=== PATIENT | male | born 1960 | race Caucasian/White ===

== ENCOUNTER 2017-07-30 13:53 | Emergency (ER) | payer OTHER ==
[~2017-07-30] VITALS: Ht 175.3 cm; Wt 74.8 kg
[~2017-07-30 13:53] MED LIST: IBUPROFEN400 MG PO; ZOFRAN ODT4 MG SL
== END 2017-07-30 14:10 | disposition home or self-care (01) ==
LOC: ED 13:53
DX: R23.4 Changes in skin texture (principal); R21 Rash and other nonspecific skin eruption

== ENCOUNTER 2017-10-15 00:19 | Emergency (ER) | payer OTHER ==
[~2017-10-15] VITALS: Ht 175.3 cm; Wt 74.8 kg
[2017-10-15] MEDS ORDERED: BACTRIM DS TAB1 EACH PO (00:49)
== END 2017-10-15 00:56 | disposition home or self-care (01) ==
LOC: ED 00:19
DX: L30.3 Infective dermatitis (principal); Z88.0 Allergy status to penicillin
CPT/HCPCS: 99283

== ENCOUNTER 2018-08-07 12:09 | Observation (INO) | payer OTHER ==
[~2018-08-07] VITALS: Ht 177.8 cm; Wt 76.2 kg
--- OUTSIDE RECORDS SUMMARY | ~2018-08-07 | XMS | Encounter Summary ---
Demographics + + + | Address | [address] | | | [place] [address] | + + + | Home Phone | | + + + | Preferred Language | Unknown | + + + | Marital Status | | + + + | Scientology Affiliation | 1013 | + + + | Race | Unknown | + + + | Ethnic Group | Unknown | + + + Author + + + | Author | [facility] | | | and [place] | + + + | Organization | [facility] | | | and [place] | + + + | Address | Unknown | + + + | Phone | Unavailable | + + + Support + + +---------+ + | Name | Relationship | Address | Phone | + + +---------+ + | Lauren Chappell | ECON | Unknown | | + + +---------+ + Care Team Providers + +------+ + | Care Qualitative Executive Researcher Name | Role | Phone | + +------+ + | Cassandra Salamanca MD | PCP | | + +------+ + Reason for Visit Auth/Cert +--------+--------+ + + + + | Status | Reason | Specialty | Diagnoses / | Referred By | Referred To | | | | | Procedures | Contact | Contact | +--------+--------+ + + + + | | | | Diagnoses | | | | | | | | | | | | | | Decompensate | | | | | | | d HCV | | | | | | | cirrhosis | | | | | | | (HCC) | | | | | | | (B19.20, | | | | | | | K74.69), | | | | | | | Methamphetam | | | | | | | ine abuse, | | | | | | | episodic | | | | | | | (HCC) | | | | | | | (F15.10), | | | | | | | Secondary | | | | | | | esophageal | | | | | | | varices with | | | | | | | bleeding | | | | | | | (HCC) | | | | | | | (I85.11), | | | | | | | Hepatic | | | | | | | cirrhosis, | | | | | | | unspecified | | | | | | | hepatic | | | | | | | cirrhosis | | | | | | | type, | | | | | | | unspecified | | | | | | | whether | | | | | | | ascites | | | | | | | present | | | | | | | (HCC) | | | | | | | (K74.60) | | | | | | | Cannabis | | | | | | | dependant | | | | | | | (F12.20) | | | | | | | Procedures | | | | | | | [place] | | | | | | | COLONOSCOPY | | | | | | | FLX DX | | | | | | | W/COLLJ SPEC | | | | | | | WHEN PFRMD | | | | | | | [place] | | | | | | | COLONOSCOPY | | | | | | | W/BIOPSY | | | | | | | SINGLE/MULTI | | | | | | | PLE AK | | | | | | | COLSC FLX | | | | | | | W/RMVL OF | | | | | | | TUMOR POLYP | | | | | | | LESION SNARE | | | | | | | TQ AK | | | | | | | ESOPHAGOGAST | | | | | | | RODUODENOSCO | | | | | | | PY TRANSORAL | | | | | | | DIAGNOSTIC | | | | | | | AK EGD | | | | | | | TRANSORAL | | | | | | | BIOPSY | | | | | | | SINGLE/MULTI | | | | | | | PLE AK | | | | | | | ANESTHESIA | | | | | | | COMBINED | | | | | | | UPPER&LOWER | | | | | | | GI | | | | | | | ENDOSCOPIC | | | | | | | PX AK EGD | | | | | | | BAND | | | | | | | LIGATION | | | | | | | ESOPHGEAL/GA | | | | | | | STRIC | | | | | | | VARICES EGD | | | | | | | | | | | | | | COLONOSCOPY | | | +--------+--------+ + + + + Encounter Details +--------+ + + + + | Date | Type | Department | Care Team | Description | +--------+ + + + + | 06/13/ | Hospital | [facility] | Иван [place] | Special screening | | 2019 | Encounter | [facility] | MD Agustin [address] | for malignant | | | | [address] | [address] [place] | neoplasms, colon; | | | | [place], [place] | [place] [address] | Secondary esophageal | | | | [address] | [phone] | varices with | | | | [phone] | | bleeding (HCC); | | | | | | Hematemesis without | | | | | | nausea | +--------+ + + + + Social History + +-------+ +--------+ + | Tobacco Use | Types | Packs/Day | Years | Date | | | | | Used | | + +-------+ +--------+ + | Former Smoker | | 1 | | Started: 04/06/2018 | + +-------+ +--------+ + + +---+---+---+ | Smokeless Tobacco: | | | | | Never Used | | | | + +---+---+---+ + + +---------+ + | Alcohol Use | Drinks/We | oz/Week | Comments | | | ek | | | + + +---------+ + | No | | | | + + +---------+ + + + + | Sex Assigned at | Date Recorded | | | | + + + | Not on file | | + + + as of this encounter Last Filed Vital Signs + + + + | Vital Sign | Reading | Time Taken | + + + + | Blood Pressure | 138/90 | 06/13/2018943 PST | + + + + | Pulse | 74 | 06/13/2018943 PST | + + + + | Temperature | 36.2 C (97.2 F) | 06/13/2018922 PST | + + + + | Respiratory Rate | 16 | 06/13/2018922 PST | + + + + | Oxygen Saturation | 100% | 06/13/2018943 PST | + + + + | Inhaled Oxygen | - | - | | Concentration | | | + + + + | Weight | 63.6 kg (140 lb 3.4 | 06/13/2018751 PST | | | oz) | | + + + + | Height | 177.8 cm (5' 10") | 06/13/2018 0752 PST | + + + + | Body Mass Index | 20.12 | 06/13/2018 0752 PST | + + + + in this encounter Discharge Instructions Corina Gibson RN - 06/13/2018 Soft Diet Your healthcare provider has prescribed a soft diet (also called gastrointestinal soft diet ). This means eating foods that are soft, low in fiber, and easy to digest. This diet is for people with digestive problems. A soft diet provides foods that are easy to chew and swallo w. Foods should be bite-size and very soft or moist. Follow your healthcare provider s [facility] instructions about what foods and drinks you may have. The general guidelines below ca n help you get started on this diet. Beverages OK: Milk, tea, coffee, fruit juices, carbonated beverages, nutrition shakes, and drinks (No te: Thin liquids may be hard to swallow. They may need to be thickened.) Avoid: None, unless they need to be thickened Breads and crackers OK: Refined white, wheat, or seedless rye bread; genia or soda crackers that have been shelby stened; plain rolls or bagels; very soft tortillas Avoid: Whole-grain breads, rolls, or bagels with nuts, raisins, or seeds; crackers, crouton s, taco shells Cereals and grains OK: Cooked cereals, plain dry cereals that have been moistened, plain macaroni, spaghetti, noodles, rice Avoid: Whole-grain cereals and granola, or cereals containing bran, raisins, seeds or nuts; coconut; brown or wild rice Desserts and sweets OK: Moist cake; soft fruit pie with bottom crust only; soft cookies moistened in milk or ot her liquid; gelatin, custard, pudding, plain ice cream, plain sherbet, sugar, honey, clear j toney Avoid: Pastries, desserts, andice cream that have nuts, coconut, seeds, or dried fruit; p opcorn; chips of any kind including potato chips and tortilla chips; jam, marmalade Eggs and cheese OK: Poached, soft boiled, or scrambled eggs; cottage cheese, ricotta cheese, cream cheese, cheese sauces, or cheese melted in other dishes Avoid: O'Brien fried eggs, cheese slices and cubes Fruits OK: Avocado, banana, baked peeled apple, applesauce, peeled ripe peaches or pears, canned f ruit (apricots, cherries, peaches, pears), melons Avoid: Raw apple, dried fruits, coconut, pineapple, grapes, fruit kassidy, fruit snacks Meat and fish OK: All fresh meat, poultry, or fish that is cookeduntil tender Avoid: Meat, fish, or poultry that is fried; tough or stringy meat including sanders, sausage , bratwurst, jerky, corned beef Other protein foods OK: Tofu, baked beans, smooth peanut butter or other nut or seed butters Avoid: Deep-fried tofu; crunchy peanut or other nut or seed butters; nuts or seeds that are whole or chopped Soups OK: All soups, but they may need to be thickened. Thin liquid may be too hard to swallow. Avoid: Soups made with stringy meat pieces or chunky vegetables Vegetables OK: Peeled and well-cooked potatoes or sweet potatoes; fresh, cooked, canned, or frozen veg etables without seeds, skin, or coarse fiber Avoid: Raw vegetables, deep-fried vegetables (such as tempura), and corn Date Last Reviewed: 12/21/201519997399-[address] [employer] [place] [address]. All righ ts reserved. This information is not intended as a substitute for professional medical care. Always follow your healthcare professional's instructions. in this encounter Medications at Time of Discharge + + +-------+---------+--------+ + | Medication | Sig. | Disp. | Refills | Start | End Date | | | | | | Date | | + + +-------+---------+--------+ + | furosemide (LASIX) | Take 40 mg by mouth | | | | | | 40 mg tablet | 2 times daily. | | | | | + + +-------+---------+--------+ + | lactulose | Take 20 g by mouth 3 | | | | | | (CONSTULOSE) 10 g/15 | times daily. | | | | | | mL solution | | | | | | + + +-------+---------+--------+ + | potassium chloride | Take 20 mEq by mouth | | | | | | (KLOR-CON M20) 20 | Daily. | | | | | | mEq ER tablet | | | | | | + + +-------+---------+--------+ + | propranolol | propranolol 10 mg | | | | | | (INDERAL) 10 mg | tablet | | | | | | tablet | | | | | | + + +-------+---------+--------+ + | spironolactone | Take 100 mg by mouth | | | | | | (ALDACTONE) 100 MG | 2 times daily. | | | | | | tablet | | | | | | + + +-------+---------+--------+ + as of this encounter Plan of Treatment Not on fileas of this encounter Procedures + +--------+ + + + | Procedure Name | Priori | Date/Time | Associated Diagnosis | Comments | | | ty | | | | + +--------+ + + + | COLONOSCOPY | | 06/13/2018 | Decompensated HCV | | | | | 0910 PST | cirrhosis (HCC) | | | | | | (B19.20, K74.69), | | | | | | 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, episodic | | | | | | (HCC) (F15.10), | | | | | | Secondary esophageal | | | | | | varices with | | | | | | bleeding (HCC) | | | | | | (I85.11), Hepatic | | | | | | cirrhosis, | | | | | | unspecified hepatic | | | | | | cirrhosis type, | | | | | | unspecified whether | | | | | | ascites present | | | | | | (HCC) | | + +--------+ + + + | EGD | | 06/13/2018 | Decompensated HCV | | | | | 0910 PST | cirrhosis (HCC) | | | | | | (B19.20, K74.69), | | | | | | 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, episodic | | | | | | (HCC) (F15.10), | | | | | | Secondary esophageal | | | | | | varices with | | | | | | bleeding (HCC) | | | | | | (I85.11), Hepatic | | | | | | cirrhosis, | | | | | | unspecified hepatic | | | | | | cirrhosis type, | | | | | | unspecified whether | | | | | | ascites present | | | | | | (HCC) | | + +--------+ + + + | EGD | Routin | 06/13/2018 | | Results for this | | | e | 0809 PST | | procedure are in the | | | | | | results section. | + +--------+ + + + | COLONOSCOPY | Routin | 06/13/2018 | | Results for this | | | e | 0806 PST | | procedure are in the | | | | | | results section. | + +--------+ + + + in this encounter Results EGD (06/13/2018 0809) + + ---+ | Narrative | Performed At | + + ---+ | | [facility] | | GastroenterologyPatient Name: Delroy ChappellProshani Date: | [facility] | | 06/13/2018 8:09 AMMRN: [id number] #: [id number] of : | | | 1960Admit Type: AmbulatoryAge: 57Room: [facility] 02Gender: MaleNote | | | Status: FinalizedAttending MD: ИВАН WALLS , | | | MDProcedure: Upper GI | | | endoscopyIndications: Recent gastrointestinal bleeding, | | | Esophageal varices, Follow-up of | | | esophageal varices, Reflux esophagitis, | | | Follow-up of reflux | | | esophagitisProviders: ИВАН [place]ALLS MD, Ange | | | Juhi Salas RN, Kaila | | | Hernan, Hr Specialist, Carmine Rodriguez MD | | | (Anesthesia Staff)Referring | | | MD: Cassandra Salamanca (Referring MD), Bailee Fernandes, | | | SHANNAN (Referring | | | MD)Medicines: Monitored Anesthesia | | | CareComplications: No immediate | | | complications.Procedure: Pre-Anesthesia Assessment: - | | | Prior to the procedure, a History and Physical was performed, and | | | patient medications and allergies were reviewed. The patient | | | is competent. The risks and benefits of the procedure and the | | | sedation options and risks were discussed with the patient. | | | All questions were answered and informed consent was | | | obtained. Patient identification and proposed procedure were | | | verified by the physician, the nurse and the anesthesiologist | | | in the pre-procedure area in the procedure room. Mental | | | Status Examination: alert and oriented. Airway Examination: Mallampati | | | Class II (the uvula but not tonsillar pillars visualized). | | | Respiratory Examination: clear to auscultation. CV | | | Examination: normal. Prophylactic Antibiotics: The patient | | | does not require prophylactic antibiotics. Prior | | | Anticoagulants: The patient has taken no previous anticoagulant or | | | antiplatelet agents. ASA Grade Assessment: III - A patient | | | with severe systemic disease. After reviewing the risks and | | | benefits, the patient was deemed in satisfactory condition to | | | undergo the procedure. The anesthesia plan was to use | | | monitored anesthesia care (MAC). Immediately prior to | | | administration of medications, the patient was re-assessed for | | | adequacy to receive sedatives. The heart rate, respiratory | | | rate, oxygen saturations, blood pressure, adequacy of | | | pulmonary ventilation, and response to care were monitored | | | throughout the procedure. The physical status of the patient | | | was re-assessed after the procedure. After obtaining informed | | | consent, the endoscope was passed under direct vision. | | | Throughout the procedure, the patient's blood pressure, pulse, | | | and oxygen saturations were monitored continuously. The | | | Endoscope was introduced through the mouth, and advanced to | | | the second part of duodenum. The upper GI endoscopy was | | | accomplished without difficulty. The patient tolerated the | | | procedure well.Findings: The upper third of the esophagus and | | | middle third of the esophagus were normal. Grade II, | | | large (> 5 mm) varices were found in the lower third of the | | | esophagus. They were large in size. Four bands were successfully | | | placed with complete eradication, resulting in deflation of | | | varices. There was no bleeding at the end of the | | | maneuver. The Z-line was irregular and was found 38 cm from | | | the incisors. The previously seen esophagitis has resolved. I | | | suspected that there is Davis's esophagus, 2 tongues | | | measuring 1cm in length, but biopsies are contraindicated. | | | The area of davis's was included in the bands. Mild portal | | | hypertensive gastropathy was found in the entire examined | | | stomach. The cardia and gastric fundus were normal on | | | retroflexion. There is no endoscopic evidence of varices in | | | the entire examined stomach. The duodenal bulb and | | | second portion of the duodenum were normal.Impression: - | | | Normal upper third of esophagus and middle third of esophagus. | | | - Grade II and large (> 5 mm) esophageal varices. Completely | | | eradicated. Banded x4. Banded was indicated due to large | | | variceal size and history of an upper GI bleed. - | | | Z-line irregular, 38 cm from the incisors. Suspect short segment | | | Davis's esophagus, biopsies contraindicated. - | | | Portal hypertensive gastropathy. - Normal duodenal bulb and | | | second portion of the duodenum. - No specimens | | | collected.Recommendation: - The patient will be observed | | | post-procedure, until all discharge criteria are met. | | | - Full liquid diet today, then advance as tolerated to mechanical | | | soft diet for 3 days. - Use Prilosec (omeprazole) 20 | | | mg PO BID for 4 weeks. - Use Viscous Lidocaine (GI cocktail) | | | at 2% 10 mL PO q 6 hrs PRN for post banding pain. - | | | Repeat upper endoscopy in 3 weeks to evaluate the response to | | | therapy. - The findings and recommendations were discussed | | | with the patient. - See the other procedure note for | | | documentation of additional recommendations.ИВАН TOSCANO | | | MD TITI06/13/2018 9:21:35 AMThis report has been signed | | | electronically.Number of Addenda: 0Note Initiated On: 06/13/2018 8:09 | | | AMTotal Procedure Duration: 0 hours 19 minutes 40 seconds Scope In: | | | 8:31:40 AMScope Out: 8:51:20 AM [facility] | | | [place], [address] [place] [id number] | | | - See the other procedure note for documentation of additional | | | recommendations. | | |ИВАН WALLS MD | | |06/13/2018 9:21:35 AM | | |This report has been signed electronically. | | |Number of Addenda: 0 | | |Note Initiated On: 06/13/2018 8:09 AM | | |Total Procedure Duration: 0 hours 19 minutes 40 seconds | | |Scope In: 8:31:40 AM | | |Scope Out: 8:51:20 AM | | | [facility], [address] [place] [address] | | | [address] | | + + ---+ + +---------+ + + | Performing | Address | City/State/Zipcode | Phone Number | | Organization | | | | + +---------+ + + | [facility] | | | | + +---------+ + + COLONOSCOPY (06/13/2018805) + + ---+ | Narrative | Performed At | + + ---+ | | [facility] | | GastroenterologyPatient Name: Delroy ChappellProshani Date: | [facility] | | 06/13/2018 8:06 AMMRN: [id number] #: [id number] of : | | | 1960Admit Type: AmbulatoryAge: 57Room: [facility] 02Gender: MaleNote | | | Status: FinalizedAttending MD: ИВАН WALLS , | | | MDProcedure: ColonoscopyIndications: | | | Screening for colorectal malignant neoplasmProviders: | | | ИВАН WALLS MD, Ange Salas RN, | | | Kaila Becerra, Hr Specialist, | | | Carmine Rodriguez MD | | | (Anesthesia Staff)Referring MD: Cassandra Salamanca | | | (Referring MD), SHANNAN Daly | | | (Referring | | | MD)Medicines: Monitored Anesthesia | | | CareComplications: No immediate | | | complications.Procedure: Pre-Anesthesia Assessment: - | | | Prior to the procedure, a History and Physical was performed, and | | | patient medications and allergies were reviewed. The patient | | | is competent. The risks and benefits of the procedure and the | | | sedation options and risks were discussed with the patient. | | | All questions were answered and informed consent was | | | obtained. Patient identification and proposed procedure were | | | verified by the physician, the nurse and the anesthesiologist | | | in the pre-procedure area in the procedure room. Mental | | | Status Examination: alert and oriented. Airway Examination: Mallampati | | | Class II (the uvula but not tonsillar pillars visualized). | | | Respiratory Examination: clear to auscultation. CV | | | Examination: normal. Prophylactic Antibiotics: The patient | | | does not require prophylactic antibiotics. Prior | | | Anticoagulants: The patient has taken no previous anticoagulant or | | | antiplatelet agents. ASA Grade Assessment: III - A patient | | | with severe systemic disease. After reviewing the risks and | | | benefits, the patient was deemed in satisfactory condition to | | | undergo the procedure. The anesthesia plan was to use | | | monitored anesthesia care (MAC). Immediately prior to | | | administration of medications, the patient was re-assessed for | | | adequacy to receive sedatives. The heart rate, respiratory | | | rate, oxygen saturations, blood pressure, adequacy of | | | pulmonary ventilation, and response to care were monitored | | | throughout the procedure. The physical status of the patient | | | was re-assessed after the procedure. After I obtained informed | | | consent, the scope was passed under direct vision. | | | Throughout the procedure, the patient's blood pressure, pulse, | | | and oxygen saturations were monitored continuously. The | | | Colonoscope was introduced through the anus and advanced to | | | the cecum, identified by appendiceal orifice and ileocecal | | | valve. The colonoscopy was performed without difficulty. The | | | patient tolerated the procedure well. The quality of the | | | bowel preparation was evaluated using the BBPS ([place] Bowel | | | Preparation Scale) with scores of: Right Colon = 2 (minor amount | | | of residual staining, small fragments of stool and/or opaque | | | liquid, but mucosa seen well), Transverse Colon = 2 (minor | | | amount of residual staining, small fragments of stool and/or | | | opaque liquid, but mucosa seen well) and Left Colon = 2 | | | (minor amount of residual staining, small fragments of stool | | | and/or opaque liquid, but mucosa seen well). The total BBPS | | | score equals 6. The quality of the bowel preparation was | | | good.Findings: The perianal and digital rectal examinations | | | were normal. Moderately congested mucosa was found in the | | | entire colon. Likely due to portal hypertension. The | | | exam was otherwise without abnormality. The retroflexed view | | | of the distal rectum and anal verge was normal and showed no | | | anal or rectal abnormalities.Impression: - Congested mucosa in | | | the entire examined colon, likely secondary to portal | | | hypertension. - The examination was otherwise normal. | | | - The distal rectum and anal verge are normal on retroflexion | | | view. - No specimens collected.Recommendation: - The | | | patient will be observed post-procedure, until all discharge | | | criteria are met. - See the other procedure note for | | | documentation of additional recommendations. - Repeat | | | colonoscopy in 10 years for screening purposes.ИВАН WALLS | | | 06/13/2018 9:25:11 AMThis report has been signed | | | electronically.Number of Addenda: 0Note Initiated On: 06/13/2018 8:06 | | | AMScope Withdrawal Time: 0 hours 12 minutes 23 seconds Total Procedure | | | Duration: 0 hours 19 minutes 27 seconds Scope In: 8:53:24 AMScope | | | Out: 9:12:[address] [facility], [address] | | [place] [address] | | |ИВАН WALLS MD | | |06/13/2018 9:25:11 AM | | |This report has been signed electronically. | | |Number of Addenda: 0 | | |Note Initiated On: 06/13/2018 8:06 AM | | |Scope Withdrawal Time: 0 hours 12 minutes 23 seconds | | |Total Procedure Duration: 0 hours 19 minutes 27 seconds | | |Scope In: 8:53:24 AM | | |Scope Out: 9:12:51 AM | | | 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, 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), Methamphetamine abuse, episodic | | (HCC) (F15.10), Secondary esophageal varices with bleeding (HCC) (I85.11), Hepatic | | cirrhosis, unspecified hepatic cirrhosis type, unspecified whether ascites present (HCC) | + + | (K74.60) Cannabis dependant (F12.20) | + + Administered Medications + +--------+---------+------+------+------+ | Medication Order | MAR | Action | Dose | Rate | Site | | | Action | Date | | | | + +--------+---------+------+------+------+ + +---+ | albuterol 2.5 mg/3 mL nebulizer | | | solution 2.5 mg 2.5 mg, | | | Nebulization, ONCE PRN, Wheezing, | | | Starting Mon06/13/18 at 0936, | | | For 1 dose, Notify anesthesia if | | | patient is wheezing and does not | | | have a history of asthma or COPD | | | or current smoking. | | + +---+ | | | + +---+ | aluminum & magnesium | | | hydroxide-simethicone (MAALOX | | | PLUS REGULAR STRENGTH) 200-200-20 | | | mg/5 mL suspension 30 mL 30 mL, | | | Oral, ONCE PRN, Indigestion, | | | Pain, Starting Mon06/13/18 at | | | 0936, For 1 dose, Mix lidocaine | | | and Maalox. Shake well. | | + +---+ | | | + +---+ + +---------+ +---+-------+---+ | lactated ringers (LR) infusion | New Bag | | | 100 | | | at 100 mL/hr, Intravenous, | | 9 8:23 | | mL/hr | | | CONTINUOUS, Starting 06/13/18 | | PST | | | | | at 0845, Pre-op | | | | | | + +---------+ +---+-------+---+ + +---+ | | | + +---+ | lidocaine (XYLOCAINE) 2% | | | viscous solution 10 mL 10 mL, | | | Oral, ONCE PRN, Pain, Starting | | | 06/13/18 at 0936, For 1 dose, | | | Mix lidocaine and MAALOX. Shake | | | well. | | + +---+ | | | + +---+ + +-------+ +------+---+---+ | ondansetron (ZOFRAN) injection | Given | | 4 mg | | | | 4 mg 4 mg, Intravenous, ONCE | | 9 9:39 | | | | | PRN, Nausea, Starting 06/13/18 | | PST | | | | | at 0936, For 1 dose, | | | | | | | Recovery/Phase I | | | | | | + +-------+ +------+---+---+ +---+---+ | | | +---+---+ in this encounter
--- OUTSIDE RECORDS SUMMARY | ~2018-08-07 | XMS | Encounter Summary ---
Demographics + + + | Address | [address] | | | [place] [address] | + + + | Home Phone | | + + + | Preferred Language | Unknown | + + + | Marital Status | | + + + | Baptism Affiliation | 1013 | + + + | Race | Unknown | + + + | Ethnic Group | Unknown | + + + Author + + + | Author | [facility] | | | and [place] | + + + | Organization | [facility] | | | and [place] | [...] Team Providers + +------+ + | Care Java Websphere Developer Name | Role | Phone | + +------+ + | Cassandra Salamanca MD | PCP | | + +------+ + Encounter Details +--------+ + + + + | Date | Type | Department | Care Team | Description | +--------+ + + + + | 06/05/ | Episode | [facility] | Leticia Ngo | | | 2019 | Changes | GASTROENTEROLOGY | Lisset RN | | | | | [address] [place] | | | | | | [address] [place] | | | | | | [address] | | | | | | [phone] | | | +--------+ + + + [...] + + + as of this encounter Plan of Treatment Not on fileas of this encounter Visit Diagnoses Not on filein this encounter"
--- OUTSIDE RECORDS SUMMARY | ~2018-08-07 | XMS | Encounter Summary ---
Demographics + + + | Address | [address] | | | [place] [address] | + + + | Home Phone | | + + + | Preferred Language | Unknown | + + + | Marital Status | | + + + | Hindu Affiliation | 1013 | + + + | Race | Unknown | + + + | Ethnic Group | Unknown | + + + Author + + + | Author | [facility] | | | and [place] | + + + | Organization | [facility] | | | and [place] | [...] Team Providers + +------+ + | Care Artists' Model Name | Role | Phone | + +------+ + | Ricardo Zhou DO | PCP | | + +------+ + Encounter Details +--------+ + + + + | Date | Type | Department | Care Team | Description | +--------+ + + + + | 05/24/ | Abstract | [facility] | [place], | | | 2018 | | GASTROENTEROLOGY | MD Chrissy [address] | | | | | [address] [facility] | Carmen Garcia | | | | | [address] [place] [place] | [place] [address] | | | | | [address] | | | | | | [phone] | | | +--------+ + + + + Social History + +-------+ +--------+ + | Tobacco Use | Types | Packs/Day | Years | Date | | | | | Used | | + +-------+ +--------+ + | Current Every Day | | 1 | | Started: 05/22/1975 | | Smoker | | | | | + +-------+ +--------+ + + +---+---+---+ [...] | + +--------+ + + + | HIV 1 AND HIV 2 AG | Routin | 04/30/2018 | | Results for this | | AND AB CONFIRMATION, | e | 0000 PST | | procedure are in the | | SERUM | | | | results section. | + +--------+ + + + | EXTERNAL LAB: BUN | Routin | 04/30/2018 | | Results for this | | | e | 0000 PST | | procedure are in the | | | | | | results section. | + +--------+ + + + | EXTERNAL LAB: | Routin | 04/30/2018 | | Results for this | | GLUCOSE | e | 0000 PST | | procedure are in the | | | | | | results section. | + +--------+ + + + | EXTERNAL LAB: PSA | Routin | 04/30/2018 | | Results for this | | | e | 0000 PST | | procedure are in the | | | | | | results section. | + +--------+ + + + | EXTERNAL LAB: ALT | Routin | 04/30/2018 | | Results for this | | | e | 0000 PST | | procedure are in the | | | | | | results section. | + +--------+ + + + | EXTERNAL LAB: AST | Routin | 04/30/2018 | | Results for this | | | e | 0000 PST | | procedure are in the | | | | | | results section. | + +--------+ + + + | EXTERNAL LAB: | Routin | 04/30/2018 | | Results for this | | ALKALINE PHOSPHATASE | e | 0000 PST | | procedure are in the | | | | | | results section. | + +--------+ + + + | EXTERNAL LAB: | Routin | 04/30/2018 | | Results for this | | BILIRUBIN, TOTAL | e | 0000 PST | | procedure are in the | | | | | | results section. | + +--------+ + + + | EXTERNAL LAB: | Routin | 04/30/2018 | | Results for this | | ALBUMIN | e | 0000 PST | | procedure are in the | | | | | | results section. | + +--------+ + + + | EXTERNAL LAB: | Routin | 04/30/2018 | | Results for this | | PROTEIN, TOTAL | e | 0000 PST | | procedure are in the | | | | | | results section. | + +--------+ + + + | EXTERNAL LAB: | Routin | 04/30/2018 | | Results for this | | CALCIUM | e | 0000 PST | | procedure are in the | | | | | | results section. | + +--------+ + + + | EXTERNAL LAB: CARBON | Routin | 04/30/2018 | | Results for this | | DIOXIDE | e | 0000 PST | | procedure are in the | | | | | | results section. | + +--------+ + + + | EXTERNAL LAB: | Routin | 04/30/2018 | | Results for this | | CHLORIDE | e | 0000 PST | | procedure are in the | | | | | | results section. | + +--------+ + + + | EXTERNAL LAB: | Routin | 04/30/2018 | | Results for this | | POTASSIUM | e | 0000 PST | | procedure are in the | | | | | | results section. | + +--------+ + + + | EXTERNAL LAB: SODIUM | Routin | 04/30/2018 | | Results for this | | | e | 0000 PST | | procedure are in the | | | | | | results section. | + +--------+ + + + | EXTERNAL LAB: | Routin | 04/30/2018 | | Results for this | | VITAMIN D, | e | 0000 PST | | procedure are in the | | 25-HYDROXY | | | | results section. | + +--------+ + + + | EXTERNAL LAB: | Routin | 04/30/2018 | | Results for this | | HEPATITIS C AB | e | 0000 PST | | procedure are in the | | | | | | results section. | + +--------+ + + + | EXTERNAL LAB: CBC | Routin | 04/30/2018 | | Results for this | | | e | 0000 PST | | procedure are in the | | | | | | results section. | + +--------+ + + + | EXTERNAL LAB: TSH | Routin | 04/30/2018 | | Results for this | | | e | 0000 PST | | procedure are in the | | | | | | results section. | + +--------+ + + + | EXTERNAL LAB: | Routin | 04/30/2018 | | Results for this | | TRIGLYCERIDES | e | 0000 PST | | procedure are in the | | | | | | results section. | + +--------+ + + + | EXTERNAL LAB: | Routin | 04/30/2018 | | Results for this | | CHOLESTEROL, HDL | e | 0000 PST | | procedure are in the | | | | | | results section. | + +--------+ + + + | EXTERNAL LAB: | Routin | 04/30/2018 | | Results for this | | CHOLESTEROL, TOTAL | e | 0000 PST | | procedure are in the | | | | | | results section. | + +--------+ + + + | EXTERNAL LAB: | Routin | 04/30/2018 | | Results for this | | CHOLESTEROL, LDL | e | 0000 PST | | procedure are in the | | | | | | results section. | + +--------+ + + + | EXTERNAL LAB: EGFR | Routin | 04/30/2018 | | Results for this | | | e | 0000 PST | | procedure are in the | | | | | | results section. | + +--------+ + + + | EXTERNAL LAB: | Routin | 04/30/2018 | | Results for this | | CREATININE | e | 0000 PST | | procedure are in the | | | | | | results section. | + +--------+ + + + | VITAMIN B12+FOLATE | Routin | 04/30/2018 | | Results for this | | | e | 0000 PST | | procedure are in the | | | | | | results section. | + +--------+ + + + | LIPID PANEL | Routin | 04/30/2018 | | Results for this | | | e | 0000 PST | | procedure are in the | | | | | | results section. | + +--------+ + + + | INSULIN, FASTING | Routin | 04/30/2018 | | Results for this | | | e | 0000 PST | | procedure are in the | | | | | | results section. | + +--------+ + + + | HEPATITIS C | Routin | 04/30/2018 | | Results for this | | GENOTYPING | e | 0000 PST | | procedure are in the | | | | | | results section. | + +--------+ + + + | HEPATITIS C | Routin | 04/30/2018 | | Results for this | | RNA,QUANTITATIVE,PCR | e | 0000 PST | | procedure are in the | | | | | | results section. | + +--------+ + + + | HEPATITIS B SURFACE | Routin | 04/30/2018 | | Results for this | | AB | e | 0000 PST | | procedure are in the | | | | | | results section. | + +--------+ + + + | HEPATITIS B SURFACE | Routin | 04/30/2018 | | Results for this | | AG | e | 0000 PST | | procedure are in the | | | | | | results section. | + +--------+ + + + | CBC WITH | Routin | 04/30/2018 | | Results for this | | DIFFERENTIAL | e | 0000 PST | | procedure are in the | | | | | | results section. | + +--------+ + + + | C-REACTIVE PROTEIN | Routin | 04/30/2018 | | Results for this | | | e | 0000 PST | | procedure are in the | | | | | | results section. | + +--------+ + + + | T4, FREE | Routin | 04/30/2018 | | Results for this | | | e | 0000 PST | | procedure are in the | | | | | | results section. | + +--------+ + + + | HEMOGLOBIN A1C | Routin | 04/30/2018 | | Results for this | | | e | 0000 PST | | procedure are in the | | | | | | results section. | + +--------+ + + + | COMPREHENSIVE | Routin | 04/30/2018 | | Results for this | | METABOLIC PANEL | e | 0000 PST | | procedure are in the | | | | | | results section. | + +--------+ + + + in this encounter Results CBC with Differential (04/30/2018) + +-------+ + + | Component | Value | Ref Range | Performed At | + +-------+ + + | MCH | 33.0 | 26.0 - 33.0 pg | | + +-------+ + + | MCHC | 34.0 | 31.0 - 37.0 % | | + +-------+ + + | Basophils % | 0.7 | 0 - 2 | | + +-------+ + + + + | Specimen | + + | Blood | + + HIV 1 and HIV 2 AG and AB Confirmation (04/30/2018) + + + + + | Component | Value | Ref Range | Performed At | + + + + + | HIV 1/2 Ag/Ab | Non-Reactive | | | + + + + + + + | Specimen | + + | Blood | + + Hepatitis C Genotyping (04/30/2018) + +-------+ + + | Component | Value | Ref Range | Performed At | + +-------+ + + | HCV Genotype | 2b | | | + +-------+ + + + + | Specimen | + + | Blood | + + Hepatitis C RNA, quantitative, PCR (04/30/2018) + +---------+ + + | Component | Value | Ref Range | Performed At | + +---------+ + + | HCV Quantitative | 783,869 | | | + +---------+ + + | HCV Quantitative Log | 5.89 | | | + +---------+ + + + + | Specimen | + + | Blood | + + External Lab: Hepatitis C Ab (04/30/2018) + + + + + | Component | Value | Ref Range | Performed At | + + + + + | HCV, External | Positive (A) | Non-Reactive | | + + + + + | Signal/Cutoff | 36.86 | | | + + + + + C-Reactive Protein (04/30/2018) + + + + + | Component | Value | Ref Range | Performed At | + + + + + | CRP | 15.90 (A) | 0 - 3 mg/L | | + + + + + + + | Specimen | + + | Blood | + + Insulin, Fasting (04/30/2018) + +-------+ + + | Component | Value | Ref Range | Performed At | + +-------+ + + | Insulin, Fasting | 10.2 | 2.6 - 24.9 uIU/mL | | + +-------+ + + + + | Specimen | + + | Blood | + + Vitamin B-12 and Folate (04/30/2018) + + + + + | Component | Value | Ref Range | Performed At | + + + + + | Vitamin B12 Bind | 1,327 (A) | 232 - 1,245 | | | Capacity | | | | + + + + + | Folate | 9.14 | 4.5 - 99,999 | | + + + + + + + | Specimen | + + | Blood | + + Hemoglobin A1C (04/30/2018) + +-------+ + + | Component | Value | Ref Range | Performed At | + +-------+ + + | Hgb A1 | <4.6 | | | + +-------+ + + + + | Specimen | + + | Blood | + + Comprehensive Metabolic Panel (04/30/2018) + +---------+ + + | Component | Value | Ref Range | Performed At | + +---------+ + + | Anion Gap | 14 | 7 - 21 mmol/L | | + +---------+ + + | BUN/Creatinine Ratio | 13.3 | 6 - 28.6 | | + +---------+ + + | Globulin | 4.4 (A) | 1.8 - 3.5 | | + +---------+ + + | Albumin/Globulin | 0.5 (A) | 1.1 - 2.4 | | | Ratio | | | | + +---------+ + + + + | Specimen | + + | Blood | + + T4, Free (04/30/2018) + +-------+ + + | Component | Value | Ref Range | Performed At | + +-------+ + + | FREE T4 (REF) | 1.29 | 0.71 - 1.7 | | + +-------+ + + + + | Specimen | + + | Blood | + + Lipid Panel (04/30/2018) + +-------+ + + | Component | Value | Ref Range | Performed At | + +-------+ + + | VLDL Cholesterol Kirk | 11 | 4 - 40 | | + +-------+ + + | Chol/HDL Ratio | 3.1 | 0.0 - 5.0 | | + +-------+ + + | Non HDL Chol. | 81 | 0 - 130 | | | (LDL+VLDL) | | | | + +-------+ + + + + | Specimen | + + | Blood | + + External Lab: STEVEN (04/30/2018) + +-------+ + + | Component | Value | Ref Range | Performed At | + +-------+ + + | BUN, External | 10 | 6 - 23 | EXTERNAL LAB | + +-------+ + + + +---------+ + + | Performing | Address | City/State/Zipcode | Phone Number | | Organization | | | | + +---------+ + + | EXTERNAL LAB | | | | + +---------+ + + External Lab: Glucose (04/30/2018) + +-------+ + + | Component | Value | Ref Range | Performed At | + +-------+ + + | Glucose, External | 87 | 70 - 100 | EXTERNAL LAB | + +-------+ + + + +---------+ + + | Performing | Address | City/State/Zipcode | Phone Number | | Organization | | | | + +---------+ + + | EXTERNAL LAB | | | | + +---------+ + + External Lab: PSA (04/30/2018) + +-------+ + + | Component | Value | Ref Range | Performed At | + +-------+ + + | PSA, External | 0.100 | 0 - 4 | EXTERNAL LAB | + +-------+ + + + +---------+ + + | Performing | Address | City/State/Zipcode | Phone Number | | Organization | | | | + +---------+ + + | EXTERNAL LAB | | | | + +---------+ + + External Lab: ALT (04/30/2018) + +--------+ + + | Component | Value | Ref Range | Performed At | + +--------+ + + | ALT, External | 94 (A) | 7 - 52 | EXTERNAL LAB | + +--------+ + + + +---------+ + + | Performing | Address | City/State/Zipcode | Phone Number | | Organization | | | | + +---------+ + + | EXTERNAL LAB | | | | + +---------+ + + External Lab: AST (04/30/2018) + +---------+ + + | Component | Value | Ref Range | Performed At | + +---------+ + + | AST, External | 128 (A) | 13 - 39 | EXTERNAL LAB | + +---------+ + + + +---------+ + + | Performing | Address | City/State/Zipcode | Phone Number | | Organization | | | | + +---------+ + + | EXTERNAL LAB | | | | + +---------+ + + External Lab: Alkaline Phosphatase (04/30/2018) + +---------+ + + | Component | Value | Ref Range | Performed At | + +---------+ + + | ALP, External | 231 (A) | 31 - 120 | EXTERNAL LAB | + +---------+ + + + +---------+ + + | Performing | Address | City/State/Zipcode | Phone Number | | Organization | | | | + +---------+ + + | EXTERNAL LAB | | | | + +---------+ + + External Lab: Bilirubin, Total (04/30/2018) + +---------+ + + | Component | Value | Ref Range | Performed At | + +---------+ + + | Bilirubin, Total, | 1.5 (A) | 0 - 1.2 | EXTERNAL LAB | | External | | | | + +---------+ + + + +---------+ + + | Performing | Address | City/State/Zipcode | Phone Number | | Organization | | | | + +---------+ + + | EXTERNAL LAB | | | | + +---------+ + + External Lab: Albumin (04/30/2018) + +---------+ + + | Component | Value | Ref Range | Performed At | + +---------+ + + | Albumin, External | 2.4 (A) | 3.5 - 5 | EXTERNAL LAB | + +---------+ + + + +---------+ + + | Performing | Address | City/State/Zipcode | Phone Number | | Organization | | | | + +---------+ + + | EXTERNAL LAB | | | | + +---------+ + + External Lab: Protein, Total (04/30/2018) + +-------+ + + | Component | Value | Ref Range | Performed At | + +-------+ + + | Protein, Total, | 6.8 | 6 - 8.3 | EXTERNAL LAB | | External | | | | + +-------+ + + + +---------+ + + | Performing | Address | City/State/Zipcode | Phone Number | | Organization | | | | + +---------+ + + | EXTERNAL LAB | | | | + +---------+ + + External Lab: Calcium (04/30/2018) + +---------+ + + | Component | Value | Ref Range | Performed At | + +---------+ + + | Calcium, External | 8.2 (A) | 8.5 - 10.3 | EXTERNAL LAB | + +---------+ + + + +---------+ + + | Performing | Address | City/State/Zipcode | Phone Number | | Organization | | | | + +---------+ + + | EXTERNAL LAB | | | | + +---------+ + + External Lab: Carbon Dioxide (04/30/2018) + +-------+ + + | Component | Value | Ref Range | Performed At | + +-------+ + + | Carbon Dioxide, | 25 | 19 - 31 | EXTERNAL LAB | | External | | | | + +-------+ + + + +---------+ + + | Performing | Address | City/State/Zipcode | Phone Number | | Organization | | | | + +---------+ + + | EXTERNAL LAB | | | | + +---------+ + + External Lab: Chloride (04/30/2018) + +-------+ + + | Component | Value | Ref Range | Performed At | + +-------+ + + | Chloride, External | 100 | 95 - 112 | EXTERNAL LAB | + +-------+ + + + +---------+ + + | Performing | Address | City/State/Zipcode | Phone Number | | Organization | | | | + +---------+ + + | EXTERNAL LAB | | | | + +---------+ + + External Lab: Potassium (04/30/2018) + +-------+ + + | Component | Value | Ref Range | Performed At | + +-------+ + + | Potassium, External | 4.3 | 3.6 - 5.1 | EXTERNAL LAB | + +-------+ + + + +---------+ + + | Performing | Address | City/State/Zipcode | Phone Number | | Organization | | | | + +---------+ + + | EXTERNAL LAB | | | | + +---------+ + + External Lab: Sodium (04/30/2018) + +-------+ + + | Component | Value | Ref Range | Performed At | + +-------+ + + | Sodium, External | 135 | 132 - 143 | EXTERNAL LAB | + +-------+ + + + +---------+ + + | Performing | Address | City/State/Zipcode | Phone Number | | Organization | | | | + +---------+ + + | EXTERNAL LAB | | | | + +---------+ + + External Lab: Vitamin D, 25-Hydroxy (04/30/2018) + +--------+ + + | Component | Value | Ref Range | Performed At | + +--------+ + + | Vitamin D, | 12 (A) | 30 - 100 | EXTERNAL LAB | | 25-Hydroxy, External | | | | + +--------+ + + + + | Specimen | + + | Blood | + + + +---------+ + + | Performing | Address | City/State/Zipcode | Phone Number | | Organization | | | | + +---------+ + + | EXTERNAL LAB | | | | + +---------+ + + External Lab: CBC (04/30/2018) + + + + + | Component | Value | Ref Range | Performed At | + + + + + | WBC, External | 4.3 (A) | 4.5 - 11 | EXTERNAL LAB | + + + + + | HGB, External | 12.8 (A) | 13.5 - 18 | EXTERNAL LAB | + + + + + | HCT, External | 38 (A) | 41 - 50 | EXTERNAL LAB | + + + + + | PLT, External | 146 | 140 - 440 | EXTERNAL LAB | + + + + + | Neutrophils %, | 56.1 | 39 - 80 | EXTERNAL LAB | | External | | | | + + + + + | Lymphocytes %, | 21.8 (A) | 24 - 44 | EXTERNAL LAB | | External | | | | + + + + + | Monocytes %, | 13.4 (A) | 0 - 12 | EXTERNAL LAB | | External | | | | + + + + + | Eosinophils %, | 8 (A) | 0 - 6 | EXTERNAL LAB | | External | | | | + + + + + | RBC, External | 3.86 (A) | 4.3 - 5.7 | EXTERNAL LAB | + + + + + | MCV, External | 98 | 81 - 99 | EXTERNAL LAB | + + + + + | RDW, External | 14.9 | 10.5 - 15 | EXTERNAL LAB | + + + + + + +---------+ + + | Performing | Address | City/State/Zipcode | Phone Number | | Organization | | | | + +---------+ + + | EXTERNAL LAB | | | | + +---------+ + + External Lab: TSH (04/30/2018) + + + + + | Component | Value | Ref Range | Performed At | + + + + + | TSH, External | 5.37 (A)Comment: 3rd | 0.27 - 4.2 | EXTERNAL LAB | | | generation | | | + + + + + + + | Specimen | + + | Blood | + + + +---------+ + + | Performing | Address | City/State/Zipcode | Phone Number | | Organization | | | | + +---------+ + + | EXTERNAL LAB | | | | + +---------+ + + External Lab: Triglycerides (04/30/2018) + +-------+ + + | Component | Value | Ref Range | Performed At | + +-------+ + + | Triglycerides, | 53 | 30 - 150 | EXTERNAL LAB | | External | | | | + +-------+ + + + + | Specimen | + + | Blood | + + + +---------+ + + | Performing | Address | City/State/Zipcode | Phone Number | | Organization | | | | + +---------+ + + | EXTERNAL LAB | | | | + +---------+ + + External Lab: Cholesterol, HDL (04/30/2018) + + + + + | Component | Value | Ref Range | Performed At | + + + + + | HDL Cholesterol, | 38.6 (A) | 40 - 99,999 mg/dl | EXTERNAL LAB | | External | | | | + + + + + + + | Specimen | + + | Blood | + + + +---------+ + + | Performing | Address | City/State/Zipcode | Phone Number | | Organization | | | | + +---------+ + + | EXTERNAL LAB | | | | + +---------+ + + External Lab: Cholesterol, Total (04/30/2018) + +-------+ + + | Component | Value | Ref Range | Performed At | + +-------+ + + | Cholesterol, Total, | 120 | 0 - 200 mg/dl | EXTERNAL LAB | | External | | | | + +-------+ + + + + | Specimen | + + | Blood | + + + +---------+ + + | Performing | Address | City/State/Zipcode | Phone Number | | Organization | | | | + +---------+ + + | EXTERNAL LAB | | | | + +---------+ + + External Lab: Cholesterol, LDL (04/30/2018) + +-------+ + + | Component | Value | Ref Range | Performed At | + +-------+ + + | LDL Cholesterol, | 71 | 0 - 100 | EXTERNAL LAB | | External | | | | + +-------+ + + + + | Specimen | + + | Blood | + + + +---------+ + + | Performing | Address | City/State/Zipcode | Phone Number | | Organization | | | | + +---------+ + + | EXTERNAL LAB | | | | + +---------+ + + External Lab: eGFR (04/30/2018) + +-------+ + + | Component | Value | Ref Range | Performed At | + +-------+ + + | eGFR, External | >60 | 60 - 99,999 | EXTERNAL LAB | + +-------+ + + + + | Specimen | + + | Blood | + + + +---------+ + + | Performing | Address | City/State/Zipcode | Phone Number | | Organization | | | | + +---------+ + + | EXTERNAL LAB | | | | + +---------+ + + External Lab: Creatinine (04/30/2018) + +-------+ + + | Component | Value | Ref Range | Performed At | + +-------+ + + | Creatinine, External | 0.75 | 0.7 - 1.33 | EXTERNAL LAB | + +-------+ + + + + | Specimen | + + | Blood | + + + +---------+ + + | Performing | Address | City/State/Zipcode | Phone Number | | Organization | | | | + +---------+ + + | EXTERNAL LAB | | | | + +---------+ + + Hepatitis B Surface Ab (04/30/2018) + + + + + | Component | Value | Ref Range | Performed At | + + + + + | HEP B SURFACE | Negative | | | | ANTIBODY | | | | + + + + + + + | Specimen | + + | Blood | + + Hepatitis B Surface Ag (04/30/2018) + + + + + | Component | Value | Ref Range | Performed At | + + + + + | Hepatitis B Surface | Negative | | | | Ag, External | | | | + + + + + + + | Specimen | + + | Blood | + + in this encounter Visit Diagnoses Not on filein this encounter"
--- OUTSIDE RECORDS SUMMARY | ~2018-08-07 | XMS | Encounter Summary ---
Demographics + + + | Address | [address] | | | [place] [address] | + + + | Home Phone | | + + + | Preferred Language | Unknown | + + + | Marital Status | | + + + | Pentecostal Affiliation | 1013 | + + + | Race | Unknown | + + + | Ethnic Group | Unknown | + + + Author + + + | Author | [facility] | | | and [place] | + + + | Organization | [facility] | | | and [place] [...] Team Providers + +------+ + | Care Breaking Machine Operator Name | Role | Phone | + [...] [place] | | | | | | [address] | | | | | | [phone] | | | +--------+ + + + [...]
--- OUTSIDE RECORDS SUMMARY | ~2018-08-07 | XMS | Clinical Summary ---
Demographics + + + | Address | [address] | | | [place] [address] | + + + | Home Phone | | + + + | Preferred Language | Unknown | + + + | Marital Status | | + + + | Advent Affiliation | 1013 | + + + | Race | Unknown | + + + | Ethnic Group | Unknown | + + + Author + + + | Author | [facility] [employer] | + + + | Organization | [facility] [employer] [facility] | + + + | Address | Unknown | + + + | Phone | Unavailable | + + + Support + + + + + | Name | Relationship | Address | Phone | + + + + + | Lauren Addison | ECON | [address] | | | | [place] | | | | | [address] | | + + + + + Care Team Providers + +------+ + | Care Toll Line Inspector Name | Role | Phone | + [...] + | COMMERCIAL OTHER | COMMER | [id number] | | | | | | CIAL | | | | | | | GENERI | | | | | | | C PLAN | | | | | + +--------+ +------+-------+ + | MEDICAID | [facility] | [id number] | | | [address] | | | [place] | | | | [place] | | | [place] | | | | [address] | | | [place] | | | | | + +--------+ [...] | [place] | | | [phone] | [address] | + +--------+ +--------+ + +
--- OUTSIDE RECORDS SUMMARY | ~2018-08-07 | XMS | Encounter Summary ---
Demographics + + + | Address | [address] | | | [place] [address] | + + + | Home Phone | | + + + | Preferred Language | Unknown | + + + | Marital Status | | + + + | Episcopalian Affiliation | 1013 | + + + | Race | Unknown | + + + | Ethnic Group | Unknown | + + + Author + + + | Author | [facility] | | | and [place] | + + + | Organization | [facility] | | [...] Team Providers + +------+ + | Care Dentures Lab Technician Name | Role | Phone | + +------+ + | Cassandra Salamanca MD | PCP | | + +------+ + Encounter Details +--------+ + + + + | Date | Type | Department | Care Team | Description | +--------+ + + + + | 06/12/ | Episode | [facility] [place] | Leticia Ngo | | | 2019 | Changes | GASTROENTEROLOGY | Lisset RN | | | | | [address] [place] | | | | | | [address] [place] | | | | | | [address] | | | | | | [phone] | | | +--------+ + + + [...]
--- OUTSIDE RECORDS SUMMARY | ~2018-08-07 | XMS | Encounter Summary ---
Demographics + + + | Address | [address] | | | [place] [address] | + + + | Home Phone | | + + + | Preferred Language | Unknown | + + + | Marital Status | | + + + | Voodoo Affiliation | 1013 | + + + | Race | Unknown | + + + | Ethnic Group | Unknown | + + + Author + + + | Author | [facility] | | | and [place] | + + + | Organization | [facility] | | | and [place] | [...] Team Providers + +------+ + | Care Straightener And Aligner Name | Role | Phone | + +------+ + | Cassandra Salamanca MD | PCP | | + +------+ + Reason for Visit +--------+ + | Reason | Comments | +--------+ + | Other | cirrhosis | +--------+ + Evaluate & Treat (Routine) +--------+--------+ + + + + | Status | Reason | Specialty | Diagnoses / | Referred By | Referred To | | | | | Procedures | Contact | Contact | +--------+--------+ + + + + | Closed | | Gastroenterol | Diagnoses | Walker, | Vin[place], | | | | ogy | Unspecified | Ricardo Cruz DO | Harley Mariee MD | | | | | cirrhosis | [address], | | | | | of liver | Barry Cora | [address] | | | | | (HCC) | [place], | [place], | | | | | Procedures | [place] [address] | [place] [address] | | | | | OFFICE VISIT | Phone: | Phone: | | | | | | [phone] | [phone] | | | | | | Fax: | Fax: | | | | | | [phone] | [phone] | +--------+--------+ + + + + Encounter Details +--------+---------+ + + + | Date | Type | Department | Care Team | Description | +--------+---------+ + + + | 05/29/ | Office | [facility] [place] | [facility], | Decompensated HCV | | 2019 | Visit | GASTROENTEROLOGY | SHANNAN Morocho [address] | cirrhosis (HCC) | | | | [address] [place] | [place], [address] | (Primary Dx); | | | | [address] [place], [place] | [place], [place] | Methamphetamine | | | | [address] | [address] | abuse, episodic | | | | [phone] | | (HCC); Secondary | | | | | | esophageal varices | | | | | | with bleeding (HCC); | | | | | | Hepatic cirrhosis, | | | | | | unspecified hepatic | | | | | | cirrhosis type, | | | | | | unspecified whether | | | | | | ascites present | | | | | | (HCC) | +--------+---------+ + + + Social History [...] + + + | Blood Pressure | 110/66 | 05/29/2018857 PST | + + + + | Pulse | 63 | 05/29/2018857 PST | + + + + | Temperature | 36.8 C (98.2 F) | 05/29/2018857 PST | + + + + | Respiratory Rate | - | - | + + + + | Oxygen Saturation | 98% | 05/29/2018857 PST | + + + + | Inhaled Oxygen | - | - | | Concentration | | | + + + + | Weight | 65.1 kg (143 lb 8.3 | 05/29/2018857 PST | | | oz) | | + + + + | Height | 179.1 cm (5' 10.5") | 05/29/2018 0858 PST | + + + + | Body Mass Index | 20.3 | 05/29/201858 PST | + + + + in this encounter Progress Notes Promise FernandesianSHANNAN kendrick - 05/29/2018 0900 PSTFormatting of this note may be different fro m the original. PATIENT NAME: Delroy Chappell : 1960: AGE: 57 y.o. REFERRED BY: Ricardo Zhou PRIMARY CARE: Cassandra Salamanca MD CHIEF COMPLAINT: Delroy Chappell is a 57 y.o. male referred by Ricardo Zhou for evaluation and treat ment of HCV. HISTORY OF PRESENT ILLNESS: He was initially diagnosed with HCV about 16 years ago. He states he had labs that showed e xposure to HCV. He reports that he did not follow up due to lack of symptoms. Likely cause o f infection of HCV is home tattoos or IV or intranasal drug use. Has never been treated for HCV in the past. Last drank alcohol: 2013 Last smoked marijuana: daily. Last used illegal drugs: about 3 months ago, prior to that it had been 6 months. He had bee n using methamphetamine. No known risk factors for NAFLD. There is family history of autoimmune diseases. Sister has been diagnosed with multiple scl erosis. Patient notes that about 2 months ago, he reports that he was disoriented and nauseated. He states that when he woke up that morning. He and had episode of hematemesis. He was seen at [facility] initially. He was then transferred to [facility]. Records indicate that he had diagnostic and therapeutic paracentesis and EGD completed at [facility]. Denies ascites, jaundice, hematemesis, peripheral edema, sleep changes, or confusion. He has completed substance abuse treatment about 4 times over the past 30 years. No Known Allergies Past Medical History: Diagnosis Date Abdominal pain Abnormal EKG Alcoholism (HCC) Ascites Chemical dependency (HCC) Chest pain Chronic hepatitis C (HCC) Cirrhosis of liver (HCC) Drug dependence, in remission (HCC) Dyspepsia Fatigue GERD (gastroesophageal reflux disease) Hearing loss of left ear Heart attack (HCC) Hepatic encephalopathy (HCC) Numbness of right hand Pruritus of skin Sleep disturbances Tobacco dependence syndrome Ulnar neuropathy right Visual disturbance Past Surgical History: Procedure Laterality Date no known surgeries UPPER GASTROINTESTINAL ENDOSCOPY 04/07/2018 Dr Jama in [facility] Family History Problem Relation Age of Onset Other (see comment) Mother Congenital deformity Emphysema Mother Alcohol abuse Father Diabetes Sister Diabetes Brother Social History Social History Marital status: Spouse name: N/A Number of children: N/A Years of education: N/A Occupational History Not on file. Social History Main Topics Smoking status: Former Smoker Packs/day: 1.00 Start date: 04/06/2018 Smokeless tobacco: Never Used Alcohol use No Drug use: No Comment: previous meth user 1 year, previous Marijuana user clean about 7 months Sexual activity: Not on file Other Topics Concern Not on file Social History Narrative No narrative on file Review of Systems Constitutional: Negative for diaphoresis, fatigue, fever and unexpected weight change. HENT: Negative for congestion, hearing loss, mouth sores, rhinorrhea and trouble swallowing . Eyes: Negative for redness and visual disturbance. Respiratory: Negative for cough, choking, chest tightness, shortness of breath and wheezing . Cardiovascular: Negative for chest pain, palpitations and leg swelling. Gastrointestinal: Negative for abdominal distention, abdominal pain, anal bleeding, blood i n stool, constipation, diarrhea, nausea, rectal pain and vomiting. Complains of hematemesis. Endocrine: Denies enlarged thyroid Genitourinary: Negative for dysuria, flank pain and frequency. Musculoskeletal: Negative for arthralgias, back pain and joint swelling. Skin: Negative for color change and rash. Neurological: Negative for seizures, syncope, weakness, numbness and headaches. Hematological: Does not bruise/bleed easily. Denies anemia or enlarged lymph glands. Psychiatric/Behavioral: Negative for dysphoric mood. The patient is not nervous/anxious. OBJECTIVE: PHYSICAL EXAM General: well developed, well nourished, in no acute distress, temporal wasting noted, Head: normocephalic and atraumatic Eyes: Sclera clear Mouth: MMM Lungs: Clear to auscultate bilaterally and throughout Heart: regular rate and rhythm Abdomen: Soft, non tender, distended, bowel tones positive times 4 quadrants, negative Ludwig's sign, negative rebound tenderness, no guarding, no hepatosplenomegaly palpated. Rectal: Will be done prior to procedure Msk: symmetrical with no deformity, with normal posture and gait, normal strength. Extremities: no clubbing, cyanosis, edema, or deformity noted Neurologic: no focal deficits, cranial nerves II-XII grossly intact mild asterixis Skin: intact without lesions or rashes.negative for spider angioma Psych: alert and cooperative; normal mood and affect; normal attention span and concentration, Abstract on 05/24/2018 Component Date Value Ref Range Status Hepatitis B Surface Ag, External 04/30/2018 Negative Final HEP B SURFACE ANTIBODY 04/30/2018 Negative Final Creatinine, External 04/30/2018 0.75 0.7 - 1.33 Final eGFR, External 04/30/2018 >60 60 - 99,999 Final LDL Cholesterol, External 04/30/2018 71 0 - 100 Final Cholesterol, Total, External 04/30/2018 120 0 - 200 mg/dl Final HDL Cholesterol, External 04/30/2018 38.6* 40 - 99,999 mg/dl Final Triglycerides, External 04/30/2018 53 30 - 150 Final TSH, External 04/30/2018 5.37* 0.27 - 4.2 Final 3rd generation WBC, External 04/30/2018 4.3* 4.5 - 11 Final HGB, External 04/30/2018 12.8* 13.5 - 18 Final HCT, External 04/30/2018 38* 41 - 50 Final PLT, External 04/30/2018 146 140 - 440 Final Neutrophils %, External 04/30/2018 56.1 39 - 80 Final Lymphocytes %, External 04/30/2018 21.8* 24 - 44 Final Monocytes %, External 04/30/2018 13.4* 0 - 12 Final Eosinophils %, External 04/30/2018 8* 0 - 6 Final RBC, External 04/30/2018 3.86* 4.3 - 5.7 Final MCV, External 04/30/2018 98 81 - 99 Final RDW, External 04/30/2018 14.9 10.5 - 15 Final Vitamin D, 25-Hydroxy, External 04/30/2018 12* 30 - 100 Final Sodium, External 04/30/2018 135 132 - 143 Final Potassium, External 04/30/2018 4.3 3.6 - 5.1 Final Chloride, External 04/30/2018 100 95 - 112 Final Carbon Dioxide, External 04/30/2018 25 19 - 31 Final Calcium, External 04/30/2018 8.2* 8.5 - 10.3 Final Protein, Total, External 04/30/2018 6.8 6 - 8.3 Final Albumin, External 04/30/2018 2.4* 3.5 - 5 Final Bilirubin, Total, External 04/30/2018 1.5* 0 - 1.2 Final ALP, External 04/30/2018 231* 31 - 120 Final AST, External 04/30/2018 128* 13 - 39 Final ALT, External 04/30/2018 94* 7 - 52 Final PSA, External 04/30/2018 0.100 0 - 4 Final Glucose, External 04/30/2018 87 70 - 100 Final BUN, External 04/30/2018 10 6 - 23 Final VLDL Cholesterol Kirk 04/30/2018 11 4 - 40 Final Chol/HDL Ratio 04/30/2018 3.1 0.0 - 5.0 Final Non HDL Chol. (LDL+VLDL) 04/30/2018 81 0 - 130 Final FREE T4 (REF) 04/30/2018 1.29 0.71 - 1.7 Final Anion Gap 04/30/2018 14 7 - 21 mmol/L Final BUN/Creatinine Ratio 04/30/2018 13.3 6 - 28.6 Final Globulin 04/30/2018 4.4* 1.8 - 3.5 Final Albumin/Globulin Ratio 04/30/2018 0.5* 1.1 - 2.4 Final Hgb A1 04/30/2018 <4.6 Final Vitamin B12 Bind Capacity 04/30/2018 1327* 232 - 1,245 Final Folate 04/30/2018 9.14 4.5 - 99,999 Final Insulin, Fasting 04/30/2018 10.2 2.6 - 24.9 uIU/mL Final CRP 04/30/2018 15.90* 0 - 3 mg/L Final HCV, External 04/30/2018 Positive* Non-Reactive Final Signal/Cutoff 04/30/2018 36.86 Final HCV Quantitative 04/30/2018 [id number] Final HCV Quantitative Log 04/30/2018 5.89 Final HCV Genotype 04/30/2018 2b Final HIV 1/2 Ag/Ab 04/30/2018 Non-Reactive Final MCH 04/30/2018 33.0 26.0 - 33.0 pg Final MCHC 04/30/2018 34.0 31.0 - 37.0 % Final Basophils % 04/30/2018 0.7 0 - 2 Final Abstract on 05/08/2018 Component Date Value Ref Range Status Creatinine, External 04/21/2018 0.78 0.7 - 1.33 Final eGFR, External 04/21/2018 >60 60 - 99,999 Final Sodium, External 04/21/2018 135 132 - 143 Final Potassium, External 04/21/2018 3.6 3.6 - 5.1 Final Chloride, External 04/21/2018 103 95 - 112 Final Carbon Dioxide, External 04/21/2018 26 19 - 31 Final Calcium, External 04/21/2018 8.2* 8.5 - 10.3 Final Protein, Total, External 04/21/2018 6.2 6 - 8.3 Final Albumin, External 04/21/2018 2.2* 3.5 - 5 Final Bilirubin, Total, External 04/21/2018 2* 0 - 1.2 Final ALP, External 04/21/2018 208* 31 - 120 Final AST, External 04/21/2018 109* 13 - 39 Final ALT, External 04/21/2018 86* 7 - 52 Final Glucose, External 04/21/2018 131* 70 - 100 Final BUN, External 04/21/2018 14 6 - 23 Final Anion Gap 04/21/2018 9 7 - 21 mmol/L Final BUN/Creatinine Ratio 04/21/2018 17.9 6 - 28.6 Final Globulin 04/21/2018 4* 1.8 - 3.5 Final Albumin/Globulin Ratio 04/21/2018 0.6* 1.1 - 2.4 Final Ammonia 04/20/2018 106* 11 - 35 Final Creatinine, External 04/19/2018 0.66* 0.7 - 1.33 Final eGFR, External 04/19/2018 >60 60 - 99,999 Final INR, External 04/19/2018 1.1 Final PT, External 04/19/2018 15.1 12.8 - 15.5 Final WBC, External 04/19/2018 5.6 4.5 - 11 Final HGB, External 04/19/2018 12.6* 13.5 - 18 Final HCT, External 04/19/2018 37* 41 - 50 Final PLT, External 04/19/2018 180 140 - 440 Final Neutrophils %, External 04/19/2018 73.3 39 - 80 Final Lymphocytes %, External 04/19/2018 14.4* 24 - 44 Final Monocytes %, External 04/19/2018 10.8 0 - 12 Final Eosinophils %, External 04/19/2018 1.2 0 - 6 Final RBC, External 04/19/2018 3.74* 4.3 - 5.7 Final MCV, External 04/19/2018 99 81 - 99 Final RDW, External 04/19/2018 15.3* 10.5 - 15 Final UA Blood, External 04/19/2018 Negative Final UA Glucose, External 04/19/2018 Normal Final UA Ketones, External 04/19/2018 Negative Final UA Ph, External 04/19/2018 8 5 - 9 Final UA Proteins, External 04/19/2018 Negative Final UA RBC, External 04/19/2018 0 0 - 4 Final UA Specific Logan, External 04/19/2018 1.024 1.005 - 1.03 Final UA Leukocyte Esterase, External 04/19/2018 Negative Final Sodium, External 04/19/2018 132 132 - 143 Final Potassium, External 04/19/2018 4.4 3.6 - 5.1 Final Chloride, External 04/19/2018 101 95 - 112 Final Carbon Dioxide, External 04/19/2018 24 19 - 31 Final Calcium, External 04/19/2018 8.6 8.5 - 10.3 Final Protein, Total, External 04/19/2018 7 6 - 8.3 Final Albumin, External 04/19/2018 2.5* 3.5 - 5 Final Bilirubin, Total, External 04/19/2018 2.2* 0 - 1.2 Final ALP, External 04/19/2018 255* 31 - 120 Final AST, External 04/19/2018 125* 13 - 39 Final ALT, External 04/19/2018 106* 7 - 52 Final Glucose, External 04/19/2018 107* 70 - 100 Final BUN, External 04/19/2018 15 6 - 23 Final Anion Gap 04/19/2018 11 7 - 21 mmol/L Final BUN/Creatinine Ratio 04/19/2018 22.7 6 - 28.6 Final Globulin 04/19/2018 4.5* 1.8 - 3.5 Final Albumin/Globulin Ratio 04/19/2018 0.6* 1.1 - 2.4 Final MCH 04/19/2018 34.0* 26.0 - 33.0 pg Final MCHC 04/19/2018 34.0 31.0 - 37.0 % Final Basophils % 04/19/2018 0.3 0 - 2 Final COLLECTION METHOD 1 04/19/2018 Clean Catch Final Color 04/19/2018 Yellow Final Clarity 04/19/2018 Clear Final Bilirubin, Urine 04/19/2018 Negative Negative Final Nitrite, Urine 04/19/2018 Negative Negative Final Urobilinogen, Ur 04/19/2018 >4 Final CASTS 04/19/2018 Negative Final WBC, UA 04/19/2018 0 0 - 4 Final Squamous epithelial, UA, POC 04/19/2018 1+ Final CRYSTAL UA 04/19/2018 Negative Final Bacteria, UA 04/19/2018 1+ Final Ammonia 04/19/2018 109* 11 - 35 Final UA Blood, External 04/05/2018 Negative Final UA Glucose, External 04/05/2018 Normal Final UA Ketones, External 04/05/2018 Trace Final UA Ph, External 04/05/2018 6 5 - 9 Final UA Proteins, External 04/05/2018 Negative Final UA RBC, External 04/05/2018 0 0 - 4 Final UA Specific Logan, External 04/05/2018 1.029 1.005 - 1.03 Final UA Leukocyte Esterase, External 04/05/2018 Negative Final COLLECTION METHOD 1 04/05/2018 Clean Catch Final Color 04/05/2018 Neelima Final Clarity 04/05/2018 Clear Final Bilirubin, Urine 04/05/2018 Positive* Negative Final Nitrite, Urine 04/05/2018 Negative Negative Final Urobilinogen, Ur 04/05/2018 >4 Final CASTS 04/05/2018 Negative Final WBC, UA 04/05/2018 2 0 - 4 Final Squamous epithelial, UA, POC 04/05/2018 1+ Final CRYSTAL UA 04/05/2018 Negative Final Bacteria, UA 04/05/2018 1+ Final EGD 04/07/2018: - LA Grade D esophagitis. - Grade II esophageal varices. - Medium-sized hiatal hernia. - Erythematous mucosa in the antrum. Biopsied. - Normal examined duodenum. Abdominal ultrasound 04/08/2018: 1.No clear evidence of acute cholecystitis. 2.The common bile duct is slightly dilated in appearance, slightly increased from prior study. 3.There is a large volume of ascites. ASSESSMENT: 1. Decompensated HCV cirrhosis (HCC) Alpha Fetoprotein, Tumor Marker CBC with Differential Comprehensive Metabolic Panel Protime INR Case request: Upper Endoscopy and Colonscopy; N/A 2. Methamphetamine abuse, episodic (HCC) Alpha Fetoprotein, Tumor Marker CBC with Differential Comprehensive Metabolic Panel Protime INR Case request: Upper Endoscopy and Colonscopy; N/A 3. Secondary esophageal varices with bleeding (HCC) Alpha Fetoprotein, Tumor Marker CBC with Differential Comprehensive Metabolic Panel Protime INR Case request: Upper Endoscopy and Colonscopy; N/A 4. Hepatic cirrhosis, unspecified hepatic cirrhosis type, unspecified whether ascites prese nt (HCC) Case request: Upper Endoscopy and Colonscopy; N/A PLAN: Hepatitis C Infection: Patient is genotype 2b. The patient most likely acquired the HCV in fection decades ago and has now progressed to cirrhosis. Will determine Child Urias score. AASLD recommendations indicate that patient's with a Child Urias score of B or C should be evaluated at transplant center to determine if HCV should be treated before or after liver transplant. Cirrhosis: Ordering labs to determine current MELD and Child-Urias score. APRI No results found for: AST, ALT, PLT, ALBUMIN MELD Lab Results Component Value Date INR 1.1 04/19/2018 Liver Transplantation: Patient is interested in being referred for evaluation of liver avila splantation. Advised patient to look into substance abuse treatment programs. He will also need to have regular toxicology Varices: Patient has had EGD to screen for esophageal varices. There is history or variceal bleed. Patient to have EGD and colonoscopy for further evaluation. The procedural techniques, risk s, indications, and alternatives were discussed. Among the risks, are perforation, bleeding , infection, allergic/adverse reactions to medications, and cardiovascular complications. E ach of these could result in hospitalization, additional procedures (including surgery), or other life threatening complications. Patient verbalized understanding. Risk factors to col o-rectal cancer discussed with patient including smoking, obesity, excessive red meat ingest ion, advancing age and first degree family relative with history of colo-rectal cancer discu ssed with patient. Patient to call with any questions or concerns prior to procedure. Recommend procedure with anesthesia. Ascites/Anasarca: Patient does have a history of ascites. Patient is on diuretics. This is improving fluid overload. Discussed no salt diet (<2 grams per day). Encouraged small frequent meals with protein. Patient notes that his abdominal distension continues to improve. Will not increase diureti cs at this time. Hepatic Encephalopathy: Patient does have evidence of encephalopathy. Current treatment inc ludes lactulose. There seems to be evidence of covert encephalopathy. There is evidence that patients with minimal encephalopathy have higher rates of car accidents. Because there is no accurate method of measuring HE. Patient is advised not to drive. Continues with lactulose to cause 2-3 loose BM per day. Hepatocellular Carcinoma Screening: Patient is at increased risk of developing HCC. Patien t will need liver ultrasound, CBC, CMP, INR, and AFP every 6 months. 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 Oral bisphosphonates have been shown to increase the risk of variceal ble eding in patients with known varices. IV bisphosphonates are recommended. Recommend DEXA sca ns and treatment if needed by PCP. Insulin Resistance/Diabetes: Approximately 30% of cirrhotic patients will develop insulin r esistance or diabetes. Recommend routine screening and treatment by PCP. Vaccinations: Patient should remain up to date with immunizations. All patients with chroni c liver disease should have Hepatitis A and Hepatitis B vaccinations complete if not already immune. To be done with PCP. Pain Management: Patients with cirrhosis should NOT use NSAIDS. These are associated with h igher rate of renal insufficiency and GI bleeding. We prefer these patient to use acetaminop hen for pain control with a maximum dose of 2 grams per day. The use of narcotics should als o be kept to a minimum, as this can cause or exacerbate hepatic encephalopathy. Ultram or no n-narcotic regimens, such as TCAs or neurontin are preferred if acetaminophen is inadequate. With decompensation of liver disease Ultram needs to be dose reduced. Smoking Cessation: This patient is currently not smoking. Discussed cessation. When patient is ready to stop smoking buproprion or nicotine patches are safe. Discuss further with PCP. Will follow up with results. Patient is to call with any question or concerns. Any fevers, chills, chest pain, SOB or other serious symptoms patient is to call the office or go to ER . Cc: Cassandra Salamanca MD This note was dictated using voice recognition software. Please contact me if there are an y questions regarding its content. in this encounter Plan of Treatment + +--------+ + + | Name | Priori | Associated Diagnoses | Order Schedule | | | ty | | | + +--------+ + + | Alpha Fetoprotein, Tumor Marker | Routin | Decompensated HCV | Expected: | | | e | cirrhosis (HCC) | 05/29/2018, Expires: | | | | Methamphetamine | 09/26/2018 | | | | abuse, episodic | | | | | (HCC) Secondary | | | | | esophageal varices | | | | | with bleeding (HCC) | | + +--------+ + + | CBC with Differential | Routin | Decompensated HCV | 1 Occurrences | | | e | cirrhosis (HCC) | starting 05/29/2018 | | | | Methamphetamine | until 09/26/2018 | | | | abuse, episodic | | | | | (HCC) Secondary | | | | | esophageal varices | | | | | with bleeding (HCC) | | + +--------+ + + | Comprehensive Metabolic Panel | Routin | Decompensated HCV | Expected: | | | e | cirrhosis (HCC) | 05/29/2018, Expires: | | | | Methamphetamine | 09/26/2018 | | | | abuse, episodic | | | | | (HCC) Secondary | | | | | esophageal varices | | | | | with bleeding (HCC) | | + +--------+ + + | Protime INR | Routin | Decompensated HCV | Expected: | | | e | cirrhosis (HCC) | 05/29/2018, Expires: | | | | Methamphetamine | 09/26/2018 | | | | abuse, episodic | | | | | (HCC) Secondary | | | | | esophageal varices | | | | | with bleeding (HCC) | | + +--------+ + + as of this encounter Visit Diagnoses + + | Diagnosis | + + | Decompensated HCV cirrhosis (HCC) - Primary | + + | Chronic hepatitis C without mention of hepatic coma | + + | Methamphetamine abuse, episodic (HCC) | + + | Secondary esophageal varices with bleeding (HCC) | + + | Esophageal varices with bleeding in diseases classified elsewhere | + + | Hepatic cirrhosis, unspecified hepatic cirrhosis type, unspecified whether ascites | | present (HCC) | + +
--- OUTSIDE RECORDS SUMMARY | ~2018-08-07 | XMS | Encounter Summary ---
Demographics + + + | Address | [address] | | | [place] [address] | + + + | Home Phone | | + + + | Preferred Language | Unknown | + + + | Marital Status | | + + + | Gnosticism Affiliation | 1013 | + + + | Race | Unknown | + + + | Ethnic Group | Unknown | + + + Author + + + | Author | [facility] | | | and [place] | + + + | Organization | [facility] | | | and [...] Team Providers + +------+ + | Care Drywall Carrier Name | Role | Phone | + [...] [place] | | | | | | [address] | | | | | | [phone] | | | +--------+ + + + [...]
--- OUTSIDE RECORDS SUMMARY | ~2018-08-07 | XMS | Encounter Summary ---
Demographics + + + | Address | [address] | | | [place] [address] | + + + | Home Phone | | + + + | Preferred Language | Unknown | + + + | Marital Status | | + + + | Hoahaoism Affiliation | 1013 | + + + | Race | Unknown | + + + | Ethnic Group | Unknown | + + + Author + + + | Author | [facility] | | | and [place] | + + + | Organization | [facility] | | | and [...] Team Providers + +------+ + | Care Golf Superintendent Name | Role | Phone | + [...] | | | | [address] [facility] | Carmen Garcia | | | | | [address] | [place] [address] | | | | | [address] | | | | | | [phone] | | | +--------+ + + + [...]
--- OUTSIDE RECORDS SUMMARY | ~2018-08-07 | XMS | Encounter Summary ---
Demographics + + + | Address | [address] | | | [place] [address] | + + + | Home Phone | | + + + | Preferred Language | Unknown | + + + | Marital Status | | + + + | Anabaptism Affiliation | 1013 | + + + | Race | Unknown | + + + | Ethnic Group | Unknown | + + + Author + + + | Author | [facility] | | | and [place] | + + + | Organization | [facility] | | | and [place] [...] Team Providers + +------+ + | Care Scouts Name | Role | Phone | + +------+ + | Cassandra Salamanca MD | PCP | | + +------+ + Encounter Details +--------+ + + + + | Date | Type | Department | Care Team | Description | +--------+ + + + + | 07/18/ | Procedure | [facility] | | | | 2019 | Pass | [facility] | | | | | | [address] | | | | | | [place] | | | | | | [address] | | | | | | [phone] | | | +--------+ + + + [...]
--- OUTSIDE RECORDS SUMMARY | ~2018-08-07 | XMS | Encounter Summary ---
Demographics + + + | Address | [address] | | | [place] [address] | + + + | Home Phone | | + + + | Preferred Language | Unknown | + + + | Marital Status | | + + + | Worship Affiliation | 1013 | + + + | Race | Unknown | + + + | Ethnic Group | Unknown | + + + Author + + + | Author | [facility] | | | and [place] | + + + | Organization | [facility] | | | and [...] Team Providers + +------+ + | Care Patent Paralegal Name | Role | Phone | + +------+ + | Cassandra Salamanca MD | PCP | | + +------+ + Reason for Visit + + + | Reason | Comments | + + + | Medication Orders | | + + + Encounter Details +--------+ + + + + | Date | Type | Department | Care Team | Description | +--------+ + + + + | 06/13/ | Telephone | [facility] | Иван Tellez | Medication Orders | | 2019 | | GASTROENTEROLOGY | MD Agustin [address] | | | | | [address] [place] | [address] [place] | | | | | [address], [place] | [place] [address] | | | | | [address] | [phone] | | | | | [phone] | | | +--------+ + + + [...] on fileas of this encounter Visit Diagnoses + + | Diagnosis | + + | H/O esophageal varices - Primary | + + | Personal history of other diseases of digestive system | + + | Esophageal varices without bleeding, unspecified esophageal varices type (HCC) | + +"
--- OUTSIDE RECORDS SUMMARY | ~2018-08-07 | XMS | Encounter Summary ---
Demographics + + + | Address | [address] | | | [place] [address] | + + + | Home Phone | | + + + | Preferred Language | Unknown | + + + | Marital Status | | + + + | Jain Affiliation | 1013 | + + + | Race | Unknown | + + + | Ethnic Group | Unknown | + + + Author + + + | Author | [facility] | | | and [place] | + + + | Organization | [facility] | | | and [place] [...] Team Providers + +------+ + | Care Construction Project Coordinator Name | Role | Phone | + [...] | | | | | | | [place] | | | | | | | ESOPHAGOGAST | | | | | | | RODUODENOSCO | | | | | | | PY TRANSORAL | | | | | | | DIAGNOSTIC | | | | | | | [place] EGD | | | | | | | TRANSORAL | | | | | | | BIOPSY | | | | | | | SINGLE/MULTI | | | | | | | PLE [place] EGD | | | | | | | BAND | | | | | | | LIGATION | | | | | | | ESOPHGEAL/GA | | | | | | | STRIC | | | | | | | VARICES [place] | | | | | | | EGD BAND | | | | | | | LIGATION | | | | | | | ESOPHGEAL/GA | | | | | | | STRIC | | | | | | | VARICES [place] | | | | | | | [...] + + | 07/18/ | Surgery | [facility] | Ney Walls | EGD | | 2019 | | MED CTR [facility] OP | MD Agustin [address] | | | | | [address] | [address] [facility] | | | | | [place] | [place] [address] | | | | | [address] | [phone] | | | | | [phone] | | | +--------+---------+ + + + [...] 1024 PST | + + + + in this encounter Medications at Time of Discharge + + + +---------+ + + | Medication | Sig. | Disp. | Refills | Start | End Date | | | | | | Date | | + + + +---------+ + + | | Take 5 mLs by mouth | 120 mL | 3 | 06/13/19 | | | diphenhydrAMINE-visc | every 6 hours as | | | 19 | | | | needed for Other | | | | | | vvhhlgtwn-htegaywk-k | (swish and swallow). | | | [...] Take 4 mg by mouth | | | | | | (ZOFRAN ODT) 4 [...] | + + + +---------+ + + as of this encounter Plan of Treatment Not on fileas of this encounter Procedures + +--------+ + + + | Procedure Name | Priori | Date/Time | Associated Diagnosis | Comments | | | ty | | | | + +--------+ + + + | EGD | | 07/18/2018 | Decompensated HCV | | | | | 1055 PST | cirrhosis (HCC) | | | [...] for this | | | e | 1050 PST | | procedure are in the | | | | | | results section. | + +--------+ + + + in this encounter Results EGD (07/18/2018 1050) + +-------- ------+ | Narrative | Perform ed At | + +-------- ------+ | | [facility] | | GastroenterologyPatient Name: Delroy ChappellProcedure Date: | PROVATI ON | | 07/18/2018 10:50 AMN: [id number] #: [id number] of : | | | 1960Admit Type: AmbulatoryAge: 58Room: [facility] 02Gender: MaleNote | | | Status: FinalizedAttending MD: NEY WALLS , | | | MDProcedure: Upper GI | | | endoscopyIndications: Esophageal varices, Follow-up of | | | esophageal varicesProviders: NEY WALLS MD, | | | Lauren Lewis RN, [facility] | | | Hernan, Aging Department Supervisor, Jacob Cordova MD (Anesthesia | | | Staff)Referring | | | MD: Cassandra Slaamanca (Referring | | | MD)Medicines: Monitored Anesthesia [...] Completely eradicated. | | | Banded. - [place]-colored mucosa suspicious for short-segment | | | [...] Scope In: 10:59:59 AMScope Out: 11:07:10 AM Protection | | | [facility], [address] [place] [address] | | | [address] | | | - Repeat upper endoscopy [...] Out: 11:07:10 AM | | | [facility], [address] [place] [address] | | | [address] | | + +-------- ------+ + +---------+ + + | Performing | Address | City/State/Zipcode | Phone Number | | Organization | | | | + +---------+ + + | [facility] | | | | + +---------+ + + in this encounter Visit Diagnoses Not on filein this encounter Admitting Diagnoses + + | Diagnosis | [...] once | | | blood glucose > 70. | | + +---+ | | | [...] | | | once blood glucose > 70. | | + +---+ | | | + +---+ | ePHEDrine 50 mg/mL injection 5 | | | mg 5 mg, Intravenous, EVERY 5 | | | MIN PRN, if SBP <90., Starting | | | 07/18/18 at 1115, Hold if HR > | | | 100. Maximum total dose 20mg. | | + +---+ | | | [...] Use labetalol first | | | if available. | | + +---+ | | | + +---+ | labetalol (TRANDATE) 5 mg/mL | | | injection 5 mg 5 mg, | | | Intravenous, EVERY 5 MIN PRN, For | | | SBP > 180, DBP > 100, Starting | | | Mon07/18/18 at 1115, Hold if HR < | | | 60. Notify anesthesia if patient | | | requires more than 50mg. | | + +---+ | | | + +---+ + +---------+ +---+-------+---+ | lactated ringers (LR) infusion | New Bag | | | 100 | | | at 100 mL/hr, Intravenous, | | 9 10:49 | | mL/hr | | | CONTINUOUS, Starting Mon07/18/18 | | PST | | | | | at 1045, Pre-op | | | | | | + +---------+ +---+-------+---+ + +---+ | | | + +---+ | lactated ringers (LR) infusion | | | at 10-100 mL/hr, Intravenous, | | | CONTINUOUS, Starting Mon07/18/18 | | | at 1045, TKO. | | + +---+ | | | + +---+ | ondansetron (ZOFRAN) injection | | | 4 mg 4 mg, Intravenous, ONCE | | | PRN, Nausea, Starting Mon07/18/18 | | | at 1115, For 1 dose, | | | Recovery/Phase I | | + +---+ | | | + +---+ in this encounter
--- OUTSIDE RECORDS SUMMARY | ~2018-08-07 | XMS | Encounter Summary ---
Demographics + + + | Address | [address] | | | [place] [address] | + + + | Home Phone | | + + + | Preferred Language | Unknown | + + + | Marital Status | | + + + | Religion Affiliation | 1013 | + + + | Race | Unknown | + + + | Ethnic Group | Unknown | + + + Author + + + | Author | [facility] | | | and [place] | + + + | Organization | [facility] | | | and [...] Team Providers + +------+ + | Care Supply Teacher Name | Role | Phone | + +------+ + | Cassandra Salamanca MD | PCP | | + +------+ + Reason for Visit + + + | Reason | Comments | + + + | Procedure | repeat EGD | + + + Encounter Details +--------+ + + + + | Date | Type | Department | Care Team | Description | +--------+ + + + + | 06/25/ | Telephone | [facility] | Иван Tellez | Procedure (repeat | | 2019 | | GASTROENTEROLOGY | MD Agustin [address] | EGD) | | | | [address] [place] | [address] [place] | | | | | [address], [place] | [place] [address] | | | | | [address] | [phone] | | | | | [phone] | | | +--------+ + + + [...] | + + | Secondary esophageal varices without bleeding (HCC) - Primary | + + | Esophageal varices without mention of bleeding in diseases classified elsewhere | + + | Hepatic cirrhosis, unspecified hepatic cirrhosis type, unspecified whether ascites | | present (HCC) | + +"
--- OUTSIDE RECORDS SUMMARY | ~2018-08-07 | XMS | Encounter Summary ---
Demographics + + + | Address | [address] | | | [place] [address] | + + + | Home Phone | | + + + | Preferred Language | Unknown | + + + | Marital Status | | + + + | Scientology Affiliation | 1013 | + + + | Race | Unknown | + + + | Ethnic Group | Unknown | + + + Author + + + | Author | [facility] | | | and [place] | + + + | Organization | [facility] | | | and [...] Team Providers + +------+ + | Care Machine Tool Builder Name | Role | Phone | + [...] [place] | | | | | [address], [place] | [place] [address] | | | | | [address] | [phone] | | | | | [phone] | | | +--------+ + + + [...]
--- OUTSIDE RECORDS SUMMARY | ~2018-08-07 | XMS | Clinical Summary ---
Demographics + + + | Address | [address] | | | [place] [address] | + + + | Home Phone | | + + + | Preferred Language | Unknown | + + + | Marital Status | | + + + | Evangelical Affiliation | 1013 | + + + | Race | Unknown | + + + | Ethnic Group | Unknown | + + + Author + + + | Author | [facility] | | | and [place] | + + + | Organization | [facility] | | | and [place] | + + + | Address | Unknown | + + + | Phone | Unavailable | + + + Support + + +---------+ + | Name | Relationship | Address | Phone | + + +---------+ + | Lauren Addison | ECON | Unknown | | + + +---------+ + Care Team Providers + +------+ + | Care Syrup Filterer Name | Role | Phone | + +------+ + | Cassandra Salamanca MD | PP | | + +------+ + Allergies No Known Allergies Current Medications + + + +---------+------+------+-------+ | Prescription | Sig. | Disp. | Refills | Star | End | Statu | | | | | | t | Date | s | | | | | | Date | | | + + + +---------+------+------+-------+ | lactulose | Take 20 g by mouth 3 | | | | | Activ | | (CONSTULOSE) 10 g/15 | times daily. | | | | | e | | mL solution | | | | | | | + + + +---------+------+------+-------+ | furosemide (LASIX) | Take 40 mg by mouth | | | | | Activ | | 40 mg tablet | 2 times daily. | | | | | e | + + + +---------+------+------+-------+ | potassium chloride | Take 20 mEq by mouth | | | | | Activ | | (KLOR-CON M20) 20 | Daily. | | | | | e | | mEq ER tablet | | | | | | | + + + +---------+------+------+-------+ | spironolactone | Take 100 mg by mouth | | | | | Activ | | (ALDACTONE) 100 MG | 2 times daily. | | | | | e | | tablet | | | | | | | + + + +---------+------+------+-------+ | propranolol | propranolol 10 mg | | | | | Activ | | (INDERAL) 10 mg | tablet | | | | | e | | tablet | | | | | | | + + + +---------+------+------+-------+ | | Take 5 mLs by mouth | 120 mL | 3 | 01/2 | | Activ | | diphenhydrAMINE-visc | every 6 hours as | | | 08/08 | | e | | | needed for Other | | | 19 | | | | sozkgybvf-cyfwdcsy-g | (swish and swallow). | | | | | | | agnesium-simethicone | (RECIPE = 1:1:1 | | | | | | | (MIRACLE MOUTHWASH) | mixture of Maalox, | | | | | | | | diphenhydrAMINE, | | | | | | | suspensionIndication | viscous lidocaine) | | | | | | | s: [...] by mouth | | | | | Activ | | (ZOFRAN ODT) 4 mg | every 8 hours as | | | | | e | | disintegrating | needed for Nausea. | | | | | | | tablet | | | | | | | + + + +---------+------+------+-------+ | pantoprazole | Take 40 mg by mouth | | | | | Activ | | (PROTONIX) 40 mg | every morning | | | | | e | | tablet | (before breakfast). | | | | | | + + + +---------+------+------+-------+ | omeprazole | Take 1 capsule by | 60 | 0 | 01/2 | 06/23 | Expir | | (PRILOSEC) 20 mg | mouth 2 times daily | capsule | | 08/08 | 07/11 | ed | | capsuleIndications: | (before meals) for | | | 19 | 19 | | | H/O esophageal | 30 days. | | | | | | | varices, Esophageal | | | | | | | | varices without | | | | | | | | bleeding, | | | | | | | | unspecified | | | | | | | | esophageal varices | | | | | | | | type ([facility]) | | | | | | | + + + +---------+------+------+-------+ Active Problems + + + | Problem | Noted Date | + + + | H/O Heart attack | 06/13/2018 | + + + + + | Overview: 2008 - Age 47, "I had a heart attack... They sent | | me to [facility] They kept me overnight and | | monitored me... I can't remember if they did any tests... But | | they told me I had a heart attack and released me the next day | | (with no further instructions)" | + + + + + | Portal hypertension (HCC) | 06/13/2018 | + + + | Portal hypertensive gastropathy (HCC) | 06/13/2018 | + + + | GERD (gastroesophageal reflux disease) | 06/12/2018 | + + + + + | Overview: [place] Grade D esophagitis | + + + + + | Chronic hepatitis C (HCC) | 06/12/2018 | + + + + + | Overview: 04/30/2018 - Viral Load [id number] | + + + + + | Beta Blockers - Daily Use | 06/12/2018 | + + + | Hyperammonemia (HCC) | 06/12/2018 | + + + + + | Overview: 109 - 04/19/2018 | + + + + + | Alcoholism (HCC) | 06/12/2018 | + + + | Hematemesis | 06/12/2018 | + + + | Bleeding esophageal varices (HCC) | 06/12/2018 | + + + + + | Overview: Grade II esophageal varices | | 06/13/2017 - banded 4 varices | + + + + + | Smoker - Daily | 06/12/2018 | + + + | Chronic hepatitis (HCC) | 04/06/2018 | + + + | Hepatic cirrhosis (HCC) | 04/06/2018 | + + + Encounters +--------+ + + + + | Date | Type | Specialty | Care Team | Description | +--------+ + + + + | 08/03/ | Telephone | | Иван Walls | Procedure (EGD/Prop) | | 2018 | | | MD Agustin | | +--------+ + + + + | 07/18/ | Hospital | | Иван aWlls | Secondary esophageal | 2018 | Encounter | | MD Agustin | [...] + + | 07/18/ | Procedure | | | | | 2019 | Pass | | | | +--------+ + + + + | 07/18/ | Surgery | | Иван Walls | EGD | | 2019 | | | MD Agustin | | +--------+ + + + + | 07/17/ | Anesthesia | | Art, | | | 2019 | Event | | Jacob Darling MD | | +--------+ + + + + | 06/27/ | Episode | | Lauryn Kurtz, | | | 2019 | Changes | | Blue Print Control Clerk | | +--------+ + + + + | 06/25/ | Telephone | | Иван Walls | Procedure (repeat | | 2018 | | | MD Agustin | EGD) | +--------+ + + + + | 06/13/ | Hospital | | Иван Walls | Special screening | | 2018 | Encounter | | MD Agustin | for malignant | | | | | | neoplasms, colon; | | | | | | Secondary esophageal | | | | | | varices with | | | | | | bleeding (HCC); | | | | | | Hematemesis without | | | | | | nausea | +--------+ + + + + | 06/13/ | Telephone | | Иван Walls | Medication Orders | | 2018 | | | MD Agustin | | +--------+ + + + + | 06/13/ | Procedure | | | | | 2018 | Pass | | | | +--------+ + + + + | 06/13/ | Surgery | | Иван Walls | FATEMEHD | | 2018 | | | MD Agustin | | +--------+ + + + + | 06/12/ | Anesthesia | | Carmine Rodriguez | | | 2018 | Event | | MD Kandy | | +--------+ + + + + | 06/12/ | Episode | | Leticia Ngo | | | 2018 | Changes | | Lisset, RN | | +--------+ + + + + | 06/05/ | Episode | | Leticia Ngo | | | 2018 | Changes | | L, RN | | +--------+ + + + + | 06/05/ | Episode | | Leticia Ngo | | | 2018 | Changes | | HIRA Darling | | +--------+ + + + + | 05/29/ | Office | | [facility], | Decompensated HCV | | 2018 | Visit | | SHANNAN Morocho | cirrhosis (HCC) | | | | | | (Primary Dx); | | | | | | 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, episodic | | | | | | (HCC); Secondary | | | [...] + + | 05/24/ | Abstract | | Delroy, | | | 2018 | | | MD Chrissy | | +--------+ + + + + from [...] + + | Pulse | 78 | 07/18/20186 PST | + + + [...] 07/18/20181023 PST | + + + + Plan [...] Vaccine: Influenza | | | | | (#1) | 8 | | | + + + + [...] | Hepatitis C | Completed | 08/03/2018, 06/12/2018, | | | Screening | | 05/29/2018, Additional history | | | | | [...] + from Last 3 Months Results EGD (07/18/2018 1050) + +-------- ------+ | Narrative | Perform ed At | + +-------- ------+ | | [facility] | | GastroenterologyPatient Name: Lance AddisonProcedure Date: | PROVATI ON | | 07/18/2018 10:50 AMMRN: [id number] #: [id number] of : | | | 1960Admit Type: AmbulatoryAge: 58Room: [facility] 02Gender: MaleNote | | | Status: FinalizedAttending MD: ИВАН WALLS , | | | MDProcedure: Upper GI | | | endoscopyIndications: Esophageal varices, Follow-up of | | | esophageal varicesProviders: ИВАН WALLS MD, | | | Lauren Lewis RN, Kaila | | | Hernan, Automation Tester, Jacob Cordova MD (Anesthesia | | | [...] Completely eradicated. | | | Banded. - [place]-colored mucosa suspicious for short-segment | | | Davis's esophagus. Biopsy is contraindicated. - | | [...] Scope In: 10:59:59 AMScope Out: 11:07:10 AM Advance | | | [facility], [address] [place] [address] | | | [address] | | | - Repeat upper endoscopy [...] |Scope Out: 11:07:10 AM | | | [facility], [address] [place] [address] | | | [address] | | + +-------- ------+ + +---------+ + + | Performing | Address | City/State/Zipcode | Phone Number | | Organization | | | | + +---------+ + + | [facility] | | | | + +---------+ + + EGD (06/13/2018 0809) + + ---+ | Narrative | Performed At | + + ---+ | | [facility] | | GastroenterologyPatient Name: Lance Elroy Date: | [facility] | | 06/13/2018 8:09 AMMRN: [id number] #: [id number] of : | | | 1960Admit Type: AmbulatoryAge: 57Room: [facility] 02Gender: MaleNote | | | Status: [...] Salas RN, Kaila | | | Hernan, Automation Tester, Carmine Rodriguez MD | | | (Anesthesia [...] | | 8:31:40 AMScope Out: 8:51:20 AM [facility] | | | [place], [address] [place] [address] | | | - See the other [...] |Scope Out: 8:51:20 AM | | | [facility], [address] [place] [address] | | | [address] | | + + ---+ + +---------+ + + | Performing | Address | City/State/Zipcode | Phone Number | | Organization | | | | + +---------+ + + | [facility] | | | | + +---------+ + + COLONOSCOPY (06/13/2018 0806) + + ---+ | Narrative | Performed At | + + ---+ | | [facility] | | GastroenterologyPatient Name: Lance Abbasi Date: | [facility] | | 06/13/2018 8:06 AMMRN: [id number] #: [id number] of : | | | 1960Admit Type: AmbulatoryAge: 57Room: [facility] 02Gender: MaleNote | | | Status: FinalizedAttending MD: ИВАН WALLS , | | | MDProcedure: ColonoscopyIndications: | | | Screening for colorectal malignant neoplasmProviders: | | | ИВАН WALLS MD, Ange Salas RN, | | | Kaila Becerra, Automation Tester, | | | Carmine Rodriguez MD | [...] bowel preparation was evaluated using the BBPS ([place] Bowel | | | Preparation Scale) with [...] AMScope | | | Out: 9:12:51 AM [facility], [address] | | | [place] [address] | | |ИВАН WALLS MD | | [...] |Scope Out: 9:12:51 AM | | | [facility], [address] [place], [place] | | | [address] | | + + ---+ + +---------+ + + | Performing | Address | City/State/Zipcode | Phone Number | | Organization | | | | + +---------+ + + | [facility] | | | | + +---------+ + + from Last 3 Months Insurance + +--------+ +--------+ +---------+ | Payer | Benefi | Subscriber | Type | Phone | Address | | | t Plan | ID | | | | | | / | | | | | | | Group | | | | | + +--------+ +--------+ +---------+ | [employer] | [employer] | [id number] | Medica | [phone]- | | | MEDICAID HMO | HEALTH | | id | 9821 | | | | MDCD | | | | | | | [place]MO [place] | | | | | + +--------+ +--------+ +---------+ + +--------+ +--------+ + + | Guarantor Name | Accoun | Relation to | Date | Phone | Billing Address | | | t Type | Patient | of | | | | | | | | | | + +--------+ +--------+ + + | LANCE ADDISON | Person | Self [birth year] | Home: | [address] | [address] | [place] | | 1961 | [phone] | [place] [address] | | | dipak | | | [phone] | | + +--------+ +--------+ + +
--- OUTSIDE RECORDS SUMMARY | ~2018-08-07 | XMS | Encounter Summary ---
Demographics + + + | Address | [address] | | | [place] [address] | + + + | Home Phone | | + + + | Preferred Language | Unknown | + + + | Marital Status | | + + + | Yarsanism Affiliation | 1013 | + + + | Race | Unknown | + + + | Ethnic Group | Unknown | + + + Author + + + | Author | [facility] | | | and [place] | + + + | Organization | [facility] | | | and [...] Team Providers + +------+ + | Care Manager Product Marketing Name | Role | Phone | + [...] | | | | | | | [place] | | | | | | | ESOPHAGOGAST | | | | | | | RODUODENOSCO | | | | | | | PY TRANSORAL | | | | | | | DIAGNOSTIC | | | | | | | [place] EGD | | | | | | | TRANSORAL | | | | | | | BIOPSY | | | | | | | SINGLE/MULTI | | | | | | | PLE [place] EGD | | | | | | | BAND | | | | | | | LIGATION | | | | | | | ESOPHGEAL/GA | | | | | | | STRIC | | | | | | | VARICES [place] | | | | | | | EGD BAND | | | | | | | LIGATION | | | | | | | ESOPHGEAL/GA | | | | | | | STRIC | | | | | | | VARICES [place] | | | | | | | [...] + + | 07/18/ | Surgery | [facility] | Ney Walls | EGD | | 2019 | | [facility] INTRA OP | MD Agustin [address] | | | | | [address] | [address] [facility] | | | | | [place] | [place] [address] | | | | | [address] | [phone] | | | | | [phone] | | | +--------+---------+ + + + [...] Other | | | | | | vtfycivay-hwjbnaai-d | (swish and swallow). | | | [...] PROVATI ON | | 07/18/2018 10:50 AMN: [id number] #: [id number] of : | | | 1960Admit Type: AmbulatoryAge: 58Room: [facility] 02Gender: MaleNote | | | Status: FinalizedAttending MD: NEY WALLS , | | | MDProcedure: Upper GI | | | endoscopyIndications: Esophageal varices, Follow-up of | | | esophageal varicesProviders: NEY WALLS MD, | | | Lauren Lewis RN, [facility] | | | Hernan, Commercial Real Estate Sales Manager, Jacob Cordova MD (Anesthesia | | [...] Completely eradicated. | | | Banded. - [place]-colored mucosa suspicious for short-segment | | | [...] Scope In: 10:59:59 AMScope Out: 11:07:10 AM [place] | | | [facility], [address] [place] [address] | | | [address] | | | - Repeat upper endoscopy [...] | | | [facility], [address] [place] [address] | | | [address] | | + +-------- ------+ + +---------+ [...]
--- OUTSIDE RECORDS SUMMARY | ~2018-08-07 | XMS | Clinical Summary ---
Demographics + + + | Address | [address] | | | [place] [address] | + + + | Home Phone | | + + + | Preferred Language | Unknown | + + + | Marital Status | | + + + | Confucianism Affiliation | 1013 | + + + | Race | Unknown | + + + | Ethnic Group | Unknown | + + + Author + + + | Author | [facility] | | | and [place] | + + + | Organization | [facility] | | | and [place] | [...] Team Providers + +------+ + | Care Lab Head Name | Role | Phone | + [...] | | 19 | | | | [id number]-biachcvr-h | (swish and swallow). | | | [...] | | | | | | type ([facility]) | | | | | | | + + + +---------+------+------+-------+ Active Problems + + + | Problem | Noted Date | + + + | H/O Heart attack | 06/13/2018 | + + + + + | Overview: 2008 - Age 47, "I had a heart attack... [facility] 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 | | | Banded. - [place]-colored mucosa suspicious for short-segment | | | [...] Scope In: 10:59:59 AMScope Out: 11:07:10 AM [place] | | | [facility], [address] [place] [address] | | | [address] | | | - Repeat upper endoscopy [...] |Scope Out: 11:07:10 AM | | | [facility], [address] [place] [address] | | | [address] | | + +-------- ------+ + +---------+ [...] | PROVATION | | 06/13/2018 8:09 AMMRN: [id number] #: [id number] of : | | | 1960Admit Type: AmbulatoryAge: 57Room: [facility] 02Gender: MaleNote | | | Status: FinalizedAttending MD: ИВАН WALLS , | | | MDProcedure: Upper GI | | | endoscopyIndications: Recent gastrointestinal bleeding, | | | Esophageal varices, Follow-up of | | | esophageal varices, Reflux esophagitis, | | | Follow-up of reflux | | | esophagitisProviders: ИВАН WALLS MD, Ange | | | Juhi Salas RN, Kaila | | | Hernan, River Guide, Carmine Rodriguez MD | | | (Anesthesia [...] | | 8:31:40 AMScope Out: 8:51:[address] [facility] | | | [place], [address] [place] [address] | | | - See the other [...] |Scope Out: 8:51:20 AM | | | [facility], [address] [place] [address] | | | [address] | | + + ---+ + +---------+ [...] | PROVATION | | 06/13/2018 8:06 AMMRN: [id number] #: [id number] of : | | | 1960Admit Type: AmbulatoryAge: 57Room: [facility] 02Gender: MaleNote | | | Status: FinalizedAttending MD: ИВАН WALLS , | | | MDProcedure: ColonoscopyIndications: | | | Screening for colorectal malignant neoplasmProviders: | | | ИВАН WALLS MD, Ange Salas RN, | | | Kaila Becerra, River Guide, | | | Carmine Rodriguez MD | [...] bowel preparation was evaluated using the BBPS ([place] Bowel | | | Preparation Scale) with [...] AMScope | | | Out: 9:12:51 AM [facility], [address] | | | [place] [address] | | |ИВАН WALLS MD | | [...] |Scope Out: 9:12:51 AM | | | [facility], [address] [place], [place] | | | [address] | | + + ---+ + +---------+ [...] | [employer] | [facility] | [id number] | Medica | [phone] | | | [...] | 1961 | [phone] | [place] [address] | | | dipak | | | [phone] | | + +--------+ +--------+ + +
--- OUTSIDE RECORDS SUMMARY | ~2018-08-07 | XMS | Encounter Summary ---
Demographics + + + | Address | [address] | | | [place] [address] | + + + | Home Phone | | + + + | Preferred Language | Unknown | + + + | Marital Status | | + + + | Druze Affiliation | 1013 | + + + | Race | Unknown | + + + | Ethnic Group | Unknown | + + + Author + + + | Author | [facility] | | | and [place] | + + + | Organization | [facility] | | | and [place] [...] Team Providers + +------+ + | Care Cat Sitter Name | Role | Phone | + [...] | | | | | | | MO | | | | | | | COLONOSCOPY | | | | | | | FLX DX | | | | | | | W/COLLJ SPEC | | | | | | | WHEN PFRMD | | | | | | | MO | | | | | | | COLONOSCOPY | | | | | | | W/BIOPSY | | | | | | | SINGLE/MULTI | | | | | | | PLE MO | | | | | | | COLSC FLX | | | | | | | W/RMVL OF | | | | | | | TUMOR POLYP | | | | | | | LESION SNARE | | | | | | | TQ MO | | | | | | | ESOPHAGOGAST | | | | | | | RODUODENOSCO | | | | | | | PY TRANSORAL | | | | | | | DIAGNOSTIC | | | | | | | MO EGD | | | | | | | TRANSORAL | | | | | | | BIOPSY | | | | | | | SINGLE/MULTI | | | | | | | PLE MO | | | | | | | ANESTHESIA | | | | | | | COMBINED | | | | | | | UPPER&LOWER | | | | | | | GI | | | | | | | ENDOSCOPIC | | | | | | | PX MO EGD | | | | | | [...] + + + + | 06/13/ | Anesthesia | [facility] | Carmine Rodriguez | | | 2019 | Event | [facility] | MD Kandy [address] | | | | | [address] | [address] [place] | | | | | [place] | [address] | | | | | [address] | [phone] | | | | | [phone] | | | +--------+ + + + + Anesthesia Record + + + + + | Procedure Name | Responsible | Anesthesia Start | Anesthesia Stop Time | | | Anesthesiologist | Time | | + + + + + | EGD (N/A Mouth) | Carmine Rodriguez, | 06/13/18821 | 06/13/18923 | | | MD | | | + + + + + +----+---+ + + | Da | T | Event | Comment | | te | i | | | | | m | | | | | e | | | +----+---+ + + | 01 | 0 | An Checkout | Pre-use anesthesia machine/equipment checkout. | | /2 | 7 | | | | 3/ | 1 | | | | 20 | 5 | | | | 19 | | | | +----+---+ + + | | 0 | An Start | Room ready, anesthesia equipment checked, essential drugs & | | | 8 | | equipment available. Patient Identity checked, anesthesia plan | | | 2 | | explained and consent obtained. Patient transported to [facility], | | | 2 | | Monitors applied. Reassessment prior to anesthesia | | | | | induction/procedure. | +----+---+ + + | | 0 | An Start | | | | 8 | Data | | | | 2 | | | | | 3 | | | +----+---+ + + | | 0 | an sanju now | | | | 8 | | | | | 2 | | | | | 5 | | | +----+---+ + + | | 0 | AN | Per surgeon request | | | 8 | Antibiotic | | | | 2 | declined | | | | 6 | | | +----+---+ + + | | 0 | First | | | | 8 | Inc/Proc St | | | | 3 | | | | | 0 | | | +----+---+ + + | | 0 | an sanju now | EGD | | | 8 | | | | | 3 | | | | | 1 | | | +----+---+ + + | | 0 | an sanju now | Colonoscopy | | | 8 | | | | | 5 | | | | | 3 | | | +----+---+ + + | | 0 | an sanju now | SDSU | | | 9 | | | | | 2 | | | | | 1 | | | +----+---+ + + | | 0 | an stop | | | | 9 | data | | | | 2 | | | | | 1 | | | +----+---+ + + | | 0 | An Stop | Patient handed off to recovery nurseDre | | | 2 | | | | | 4 | | | +----+---+ + + +------+ | Meds | +------+ + + + | Name | Total | + + + | propofol | 160 mg | + + + | propofol (DIPRIVAN) injection | 376.83 mg | | (bolus) (20 mL) | | + + + | lactated ringers (LR) infusion | 800 mL | + + + + + | Name | + + | O2 Flow Rate (L/Min) | + + + + | No blood administrations on file. | + + +--------+ + + + | Type | Details | Placement | Removal | +--------+ + + + | Periph | 06/13/18; 821; Right; | 06/13/18821 by | 06/13/18948 by | | eral | Antecubital; [id number] | Charlotte Brar RN | Corina Gibson RN | | IV | catheter system; 20 gauge, 1 1/2 | | | | | in length; 1; right forearm ; | | | | | distraction, intradermal | | | | | injection, tolerated well; no | | | | | longer indicated; performed by | | | | | Corina INIGUEZ; 06/13/18; 948 | | | +--------+ + + + in this encounter Social History + +-------+ [...] Visit Diagnoses Not on filein this encounter Administered Medications + +--------+ +-------+------+------+ | Medication Order | MAR | Action | Dose | Rate | Site | | | Action | Date | | | | + +--------+ +-------+------+------+ | propofol (DIPRIVAN) injection | Given | | 40 mg | | | | Intravenous, PRN, Starting Wed | | 9 8:29 | | | | | 06/13/18 at 0828, Anesthesia | | PST | | | | | Intra-op | | | | | | + +--------+ +-------+------+------+ +-------+ +-------+---+---+ | Given | | 40 mg | | | | | 9 8:30 | | | | | | PST | | | | +-------+ +-------+---+---+ | Given | | 40 mg | | | | | 9 8:31 | | | | | | PST | | | | +-------+ +-------+---+---+ +---+---+ | | | +---+---+ + +---------+ + +-------+---+ | propofol (DIPRIVAN) injection | New Bag | | 150 | 57.2 | | | Intravenous, CONTINUOUS PRN, | | 9 8:31 | mcg/kg/m | mL/hr | | | Starting 06/13/18 at 0831, | | PST | in | | | | Anesthesia Intra-op | | | | | | + +---------+ + +-------+---+ + + + +-------+---+ | Rate/Dose Change | | 175 | 66.8 | | | | 9 8:41 | mcg/kg/m | mL/hr | | | | PST | in | | | + + + +-------+---+ | Rate/Dose Change | | 100 | 38.2 | | | | 9 9:00 | mcg/kg/m | mL/hr | | | | PST | in | | | + + + +-------+---+ +---+---+ | | | +---+---+ in this encounter"
--- OUTSIDE RECORDS SUMMARY | ~2018-08-07 | XMS | Encounter Summary ---
Demographics + + + | Address | [address] | | | [place] [address] | + + + | Home Phone | | + + + | Preferred Language | Unknown | + + + | Marital Status | | + + + | Christianity Affiliation | 1013 | + + + | Race | Unknown | + + + | Ethnic Group | Unknown | + + + Author + + + | Author | and [facility] | | | and [place] | + + + | Organization | and [facility] | | | and [place] [...] Team Providers + +------+ + | Care Solutions Operator Name | Role | Phone | [...] [place] | | | | | [address], [place] | [place] [address] | | | | | [address] | [phone] | | | | | [phone] | | | +--------+ + + + [...]
--- OUTSIDE RECORDS SUMMARY | ~2018-08-07 | XMS | Encounter Summary ---
Demographics + + + | Address | [address] | | | [place] [address] | + + + | Home Phone | | + + + | Preferred Language | Unknown | + + + | Marital Status | | + + + | Adventist Affiliation | 1013 | + + + | Race | Unknown | + + + | Ethnic Group | Unknown | + + + Author + + + | Author | [facility] | | | and [place] | + + + | Organization | [facility] | | | and [place] [...] Providers + +------+ + | Care Precision Structural Metal Fitter Name | Role | Phone | + [...] [place] | | | | | | [address] | | | | | | [phone] | | | +--------+ + + + [...]
--- OUTSIDE RECORDS SUMMARY | ~2018-08-07 | XMS | Encounter Summary ---
Demographics + + + | Address | [address] | | | [place] [address] | + + + | Home Phone | | + + + | Preferred Language | Unknown | + + + | Marital Status | | + + + | Bahai Affiliation | 1013 | + + + | Race | Unknown | + + + | Ethnic Group | Unknown | + + + Author + + + | Author | [facility] | | | and [place] | + + + | Organization | [facility] | | | and [place] [...] Team Providers + +------+ + | Care Lead Section Supervisor Name | Role | Phone | + +------+ + | Csasandra Salamanca MD | PCP | | + [...] | | | | | | | [place] | | | | | | | ESOPHAGOGAST | | | | | | | RODUODENOSCO | | | | | | | PY TRANSORAL | | | | | | | DIAGNOSTIC | | | | | | | [place] EGD | | | | | | | TRANSORAL | | | | | | | BIOPSY | | | | | | | SINGLE/MULTI | | | | | | | PLE [place] EGD | | | | | | | BAND | | | | | | | LIGATION | | | | | | | ESOPHGEAL/GA | | | | | | | STRIC | | | | | | | VARICES [place] | | | | | | | EGD BAND | | | | | | | LIGATION | | | | | | | ESOPHGEAL/GA | | | | | | | STRIC | | | | | | | VARICES [place] | | | | | | | [...] + + | 07/18/ | Hospital | [facility] | Ney Walls | 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 Agustin [address] | varices with | | | | [address] | [address] [facility] | bleeding (HCC); | | | | [place] | [place] [address] | Hepatic cirrhosis, | | | | [address] | [phone] | unspecified hepatic | | | | [phone] | | cirrhosis type, | | | [...] 07/18/20181023 PST | + + + + in [...] Other | | | | | | krdmqqpka-jerctydp-p | (swish and swallow). | | | [...] | [facility] | | GastroenterologyPatient Name: Delroy Kayedulcejanis Date: | PROVATI ON | | 07/18/2018 10:50 AMMRN: [id number] #: [id number] of : | | | 1960Admit Type: AmbulatoryAge: 58Room: [facility] 02Gender: MaleNote | | | Status: FinalizedAttending MD: NEY WALLS , | | | MDProcedure: Upper GI | | | endoscopyIndications: Esophageal varices, Follow-up of | | | esophageal varicesProviders: NEY WALLS MD, | | | Lauren Lewis RN, [facility] | | | Hernan, Gold Tooler, Jacob Cordova MD (Anesthesia | | | [...] Completely eradicated. | | | Banded. - [place]-colored mucosa suspicious for short-segment | | | [...] Scope In: 10:59:59 AMScope Out: 11:07:10 AM [place] | | | [facility], [address] [place] [address] | | | [address] | | | - Repeat upper endoscopy [...] |Scope Out: 11:07:10 AM | | | [facility], [address] [place] [address] | | | [address] | | + +-------- ------+ + +---------+ [...] | | present (HCC) | + + Admitting Diagnoses + + [...] Starting 07/18/18 | | | at 1045, TKO. | [...]
--- OUTSIDE RECORDS SUMMARY | ~2018-08-07 | XMS | Encounter Summary ---
Demographics + + + | Address | [address] | | | [place] [address] | + + + | Home Phone | | + + + | Preferred Language | Unknown | + + + | Marital Status | | + + + | Latter Day Affiliation | 1013 | + + + | Race | Unknown | + + + | Ethnic Group | Unknown | + + + Author + + + | Author | [facility] | | | and [place] | + + + | Organization | [facility] [...] Team Providers + +------+ + | Care Automotive Product Engineer Name | Role | Phone | [...] + + | 06/13/ | Telephone | [facility] | Иван Tellez | Medication Orders | | 2019 | | GASTROENTEROLOGY | MD Agustin [address] | | | | | [address] [place] | [address] [place] | | | | | [address], [place] | [place] [address] | | | | | [address] | [phone] | | | | | [phone] | | | +--------+ + + + [...]
--- OUTSIDE RECORDS SUMMARY | ~2018-08-07 | XMS | Encounter Summary ---
Demographics + + + | Address | [address] | | | [place] [address] | + + + | Home Phone | | + + + | Preferred Language | Unknown | + + + | Marital Status | | + + + | Spiritism Affiliation | 1013 | + + + | Race | Unknown | + + + | Ethnic Group | Unknown | + + + Author + + + | Author | [facility] | | | and [place] | + + + | Organization | [facility] | | | and [place] [...] Team Providers + +------+ + | Care Burling And Joining Supervisor Name | Role | Phone | [...] | | | | | | | [place] | | | | | | | ESOPHAGOGAST | | | | | | | RODUODENOSCO | | | | | | | PY TRANSORAL | | | | | | | DIAGNOSTIC | | | | | | | [place] EGD | | | | | | | TRANSORAL | | | | | | | BIOPSY | | | | | | | SINGLE/MULTI | | | | | | | PLE [place] EGD | | | | | | | BAND | | | | | | | LIGATION | | | | | | | ESOPHGEAL/GA | | | | | | | STRIC | | | | | | | VARICES [place] | | | | | | | EGD BAND | | | | | | | LIGATION | | | | | | | ESOPHGEAL/GA | | | | | | | STRIC | | | | | | | VARICES [place] | | | | | | | [...] + + | 07/18/ | Anesthesia | [facility] | Art, | | | 2019 | Event | [facility] OP | Jacob Darling MD | | | | | [address] | [address] | | | | | [place] | [place] | | | | | [address] | [phone] | | | | | [phone] | | | +--------+ + + + + Anesthesia Record + + + + + | Procedure Name | Responsible | Anesthesia Start | Anesthesia Stop Time | | | Anesthesiologist | Time | | + + + + + | EGD (N/A Mouth) | Jacob Darling | 07/18/18 1054 | 07/18/18 1112 | | | MD Art | | | + + + + + +----+---+ + + | Da | T | Event | Comment | | te | i | | | | | m | | | | | e | | | +----+---+ + + | 02 | 1 | An Checkout | Pre-use anesthesia machine/equipment checkout. | | /2 | 0 | | | | 7/ | 5 | | | | 20 | 4 | | | | 19 | | [...] mg | + + + | glycopyrrolate (ROBALVAROUL) | 0.1 mg | | injection (5 [...] by | | eral | (dorsal); Hand; [id number] | Helena Gonzalez RN | Bonnie Mariee [...] filein this encounter Administered Medications + +--------+ +--------+------+------+ | Medication Order | MAR | Action | Dose | Rate | Site | | | Action | Date | | | | + +--------+ +--------+------+------+ | glycopyrrolate (BRADUL) | Given | | 0.1 mg | | | | injection Intravenous, PRN, | | 9 10:56 | | | | | Secretions, Starting 07/18/18 | | PST | | | | | at 1056, Anesthesia Intra-op | | | | | | + +--------+ +--------+------+------+ +---+---+ | | | +---+---+ + +-------+ +-------+---+---+ | lidocaine (PF) 2% injection | Given | | 40 mg | | | | Intravenous, PRN, Starting Wed | | 9 10:56 | | | | | 07/18/18 at 1056, Anesthesia | | PST | | | | | Intra-op | | | | | | + +-------+ +-------+---+---+ +---+---+ | | | +---+---+ + +-------+ +-------+---+---+ | propofol (DIPRIVAN) injection | Given | | 50 mg | | | | Intravenous, PRN, Starting Wed | | 9 10:57 | | | | | 07/18/18 at 1057, Anesthesia | | PST | | | | | Intra-op | | | | | | + +-------+ +-------+---+---+ +-------+ +-------+---+---+ | Given | | 20 mg | | | | | 9 10:59 | | | | | | PST | | | | +-------+ +-------+---+---+ +---+---+ | | | +---+---+ + +---------+ + +-------+---+ | propofol (DIPRIVAN) injection | New Bag | | 200 | 78.1 | | | Intravenous, CONTINUOUS PRN, | | 9 10:59 | mcg/kg/m | mL/hr | | | Starting 07/18/18 at 1059, | | PST | in | | | | Anesthesia Intra-op | | | | | | + +---------+ + +-------+---+ +---+---+ | | | +---+---+ in this encounter"
--- OUTSIDE RECORDS SUMMARY | ~2018-08-07 | XMS | Encounter Summary ---
Demographics + + + | Address | [address] | | | [place] [address] | + + + | Home Phone | | + + + | Preferred Language | Unknown | + + + | Marital Status | | + + + | Anabaptist Affiliation | 1013 | + + + | Race | Unknown | + + + | Ethnic Group | Unknown | + + + Author + + + | Author | [facility] | | | and [place] | + + + | Organization | [facility] | | [...] Team Providers + +------+ + | Care Electric Motor Repairing Supervisor Name | Role | Phone | [...] [place] | | | | | | [address] | | | | | | [phone] | | | +--------+ + + + [...]
--- OUTSIDE RECORDS SUMMARY | ~2018-08-07 | XMS | Encounter Summary ---
Demographics + + + | Address | [address] | | | [place] [address] | + + + | Home Phone | | + + + | Preferred Language | Unknown | + + + | Marital Status | | + + + | Catholic Affiliation | 1013 | + + + | Race | Unknown | + + + | Ethnic Group | Unknown | + + + Author + + + | Author | [facility] | | | and [place] | + + + | Organization | [facility] [...] Team Providers + +------+ + | Care Railroad Commissioner Name | Role | Phone | + +------+ + | Cassandra Salamanca MD | PCP | | + +------+ + Encounter Details +--------+ + + + + | Date | Type | Department | Care Team | Description | +--------+ + + + + | 06/13/ | Procedure | [facility] | | | | 2019 | Pass | [facility] | | | | | | [address] | | | | | | [place] | | | | | | [address] | | | | | | [phone] | | | +--------+ + + + [...]
--- OUTSIDE RECORDS SUMMARY | ~2018-08-07 | XMS | Encounter Summary ---
Demographics + + + | Address | [address] | | | [place] [address] | + + + | Home Phone | | + + + | Preferred Language | Unknown | + + + | Marital Status | | + + + | Catholic Affiliation | 1013 | + + + | Race | Unknown | + + + | Ethnic Group | Unknown | + + + Author + + + | Author | [facility] | | | and [place] | + + + | Organization | [facility] | | | and [...] Team Providers + +------+ + | Care Stratigraphy Teacher Name | Role | Phone | [...] [place] | | | | | | [address] | | | | | | [phone] | | | +--------+ + + + [...]
--- OUTSIDE RECORDS SUMMARY | ~2018-08-07 | XMS | Encounter Summary ---
Demographics + + + | Address | [address] | | | [place] [address] | + + + | Home Phone | | + + + | Preferred Language | Unknown | + + + | Marital Status | | + + + | Presybeterian Affiliation | 1013 | + + + | Race | Unknown | + + + | Ethnic Group | Unknown | + + + Author + + + | Author | [facility] | | | and [place] | + + + | Organization | [facility] | | | and [...] Team Providers + +------+ + | Care Swimming Pool Cleaner Name | Role | Phone | [...] [place] | | | | | | [address] | | | | | | [phone] | | | +--------+ + + + [...]
--- OUTSIDE RECORDS SUMMARY | ~2018-08-07 | XMS | Encounter Summary ---
Demographics + + + | Address | [address] | | | [place] [address] | + + + | Home Phone | | + + + | Preferred Language | Unknown | + + + | Marital Status | | + + + | Religion Affiliation | 1013 | + + + | Race | Unknown | + + + | Ethnic Group | Unknown | + + + Author + + + | Author | [facility] | | | and [place] | + + + | Organization | [facility] | | | [...] Team Providers + +------+ + | Care Education Administrative Assistant Name | Role | Phone | [...] | | | | | | | PA | | | | | | | COLONOSCOPY | | | | | | | FLX DX | | | | | | | W/COLLJ SPEC | | | | | | | WHEN PFRMD | | | | | | | PA | | | | | | | COLONOSCOPY | | | | | | | W/BIOPSY | | | | | | | SINGLE/MULTI | | | | | | | PLE PA | | | | | | | COLSC FLX | | | | | | | W/RMVL OF | | | | | | | TUMOR POLYP | | | | | | | LESION SNARE | | | | | | | TQ PA | | | | | | | ESOPHAGOGAST | | | | | | | RODUODENOSCO | | | | | | | PY TRANSORAL | | | | | | | DIAGNOSTIC | | | | | | | PA EGD | | | | | | | TRANSORAL | | | | | | | BIOPSY | | | | | | | SINGLE/MULTI | | | | | | | PLE PA | | | | | | | ANESTHESIA | | | | | | | COMBINED | | | | | | | UPPER&LOWER | | | | | | | GI | | | | | | | ENDOSCOPIC | | | | | | | PX PA EGD | | | | | | [...] Description | +--------+---------+ + + + | 06/13/ | Surgery | [facility] | Иван Walls | EGD | | 2019 | | [facility] | MD Agustin [address] | | | | | [address] | [address] [place] | | | | | [place] | [place] [address] | | | | | [address] | [phone] | | | | | [phone] | | | +--------+---------+ + + + [...] Height | 177.8 cm (5' 10") | 06/13/2018751 PST | + + + + | [...] moist. Follow your healthcare provider s spe [facility] instructions about what foods and drinks you [...] or cheese melted in other dishes Avoid: Fisher fried eggs, cheese slices and cubes Fruits [...] as tempura), and corn Date Last Reviewed: 12/21/201519992124-9555 [employer]. [address] [place] [address]. All righ ts reserved. This information is [...] Delroy Abbasi Date: | PROVATION | | 06/13/2018 8:09 AMMRN: [id number] #: [id number] of : | | | 1960Admit Type: AmbulatoryAge: 57Room: WSP 02Gender: MaleNote | | | Status: FinalizedAttending MD: ИВАН WALLS , | | | MDProcedure: Upper GI | | | endoscopyIndications: Recent gastrointestinal bleeding, | | | Esophageal varices, Follow-up of | | | esophageal varices, Reflux esophagitis, | | | Follow-up of reflux | | | esophagitisProviders: ИВАН WALLS MD, Ange | | | Juhi Salas RN, Kaila | | | Hernan, Extension Course Counselor, Carmine Rodriguez MD | | | (Anesthesia [...] | | 8:31:40 AMScope Out: 8:51:20 AM [facility] | | | [place], [address] [place] [address] | | | - See the other [...] |Scope Out: 8:51:20 AM | | | [facility], [address] [place] [address] | | | [address] | | + + ---+ + +---------+ [...] Delroy Abbasi Date: | PROVATION | | 06/13/2018 8:06 AMMRN: [id number] #: [id number] of : | | | 1960Admit Type: AmbulatoryAge: 57Room: [facility] 02Gender: MaleNote | | | Status: FinalizedAttending MD: ИВАН WALLS , | | | MDProcedure: ColonoscopyIndications: | | | Screening for colorectal malignant neoplasmProviders: | | | ИВАН WALLS MD, Ange Salas RN, | | | Kaila Becerra, Extension Course Counselor, | | | Carmine Rodriguez MD | [...] bowel preparation was evaluated using the BBPS ([place] Bowel | | | Preparation Scale) with [...] colonoscopy in 10 years for screening purposes.ИВАН WALLS, | | | 06/13/2018 9:25:11 AMThis report has been signed | | | electronically.Number of Addenda: 0Note Initiated On: 06/13/2018 8:06 | | | AMScope Withdrawal Time: 0 hours 12 minutes 23 seconds Total Procedure | | | Duration: 0 hours 19 minutes 27 seconds Scope In: 8:53:24 AMScope | | | Out: 9:12:51 AM [facility], [address] | | | [place] [address] | | |ИВАН WALLS MD | | [...] |Scope Out: 9:12:51 AM | | | [facility], [address] [place], [place] | | | [address] | | + + ---+ + +---------+ [...]
--- OUTSIDE RECORDS SUMMARY | ~2018-08-07 | XMS | Encounter Summary ---
Demographics + + + | Address | [address] | | | [place] [address] | + + + | Home Phone | | + + + | Preferred Language | Unknown | + + + | Marital Status | | + + + | Buddhist Affiliation | 1013 | + + + | Race | Unknown | + + + | Ethnic Group | Unknown | + + + Author + + + | Author | [facility] | | | and [place] | + + + | Organization | [facility] | | | and [place] | [...] Team Providers + +------+ + | Care Program Project Analyst Name | Role | Phone | + [...] | | | | [address] [facility] | Carmen Garcia | | | | | [address] [place] | [place] [address] | | | | | [address] | | | | | | [phone] | | | +--------+ + + + [...]
--- OUTSIDE RECORDS SUMMARY | ~2018-08-07 | XMS | Encounter Summary ---
Demographics + + + | Address | [address] | | | [place] [address] | + + + | Home Phone [...] | [facility] | | | and [place] | + + + | Organization | [facility] | | | and [...] Team Providers + +------+ + | Care Billboard Erector Helper Name | Role | Phone | [...] + | 08/03/ | Telephone | [facility] | Иван Tellez | Procedure (EGD/Prop) | | 2019 | | GASTROENTEROLOGY | MD Agustin [address] | | | | | [address] [place] | [address] [place] | | | | | [address] [place], [place] | [place] [address] | | | | | [address] | [phone] | | | | | [phone] | | | +--------+ + + + [...] | + + | Methamphetamine abuse (HCC) | + + | Nondependent amphetamine or related acting sympathomimetic abuse, unspecified | + + | Secondary esophageal varices with bleeding (HCC) | + + | Esophageal varices with bleeding in diseases classified elsewhere | + + | Hepatic cirrhosis, unspecified hepatic cirrhosis type, unspecified whether ascites | | present (HCC) | + + | Cannabis dependence (HCC) | + + | Cannabis dependence, unspecified | + +"
--- OUTSIDE RECORDS SUMMARY | ~2018-08-07 | XMS | Encounter Summary ---
Demographics + + + | Address | [address] | | | [place] [address] | + + + | Home Phone | | + + + | Preferred Language | Unknown | + + + | Marital Status | | + + + | Restoration Affiliation | 1013 | + + + | Race | Unknown | + + + | Ethnic Group | Unknown | + + + Author + + + | Author | [facility] | | | and [place] | + + + | Organization | [facility] | | | and [...] Team Providers + +------+ + | Care Billing Services Manager Name | Role | Phone | [...] | | | | | PLE DE | | | | | | | COLSC FLX | | | | | | | W/RMVL OF | | | | | | | TUMOR POLYP | | | | | | | LESION SNARE | | | | | | | TQ DE | | | | | | [...] | | | | | PLE DE | | | | | | | ANESTHESIA | | | | | | | COMBINED | | | | | | | UPPER&LOWER | | | | | | | GI | | | | | | | ENDOSCOPIC | | | | | | | PX DE EGD | | | | | [...] | | | | | [address] | [address] [place] | | | | | [place] | [place] [address] | | | | | [address] | [phone] | | | | | [phone] | | | +--------+---------+ + + + [...] moist. Follow your healthcare provider s spe [facility] instructions about what foods and drinks you [...] or cheese melted in other dishes Avoid: [place]estone fried eggs, cheese slices and cubes Fruits [...] as tempura), and corn Date Last Reviewed: 12/21/201519996027-2857 [employer]. [address] [place] [address]. All righ ts reserved. This information is [...] | PROVATION | | 06/13/2018 8:09 AMMRN: [id number] #: [id number] of : | | | 1960Admit Type: [...] Salas RN, Kaila | | | Hernan, Last Cleaner, Carmine Rodriguez MD | | | (Anesthesia [...] | | 8:31:40 AMScope Out: 8:51:20 AM [facility] | | | [place], [address] [place] [address] | | | - See the other [...] |Scope Out: 8:51:20 AM | | | [facility], [address] [place] [address] | | | [address] | | + + ---+ + +---------+ + + | Performing | Address | City/State/Zipcode | Phone Number | | Organization | | | | + +---------+ + + | [facility] [place] | | | | + +---------+ + + COLONOSCOPY (06/13/2018 0806) + + ---+ | Narrative | Performed At | + + ---+ | | [facility] | | GastroenterologyPatient Name: Delroy Abbsai Date: | PROVATION | | 06/13/2018 8:06 AMMRN: [id number] #: [id number] of : | | | 1960Admit Type: AmbulatoryAge: 57Room: [facility] 02Gender: MaleNote | | | Status: FinalizedAttending MD: ИВАН WALLS , | | | MDProcedure: ColonoscopyIndications: | | | Screening for colorectal malignant neoplasmProviders: | | | ИВАН WALLS MD, Ange Salas RN, | | | Kaila Becerra, Last Cleaner, | | | Carmine Rodriguez MD | [...] bowel preparation was evaluated using the BBPS ([place] Bowel | | | Preparation Scale) with [...] AMScope | | | Out: 9:12:51 AM [facility], [address] | | | [place] [address] | | |ИВАН WALLS MD | | [...] |Scope Out: 9:12:51 AM | | | [facility], [address] [place], [place] | | | [address] | | + + ---+ + +---------+ [...]
--- OUTSIDE RECORDS SUMMARY | ~2018-08-07 | XMS | Encounter Summary ---
Demographics + + + | Address | [address] | | | [place] [address] | + + + | Home Phone [...] Author | [facility] | | | and [place] | + + + | Organization | [facility] | | | and [...] Team Providers + +------+ + | Care Back Line Cook Name | Role | Phone | + [...] [place] | | | | | | [address] | | | | | | [phone] | | | +--------+ + + + [...]
--- OUTSIDE RECORDS SUMMARY | ~2018-08-07 | XMS | Encounter Summary ---
Demographics + + + | Address | [address] | | | [place] [address] | + + + | Home Phone | | + + + | Preferred Language | Unknown | + + + | Marital Status | | + + + | Evangelical Affiliation | 1013 | + + + | Race | Unknown | + + + | Ethnic Group | Unknown | + + + Author + + + | Author | [facility] | | | and [place] | + + + | Organization | [facility] [...] Team Providers + +------+ + | Care Veneer Grader Name | Role | Phone | + [...] cirrhosis | [address] [place], | | | | | of liver | Barry Cora | [address] | | | | | (HCC) | [place], | [place], | | | | | Procedures | [place] [address] | [place] [address] | | | | | OFFICE VISIT | Phone: | Phone: | | | | | | [phone] | [phone] | | | | | | Fax: | Fax: | | | | | | [phone] | [phone] | +--------+--------+ + + + + Encounter Details +--------+---------+ + + + | Date | Type | Department | Care Team | Description | +--------+---------+ + + + | 05/29/ | Office | [facility] [place] | [facility], | Decompensated HCV | | 2019 | Visit | GASTROENTEROLOGY | SHANNAN Mroocho [address] | cirrhosis (HCC) | | | | [address] [place] | [place], [address] | (Primary Dx); | | | | [address] [place], [place] | [place], [place] | Methamphetamine | | | | [address] | [address] | abuse, episodic | | | | [phone] | | (HCC); Secondary | | | [...] Center initially. He was then transferred to [facility]. Records indicate that he had diagnostic and therapeutic paracentesis and EGD completed at [facility]. 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
--- OUTSIDE RECORDS SUMMARY | ~2018-08-07 | XMS | Encounter Summary ---
Demographics + + + | Address | [address] | | | [place] [address] | + + + | Home Phone | | + + + | Preferred Language | Unknown | + + + | Marital Status | | + + + | Jain Affiliation | 1013 | + + + | Race | Unknown | + + + | Ethnic Group | Unknown | + + + Author + + + | Author | [facility] | | | and [place] | + + + | Organization | [facility] | | [...] Providers + +------+ + | Care Community Engagement Representative Name | Role | Phone | [...] | | | | | | | IA | | | | | | | ESOPHAGOGAST | | | | | | | RODUODENOSCO | | | | | | | PY TRANSORAL | | | | | | | DIAGNOSTIC | | | | | | | IA EGD | | | | | | | TRANSORAL | | | | | | | BIOPSY | | | | | | | SINGLE/MULTI | | | | | | | PLE IA EGD | | | | | | | BAND | | | | | | | LIGATION | | | | | | | ESOPHGEAL/GA | | | | | | | STRIC | | | | | | | VARICES IA | | | | | | | EGD BAND | | | | | | | LIGATION | | | | | | | ESOPHGEAL/GA | | | | | | | STRIC | | | | | | | VARICES IA | | | | | | | [...] + + | 07/18/ | Surgery | [facility] | Ney Walls | EGD | | 2019 | | MED CTR MP INTRA OP | MD Agustin [address] | | | | | [address] | [address] [facility] | | | | | [place] | [place] [address] | | | | | [address] | [phone] | | | | | [phone] | | | +--------+---------+ + + + [...] Other | | | | | | [id number]-[id number] | (swish and swallow). | | | [...] PROVATI ON | | 07/18/2018 10:50 AMN: [id number] #: [id number] of : | | | 1960Admit Type: AmbulatoryAge: 58Room: [facility] 02Gender: MaleNote | | | Status: FinalizedAttending MD: NEY WALLS , | | | MDProcedure: Upper GI | | | endoscopyIndications: Esophageal varices, Follow-up of | | | esophageal varicesProviders: NEY WALLS MD, | | | Lauren Lewis RN, [facility] | | | Hernan, Director Digital Strategy, Jacob Cordova MD (Anesthesia | | | [...] Completely eradicated. | | | Banded. - [place]-colored mucosa suspicious for short-segment | | | [...] Scope In: 10:59:59 AMScope Out: 11:07:10 AM [place] | | | [facility], [address] [place] [address] | | | [address] | | | - Repeat upper endoscopy [...] |Scope Out: 11:07:10 AM | | | [facility], [address] [place] [address] | | | [address] | | + +-------- ------+ + +---------+ [...]
--- OUTSIDE RECORDS SUMMARY | ~2018-08-07 | XMS | Clinical Summary ---
Demographics + + + | Address | [address] | | | [place] [address] | + + + | Home Phone | | + + + | Preferred Language | Unknown | + + + | Marital Status | | + + + | Faith Affiliation | 1013 | + + + | Race | Unknown | + + + | Ethnic Group | Unknown | + + + Author + + + | Author | [facility] | + + + | Organization | [facility] | + + + | Address | Unknown | + + + | Phone | Unavailable | + + + Support + + + + + | Name | Relationship | Address | Phone | + + + + + | Lauren Addison | ECON | [address] | | | | | [place] | | | | | [address] | | + + + + + Care Team Providers + +------+ + | Care Beauty Artist Name | Role | Phone | + [...] + | COMMERCIAL OTHER | COMMER | [id number] | | | | | | CIAL | | | | | | | GENERI | | | | | | | C PLAN | | | | | + +--------+ +------+-------+ + | MEDICAID | [facility] | [id number] | | | [address] | | | [place] | | | | [place] | | | [place] | | | | [address] | | | VARNISHER | | | | | + +--------+ [...] | dipak | | | [phone] | [address] | + +--------+ +--------+ + +
--- OUTSIDE RECORDS SUMMARY | ~2018-08-07 | XMS | Encounter Summary ---
Demographics + + + | Address | [address] | | | [place] [address] | + + + | Home Phone [...] Author | [facility] | | | and [place] | + + + | Organization | [facility] | | | and [place] [...] Team Providers + +------+ + | Care Environmental Journalist Name | Role | Phone | + [...] + + | 07/18/ | Anesthesia | [facility] | Art, | | | 2019 | Event | MED CTR MP INTRA OP | Jacob Darling MD | | | | | [address] | [address] | | | | | [place] | [place] | | | | | [address] | [phone] | | | | | [phone] | | | +--------+ + + + [...] by | | eral | (dorsal); Hand; [id number] | Helena Gonzalez RN | Bonnie Mariee [...]
--- OUTSIDE RECORDS SUMMARY | ~2018-08-07 | XMS | Encounter Summary ---
Demographics + + + | Address | [address] | | | [place] [address] | + + + | Home Phone [...] + | Author | [facility] | | | and [place] | + + + | Organization | [facility] | | [...] Providers + +------+ + | Care Manager Data Warehousing Name | Role | Phone | + [...] [place] | | | | | [address] [place], [place] | [place] [address] | | | | | [address] | [phone] | | | | | [phone] | | | +--------+ + + + [...]
--- OUTSIDE RECORDS SUMMARY | ~2018-08-07 | XMS | Encounter Summary ---
Demographics + + + | Address | [address] | | | [place] [address] | + + + | Home Phone | | + + + | Preferred Language | Unknown | + + + | Marital Status | | + + + | Christianity Affiliation | 1013 | + + + | Race | Unknown | + + + | Ethnic Group | Unknown | + + + Author + + + | Author | [facility] | | | and [place] | + + + | Organization | [facility] | | | and [...] Team Providers + +------+ + | Care Commissioning Specialist Name | Role | Phone | [...] [place] | | | | | | [address] | | | | | | [phone] | | | +--------+ + + + [...]
--- OUTSIDE RECORDS SUMMARY | ~2018-08-07 | XMS | Encounter Summary ---
Demographics + + + | Address | [address] | | | [place] [address] | + + + | Home Phone [...] Author | [facility] | | | and [place] | + + + | Organization | [facility] | | | [...] Providers + +------+ + | Care Community Outreach Director Name | Role | Phone | [...] | | | | | | | LA | | | | | | | COLONOSCOPY | | | | | | | FLX DX | | | | | | | W/COLLJ SPEC | | | | | | | WHEN PFRMD | | | | | | | LA | | | | | | | COLONOSCOPY | | | | | | | W/BIOPSY | | | | | | | SINGLE/MULTI | | | | | | | PLE LA | | | | | | | COLSC FLX | | | | | | | W/RMVL OF | | | | | | | TUMOR POLYP | | | | | | | LESION SNARE | | | | | | | TQ LA | | | | | | | ESOPHAGOGAST | | | | | | | RODUODENOSCO | | | | | | | PY TRANSORAL | | | | | | | DIAGNOSTIC | | | | | | | LA EGD | | | | | | | TRANSORAL | | | | | | | BIOPSY | | | | | | | SINGLE/MULTI | | | | | | | PLE LA | | | | | | | ANESTHESIA | | | | | | | COMBINED | | | | | | | UPPER&LOWER | | | | | | | GI | | | | | | | ENDOSCOPIC | | | | | | | PX LA EGD | | | | | | [...] + + | 06/13/ | Hospital | [facility] | Иван Walls | Special screening | | 2019 | Encounter | MED CTR MP INTRA OP | MD Agustin [address] | for malignant | | | | [address] | [address] [place] | neoplasms, colon; | | | | [place], [place] | [place] [address] | Secondary esophageal | | | | [address] | [phone] | varices with | | | | [phone] | | bleeding (HCC); | | | [...] + in this encounter Discharge Instructions Corina Gbison RN - 06/13/2018 Soft Diet Your healthcare [...] moist. Follow your healthcare provider s spe [facility] instructions about what foods and drinks [...] or cheese melted in other dishes Avoid: [place] fried eggs, cheese slices and cubes Fruits [...] as tempura), and corn Date Last Reviewed: 12/21/201519991732-9[address] [employer]. [address] [place] [address]. All righ ts reserved. This information is [...] | PROVATION | | 06/13/2018 8:09 AMMRN: [id number] #: [id number] of : | | | 1960Admit Type: AmbulatoryAge: 57Room: [facility] 02Gender: MaleNote | [...] Salas RN, Kaila | | | Hernan, Belt Changer, Carmine Rodriguez MD | | | (Anesthesia [...] | | 8:31:40 AMScope Out: 8:51:20 AM [facility] | | | [place], [address] [place] [address] | | | - See the other [...] |Scope Out: 8:51:20 AM | | | [facility], [address] [place] [address] | | | [address] | | + + ---+ + +---------+ [...] | PROVATION | | 06/13/2018 8:06 AMMRN: [id number] #: [id number] of : | | | 1960Admit Type: AmbulatoryAge: 57Room: [facility] 02Gender: MaleNote | | | Status: FinalizedAttending MD: ИВАН WALLS , | | | MDProcedure: ColonoscopyIndications: | | | Screening for colorectal malignant neoplasmProviders: | | | ИВАН WALLS MD, Ange Salas RN, | | | Kaila Becerra, Belt Changer, | | | Carmine Rodriguez MD | [...] bowel preparation was evaluated using the BBPS ([place] Bowel | | | Preparation Scale) with [...] AMScope | | | Out: 9:12:51 AM [facility], [address] | | | [place] [address] | | |ИВАН WALLS MD | | [...] |Scope Out: 9:12:51 AM | | | [facility], [address] [place], [place] | | | [address] | | + + ---+ + +---------+ [...]
--- OUTSIDE RECORDS SUMMARY | ~2018-08-07 | XMS | Encounter Summary ---
Demographics + + + | Address | [address] | | | [place] [address] | + + + | Home Phone [...] + | Author | [facility] | | | and [place] | + + + | Organization | [facility] [...] Team Providers + +------+ + | Care Heavy Cleaner Name | Role | Phone | [...] + + | 06/13/ | Telephone | [facility] | Иван Tellez | Medication Orders | | 2019 | | GASTROENTEROLOGY | MD Agustin [address] | | | | | [address] [place] | [address] [place] | | | | | [address] [place], [place] | [place] [address] | | | | | [address] | [phone] | | | | | [phone] | | | +--------+ + + + [...]
--- OUTSIDE RECORDS SUMMARY | ~2018-08-07 | XMS | Encounter Summary ---
Demographics + + + | Address | [address] | | | [place] [address] | + + + | Home Phone | | + + + | Preferred Language | Unknown | + + + | Marital Status | | + + + | Restorationism Affiliation | 1013 | + + + | Race | Unknown | + + + | Ethnic Group | Unknown | + + + Author + + + | Author | [facility] | | | and [place] | + + + | Organization | [facility] | | [...] Team Providers + +------+ + | Care Fruit Packer Name | Role | Phone | + +------+ + | Cassandra Salamacna MD | PCP | | + +------+ [...] | | | | | | | ND | | | | | | | ESOPHAGOGAST | | | | | | | RODUODENOSCO | | | | | | | PY TRANSORAL | | | | | | | DIAGNOSTIC | | | | | | | ND EGD | | | | | | | TRANSORAL | | | | | | | BIOPSY | | | | | | | SINGLE/MULTI | | | | | | | PLE ND EGD | | | | | | | BAND | | | | | | | LIGATION | | | | | | | ESOPHGEAL/GA | | | | | | | STRIC | | | | | | | VARICES ND | | | | | | | EGD BAND | | | | | | | LIGATION | | | | | | | ESOPHGEAL/GA | | | | | | | STRIC | | | | | | | VARICES [place] | | | | | | | [...] + + | 07/18/ | Anesthesia | [facility] | Art, | | | 2019 | Event | MED CTR MP INTRA OP | Jacob Darling MD | | | | | [address] | [address] | | | | | [place] | [place] | | | | | [address] | [id number] | | | | | [phone] | | | +--------+ + + + [...] by | | eral | (dorsal); Hand; [id number] | Helena Gonzalez RN | Bonnie Mariee [...]
--- OUTSIDE RECORDS SUMMARY | ~2018-08-07 | XMS | Clinical Summary ---
Demographics + + + | Address | [address] | | | [place] [address] | + + + | Home Phone [...] | Author | [facility] | | | and [place] | + + + | Organization | [facility] | | | and [...] Team Providers + +------+ + | Care Blind Eyeletter Name | Role | Phone | + [...] | | 19 | | | | trgyvcgmp-rndoipfp-s | (swish and swallow). | | | [...] | | | | | | type ([facility]) | | | | | | | + + + +---------+------+------+-------+ Active Problems + + + | Problem | Noted Date | + + + | H/O Heart attack | 06/13/2018 | + + + + + | Overview: 2008 - Age 47, "I had a heart attack... They sent | | me to [place] They kept me overnight and | | [...] | 2019 | Event | | Jacob Draling MD | | +--------+ + + + + | 06/27/ | Episode | | Lauryn Kurtz, | | | 2019 | Changes | | Medical Sales Associate | | +--------+ + + + + [...] + | 05/29/ | Office | | [facility], | Decompensated HCV | | 2018 [...] PROVATI ON | | 07/18/2018 10:50 AMMRN: [id number] #: [id number] of : | | | 1960Admit Type: AmbulatoryAge: 58Room: [facility] 02Gender: MaleNote | | | Status: FinalizedAttending MD: ИВАН WALLS , | | | MDProcedure: Upper GI | | | endoscopyIndications: Esophageal varices, Follow-up of | | | esophageal varicesProviders: ИВАН WALLS MD, | | | Lauren Lewis RN, Kaila | | | Hernan, Commercial Helicopter Pilot, Jacob Cordova MD (Anesthesia | | | [...] Completely eradicated. | | | Banded. - [place]-colored mucosa suspicious for short-segment | | | [...] Scope In: 10:59:59 AMScope Out: 11:07:10 AM [place] | | | [facility], [address] [place] [address] | | | [address] | | | - Repeat upper endoscopy in 4 weeks to evaluate the response to therapy. | | | - The findings and recommendations were discussed with the patient. | | |ИАВН WALLS MD | | |07/18/2018 11:11:33 AM | | |This report has been signed electronically. | | |Number of Addenda: 0 | | |Note Initiated On: 07/18/2018 10:50 AM | | |Total Procedure Duration: 0 hours 7 minutes 11 seconds | | |Scope In: 10:59:59 AM | | |Scope Out: 11:07:10 AM | | | [facility], [address] [place] [address] | | | [address] | | + +-------- ------+ + +---------+ [...] | PROVATION | | 06/13/2018 8:09 AMMRN: [id number] #: [id number] of : | | | 1960Admit Type: AmbulatoryAge: 57Room: [facility] 02Gender: MaleNote | | | Status: [...] Salas RN, Kaila | | | Hernan, Commercial Helicopter Pilot, Carmine Rodriguez MD | | | (Anesthesia [...] | | 8:31:40 AMScope Out: 8:51:20 AM [facility] | | | [place], [address] [place] [address] | | | - See the other [...] |Scope Out: 8:51:20 AM | | | [facility], [address] [place] [address] | | | [address] | | + + ---+ + +---------+ [...] | PROVATION | | 06/13/2018 8:06 AMMRN: [id number] #: [id number] of : | | | 1960Admit Type: AmbulatoryAge: 57Room: [facility] 02Gender: MaleNote | | | Status: FinalizedAttending MD: ИВАН WALLS , | | | MDProcedure: ColonoscopyIndications: | | | Screening for colorectal malignant neoplasmProviders: | | | ИВАН WALLS MD, Ange Salas RN, | | | Kaila Becerra, Commercial Helicopter Pilot, | | | Carmine Rodriguez MD | [...] bowel preparation was evaluated using the BBPS ([place] Bowel | | | Preparation Scale) with [...] AMScope | | | Out: 9:12:51 AM [facility], [address] | | | [place] [address] | | |ИВАН WALLS MD | | [...] |Scope Out: 9:12:51 AM | | | [facility], [address] [place], [place] | | | [address] | | + + ---+ + +---------+ [...] | [employer] | [employer] | [id number] | Medica | [phone] | | | [...] 07/14/ | Home: | [address] | | [place] | georgiana/Jann | | 1961 | [phone] | [place] [address] | | | dipak | | | [phone] | | + +--------+ +--------+ + +
--- OUTSIDE RECORDS SUMMARY | ~2018-08-07 | XMS | Encounter Summary ---
Demographics + + + | Address | [address] | | | [place] [address] | + + + | Home Phone | | + + + | Preferred Language | Unknown | + + + | Marital Status | | + + + | Adventism Affiliation | 1013 | + + + | Race | Unknown | + + + | Ethnic Group | Unknown | + + + Author + + + | Author | [facility] | | | and [place] | + + + | Organization | [facility] | | | [...] Providers + +------+ + | Care Precision Instrument And Tool Maker Name | Role | Phone | + +------+ + | Cassandra Salamanca MD | PCP | | + +------+ + Encounter Details +--------+ + + + + | Date | Type | Department | Care Team | Description | +--------+ + + + + | 06/27/ | Episode | [facility] [place] | Lauryn Kurtz, | | | 2019 | Changes | GASTROENTEROLOGY | Condominium Property Manager | | | | | [address] [facility] | | | | | | [address] | | | | | | [address] | | | | | | [phone] | | | +--------+ + + + [...]
--- OUTSIDE RECORDS SUMMARY | ~2018-08-07 | XMS | Encounter Summary ---
Demographics + + + | Address | [address] | | | [place] [address] | + + + | Home Phone | | + + + | Preferred Language | Unknown | + + + | Marital Status | | + + + | Moravian Affiliation | 1013 | + + + | Race | Unknown | + + + | Ethnic Group | Unknown | + + + Author + + + | Author | [facility] | | | and [place] | + + + | Organization | [facility] | [...] Team Providers + +------+ + | Care Trim Technician Name | Role | Phone | [...] | | | | | | | IN | | | | | | | COLONOSCOPY | | | | | | | FLX DX | | | | | | | W/COLLJ SPEC | | | | | | | WHEN PFRMD | | | | | | | IN | | | | | | | COLONOSCOPY | | | | | | | W/BIOPSY | | | | | | | SINGLE/MULTI | | | | | | | PLE IN | | | | | | | COLSC FLX | | | | | | | W/RMVL OF | | | | | | | TUMOR POLYP | | | | | | | LESION SNARE | | | | | | | TQ IN | | | | | | | ESOPHAGOGAST | | | | | | | RODUODENOSCO | | | | | | | PY TRANSORAL | | | | | | | DIAGNOSTIC | | | | | | | IN EGD | | | | | | | TRANSORAL | | | | | | | BIOPSY | | | | | | | SINGLE/MULTI | | | | | | | PLE IN | | | | | | | ANESTHESIA | | | | | | | COMBINED | | | | | | | UPPER&LOWER | | | | | | | GI | | | | | | | ENDOSCOPIC | | | | | | | PX IN EGD | | | | | | [...] + | 06/13/ | Anesthesia | [facility] | Carmine Rodriguez | | | 2019 | Event | MED CTR MP INTRA OP | MD Kandy [address] | | | | | [address] | [address] [place] [address] | | | | | [place] | [address] | | | | | [address] | [phone] | | | | | [phone] | | | +--------+ + + + [...] explained and consent obtained. Patient transported to [facility], | | | 2 | | Monitors [...] 06/13/18948 by | | eral | Antecubital; [id number] | Charlotte Brar RN | Corina Gibson [...]
--- OUTSIDE RECORDS SUMMARY | ~2018-08-07 | XMS | Encounter Summary ---
Demographics + + + | Address | [address] | | | [place] [address] | + + + | Home Phone | | + + + | Preferred Language | Unknown | + + + | Marital Status | | + + + | Episcopalian Affiliation | 1013 | + + + | Race | Unknown | + + + | Ethnic Group | Unknown | + + + Author + + + | Author | [facility] | | | and [place] | + + + | Organization | [facility] | | | and [...] Team Providers + +------+ + | Care Morgue Technician Name | Role | Phone | [...] | | | | | PLE [place] | | | | | | | COLSC FLX | | | | | | | W/RMVL OF | | | | | | | TUMOR POLYP | | | | | | | LESION SNARE | | | | | | | TQ [place] | | | | | | [...] | | | | | PLE [place] | | | | | | | ANESTHESIA | | | | | | | COMBINED | | | | | | | UPPER&LOWER | | | | | | | GI | | | | | | | ENDOSCOPIC | | | | | | | PX [place] EGD | | | | | [...] | | | | | [address] | [address] | | | | | [place] | [place] [address] | | | | | [address] | [phone] | | | | | [phone] | | | +--------+---------+ + + + [...] or cheese melted in other dishes Avoid: Auglaize fried eggs, cheese slices and cubes Fruits [...] as tempura), and corn Date Last Reviewed: 12/21/201519992470-[address] [employer] [place] [address]. All righ ts reserved. This information is [...] | PROVATION | | 06/13/2018 8:09 AMMRN: [id number] #: [id number] of : | | | 1960Admit Type: [...] Salas RN, Kaila | | | Hernan, Dental Office Receptionist, Carmine Rodriguez MD | | | (Anesthesia [...] | | 8:31:40 AMScope Out: 8:51:20 AM [facility] | | | [place], [address] [place] [address] | | | - See the other [...] |Scope Out: 8:51:20 AM | | | [facility], [address] [place] [address] | | | [address] | | + + ---+ + +---------+ [...] | PROVATION | | 06/13/2018 8:06 AMMRN: [id number] #: [id number] of : | | | 1960Admit Type: AmbulatoryAge: 57Room: [facility] 02Gender: MaleNote | | | Status: FinalizedAttending MD: ИВАН WALLS , | | | MDProcedure: ColonoscopyIndications: | | | Screening for colorectal malignant neoplasmProviders: | | | ИВАН WALLS MD, Ange Salas RN, | | | Kaila Becerra, Dental Office Receptionist, | | | Carmine Rodriguez MD | [...] bowel preparation was evaluated using the BBPS ([place] Bowel | | | Preparation Scale) with [...] AMScope | | | Out: 9:12:51 AM [facility], [address] | | | [place] [address] | | |ИВАН WALLS MD | | [...] |Scope Out: 9:12:51 AM | | | [facility], [address] [place], [place] | | | [address] | | + + ---+ + +---------+ [...]
--- OUTSIDE RECORDS SUMMARY | ~2018-08-07 | XMS | Encounter Summary ---
Demographics + + + | Address | [address] | | | [place] [address] | + + + | Home Phone [...] | Author | [facility] | | | and [place] | + + + | Organization | [facility] | [...] Team Providers + +------+ + | Care Criminal Justice Lawyer Name | Role | Phone | + [...] | | | | | | | CA | | | | | | | ESOPHAGOGAST | | | | | | | RODUODENOSCO | | | | | | | PY TRANSORAL | | | | | | | DIAGNOSTIC | | | | | | | CA EGD | | | | | | | TRANSORAL | | | | | | | BIOPSY | | | | | | | SINGLE/MULTI | | | | | | | PLE CA EGD | | | | | | | BAND | | | | | | | LIGATION | | | | | | | ESOPHGEAL/GA | | | | | | | STRIC | | | | | | | VARICES CA | | | | | | | EGD BAND | | | | | | | LIGATION | | | | | | | ESOPHGEAL/GA | | | | | | | STRIC | | | | | | | VARICES CA | | | | | | | [...] + + | 07/18/ | Hospital | [facility] | Ney Walls | 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 | | | [...] PROVATI ON | | 07/18/2018 10:50 AMMRN: [id number] #: [id number] of : | | | 1960Admit Type: AmbulatoryAge: 58Room: [facility] 02Gender: MaleNote | | | Status: FinalizedAttending MD: NEY WALLS , | | | MDProcedure: Upper GI | | | endoscopyIndications: Esophageal varices, Follow-up of | | | esophageal varicesProviders: NEY WALLS MD, | | | Lauren Lewis RN, [facility] | | | Hernan, Textile Slitting Machine Operator, Jacob Cordova MD (Anesthesia | | | [...] Completely eradicated. | | | Banded. - [place]-colored mucosa suspicious for short-segment | | | [...] Scope In: 10:59:59 AMScope Out: 11:07:10 AM [place] | | | [facility], [address] [place] [address] | | | [address] | | | - Repeat upper endoscopy [...] |Scope Out: 11:07:10 AM | | | [facility], [address] [place] [address] | | | [address] | | + +-------- ------+ + +---------+ [...]
--- OUTSIDE RECORDS SUMMARY | ~2018-08-07 | XMS | Clinical Summary ---
Demographics + + + | Address | [address] | | | [place] [address] | + + + | Home Phone | | + + + | Preferred Language | Unknown | + + + | Marital Status | | + + + | Muslim Affiliation | 1013 | + + + | Race | Unknown | + + + | Ethnic Group | Unknown | + + + Author + + + | Author | [facility] | + + + | Organization | [facility] [employer] [facility] | + + + | Address | Unknown | + + + | Phone | Unavailable | + + + Support + + + + + | Name | Relationship | Address | Phone | + + + + + | Lauren Addison | ECON | [address] | | | | | [place] | | | | | [address] | | + + + + + Care Team Providers + +------+ + | Care Audio Video Tech Name | Role | Phone | [...] + | COMMERCIAL OTHER | COMMER | [id number] | | | | | | CIAL | | | | | | | GENERI | | | | | | | C PLAN | | | | | + +--------+ +------+-------+ + | MEDICAID | [facility] | [id number] | | | [address] | | | [address] | | | | [place] | | | [place] | | | | [address] | | | MANAGER SOLAR | | | | | + +--------+ [...] | [place] | | | [address] | [address] | + +--------+ +--------+ + +
--- OUTSIDE RECORDS SUMMARY | ~2018-08-07 | XMS | Encounter Summary ---
Demographics + + + | Address | [address] | | | [place] [address] | + + + | Home Phone [...] + | Author | [facility] | | | and [place] | + + + | Organization | [facility] | | | and [place] [...] Team Providers + +------+ + | Care Benefits Analyst Name | Role | Phone | [...] [place] | | | | | | [address] | | | | | | [phone] | | | +--------+ + + + [...]
--- OUTSIDE RECORDS SUMMARY | ~2018-08-07 | XMS | Encounter Summary ---
Demographics + + + | Address | [address] | | | [place] [address] | + + + | Home Phone | | + + + | Preferred Language | Unknown | + + + | Marital Status | | + + + | Holiness Affiliation | 1013 | + + + | Race | Unknown | + + + | Ethnic Group | Unknown | + + + Author + + + | Author | [facility] | | | and [place] | + + + | Organization | [facility] [...] [place] | | | | | | [address] | | | | | | [phone] | | | +--------+ + + + [...]
--- OUTSIDE RECORDS SUMMARY | ~2018-08-07 | XMS | Encounter Summary ---
Demographics + + + | Address | [address] | | | [place] [address] | + + + | Home Phone [...] [facility] | | | and [place] | + + + | Organization | [facility] | [...] Team Providers + +------+ + | Care Insole Rounder Name | Role | Phone | + [...] cirrhosis | [address] [place], | | | | | of liver | Barry Cora | [address] | | | | | (HCC) | [place], | [place], | | | | | Procedures | [place] [address] | [place] [address] | | | | | OFFICE VISIT | Phone: | Phone: | | | | | | [phone] | [phone] | | | | | | Fax: | Fax: | | | | | | [phone] | [phone] | +--------+--------+ + + + + Encounter Details +--------+---------+ + + + | Date | Type | Department | Care Team | Description | +--------+---------+ + + + | 05/29/ | Office | [facility] [place] | [facility], | 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 He was seen at [facility] initially. He was then transferred to [facility]. Records indicate that he had diagnostic and therapeutic paracentesis and EGD completed at [facility]. 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
--- OUTSIDE RECORDS SUMMARY | ~2018-08-07 | XMS | Encounter Summary ---
Demographics + + + | Address | [address] | | | [place] [address] | + + + | Home Phone | | + + + | Preferred Language | Unknown | + + + | Marital Status | | + + + | Sikh Affiliation | 1013 | + + + | Race | Unknown | + + + | Ethnic Group | Unknown | + + + Author + + + | Author | [facility] | | | and [place] | + + + | Organization | [facility] | | | and [...] Team Providers + +------+ + | Care Road Consultant Name | Role | Phone | [...] [place] | | | | | [address] [place], [place] | [place] [address] | | | | | [address] | [phone] | | | | | [phone] | | | +--------+ + + + [...]
--- OUTSIDE RECORDS SUMMARY | ~2018-08-07 | XMS | Encounter Summary ---
Demographics + + + | Address | [address] | | | [place] [address] | + + + | Home Phone | | + + + | Preferred Language | Unknown | + + + | Marital Status | | + + + | Amish Affiliation | 1013 | + + + | Race | Unknown | + + + | Ethnic Group | Unknown | + + + Author + + + | Author | [facility] | | | and [place] | + + + | Organization | 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 | | | [...] PROVATI ON | | 07/18/2018 10:50 AMMRN: [id number] #: [id number] of : | | | 1960Admit Type: AmbulatoryAge: 58Room: [facility] 02Gender: MaleNote | | | Status: FinalizedAttending MD: NEY WALLS , | | | MDProcedure: Upper GI | | | endoscopyIndications: Esophageal varices, Follow-up of | | | esophageal varicesProviders: NEY WALLS MD, | | | Lauren Lewis RN, [facility] | | | Hernan, Unarmed Security Officer, Jacob Cordova MD (Anesthesia | | | [...] Completely eradicated. | | | Banded. - [place]-colored mucosa suspicious for short-segment | | | [...] Scope In: 10:59:59 AMScope Out: 11:07:10 AM [place] | | | [facility], [address] [place] [address] | | | [address] | | | - Repeat upper endoscopy [...] |Scope Out: 11:07:10 AM | | | [facility], [address] [place] [address] | | | [address] | | + +-------- ------+ + +---------+ [...]
--- OUTSIDE RECORDS SUMMARY | ~2018-08-07 | XMS | Encounter Summary ---
Demographics + + + | Address | [address] | | | [place] [address] | + + + | Home Phone [...] Author | [facility] | | | and [place] | + + + | Organization | [facility] | | | and [...] Team Providers + +------+ + | Care Montessori Toddler Teacher Name | Role | Phone | [...] | | | | | | | [place] | | | | | | | COLONOSCOPY | | | | | | | FLX DX | | | | | | | W/COLLJ SPEC | | | | | | | WHEN PFRMD | | | | | | | [place] | | | | | | | COLONOSCOPY | | | | | | | W/BIOPSY | | | | | | | SINGLE/MULTI | | | | | | | PLE [place] | | | | | | | COLSC FLX | | | | | | | W/RMVL OF | | | | | | | TUMOR POLYP | | | | | | | LESION SNARE | | | | | | | TQ [place] | | | | | | | ESOPHAGOGAST | | | | | | | RODUODENOSCO | | | | | | | PY TRANSORAL | | | | | | | DIAGNOSTIC | | | | | | | [place] EGD | | | | | | | TRANSORAL | | | | | | | BIOPSY | | | | | | | SINGLE/MULTI | | | | | | | PLE [place] | | | | | | | ANESTHESIA | | | | | | | COMBINED | | | | | | | UPPER&LOWER | | | | | | | GI | | | | | | | ENDOSCOPIC | | | | | | | PX [place] EGD | | | | | | [...] + | 06/13/ | Anesthesia | [facility] | Carmine Rodriguez | | | 2019 | Event | MED CTR MP INTRA OP | MD Kandy [address] | | | | | [address] | [address] [place] | | | | | [place] | [address] | | | | | [address] | [phone] | | | | | [phone] | | | +--------+ + + + [...] Patient transported to [facility], | | | 2 | | Monitors [...] 06/13/18948 by | | eral | Antecubital; [id number] | Charlotte Brar RN | Corina Gibson [...]
--- OUTSIDE RECORDS SUMMARY | ~2018-08-07 | XMS | Encounter Summary ---
Demographics + + + | Address | [address] | | | [place] [address] | + + + | Home Phone [...] Author | [facility] | | | and [place] | + + + | Organization | [facility] [...] Team Providers + +------+ + | Care Automatic Lathe Setter Name | Role | Phone | [...] [place] | | | | | | [address] | | | | | | [phone] | | | +--------+ + + + [...]
--- OUTSIDE RECORDS SUMMARY | ~2018-08-07 | XMS | Encounter Summary ---
Demographics + + + | Address | [address] | | | [place] [address] | + + + | Home Phone [...] | [facility] | | | and [place] | + + + | Organization | [facility] | | | and [...] Team Providers + +------+ + | Care Juice Scaleman Name | Role | Phone | + [...] | 2019 | Changes | GASTROENTEROLOGY | Banana Loader | | | | | [address] [facility] | | | | | | [address] [place] | | | | | | [address] | | | | | | [phone] | | | +--------+ + + + [...]
--- OUTSIDE RECORDS SUMMARY | ~2018-08-07 | XMS | Encounter Summary ---
Demographics + + + | Address | [address] | | | [place] [address] | + + + | Home Phone [...] | [facility] | | | and [place] | + + + | Organization | [facility] | | | and [...] Team Providers + +------+ + | Care Magnetic Prospecting Supervisor Name | Role | Phone | [...] | | | | | | | NE | | | | | | | COLONOSCOPY | | | | | | | FLX DX | | | | | | | W/COLLJ SPEC | | | | | | | WHEN PFRMD | | | | | | | NE | | | | | | | COLONOSCOPY | | | | | | | W/BIOPSY | | | | | | | SINGLE/MULTI | | | | | | | PLE NE | | | | | | | COLSC FLX | | | | | | | W/RMVL OF | | | | | | | TUMOR POLYP | | | | | | | LESION SNARE | | | | | | | TQ NE | | | | | | | ESOPHAGOGAST | | | | | | | RODUODENOSCO | | | | | | | PY TRANSORAL | | | | | | | DIAGNOSTIC | | | | | | | NE EGD | | | | | | | TRANSORAL | | | | | | | BIOPSY | | | | | | | SINGLE/MULTI | | | | | | | PLE NE | | | | | | | ANESTHESIA | | | | | | | COMBINED | | | | | | | UPPER&LOWER | | | | | | | GI | | | | | | | ENDOSCOPIC | | | | | | | PX NE EGD | | | | | | [...] + + | 06/13/ | Hospital | [facility] | [place] | Special screening | | 2019 | Encounter | MED CTR [facility] INTRA OP | MD Agustin [address] | for malignant | | | | [address] | [address] [place] | neoplasms, colon; | | | | [place], [place] | [place] [address] | Secondary esophageal | | | | [phone] | [phone] | varices with | | | | [phone] | | bleeding (HCC); | | | [...] moist. Follow your healthcare provider s spe [facility] instructions about what foods and drinks you [...] or cheese melted in other dishes Avoid: [place] fried eggs, cheese slices and cubes Fruits [...] as tempura), and corn Date Last Reviewed: 12/21/201519992721-[address] [employer] [place] [id number]. All righ ts reserved. This information is [...] | PROVATION | | 06/13/2018 8:09 AMMRN: [id number] #: [id number] of : | | | 1960Admit Type: AmbulatoryAge: 57Room: [facility] 02Gender: MaleNote | | | Status: [...] Salas RN, Kaila | | | Hernan, Nurse Anesthesia Program Director, Carmine Rodriguez MD | | | (Anesthesia [...] | | 8:31:40 AMScope Out: 8:51:20 AM [facility] | | | Early, [address] [place] [address] | | | - See the other [...] |Scope Out: 8:51:20 AM | | | [facility], [address] [place] [address] | | | [address] | | + + ---+ + +---------+ [...] | PROVATION | | 06/13/2018 8:06 AMMRN: [id number] #: [id number] of : | | | 1960Admit Type: AmbulatoryAge: 57Room: [facility] 02Gender: MaleNote | | | Status: FinalizedAttending MD: ИВАН [place] , | | | MDProcedure: ColonoscopyIndications: | | | Screening for colorectal malignant neoplasmProviders: | | | ИВАН [place] MD, Ange Salas RN, | | | Kaila Becerra, Nurse Anesthesia Program Director, | | | Carmine Rodriguez MD | [...] bowel preparation was evaluated using the BBPS (Gold Bar Bowel | | | Preparation Scale) with [...] AMScope | | | Out: 9:12:51 AM [facility], [address] | | | [place] [address] | | |ИВАН [place] MD | | [...] |Scope Out: 9:12:51 AM | | | [facility], [address] [place], [place] | | | [address] | | + + ---+ + +---------+ [...]
--- OUTSIDE RECORDS SUMMARY | ~2018-08-07 | XMS | Encounter Summary ---
Demographics + + + | Address | [address] | | | [place] [address] | + + + | Home Phone | | + + + | Preferred Language | Unknown | + + + | Marital Status | | + + + | Yarsani Affiliation | [id number] | + + + | Race | Unknown | + + + | Ethnic Group | Unknown | + + + Author + + + | Author | [facility] | | | and [place] | + + + | Organization | [facility] | | | and [place] [...] Team Providers + +------+ + | Care Electro Mechanic Name | Role | Phone | + [...] | 2019 | Changes | GASTROENTEROLOGY | Retail Representative | | | | | [address] [facility] | | | | | | [address] [place] | | | | | | [address] | | | | | | [phone] | | | +--------+ + + + [...]
[~2018-08-07 12:09] MED LIST changes: +ALDACTONE100 MG PO; +BACTRIM DS TAB1 EACH PO; +K-TAB ER20 MEQ PO; +LACTULOSE20 GM/30 M PO; +LASIX40 MG PO; +XIFAXAN550 MG PO; +ZOFRAN ODT4 MG; +ZOFRAN4 MG PO
--- OUTSIDE RECORDS SUMMARY | 2018-08-07 12:12 | XMS ---
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 Care History Medical/Surgical 04/05/2018 [facility] - PATIENT RECEIVED LIGHT DUTY -WORK NOTE FROM MILENA VALDEZ AT [facility] IN CLINIC ON 04/04/18. - PATIENT HAS A FOLLOW UP WITH DR BHATTI ON 04/17/2018. Mark VISIT COUNT (12 MO.) 8 [facility] TOTAL 8 NOTE: Visits indicate total known visits. 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 - Nicotine dependence, unspecified, uncomplicated - Unspecified abdominal pain 04/04/2018 15:18 [facility] TYPE: Emergency COMPLAINT: - POSS HERNIA DIAGNOSES: - Encounter for other general examination 03/31/2018 18:03 [facility] TYPE: Emergency COMPLAINT: - ABD PAIN DIAGNOSES: - Nicotine dependence, unspecified, uncomplicated - Ventral hernia without obstruction or gangrene - Other long-term (current) drug therapy 03/16/2018 11:09 [facility] TYPE: Emergency COMPLAINT: - BILAT LWR EXTREMITY SWELLING DIAGNOSES: - Nicotine dependence, unspecified, uncomplicated - Localized edema - Abnormal results of liver function studies 10/15/2017 00:19 [facility] [place] TYPE: Emergency COMPLAINT: - POSS STAPH INFECTION DIAGNOSES: - Rash and other nonspecific skin eruption - Infective dermatitis - Allergy status to penicillin INPATIENT VISIT TRACKING (12 MO.) 04/19/2018 07:41 [facility] TYPE: Medical Surgical COMPLAINT: - HEPATIC ENCEPHALOPATHY DIAGNOSES: - Diaphragmatic hernia without obstruction or gangrene - Chronic obstructive pulmonary disease, unspecified - Other stimulant abuse, in remission - Disorientation, unspecified - Other ascites - Hepatic failure, unspecified without coma - Unspecified cirrhosis of liver - Gastritis, unspecified, without bleeding - Personal history of nicotine dependence - Unspecified viral hepatitis C without hepatic coma - Other long-term (current) drug therapy - Secondary esophageal varices without bleeding 04/06/2018 13:13 [facility] [place] TYPE: General Medicine DIAGNOSES: - Ascities [email or web address]
--- NOTE | 2018-08-07 15:23 | NUR ---
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 PT ABLE TO SCOOT TO BED. IN SIGNIFICANT PAIN. 10\10. AND MOTHER IN ROOM. AB INFUSING. UNABLE TO ASSESS ABD. IT IS TOO PAINFUL TO TOUCH.
--- NOTE | 2018-08-07 15:39 | NUR ---
ADMINISTERED .6 DILAUIDID FOR SEVERE PAIN.
--- NOTE | 2018-08-07 16:46 | NUR ---
IN PT ROOM AT THIS TIME TALKING WITH PT AND FAMILY IN REGARDS TO SURGERY. PT REPORTS PAIN 10/, 1MG I.V. DILAUDID ADMINISTERED AT THIS TIME.
--- NOTE | 2018-08-07 16:58 | NUR ---
INDY WITH R.T. NOTIFIED OF EKG ORDER
--- NOTE | 2018-08-07 17:36 | NUR ---
PT RESTING IN BED AT THIS TIME, RELAXED ERIKAE MOANING, FAMILY IN ROOM FEELS PT IS COMFORTABLE AT THIS TIME
--- NOTE | 2018-08-07 17:53 | NUR ---
PT OFF THE UNIT TO SURGERY AT THIS TIME. PT DROWSY ALERT TO GENTLE SHOULDER RUB.
--- NOTE | 2018-08-07 19:33 | NUR ---
08/07/181932 Michaela Hansen 190 PT ARRIVED TO PACU WITH LIQUID STOOL NOTED IN BED. VSS. RESP EVEN AND UNLABORED, WITH ORAL AIRWAY IN PLACE ON 6L VIA MASK. BEDDING CHARGED WITH THREE OR RNS AT BEDSIDE AND LIQUID STOOL CONTINUES TO POOL IN BED. ATTENDS PLACED ON PT. 1914 ORAL AIRWAY REMAINS IN PLACE. PT WAKES TO PAINFUL STIMULI. WARM BLACKETS PUT ON PT. 1929 PT CONTINUES TO ASLEEP WITH ORAL AIRWAY IN PLACE. PT ABLE TO OPEN HIS EYES SLIGHTLY TO PAINFUL STIMULI.
--- NOTE | 2018-08-07 20:30 | NUR ---
PT ARRIVED TO ROOM 129 FROM PACU AT 195, PT IS DROWSY BUT WAKES EASILY WHEN SPOKEN TO AND IS ORIENTED X4. MOVED TO BED VIA DRAW SHEET. PT DENIES PAIN AND NAUSEA. N.G. WAS REMOVED IN O.R. PER DR. MATA. DRESSING TO LOWER ABDOMINAL SURGICAL SITE IS C/D/I. ABDOMEN APPEARS ONLY MILDLY DISTENDED AND A BASEBALL SIZED HERNIA IS PRESENT ABOVE THE SURGICAL SITE. BOWEL TONES ARE HYPOACTIVE. PT INCONTINENT OF STOOL THAT APPEARS GREEN AND IS MUCUS-LIKE IN CONSISTENCY. ISABELA-CARE PROVIDED AND NEW ATTENDS IN PLACE. SCD'S ON. IV SITES PATENT, DRESSINGS INTACT, IVF INFUSING WNL. HR TACHY IN 130'S, OTHERWISE VITAL SIGNS STABLE. CALL LIGHT WITHIN REACH.
--- NOTE | 2018-08-07 20:45 | NUR ---
CALLED AND SPOKE TO DR. MCKEON REGARDING THE ORDER OF LASIX TO SEE ABOUT POSSIBLY PLACING A SCHUMACHER CATHETER. HE ADVISED ME TO CONSULT DR. MATA, SINCE HE BELIEVES THAT PT NEEDS FLUIDS REPLACED AND TO CLARIFY LASIX ORDER. CALLED AND SPOKE TO DR. MATA WHO STATES TO HOLD LASIX DOSE TONIGHT (AND THEREFORE NO SCHUMACHER NEEDED.) HE ALSO WAS MADE AWARE OF THE 1L BOLUS THAT IS ORDERED AND STATES HE'D LIKE IT GIVEN OVER 4 HOURS. ORDER ALSO RECEIVED FOR ONE TIME DOSE OF 25G IV ALBUMIN.
--- NOTE | 2018-08-07 23:06 | NUR ---
ATTENDS DRY AT THIS TIME, PT DENIES NEED TO VOID AT THIS TIME. PT DENIES PAIN AND APPEARS TO BE COMFORTABLE. IVF INFUSING WNL, SITES INTACT. CALL LIGHT REMAINS WITHIN REACH, WILL CONTINUE TO MONITOR.
--- NOTE | 2018-08-08 00:28 | NUR ---
ASSESSMENT COMPLETED. PT CONTINUES TO DENY PAIN AND NAUSEA. HE IS SLIGHTLY LESS DROWSY AND REMAINS ORIENTED X4. BOWEL TONES SLIGHTLY MORE ACTIVE IN RUQ. DRESSING TO SURGICAL SITE REMAINS C/D/I, MILD DISTENTION REMAINS THE SAME. IVF INFUSING WNL, SITES INTACT. SCD'S REMAIN IN PLACE. ICE CHIPS PROVIDED PER REQUEST. NO OTHER CHANGES FROM PREVIOUS ASSESSMENT. CALL LIGHT WITHIN REACH.
--- NOTE | 2018-08-08 02:13 | NUR ---
IN TO START ANTIBIOTIC INFUSIONS, PT CONTINUES TO REST COMFORTABLY. HR: 87, RR: 12, SPO2: 97% ON RA. NO APPARENT DISTRESS. WILL ALLOW FOR REST AND CONTINUE TO MONITOR.
--- NOTE | 2018-08-08 04:51 | NUR ---
PT UP TO SIDE OF BED WITH SBA TO USE URINAL, VOIDED 350ML OF CONCENTRATED URINE. ASSESSMENT COMPLETED. PT IS NO LONGER DROWSY, FULLY ALERT/ORIENTED. WITH MOVEMENT, PT RATES ABDOMINAL PAIN IS 2/10 AND TOLERABLE. DENIES NAUSEA, BOWEL TONES ACTIVE, MILD DISTENTION UNCHANGED. DRESSING TO ABDOMINAL SURGICAL SITE C/D/I, FRESH ICE PACK PROVIDED. PT HAD NOT HAD ANY OF THE ICE CHIPS PROVIDED EARLIER, FRESH ICE CHIPS PROVIDED. SCD'S REMAIN IN PLACE. IV INFUSING WNL. PT DENIES FURTHER REQUESTS AT THIS TIME, CALL LIGHT WITHIN REACH.
--- NOTE | 2018-08-08 06:43 | NUR ---
PT CONTINUES TO REST COMFORTABLY, HR: 76, SPO2: 96% ON RA, RR:13. WILL ALLOW FOR REST AND CONTINUE TO MONITOR.
--- NOTE | 2018-08-08 07:28 | CONS ---
[facility] [address] [place], [place] [address] Signed DATE OF CONSULTATION: 08/07/2018 CHIEF COMPLAINT: Abdominal protrusion and pain. HISTORY OF PRESENT ILLNESS: Lance is a 58-year-old gentleman with cirrhosis of liver related to his hepatitis C virus and previous methamphetamine abuse. He had 1-day history now of nausea, vomiting, and diarrhea. He has had pain and swelling at the umbilicus. Generally, that is reducible, but not currently. He came to the emergency room for evaluation. It was not reducible after some Fentanyl. He has a white count borderline at 11.1. Urine specific gravity up a little bit at 1.055, total bilirubin 3.2, AST 64, ALT 66, alk phosphatase 180, and albumin 3.2. INR 1.1. He therefore had a CT scan of the abdomen and pelvis and it does show his nodular small liver with an enlarged spleen and extensive varices within the abdomen including the paraumbilical vein. He has a moderate amount of ascites. He clearly has a loop of small bowel incarcerated in the umbilicus. This is causing his bowel obstruction. He also has an epigastric hernia that is broader, but is reducible. I have been called by the ER physician with respect to the above. Unfortunately, I was not aware of all the details of the CT scan. I was aware that his INR was normal and his platelet count was normal. He has been admitted, given IV fluids, pain control, and started on cefepime and Flagyl. I have been asked to see his general surgeon on-call. PAST MEDICAL HISTORY: Hepatitis C virus, cirrhosis of the liver, upper GI bleed, gastroesophageal varices, and ascites. PAST SURGICAL HISTORY: Tonsillectomy, upper teeth have been removed. He had upper endoscopy with esophageal banding in June 2018. He has undergone paracentesis once. SOCIAL HISTORY: He quit smoking. He does not drink. He has been off meth. He is to his , Ashley at [phone]. Dr. Bonifacio Lawton is his primary care provider, they prefer the [facility]. His utility service worker, Dr. Bernardino Tellez and he is a full code according to his . FAMILY HISTORY: Not reviewed. REVIEW OF SYSTEMS: Not able to review as he was quite sedated from Dilaudid. Electronically Signed By: SG MATA MD 08/08/18 0728 PATIENT NAME: LANCE ADDISON CONSULTATION DATE OF : 64 REPORT #: [id number] PHYSICIAN: SG MATA MD PCP: GEORGE BHATTI DO REPORT IS CONFIDENTIAL AND NOT TO BE RELEASED WITHOUT AUTHORIZATION [facility] [address] [place], [place] [address] Signed ALLERGIES: None. MEDICATIONS: Lasix, potassium, rifaximin, lactulose, Zofran, Protonix, and spironolactone. PHYSICAL EXAMINATION: VITAL SIGNS: Blood pressure 135/53, heart rate 92, his respiratory rate 20, temperature 97.7, and he is 99% on room air. He is 5 feet 10 inches, 76 kg exam. GENERAL: Lance is a 58-year-old gentleman who is quite cachectic with the classic body habitus of liver failure patients. He has little mass on his arms and legs with a moderately protuberant abdomen. LUNGS: Generally clear to auscultation bilaterally. HEART: Regular rate and rhythm. ABDOMEN: Shows emrm-lm-[id number] distention, but interestingly no fluid wave. He does have a reduced gastric hernia, but he has an incarcerated tender umbilical hernia. Overlying skin does not appear infected. LABORATORY DATA: His white blood cell count 11.1, neutrophils 80, and hemoglobin 13. BUN 16, creatinine 0.9. Urine specific gravity 1.055, total bilirubin 3.2, AST 64, ALT 66, alkaline phosphatase 180, albumin is 3.2. INR is 1.1. RADIOGRAPHIC STUDIES: The CT scan of abdomen and pelvis is reviewed per myself along with the report. He certainly has a very small nodular liver. His spleen is enlarged at 14.5 cm. He probably has a hiatal hernia. He has extensive varices within the abdomen. This includes the paraumbilical vein. His umbilical hernia shows loop of small bowel that is incarcerated. This represents a small bowel obstruction. He has moderate ascites. It looks like he has a fracture of the seventh and eighth ribs. ASSESSMENT AND PLAN: Lance is a 58-year-old gentleman who presents with significant liver failure and incarcerated umbilical hernia representing a small bowel obstruction. He represents significant surgical risks including bleeding and . I did review this in detail with his as Lance is quite stable with Dilaudid. She explained to me that he remains a full code. I explained to his that we could certainly take him to the operating room and placed him under pharmacologic paralysis and see if we could just simply reduce the small bowel. Of course, we would not have a chance to see it, but we could watch him over several days. If he does fine, we proceed from there. If it worsen, we would have to consider having him undergo a laparotomy at a much larger institution for evaluation of the small bowel and closure of the umbilical hernia. I reviewed all this in great detail with his . She has expressed understanding, would like me to talk to my local anesthesia provider. We will get back to her afterwards. Electronically Signed By: SG MATA MD 08/08/18 0728 PATIENT NAME: LANCE ADDISON CONSULTATION DATE OF : 64 REPORT #: [id number] PHYSICIAN: SG MATA MD PCP: GEORGE BHATTI DO REPORT IS CONFIDENTIAL AND NOT TO BE RELEASED WITHOUT AUTHORIZATION [facility] [address] [place], [place] [address] Signed Sg Mata MD ALB/MODL /[id number] cc: MD Bonifacio Diaz MD Dr. Peter Laing Copies: SG MATA MD, LOHITH VEERAPPA MD ~ Electronically Signed By: SG MATA MD 08/08/18 0728 PATIENT NAME: LANCE ADDISON CONSULTATION DATE OF : 64 REPORT #: [id number] PHYSICIAN: SG MATA MD PCP: GEORGE BHATTI DO REPORT IS CONFIDENTIAL AND NOT TO BE RELEASED WITHOUT AUTHORIZATION
--- NOTE | 2018-08-08 07:28 | OR ---
[facility] [address] [place], [place] [address] Signed DATE OF OPERATION: SURGEON: Sg Mata MD DATE OF PROCEDURE: 08/07/2018 PREOPERATIVE DIAGNOSIS: Incarcerated umbilical hernia with small bowel obstruction. POSTOPERATIVE DIAGNOSIS: Incarcerated umbilical hernia with small bowel obstruction. PROCEDURES PERFORMED: 1. Primary umbilical herniorrhaphy without mesh. 2. Evacuation of 1300 mL thin, clear, straw-colored ascitic fluid. ESTIMATED BLOOD LOSS: None. INDICATIONS: Lance is a 58-year-old gentleman, who had used methamphetamines in the past and contracted hepatitis C virus. It has been untreated. Recently, his primary care provider had left our area, so he established with a new primary care provider. He also spent some time in our hospital with an upper GI bleed and was sent over to [facility]. He had undergone upper endoscopy at that time without bleeding, but no banding. 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 He is known to have a reducible epigastric and umbilical hernia. Unfortunately, yesterday, he developed nausea, vomiting, and he could not reduce the umbilical hernia. It was quite swollen and painful. He finally came to emergency room for evaluation. He was given some fentanyl and the ER doctor could not reduce the hernia. He did not appear to be toxic, but he certainly was moderately distended. He ended up with a CT scan of the abdomen and pelvis and of course he has moderate ascites with his small nodular liver, splenomegaly and significant extensive varices throughout the abdomen including the umbilical vein. He did have a loop of small bowel in that umbilical hernia causing his bowel obstruction. Consequently, I was asked to admit him as a general surgeon on-call. I met with Lance and his and his family friend and I explained to them the seriousness of his situation. We did call [facility]. However, they have no beds for the next two or three days. I then contacted [facility] and both their liver surgeons happened to be at the [place] and not available. Consequently, I explained to Lance and his Electronically Signed By: SG MATA MD 08/08/18 0728 PATIENT NAME: LANCE ADDISON OPERATIVE REPORT DATE OF : 64 REPORT #: [id number] PHYSICIAN: SG MATA MD PCP: GEORGE BHATTI DO REPORT IS CONFIDENTIAL AND NOT TO BE RELEASED WITHOUT AUTHORIZATION [facility] [address] [place], [place] [address] Signed that this really is an emergent situation and we needed to take him to the operating room to reduce the hernia and evaluate the small bowel as best as possible and we will have to decide whether or not to close his umbilical hernia primarily. We felt that tonight it would be best to use absorbable suture rather than Prolene suture given the high risk of infection. I explained to Lance and his , he is extremely high risk including, but not limited to bleeding, infection, scarring, change in contour of the skin, damage to bowel, intraabdominal infection, recurrent umbilical hernia, recurrent ascites, leak through the wound and other unforeseen comorbidities including . His had asked that he remain a full code. Unfortunately, Lance had received some Dilaudid at that point and was not quite as coherent. PROCEDURE NOTE: Lance was taken in the operating room and placed in the supine position under general endotracheal tube anesthesia. He was on preoperative antibiotics to include cefepime and Flagyl. We did not give him heparin. SCDs were utilized. A Rosado catheter was not placed. He was then prepped and draped in the usual sterile fashion. With pharmacologic paralysis, I was able to manually reduce the incarcerated small bowel. We then made a standard infraumbilical transverse incision and carried that down around the umbilicus bluntly and with the cautery. We evacuated 1300 mL of thin straw-colored clear serous fluid. We evaluated the bowel the best we could through his 12 mm fascial defect. All the bowel was pink. We saw no necrotic bowel. After this, we closed the fascial defect transversely with interrupted fcyxot-[id number]-modkc #1 PDS sutures. Local anesthetic was injected in the abdominal wall in the subcutaneous tissues. We then brought the umbilical skin down the midline fascia with an interrupted 2-0 PDS suture. The dermis was reapproximated with interrupted 3-0 Monocryl sutures. The skin edges were reapproximated with a running 6-0 fast absorbing plain gut suture. Dry gauze and tape were then applied. Lance was awakened from his anesthesia, extubated in the OR, and taken to recovery room in stable condition. Sg Mata MD ALB/MODL /[id number] cc: Dr. Bernardino Tellez Electronically Signed By: SG MATA MD 08/08/18 0728 PATIENT NAME: LANCE ADDISON OPERATIVE REPORT DATE OF : 64 REPORT #: [id number] PHYSICIAN: SG MATA MD PCP: GEORGE BHATTI DO REPORT IS CONFIDENTIAL AND NOT TO BE RELEASED WITHOUT AUTHORIZATION [address] [place], [place] [address] Signed Sg Mata MD Patient's Chart Sanam Lawton MD Copies: SG MATA MD,SANAM MARTINEZ MD ~ Electronically Signed By: SG MATA MD 08/08/18 0728 PATIENT NAME: LANCE ADDISON OPERATIVE REPORT DATE OF : 64 REPORT #: [id number] PHYSICIAN: SG MATA MD PCP: GEORGE BHATTI DO REPORT IS CONFIDENTIAL AND NOT TO BE RELEASED WITHOUT AUTHORIZATION
--- NOTE | 2018-08-08 07:30 | NUR ---
PT ASLEEP RESTING ON HIS SIDE IN BED AT THIS TIME. HE APPEARS COMFORTABLE WITH NO SIGNS OF DISCOMFORT OR PAIN. CALL LIGHT WITHIN REACH. FALL PRECAUTIONS IN PLACE. WILL RETURN SOON AND CONTINUE TO MONITOR.
--- NOTE | 2018-08-08 08:25 | NUR ---
PT ASSISTED (STAND BY ONLY PT IS STRONG AND STEADY INDEPENDENTLY ON HIS FEET) TO BEDSIDE COMMODE PER HIS REQUEST FOR A BM. MEDIUM LOOSE/LIQUID BM WELL URINE MIXED IN. PT BACK IN BED - ISABELA CARE COMPLETED WELL NEW GOWN, UNDERPANTS AND SOCKS. PT A/O X4 WITH NO C/O PAIN, N/V OR SOB/BREATHING ISSUES. ROOM AIR. CLEAR LUNG SOUNDS THROUGHOUT ALL LOBES. MILD DISTENTION IN ABDOMEN- HERNIA NOTED ON UPPER ABDOMEN- TYLER SURGICAL HERNIA REPAIR SINCE DRSG IS IN PLACE- C/D/I. ACTIVE BOWEL SOUNDS THROUGHOUT. SR ON CONTINUOUS TELE. ICE CHIPS AT THE BEDSIDE. ICE PACK ON INCISION. SCD IN PLACE AND ON. EDUCATION COMPLETED WITH PT. REFUSES COMPLETE BED BATH AT THIS TIME. HE DENIES ANY NEEDS TO BE MET. CALL LIGHT WITHIN REACH. FALL PRECAUTIONS IN PLACE. WILL CONTINUE TO MONITOR.
--- NOTE | 2018-08-08 09:28 | NUR ---
PT SITTING UP IN BED TALKING ON HIS CELL PHONE. PT DENIED ANY NEEDS TO BE MET I POPPED IN TO CHECK ON HIM. CALL LIGHT WITHIN REACH. WILL CONTINUE TO MONITOR.
--- NOTE | 2018-08-08 10:21 | NUR ---
PT SITTING UP IN BED RESTING WITH 2 VISITORS AT THE BEDSIDE. PT REMAINS PLEASANT AND CALM. FRESH ICE CHIPS PROVIDED TO PT. DENIES ANY NEEDS. SCD REMAIN IN PLACE. CALL LIGHT WITHIN REACH. WILL CONTINUE TO MONITOR.
--- NOTE | 2018-08-08 10:40 | NUR ---
DR. MCKEON AT BEDSIDE
--- NOTE | 2018-08-08 11:02 | NUR ---
PT RESTING IN BED WATCHING TV WITH VISITOR AT THE BEDSIDE. PT IS PLEASANT, CALM AND COOPERATIVE WITH NO QUESTIONS OR CONCERNS. EDUCATION GIVEN ON MAG REPLACEMENT VIA PIV. CALL LIGHT WITHIN REACH. WILL CONTINUE TO MONITOR.
--- NOTE | 2018-08-08 12:15 | NUR ---
ASSESSMENT COMPLETED AGAIN AT THIS TIME. NO CHANGES TO PT ASSESSMENT- HE CONTINUES TO DENY PAIN, N/V AND SOB. SINCE HIS LASIX, HE HAS WALKED TO THE BATHROOM AND URINATED HOWEVER HE MISSED MEASURING HAT. BOWEL SOUNDS REMAIN ACTIVE AND HIS LOWER ABD DRSG REMAINS C/D/I. HE REMAINS VERY PLEASANT, CALM AND COOPERATIVE. HIS BROTHER IS VISITING WITH HIM AT THE BEDSIDE. VS AND OVERALL CONDITION STABLE. HE DENIES ANY NEEDS AT THIS TIME BUT STATES HIS READINESS TO ADVANCE DIET- EDUCATION GIVEN AND HE IS AWARE/UNDERSTANDS THE NEED FOR DR. MATA TO MAKE THIS CALL. CALL LIGHT WITHIN REACH. SCD IN PLACE AND ON. WILL CONTINUE TO MONITOR.
--- NOTE | 2018-08-08 12:27 | EKG ---
[facility] [address] [facility] [place] [address] Signed Sinus tachycardia Voltage criteria for left ventricular hypertrophy Cannot rule out Septal infarct , age undetermined Abnormal ECG When compared with ECG of 16-MAR-2018 11:52, Vent. rate has increased BY 36 BPM Minimal criteria for Septal infarct are now present Nonspecific T wave abnormality now evident in Inferior leads Confirmed by MIGUEL MCKEON DO ([id number]) on 08/08/2018 12:26:57 PM Electronically Signed By: MIGUEL MCKEON DO 08/08/18 1227 PATIENT NAME: LANCE ADDISON Electrocardiogram DATE OF : 64 PHYSICIAN: MIGUEL MCKEON DO REPORT #: [id number] REPORT IS CONFIDENTIAL AND NOT TO BE RELEASED WITHOUT AUTHORIZATION
--- NOTE | 2018-08-08 13:01 | NUR ---
PT IS RESTING IN BED WATCHING TV WITHOUT ANY REQUESTS. HE STATES HE'S COMFORTABLE WITH NO PAIN, AND ONLY FEELS "SOME PAIN" WHEN HE'S OUT OF BED USING RESTROOM. DENIES ANY NEEDS. CALL LIGHT WITHIN REACH. WILL CONTINUE TO MONITOR.
--- NOTE | 2018-08-08 14:48 | NUR ---
DR. MATA HAS JUST LEFT THE BEDSIDE TO ASSESS/UPDATE PT. PLAN IS TO ADVANCE TO FULL LIQUID DIET, SALINE LOCK IV AND TO TRANSFER TO M/S UNIT. PT AWARE OF THE UPDATED PLAN OF CARE. I HAVE TURNED OFF PT'S CONTINUOUS FLUIDS- CEFEPIME CONTINUES TO RUN INTO HIS RIGHT PIV. DR. MATA HAS REMOVED THE SURGICAL DRSG ON HIS LOWER ABD INCISION- INCISION IS CLEAN, DRY AND APPROXIMATED WITH SUTURES IN PLACE. PT DENIES ANY FUTHER NEEDS AT THIS TIME. CALL LIGHT WITHIN REACH. WILL CONTINUE TO MONITOR.
[2018-08-08] MEDS ORDERED: LASIX40 MG PO (15:02)
[2018-08-08] MEDS ORDERED: LACTULOSE20 GM/30 M PO (15:03)
[2018-08-08] MEDS ORDERED: ZOFRAN4 MG PO (15:05)
[2018-08-08] MEDS ORDERED: OMEPRAZOLE40 MG PO (15:07)
--- NOTE | 2018-08-08 15:27 | NUR ---
PT RESTING IN BED, SIPPING HIS 7-UP WITH ICE. HE DENIES ANY PAIN; KARLI HERNANDEZ HELPED A BIT AGO WITH HIS BREAKTHROUGH PAIN. AWAITING SOME NEW MED ORDERS TO BE VERIFIED AND THEN I WILL GIVE HIM THEM. CALL LIGHT WITHIN REACH. WILL CONTINUE TO MONITOR.
[2018-08-08] MEDS ORDERED: PROTONIX40 MG PO (15:30)
--- NOTE | 2018-08-08 15:35 | NUR ---
MED REC COMPLETE
--- NOTE | 2018-08-08 16:05 | NUR ---
ASSESSMENT COMPLETED AT THIS TIME. NO CHANGES EXCEPT PT'S LOWER ABDOMINAL INCISION IS OPEN TO AIR- CLEAN AND DRY. PT TOLERATING HIS LIQUID DIET WELL. HE DENIES ANY PAIN, N/V OR SOB. HE'S AWARE OF HIS UPDATED PLAN OF CARE FOR TRANSFER TO M/S UNIT WHEN ROOM IS AVAILABLE. CONTINUES TO DEEP BREATHE AND URINATE WITHOUT PROBLEMS. DISTENTION OF ABD REMAINS MILD BUT SOFT AND NONTENDER. HE DENIES ANY NEEDS AT THIS TIME. CALL LIGHT WITHIN REACH. WILL CONTINUE TO MONITOR.
--- NOTE | 2018-08-08 17:10 | NUR ---
REPORT GIVEN TO RECEIVING HIRA FINCH. PT TRANSFERED IN BED WITH ALL BELONGINGS AND CEFEPIME STILL RUNNING INTO RIGHT PIV AT 1710 INTO ROOM 123 ON M/S UNIT. PT SENT WITH ALL MEDS FROM PHARMACY IN PT'S OWN MED BIN. PT'S VS AND CONDITION STABLE FOR TRANSFER. TRANSFER COMPLETE.
--- NOTE | 2018-08-08 17:15 | NUR ---
PT RECEIVED FROM CCU. IV CEFEPIME INFUSING. FULL LIQUID TRAY AT BEDSIDE. VSS. PT ON ROOM AIR. INCISION TO ABD, SUTURES IN PLACE, WITHOUT DRAIANGE, OPEN TO AIR. PT DENIES NEEDS AT THIS TIME.
--- NOTE | 2018-08-08 19:30 | NUR ---
GETTING REPORT FROM DAY SHIFT RN. PATIENT IN BED WATCHING TV. HAVING 6/10 ABD PAIN, BUT NO READY FOR PAIN MEDS AT THIS TIME. CALL LIGHT IN REACH AND PATIENT WILL CALL WHEN HE WANTS MEDICATION.
--- NOTE | 2018-08-08 20:28 | NUR ---
PATIENT HAVING 7/10 ABD PAIN AND GIVEN 0.4MG DILAUDID AND GAVE HIS PM MEDS. PAIN ALREADY DONE TO A 5/10. WILL CHECK BACK IN A BIT.
--- NOTE | 2018-08-08 22:30 | NUR ---
PATIENT RESTING QUIETLY, EYES CLOSED, RESPIRATIONS EVEN AND REGULAR AT 16. NO SIGNS OF DISTRESS. CALL LIGHT IN REACH.
--- NOTE | 2018-08-09 00:30 | NUR ---
PATIENT ON HIS LEFT SIDE, EYES CLOSED, RESPIRATIONS 16 AND EVEN AND REGULAR. CALL LIGHT IN REACH AND PATIENT IS IN NO DISTRESS.
--- NOTE | 2018-08-09 01:51 | NUR ---
PATIENT WOKE UP HAVING 7/10 ABD PAIN AND 1MG IV DILAUDID WAS GIVEN SLOW IV PUSH.
--- NOTE | 2018-08-09 03:07 | NUR ---
PATIENT IS SUPINE, EYES ARE CLOSED, PATIENT IS LIGHTLY SNORING AND RESPIRATIONS ARE 16 A MINUTE.
--- NOTE | 2018-08-09 05:10 | NUR ---
PATIENT AWAKE AND READING AT THIS TIME. HE IS HAVING NO PAIN AND HE HAS BEEN UP WALKING TO THE BATHROOM WITHOUT ANY DIFFICULTY. SURGICAL SITE LOOKS GREAT AND PATIENT IS LOOKING FORWARD TO GOING HOME TODAY.
--- NOTE | 2018-08-09 07:15 | NUR ---
PT RESTING SUPINE IN BED, EYES CLOSED AND RESPIRATIONS EVEN AND UNALBORED. CALL LIGHT AND H20 IN REACH. BEDSIDE REPORT RECEIVED FROM HIRA CASTRO.
--- NOTE | 2018-08-09 09:20 | NUR ---
Pt resting supine in bed, watching tv. Pt denies pain or nausea and appears to be in no distress. Assessment completed and call light/h2o in reach.
--- NOTE | 2018-08-09 09:40 | NUR ---
PT EXPECTS TO BE DISCHARGED TODAY AND TO RETURN TO HIS HOME, STATES HE HAS GOOD SUPPORT AT HOME.
--- NOTE | 2018-08-09 10:30 | NUR ---
TOOK PATIENT'S TEMP. WHILE DOING VITALS IT WAS 99.4 THAN HE WORKED WITH HIS IS MACHINE THAN WAITED FOR 5 MIN. THAN I RETOOK HIS TEMP. AND IT WAS 98.6 NURSE WAS NOTIFIED.
--- NOTE | 2018-08-09 10:50 | NUR ---
PT ASSISTED UP FROM CHAIR TO BED WITH ONLY SBA AND TOLERATED WELL. PT DENIES FURTHER NEEDS. PERSONAL ITEMS AND H2O/CALL LIGHT IN REACH AND FAMILY AT BEDSIDE VISITING WITH PATIENT.
--- NOTE | 2018-08-09 12:04 | NUR ---
PT LAYING IN BED, HAD JUST FINISHED READING HIS BIBLE. HE STATED HE FELT HE WAS IMPROVED. VISIT INTERRUPTED BY STAFF IN TO CARE FOR PT. EXTENDED A BLESSING, WILL FOLLOW NEEDED
[2018-08-09] MEDS ORDERED: DILAUDID4 MG PO (12:46)
--- NOTE | 2018-08-10 07:00 | DS ---
[facility] [address] [place], [place] [address] Signed ADMISSION DATE: 08/07/2018 DISCHARGE DATE: 08/09/2018 FINAL DIAGNOSIS: Incarcerated umbilical hernia with small bowel obstruction. PROCEDURES PERFORMED: 1. Primary umbilical herniorrhaphy with absorbable suture. 2. CT scan of abdomen and pelvis. HISTORY OF PRESENT ILLNESS: Lance is a 58-year-old gentleman, who had contracted hepatitis C years ago with his methamphetamine abuse. Unfortunately, it has been untreated. He has developed cirrhosis of the liver with medically controlled moderate ascites of his abdomen. 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 He is waiting to head down to [facility] for evaluation for possible liver transplant. He actually came in our hospital a few months ago for a GI bleed and had been sent over to [facility] at that time. He returns on this occasion with a history of umbilical protrusion with nausea and vomiting. He said normally he can reduce the hernia. He also has an epigastric hernia which is much broader and he can reduce that as well. In emergency room, the umbilical hernia could not be reduced. His white count was borderline 11.1. CT scan was performed and he had a loop of small bowel in the umbilical hernia. I was therefore asked to admit him as a general surgeon on-call. He was admitted, started on cefepime and Flagyl. I took him to the operating room that same day and we reduced his small intestine at the time of his pharmacologic paralysis. Consequently, we did not directly visualize that small bowel. During the surgery, we did look inside the abdomen. We could not find any piece of small bowel that was necrotic or otherwise concerning. I did call one of the liver surgeons in [place], who advised in this situation to use absorbable suture to close the umbilical fascial defect. The risk of infection of course is high. I explained all this to Lnace in detail. He is well aware that he has a very high chance of having a recurrent hernia. Under ideal conditions, it can be repaired later at that time with permanent suture. Lance had done very well both intraop and postop. He is now tolerating diet. He has had multiple bowel movements, lots of flatus. His abdominal exam is completely benign. He has a little abdominal distention, but it is soft and the incision is healing nicely without any local signs or symptoms of infection. His white count has also come down as well. At this point, we are going to be discharging him to home. DISCHARGE PLANS AND MEDICATIONS: Lance will be discharged home with Dilaudid 4 mg tablets 1 to 2 tablets p.o. q.4 to 6 Electronically Signed By: SG MATA MD 08/10/18 0700 PATIENT NAME: LANCE ADDISON DISCHARGE SUMMARY DATE OF : 64 REPORT #: [id number] PHYSICIAN: SG MATA MD PCP: GEORGE BHATTI DO REPORT IS CONFIDENTIAL AND NOT TO BE RELEASED WITHOUT AUTHORIZATION [address] [address] Signed hours p.r.n. pain. We can dispense 20 tablets with no refills. He is well aware that he is to avoid Tylenol because of his liver failure. We have resumed all his chronic medications in the hospital. He can continue these at home. He will follow his usual diet and he can shower and bathe as usual. He can perform his activities of daily living including walking up and down stairs, showering, and bathing as usual. He will leave incision open to air. He is not to drive while on narcotics. I will have him back in my office in about 7 to 10 days for followup. He will see his primary care provider in about 2 to 4 weeks. He has expressed understanding and agrees with above plan. Sg Mata MD ALB/MODL /[id number] cc: MD Bernardino Diaz MD Lohith Veerappa Reddy, MD Copies: SG MATA MD, LOHITH VEERAPPA MD ~ Electronically Signed By: SG MATA MD 08/10/18 0700 PATIENT NAME: LANCE ADDISON DISCHARGE SUMMARY DATE OF : 64 REPORT #: [id number] PHYSICIAN: SG MATA MD PCP: GEORGE BHATTI DO REPORT IS CONFIDENTIAL AND NOT TO BE RELEASED WITHOUT AUTHORIZATION
== END 2018-08-09 15:00 | disposition home or self-care (01) ==
LOC: ED 12:09 → MS 12:10 → CCU 20:00 → MS 08-08 17:10
PROVIDERS: ADMIT Colon & Rectal Surgery
PROC: 0WQF0ZZ Repair Abdominal Wall, Open Approach (ICD-10-PCS; principal; 2018-08-07 17:32)
DX: K42.0 Umbilical hernia with obstruction, without gangrene (principal); E83.42 Hypomagnesemia; K74.60 Unspecified cirrhosis of liver; E83.39 Other disorders of phosphorus metabolism; B19.20 Unspecified viral hepatitis C without hepatic coma; J44.9 Chronic obstructive pulmonary disease, unspecified; K44.9 Diaphragmatic hernia without obstruction or gangrene; F15.11 Other stimulant abuse, in remission; R64 Cachexia; K72.90 Hepatic failure, unspecified without coma; R18.8 Other ascites; Z79.2 Long term (current) use of antibiotics; Z87.891 Personal history of nicotine dependence; Z79.899 Other long term (current) drug therapy; Z68.24 Body mass index [BMI] 24.0-24.9, adult
CPT/HCPCS: 00750; 36415; 74177; 80053; 81001; 82140; 83690; 83735; 84100; 85025; 85610; 85730; 86850; 86900; 86901; 86920; 93005; 93010; 96361; 96365; 96366; 96367; 96368; 96375; 96376; 99285-25; C9113; G0378; J0330; J0692; J1100; J1170; J1940; J2310; J2405; J2550; J2704; J3010; J3475; J7040; J7060; J7120; P9047; Q9967

== ENCOUNTER 2018-09-30 19:15 | Emergency (ER) | payer OTHER ==
[~2018-09-30] VITALS: Ht 177.8 cm; Wt 66.7 kg
--- OUTSIDE RECORDS SUMMARY | ~2018-09-30 | XMS | Clinical Summary ---
Demographics + + + | Address | [address] | | | [place] [address] | + + + | Home Phone | | + + + | Preferred Language | Unknown | + + + | Marital Status | | + + + | Christianity Affiliation | 1013 | + + + | Race | Unknown | + + + | Ethnic Group | Unknown | + + + Author + + + | Author | [facility] | + + + | Organization | [facility] [employer] | + + + | Address | Unknown | + + + | Phone | Unavailable | + + + Support + + + + + | Name | Relationship | Address | Phone | + + + + + | Lauren Addison | ECON | [address] | | | | [place] | | | | | [address] | | + + + + + Care Team Providers + +------+ + | Care Community Organizer Name | Role | Phone | + [...] + | COMMERCIAL OTHER | COMMER | [id number] | | | | | | CIAL | | | | | | | GENERI | | | | | | | C PLAN | | | | | + +--------+ +------+-------+ + | MEDICAID | [facility] | [id number] | | | [address] | | | N | | | | [place] | | | [place] | | | | [address] | | | VP PATIENT | | | | | + +--------+ [...] | [place]ak | | | [phone] | [phone] | + +--------+ +--------+ + +
--- OUTSIDE RECORDS SUMMARY | ~2018-09-30 | XMS | Encounter Summary ---
Demographics + + + | Address | [address] | | | [place] [address] | + + + | Home Phone | | + + + | Preferred Language | Unknown | + + + | Marital Status | | + + + | Pentecostalism Affiliation | 1013 | + + + | Race | Unknown | + + + | Ethnic Group | Unknown | + + + Author + + + | Author | [facility] | | | and [place] | + + + | Organization | [facility] | | | and [place] | + + + | Address | Unknown | + + + | Phone | Unavailable | + + + Support + + +---------+ + | Name | Relationship | Address | Phone | + + +---------+ + | Lauren Chappell | ECON | Unknown | | + + +---------+ + | MistiLauren | ECON | Unknown | | + + +---------+ + Care Team Providers + +------+ + | Care Recreation Center Director Name | Role | Phone | + [...] | | | | | | | [place] | | | | | | | ESOPHAGOGAST | | | | | | | RODUODENOSCO | | | | | | | PY TRANSORAL | | | | | | | DIAGNOSTIC | | | | | | | [place] EGD | | | | | | | TRANSORAL | | | | | | | BIOPSY | | | | | | | SINGLE/MULTI | | | | | | | PLE [place] EGD | | | | | | | BAND | | | | | | | LIGATION | | | | | | | ESOPHGEAL/GA | | | | | | | STRIC | | | | | | | VARICES [place] | | | | | | | EGD BAND | | | | | | | LIGATION | | | | | | | ESOPHGEAL/GA | | | | | | | STRIC | | | | | | | VARICES [place] | | | | | | | ANESTHESIA | | | | | | | UPPER GI | | | | | | | ENDOSCOPIC | | | | | | | PX NOS EGD | | | +--------+--------+ + + + + Encounter Details +--------+---------+ + + + | Date | Type | Department | Care Team | Description | +--------+---------+ + + + | 07/18/ | Surgery | [facility] | | EGD | | 2019 | | [facility] | | | | | | [address] | | | | | | [place] | | | | | | [phone] | | | | | | [phone] | | | +--------+---------+ + + + Social History + +-------+ [...] + + + | Blood Pressure | 126/76 | 07/18/20181215 PST | + + + + | Pulse | 78 | 07/18/20181215 PST | + + + + | Temperature | 36.9 C (98.4 F) | 07/18/2018 1111 PST | + + + + | Respiratory Rate | 14 | 07/18/20181215 PST | + + + + | Oxygen Saturation | 100% | 07/18/20181215 PST | + + + + | Inhaled Oxygen | - | - | | Concentration | | | + + + + | Weight | 65.1 kg (143 lb 8.3 | 07/18/2018 1024 PST | | | oz) | | + + + + | Height | 177.8 cm (5' 10") | 07/18/2018 1024 PST | + + + + | Body Mass Index | 20.59 | 07/18/2018 1024 PST | + + + + documented in this encounter Medications at Time of Discharge + + + +---------+ + + | Medication | Sig | Dispensed | Refills | Start | End Date | | | | | | Date | | + + + +---------+ + + | furosemide (LASIX) | Take 40 mg by mouth | | 0 | | | | 40 mg tablet | 2 times daily. | | | | | + + + +---------+ + + | lactulose | Take 20 g by mouth 3 | | 0 | | | | (CONSTULOSE) 10 g/15 | times daily. | | | | | | mL solution | | | | | | + + + +---------+ + + | ondansetron | Take 4 mg by mouth | | 0 | | | | (ZOFRAN ODT) 4 mg | every 8 hours as | | | | | | disintegrating | needed for Nausea. | | | | | | tablet | | | | | | + + + +---------+ + + | potassium chloride | Take 20 mEq by mouth | | 0 | | | | (KLOR-CON M20) 20 | Daily. | | | | | | mEq ER tablet | | | | | | + + + +---------+ + + | spironolactone | Take 100 mg by mouth | | 0 | | | | (ALDACTONE) 100 MG | 2 times daily. | | | | | | tablet | | | | | | + + + +---------+ + + | | Take 5 mLs by mouth | 120 mL | 3 | 06/13/19 | | | diphenhydrAMINE-visc | every 6 hours as | | | 19 | 9 | | | needed for Other | | | | | | qwbpvnube-uyuknuyx-q | (swish and swallow). | | | | | | agnesium-simethicone | (RECIPE = 1:1:1 | | | | | | (MIRACLE MOUTHWASH) | mixture of Maalox, | | | | | | | diphenhydrAMINE, | | | | | | suspensionIndication | viscous lidocaine) | | | | | | s: H/O esophageal | | | | | | | varices, Esophageal | | | | | | | varices without | | | | | | | bleeding, | | | | | | | unspecified | | | | | | | esophageal varices | | | | | | | type (HCC) | | | | | | + + + +---------+ + + | propranolol | propranolol 10 mg | | 0 | | | | (INDERAL) 10 mg | tablet | | | | 9 | | tablet | | | | | | + + + +---------+ + + documented as of this encounter Plan of Treatment Not on filedocumented as of this encounter Procedures + +--------+ + + + | Procedure Name | Priori | Date/Time | Associated Diagnosis | Comments | | | ty | | | | + +--------+ + + + | EGD | | 07/18/2018 | Decompensated HCV | | | | | 10:55 PST | cirrhosis (HCC) | | | [...] | | | | | | (HCC) (K74.60) | | | | | | Cannabis dependant | | | | | | (F12.20) | | + +--------+ + + + | EGD | Routin | 07/18/2018 | | Results for this | | | e | 10:50 PST | | procedure are in the | | | | | | results section. | + +--------+ + + + documented in this encounter Results EGD (07/18/2018 10:50 PST) + + | Specimen | + + | | + + + +-------- ------+ | Narrative | Perform ed At | + +-------- ------+ | | [facility] | | GastroenterologyPatient Name: Delroy ChappellProcedjanis Date: | PROVATI ON | | 07/18/2018 10:50 AMN: [id number] #: [id number] of : | | | 1960Admit Type: AmbulatoryAge: 58Room: [facility]Gender: MaleNote | | | Status: FinalizedAttending MD: NEY WALLS , | | | MDProcedure: Upper GI | | | endoscopyIndications: Esophageal varices, Follow-up of | | | esophageal varicesProviders: NEY WALLS MD, | | | Lauren Lewis RN, Kaila | | | Hernan, Clinical Massage Therapist, Jacob Cordova MD (Anesthesia | | | Staff)Referring | | | MD: Cassandra Salamanca (Referring | | | MD)Medicines: Monitored Anesthesia [...] tolerated the | | | procedure well.Findings: Grade II, large (> 5 mm) varices were | | | found in the lower third of the esophagus. They were large | | | in size. Two bands were successfully placed with complete | | | eradication, resulting in deflation of varices. There was no | | | bleeding during, and at the end, of the procedure. The exam of | | | the esophagus was otherwise normal. Two tongues of | | | salmon-colored mucosa were present at 37 cm. No other visible | | | abnormalities were present. The maximum longitudinal extent of | | | these esophageal mucosal changes was 1 cm in length. Biopsy | | | is contraindicated because there are underlying | | | varices. Mild portal hypertensive gastropathy was found in the | | | cardia, in the gastric fundus and in the gastric | | | body. The exam of the stomach was otherwise normal. A | | | 3 cm hiatal hernia was present. The duodenal bulb and second | | | portion of the duodenum were normal.Impression: - Grade II and | | | large (> 5 mm) esophageal varices. Completely eradicated. | | | Banded. - Waverly-colored mucosa suspicious for short-segment | | | Childs's esophagus. Biopsy is contraindicated. - | | | Portal hypertensive gastropathy. - 3 cm hiatal hernia. | | | - Normal duodenal bulb and second portion of the duodenum. - | | | No specimens collected.Recommendation: - The patient will be | | | observed post-procedure, until all discharge criteria are | | | met. - Mechanical soft diet for 3 days, then advance as | | | tolerated to resume previous diet. - Repeat upper | | | endoscopy in 4 weeks to evaluate the response to therapy. - | | | The findings and recommendations were discussed with the | | | patient.NEY WALLS MD07/18/2018 11:11:33 AMThis report has | | | been signed electronically.Number of Addenda: 0Note Initiated On: | | | 07/18/2018 10:50 AMTotal Procedure Duration: 0 hours 7 minutes 11 | | | seconds Scope In: 10:59:59 AMScope Out: 11:07:10 AM [place] | | | [facility], [address] [place] [address] | | | [id number] | | | - Repeat upper endoscopy in 4 weeks to evaluate the response to therapy. | | | - The findings and recommendations were discussed with the patient. | | |NEY WALLS MD | | |07/18/2018 11:11:33 AM | | |This report has been signed electronically. | | |Number of Addenda: 0 | | |Note Initiated On: 07/18/2018 10:50 AM | | |Total Procedure Duration: 0 hours 7 minutes 11 seconds | | |Scope In: 10:59:59 AM | | |Scope Out: 11:07:10 AM | | | [facility], [address] [place] [address] | | | [phone] | | + +-------- ------+ + +---------+ + + | Performing | Address | City/State/Zipcode | Phone Number | | Organization | | | | + +---------+ + + | [facility] | | | | + +---------+ + + documented in this encounter Visit Diagnoses Not on filedocumented in this encounter Administered Medications + +--------+---------+------+------+------+ | Medication Order | MAR | Action | Dose | Rate | Site | | | Action | Date | | | | + +--------+---------+------+------+------+ + +---+ | albuterol 2.5 mg/3 mL nebulizer | | | solution 2.5 mg 2.5 mg, | | | Nebulization, ONCE PRN, Wheezing, | | | Starting 07/18/18 at 1115, | | | For 1 dose, Notify anesthesia if | | | patient is wheezing and does not | | | have a history of asthma or COPD | | | or current smoking., | | | Recovery/Phase I | | + +---+ | | | + +---+ | albuterol-ipratropium 2.5-0.5 | | | mg/3 mL nebulizer solution 3 mL | | | 3 mL, Nebulization, ONCE PRN, | | | Wheezing, Starting Mon07/18/18 at | | | 1023, For 1 dose, Pre-op | | + +---+ | | | + +---+ | dextrose 50% injection 12.5-25 | | | g 12.5-25 g, Intravenous, EVERY | | | 15 MIN PRN, Low Blood Sugar, Give | | | 12.5g (25 mL) IV if blood | | | glucose 50-69 mg/dL. Give 25g | | | (50 mL) IV if blood glucose < 50, | | | Starting Mon07/18/18 at 1023, | | | Repeat in 15 min if blood glucose | | | remains < 70 mg/dL. Repeat | | | blood glucose in 30 min once | | | blood glucose > 70., Pre-op | | + +---+ | | | + +---+ | dextrose 50% injection 12.5-25 | | | g 12.5-25 g, Intravenous, EVERY | | | 15 MIN PRN, Low Blood Sugar, For | | | hypoglycemia. Give 12.5g (25ml) | | | IV if blood glucose 50-69 | | | mg/dL. Give 25g (50ml) IV if | | | blood glucose < 50, Starting Wed | | | 07/18/18 at 1115, Give over 2 min. | | | Repeat in 15 min if blood | | | glucose remains < 70 mg/dL. | | | Repeat blood glucose in 30 min | | | once blood glucose > 70., | | | Recovery/Phase I | | + +---+ | | | + +---+ | ePHEDrine 50 mg/mL injection 5 | | | mg 5 mg, Intravenous, EVERY 5 | | | MIN PRN, if SBP <90., Starting | | | 07/18/18 at 1115, Hold if HR > | | | 100. Maximum total dose 20mg., | | | Recovery/Phase I | | + +---+ | | | + +---+ | hydrALAZINE (APRESOLINE) | | | injection 5 mg 5 mg, | | | Intravenous, EVERY 20 MINUTES | | | PRN, For SBP > 180, DBP > 100, | | | Starting 07/18/18 at 1115, | | | Hold if HR > 100. Maximum total | | | dose 40 mg. Use labetalol first | | | if available., Recovery/Phase I | | + +---+ | | | + +---+ | labetalol (TRANDATE) 5 mg/mL | | | injection 5 mg 5 mg, | | | Intravenous, EVERY 5 MIN PRN, For | | | SBP > 180, DBP > 100, Starting | | | 07/18/18 at 1115, Hold if HR < | | | 60. Notify anesthesia if patient | | | requires more than 50mg., | | | Recovery/Phase I | | + +---+ | | | + +---+ + +---------+ +---+-------+---+ | lactated ringers (LR) infusion | New Bag | 07/18/19 | | 100 | | | at 100 mL/hr, Intravenous, | | 19 10:49 | | mL/hr | | | CONTINUOUS, Starting 07/18/18 | | PST | | | | | at 1045, Pre-op | | | | | | + +---------+ +---+-------+---+ + +---+ | | | + +---+ | lactated ringers (LR) infusion | | | at 10-100 mL/hr, Intravenous, | | | CONTINUOUS, Starting 07/18/18 | | | at 1045, TKO., Pre-op | | + +---+ | | | + +---+ | ondansetron (ZOFRAN) injection | | | 4 mg 4 mg, Intravenous, ONCE | | | PRN, Nausea, Starting 07/18/18 | | | at 1115, For 1 dose, | | | Recovery/Phase I | | + +---+ | | | + +---+ documented in this encounter
--- OUTSIDE RECORDS SUMMARY | ~2018-09-30 | XMS | Encounter Summary ---
Demographics + + + | Address | [address] | | | [place] [address] | + + + | Home Phone | | + + + | Preferred Language | Unknown | + + + | Marital Status | | + + + | Christian Affiliation | 1013 | + + + | Race | Unknown | + + + | Ethnic Group | Unknown | + + + Author + + + | Author | [facility] | | | and [place] | + + + | Organization | [facility] | | | and [...] Team Providers + +------+ + | Care Dealer Relationship Manager Name | Role | Phone | [...] | | | | | | | [place] | | | | | | | ESOPHAGOGAST | | | | | | | RODUODENOSCO | | | | | | | PY TRANSORAL | | | | | | | DIAGNOSTIC | | | | | | | [place] EGD | | | | | | | TRANSORAL | | | | | | | BIOPSY | | | | | | | SINGLE/MULTI | | | | | | | PLE [place] EGD | | | | | | | BAND | | | | | | | LIGATION | | | | | | | ESOPHGEAL/GA | | | | | | | STRIC | | | | | | | VARICES [place] | | | | | | | EGD BAND | | | | | | | LIGATION | | | | | | | ESOPHGEAL/GA | | | | | | | STRIC | | | | | | | VARICES [place] | | | | | | | [...] + + | 07/18/ | Hospital | [facility] | Ney Walls | 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 Agustin [address] | varices with | | | | [address] | [address] [facility] | bleeding (HCC); | | | | [place] | [place] [address] | Hepatic cirrhosis, | | | | [address] | [phone] | unspecified hepatic | | | | [phone] | | cirrhosis type, | | | [...] Other | | | | | | gyzeychpd-khgucevq-c | (swish and swallow). | | | [...] PROVATI ON | | 07/18/2018 10:50 AMMRN: [id number] #: [id number] of : | | | 1960Admit Type: AmbulatoryAge: 58Room: [facility] 02Gender: MaleNote | | | Status: FinalizedAttending MD: NEY WALLS , | | | MDProcedure: Upper GI | | | endoscopyIndications: Esophageal varices, Follow-up of | | | esophageal varicesProviders: NEY WALLS MD, | | | Lauren Lewis RN, [facility] | | | Hernan, Literature Professor, Jacob Cordova MD (Anesthesia | | | [...] Completely eradicated. | | | Banded. - [place]-colored mucosa suspicious for short-segment | | | [...] Scope In: 10:59:59 AMScope Out: 11:07:10 AM [place] | | | [facility], [address] [place] [address] | | | [address] | | | - Repeat upper endoscopy [...] |Scope Out: 11:07:10 AM | | | [facility], [address], [place], [place] | | | [address] | | + +-------- ------+ + +---------+ [...]
--- OUTSIDE RECORDS SUMMARY | ~2018-09-30 | XMS | Clinical Summary ---
Demographics + + + | Address | [address] | | | [place] [address] | + + + | Home Phone | | + + + | Preferred Language | Unknown | + + + | Marital Status | | + + + | Sabianist Affiliation | 1013 | + + + | Race | Unknown | + + + | Ethnic Group | Unknown | + + + Author + + + | Author | [facility] | | | and [place] | + + + | Organization | [facility] | | | and [place] [...] Team Providers + +------+ + | Care Tomb Maker Helper Name | Role | Phone | + +------+ + | Bonifacio Lawton MD | PP | | + +------+ + Allergies No Known Allergies Medications + + + +---------+------+------+-------+ | Medication | Sig | Dispensed | Refills | Star | End | Statu | | | | | | t | Date | s | | | | | | Date | | | + + + +---------+------+------+-------+ | lactulose | Take 20 g by mouth 3 | | 0 | | | Activ | | (CONSTULOSE) 10 g/15 | times daily. | | | | | e | | mL solution | | | | | | | + + + +---------+------+------+-------+ | furosemide (LASIX) | Take 40 mg by mouth | | 0 | | | Activ | | 40 mg tablet | 2 times daily. | | | | | e | + + + +---------+------+------+-------+ | potassium chloride | Take 20 mEq by mouth | | 0 | | | Activ | | (KLOR-CON M20) 20 | Daily. | | | | | e | | mEq ER tablet | | | | | | | + + + +---------+------+------+-------+ | spironolactone | Take 100 mg by mouth | | 0 | | | Activ | | (ALDACTONE) 100 MG | 2 times daily. | | | | | e | | tablet | | | | | | | + + + +---------+------+------+-------+ | ondansetron | Take 4 mg by mouth | | 0 | | | Activ | | (ZOFRAN ODT) 4 mg | every 8 hours as | | | | | e | | disintegrating | needed for Nausea. | | | | | | | tablet | | | | | | | + + + +---------+------+------+-------+ | pantoprazole | Take 40 mg by mouth | | 0 | | | Activ | | (PROTONIX) 40 mg | every morning | | | | | e | | tablet | (before breakfast). | | | | | | + + + +---------+------+------+-------+ Active Problems + + + | Problem | Noted Date | + + + | H/O Heart attack | 06/13/2018 | + + + + + | Overview: 2009 - Age 47, "I had a heart attack... They sent | | me to [facility] They kept me overnight and | | monitored me... I can't remember if they did any tests... But | | they told me I had a heart attack and released me the next day | | (with no further instructions)" | + + + + + | Portal hypertension | 06/13/2018 | + + + | Portal hypertensive gastropathy | 06/13/2018 | + + + | GERD (gastroesophageal reflux disease) | 06/12/2018 | + + + + + | Overview: ALEKSANDR Grade D esophagitis | + + + + + | Chronic hepatitis C | 06/12/2018 | + + + + + | Overview: 04/30/2018 - Viral Load [id number] | + + + + + | Beta Blockers - Daily Use | 06/12/2018 | + + + | Hyperammonemia | 06/12/2018 | + + + + + | Overview: 109 - 04/19/2018 | + + + + + | Alcoholism | 06/12/2018 | + + + | Hematemesis | 06/12/2018 | + + + | Bleeding esophageal varices | 06/12/2018 | + + + + + | Overview: Grade II esophageal varices | | 06/13/2017 - banded 4 varices | + + + + + | Smoker - Daily | 06/12/2018 | + + + | Chronic hepatitis | 04/06/2018 | + + + | Hepatic cirrhosis | 04/06/2018 | + + + Encounters +--------+ + + + + | Date | Type | Specialty | Care Team | Description | +--------+ + + + + | 09/20/ | Telephone | | Иван Walls | Other | | 2018 | | | MD Agustin | | +--------+ + + + + | 08/28/ | Anesthesia | | Camacho Dupree MD | | | 2018 | Event | | | | +--------+ + + + + | 08/28/ | Surgery | | | EGD | | 2018 | | | | | +--------+ + + + + | 08/28/ | Hospital | | Иван Walls | 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 | | MD Agustin | varices with | | | | | | bleeding (HCC); | | | | | | Portal hypertension | | | | | | (HCC) | +--------+ + + + + | 08/15/ | Episode | | Leticia Ngo | | | 2018 | Changes | | HIRA Darling | | +--------+ + + + + | 08/03/ | Telephone | | Иван Walls | Procedure (EGD/Prop) | | 2019 | | | MD Agustin | | +--------+ + + + + | 07/18/ | Surgery | | | EGD | | 2019 | | | | | +--------+ + + + + | 07/18/ | Anesthesia | | Art | | | 2019 | Event | | Jacob Darling MD | | +--------+ + + + + | 07/18/ | Hospital | | Иван Walls | 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 | | MD Agustin | varices with | | | | | | bleeding (HCC); | | | | | | Hepatic cirrhosis, | | | | | | unspecified hepatic | | | | | | cirrhosis type, | | | | | | unspecified whether | | | | | | ascites present | | | | | | (HCC) | +--------+ + + + + from Last 3 Months Immunizations + + + + | Name | Dates Previously Given | Next Due | + + + + | TDAP, (ADOL/ADULT) | 04/05/2014 | | + + + + Family History + + +------+ + | Medical History | Relation | Name | Comments | + + +------+ + | Diabetes | Brother | | | + + +------+ + | Alcohol abuse | Father | | | + + +------+ + | Emphysema | Mother | | | + + +------+ + | Other (see comment) | Mother | | Congenital deformity | + + +------+ + | Diabetes | Sister | | | + + +------+ + + +------+ + + | Relation | Name | Status | Comments | + +------+ + + | Brother | | | | + +------+ + + | Father | | | unknown what from | | | | (Age | | | | | 56) | | + +------+ + + | Mother | | | COPD | + +------+ + + | Sister | | | | + +------+ + + Social History + +-------+ +--------+ [...] recent travel history available. | + + Last Filed Vital Signs + + + + | Vital Sign | Reading | Time Taken | + + + + | Blood Pressure | 113/78 | 08/28/2018 1645 PDT | + + [...] 08/28/20181331 PDT | + + + + Plan of Treatment + + + + + | Health Maintenance | Due Date | Last Done | Comments | + + + + + | Vaccine: | | | | | Pneumococcal 19-64 | 2 | | | | (PPSV23 only) Medium | | | | | Risk (1 of 1 - | | | | | PPSV23) | | | | + + + + + | Vaccine: Zoster (1 | | | | | of 2) | 3 | | | + + + + + | Vaccine: Influenza | | | | | (Season Ended) | 9 | | | + + + + + | Vaccine: | | 04/05/2014 | | | Dtap/Tdap/Td (2 - | 4 | | | | Td) | | | | + + + + + | Colorectal Cancer | | 06/13/2018, 06/13/2018 | | | Screening | 9 | | | | (Colonoscopy) | | | | + + + + + | Hepatitis C | Completed | 08/03/2018, 07/18/2018, | | | Screening | | 07/17/2018, Additional history | | | | | exists | | + + + + + Procedures + +--------+ + + + | [...] section. | + +--------+ + + + from Last 3 Months Results EGD (08/28/2018 16:18 PDT) + + | Specimen | + + | | + + + + ---+ | Narrative | Performed At | + + ---+ | | [facility] | | GastroenterologyPatient Name: Delroy LomaxrcProcedjanis Date: | [place] | | 08/28/2018 4:18 PMMRN: [id number] #: [id number] of : | | | 1960Admit Type: AmbulatoryAge: 58Room: [facility] 02Gender: MaleNote | | | Status: FinalizedAttending MD: ИВАН WALLS , | | | MDProcedure: Upper GI | | | endoscopyIndications: Esophageal varices, Follow-up of | | | esophageal varicesProviders: ИВАН WALLS MD, | | | Maria Elena Hernandez RN, Marcy Gottlieb, | | | Kiln Loader, Vince Morrisno MD (Anesthesia Staff)Referring | | | MD: [...] | | varices. Banding not needed. - [place]-colored mucosa | | | suspicious for short-segment [...] [place] [facility], [address] [facility] | | | [place] [address] | | | - Resume regular diet. [...] |Scope Out: 4:32:28 PM | | | [facility], [address] [facility], [place], [place] | | | [address] | | + + ---+ + +---------+ + + | Performing | Address | City/State/Zipcode | Phone Number | | Organization | | | | + +---------+ + + | [facility] [place] | | | | + +---------+ + + EGD (07/18/2018 10:50 PST) + + | Specimen | + + | | + + + +-------- ------+ | Narrative | Perform ed At | + +-------- ------+ | | [facility] | | GastroenterologyPatient Name: Delroy ChappellProdulcejanis Date: | PROVATI ON | | 07/18/2018 10:50 AMMRN: [id number] #: [id number] of : | | | 1960Admit Type: AmbulatoryAge: 58Room: [facility] 02Gender: MaleNote | | | Status: FinalizedAttending MD: ИВАН WALLS , | | | MDProcedure: Upper GI | | | endoscopyIndications: Esophageal varices, Follow-up of | | | esophageal varicesProviders: ИВАН WALLS MD, | | | Lauren Lewis RN, Kaila | | | Hernan, Kiln Loader, Jacob Cordova MD (Anesthesia | | | Staff)Referring | | | MD: Cassandra Nel Jadyn (Referring | | | MD)Medicines: Monitored Anesthesia [...] Completely eradicated. | | | Banded. - [place]-colored mucosa suspicious for short-segment | | | [...] were discussed with the | | | patient.ИВАН WALLS MD07/18/2018 11:11:33 AMThis report has | | | been signed electronically.Number of Addenda: 0Note Initiated On: | | | 07/18/2018 10:50 AMTotal Procedure Duration: 0 hours 7 minutes 11 | | | seconds Scope In: 10:59:59 AMScope Out: 11:07:10 AM [place] | | | [facility], [facility] [address] [place], [place] | | | [address] | | | - Repeat upper endoscopy in 4 weeks to evaluate the response to therapy. | | | - The findings and recommendations were discussed with the patient. | | |ИВАН WALLS MD | | |07/18/2018 11:11:33 AM | | |This report has been signed electronically. | | |Number of Addenda: 0 | | |Note Initiated On: 07/18/2018 10:50 AM | | |Total Procedure Duration: 0 hours 7 minutes 11 seconds | | |Scope In: 10:59:59 AM | | |Scope Out: 11:07:10 AM | | | [facility], [address] [facility], [place] | | | [address] | | + +-------- ------+ + +---------+ + + | Performing | Address | City/State/Zipcode | Phone Number | | Organization | | | | + +---------+ + + | [facility] | | | | + +---------+ + + from Last 3 Months Insurance + +--------+ +--------+ +---------+--------+ | Payer | Benefi | Subscriber | Effect | Phone | Address | Type | | | t Plan | ID | michelle | | | | | | / | | Dates | | | | | | Group | | | | | | + +--------+ +--------+ +---------+--------+ | [employer] | [employer] | [id number] | 05/01/ | [phone] | | Medica | | MEDICAID HMO | HEALTH | | 2018-P | 1 | | id | | | MDCD | | resent | | | | | | HMO [place] | | | | | | + +--------+ +--------+ +---------+--------+ + +--------+ +--------+ + + | Guarantor Name | Accoun | Relation to | Date | Phone | Billing Address | | | t Type | Patient | of | | | | | | | | | | + +--------+ +--------+ + + | Delroy Chappell | Person | Self | [birth year] | [address] | | [place] | al/Jann | | 1961 | [phone] | [place] [address] | | | [place] | | | 9 (Home) | | + +--------+ +--------+ + + Advance Directives Patient has advance care planning documents on file. For more information, please contact:[facility] [address]
--- OUTSIDE RECORDS SUMMARY | ~2018-09-30 | XMS | Clinical Summary ---
Demographics + + + | Address | [address] | | | [place] [address] | + + + | Home Phone | | + + + | Preferred Language | Unknown | + + + | Marital Status | | + + + | Uatsdin Affiliation | 1013 | + + + | Race | Unknown | + + + | Ethnic Group | Unknown | + + + Author + + + | Author | [facility] | | | and [place] | + + + | Organization | [facility] | | | and [place] | + + + | Address | Unknown | + + + | Phone | Unavailable | + + + Support + + +---------+ + | Name | Relationship | Address | Phone | + + +---------+ + | Lauren Chappell | ECON | Unknown | | + + +---------+ + | aLuren Chappell | ECON | Unknown | | + + +---------+ + Care Team Providers + +------+ + | Care Ground Nuclear Weapons Assembly Officer Name | Role | Phone | + [...] attack... [facility] sent | | [facility] [place] [facility] [place] They kept me overnight and | | [...] | [facility] | | 08/28/2018 4:18 PMMRN: [id number] #: [id number] of : | | | 1960Admit Type: AmbulatoryAge: 58Room: [facility] 02Gender: MaleNote | | | Status: FinalizedAttending MD: ИВАН WALLS , | | | MDProcedure: Upper GI | | | endoscopyIndications: Esophageal varices, Follow-up of | | | esophageal varicesProviders: ИВАН WALLS MD, | | | Maria Elena Hernandez RN, Marcy Gottlieb, | | | Metal Alloy Scientist, Vince Morrison MD (Anesthesia Staff)Referring | | [...] | | varices. Banding not needed. - [place]-colored mucosa | | | suspicious for short-segment [...] PMScope Out: 4:32:28 | | | PM [facility], [address] [facility] | | | [place] [address] | | | - Resume regular diet. [...] |Scope Out: 4:32:28 PM | | | [facility], [address] [facility], [place], [place] | | | [address] | | + + ---+ + +---------+ [...] PROVATI ON | | 07/18/2018 10:50 AMMRN: [id number] #: [id number] of : | | | 1960Admit Type: AmbulatoryAge: 58Room: [facility] 02Gender: MaleNote | | | Status: FinalizedAttending MD: ИВАН WALLS , | | | MDProcedure: Upper GI | | | endoscopyIndications: Esophageal varices, Follow-up of | | | esophageal varicesProviders: ИВАН WALLS MD, | | | Lauren Lewis RN, Kaila | | | Hernan, Metal Alloy Scientist, Jacob Cordova MD (Anesthesia | | | [...] Completely eradicated. | | | Banded. - [place]-colored mucosa suspicious for short-segment | | | [...] Scope In: 10:59:59 AMScope Out: 11:07:10 AM [place] | | | [facility], [facility] [address] [place], [place] | | | [address] | | | - Repeat upper endoscopy [...] |Scope Out: 11:07:10 AM | | | [facility], [address] [facility], [place] | | | [address] | | + +-------- ------+ + +---------+ [...] | [employer] | MODA | [id number] | 05/01/ | [phone] | | Medica | | MEDICAID HMO [...] | 1961 | [phone] | [place] [address] | | | [place] | | | 9 (Home) | | + +--------+ +--------+ + + Advance Directives Patient has advance care planning documents on file. For more information, please contact:[facility] [place] [address]
--- OUTSIDE RECORDS SUMMARY | ~2018-09-30 | XMS | Encounter Summary ---
Demographics + + + | Address | [address] | | | [place] [address] | + + + | Home Phone | | + + + | Preferred Language | Unknown | + + + | Marital Status | | + + + | Latter-Day Affiliation | 1013 | + + + | Race | Unknown | + + + | Ethnic Group | Unknown | + + + Author + + + | Author | [facility] | | | and [place] | + + + | Organization | [facility] | | | and [place] [...] Team Providers + +------+ + | Care Supervisor Metal Cans Name | Role | Phone | + [...] | | | | | PLE [place] EGD | | | | | | | BAND | | | | | | | LIGATION | | | | | | | ESOPHGEAL/GA | | | | | | | STRIC | | | | | | | VARICES [place] | | | | | | | EGD BAND | | | | | | | LIGATION | | | | | | | ESOPHGEAL/GA | | | | | | | STRIC | | | | | | | VARICES [place] | | | | | | [...] + + | 07/18/ | Anesthesia | [facility] | Art, | | | 2019 | Event | MED CTR MP INTRA OP | Jacob Darling MD | | | | | [address] | [address] | | | | | [place] | [place] | | | | | [address] | [address] | | | | | [phone] | | | +--------+ + + + [...] by | | eral | (dorsal); Hand; [id number] | Helena Gonzalez RN | Bonnie Mariee [...]
--- OUTSIDE RECORDS SUMMARY | ~2018-09-30 | XMS | Encounter Summary ---
Demographics + + + | Address | [address] | | | [place] [address] | + + + | Home Phone | | + + + | Preferred Language | Unknown | + + + | Marital Status | | + + + | Hinduism Affiliation | 1013 | + + + | Race | Unknown | + + + | Ethnic Group | Unknown | + + + Author + + + | Author | [facility] | | | and [place] | + + + | Organization | [facility] | | | and [...] Team Providers + +------+ + | Care Speech Language Therapist Name | Role | Phone | + [...] + + | 09/20/ | Telephone | [facility] [place] | Иван Tellez | Other | | 2019 | | GASTROENTEROLOGY | MD Agustin [address] | | | | | [address] [place] | [address] [place] | | | | | [address] [place], [place] | [place] [address] | | | | | [address] | [phone] | | | | | [phone] | | | +--------+ + + + [...]
--- OUTSIDE RECORDS SUMMARY | ~2018-09-30 | XMS | Encounter Summary ---
Demographics + + + | Address | [address] | | | [place] [address] | + + + | Home Phone | | + + + | Preferred Language | Unknown | + + + | Marital Status | | + + + | Cheondoism Affiliation | 1013 | + + + | Race | Unknown | + + + | Ethnic Group | Unknown | + + + Author + + + | Author | [facility] | | | and [place] | + + + | Organization | [facility] | | | and [place] [...] Team Providers + +------+ + | Care Fire Control Officer Name | Role | Phone | [...] | | | (HCC) | | [place] [address] | | | | | (B19.20, | | Phone: | | | | | [phone]), | | [phone] | | | | | 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 | | [phone] | | | | | (HCC) | [...] | | | | | | | [place] | | | | | | | ESOPHAGOGAST | | | | | | | RODUODENOSCO | | | | | | | PY TRANSORAL | | | | | | | DIAGNOSTIC | | | | | | | [place] EGD | | | | | | | TRANSORAL | | | | | | | BIOPSY | | | | | | | SINGLE/MULTI | | | | | | | PLE [place] EGD | | | | | | | BAND | | | | | | | LIGATION | | | | | | | ESOPHGEAL/GA | | | | | | | STRIC | | | | | | | VARICES [place] | | | | | | | [...] [place] | | | | | | [address] | | | | | | [phone] | | | +--------+---------+ + + + [...] | [facility] | | 08/28/2018 4:18 PMMRN: [id number] #: [id number] of : | | | 1960Admit Type: AmbulatoryAge: 58Room: [facility] 02Gender: MaleNote | | | Status: FinalizedAttending MD: ИВАН WALLS , | | | MDProcedure: Upper GI | | | endoscopyIndications: Esophageal varices, Follow-up of | | | esophageal varicesProviders: ИВАН WALLS MD, | | | Maria Elena Hernandez RN, Marcy Gottlieb, | | | Horticultural Services Supervisor, Vince Morrison MD (Anesthesia Staff)Referring | | [...] | | varices. Banding not needed. - [place]-colored mucosa | | | suspicious for short-segment [...] Out: 4:32:28 | | | PM [facility], [address] [facility] | | | [place] [address] | | | - Resume regular diet. [...] |Scope Out: 4:32:28 PM | | | [facility], [address] [facility] [place], [place] | | | [address] | | + + ---+ + +---------+ [...]
--- OUTSIDE RECORDS SUMMARY | ~2018-09-30 | XMS | Encounter Summary ---
Demographics + + + | Address | [address] | | | [place] [address] | + + + | Home Phone | | + + + | Preferred Language | Unknown | + + + | Marital Status | | + + + | Judaism Affiliation | 1013 | + + + | Race | Unknown | + + + | Ethnic Group | Unknown | + + + Author + + + | Author | [facility] | | | and [place] | + + + | Organization | [facility] | | | and [place] | + + + | Address | Unknown | + + + | Phone | Unavailable | + + + Support + + +---------+ + | Name | Relationship | Address | Phone | + + +---------+ + | Lauren Chappell | ECON | Unknown | | + + +---------+ + | BoydLauren | ECON | Unknown | | + + +---------+ + Care Team Providers + +------+ + | Care Scan Coordinator Name | Role | Phone | [...] | | | | [address] [facility] | | | | | | [address] [place] | | | | | | [address] | | | | | | [phone] | | | +--------+ + + + [...]
--- OUTSIDE RECORDS SUMMARY | ~2018-09-30 | XMS | Clinical Summary ---
Demographics + + + | Address | [address] | | | [place] [address] | + + + | Home Phone | | + + + | Preferred Language | Unknown | + + + | Marital Status | | + + + | Moravian Affiliation | 1013 | + + + | Race | Unknown | + + + | Ethnic Group | Unknown | + + + Author + + + | Author | [facility] [employer] | + + + | Organization | [facility] [employer] [facility] | + + + | Address | Unknown | + + + | Phone | Unavailable | + + + Support + + + + + | Name | Relationship | Address | Phone | + + + + + | Lauren Addison | ECON | [address] | | | | | [place] | | | | | [address] | | + + + + + Care Team Providers + +------+ + | Care Manager Java Name | Role | Phone | + [...] + | COMMERCIAL OTHER | COMMER | [id number] | | | | | | CIAL | | | | | | | GENERI | | | | | | | C PLAN | | | | | + +--------+ +------+-------+ + | MEDICAID | [facility] | [id number] | | | [address] | | | [address] | | | | [place] | | | [place] | | | | [address] | | | [employer] | | | | | + +--------+ [...] | [place] | | | [phone] | [phone] | + +--------+ +--------+ + +
--- OUTSIDE RECORDS SUMMARY | ~2018-09-30 | XMS | Encounter Summary ---
Demographics + + + | Address | [address] | | | [place] [address] | + + + | Home Phone [...] | [facility] | | | and [place] | + + + | Organization | [facility] | | | and [...] Team Providers + +------+ + | Care Printed Circuit Board Reworker Name | Role | Phone | + [...] + + | 08/03/ | Telephone | [facility] | Иван Tellez | Procedure (EGD/Prop) | | 2019 | | GASTROENTEROLOGY | MD Agustin [address] | | | | | [address] [place] | [address] [facility] | | | | | [address] | [place] [address] | | | | | [address] | [phone] | | | | | [phone] | | | +--------+ + + + [...]
--- OUTSIDE RECORDS SUMMARY | ~2018-09-30 | XMS | Encounter Summary ---
Demographics + + + | Address | [address] | | | [place] [address] | + + + | Home Phone | | + + + | Preferred Language | Unknown | + + + | Marital Status | | + + + | Rastafari Affiliation | 1013 | + + + | Race | Unknown | + + + | Ethnic Group | Unknown | + + + Author + + + | Author | [facility] | | | and [place] | + + + | Organization | [facility] | | | and [place] [...] Team Providers + +------+ + | Care Business Education Teacher Name | Role | Phone | [...] | | | (HCC) | | [place] [address] | | | | | (B19.20, | | Phone: | | | | | K74.69), | | [phone] | | | | | 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 | | [phone] | | | | | (HCC) | [...] | | | | | | | [place] | | | | | | | ESOPHAGOGAST | | | | | | | RODUODENOSCO | | | | | | | PY TRANSORAL | | | | | | | DIAGNOSTIC | | | | | | | [place] EGD | | | | | | | TRANSORAL | | | | | | | BIOPSY | | | | | | | SINGLE/MULTI | | | | | | | PLE [place] EGD | | | | | | | BAND | | | | | | | LIGATION | | | | | | | ESOPHGEAL/GA | | | | | | | STRIC | | | | | | | VARICES [place] | | | | | | | [...] Omid | | | | | | [place] | | | | | | [address] | | | | | | [phone] | | | +--------+---------+ + + + [...] | PROVATION | | 08/28/2018 4:18 PMMRN: [id number] #: [id number] of : | | | 1960Admit Type: AmbulatoryAge: 58Room: [facility] 02Gender: MaleNote | | | Status: FinalizedAttending MD: ИВАН WALLS , | | | MDProcedure: Upper GI | | | endoscopyIndications: Esophageal varices, Follow-up of | | | esophageal varicesProviders: ИВАН WALLS MD, | | | Maria Elena Hernandez RN, Marcy Gottlieb, | | | Towboat Pilot, Vince Morrison MD (Anesthesia Staff)Referring | | [...] | | varices. Banding not needed. - Sparkman-colored mucosa | | | suspicious for short-segment [...] PMScope Out: 4:32:28 | | | PM [facility], [address] | | | [place] [address] | | | - Resume regular diet. [...] |Scope Out: 4:32:28 PM | | | [facility], [address] [facility] [place], [place] | | | [address] | | + + ---+ + +---------+ [...]
--- OUTSIDE RECORDS SUMMARY | ~2018-09-30 | XMS | Encounter Summary ---
Demographics + + + | Address | [address] | | | [place] [address] | + + + | Home Phone [...] Author | [facility] | | | and [place] | + + + | Organization | [facility] | | | and [...] Team Providers + +------+ + | Care Boat Washer Name | Role | Phone | + [...] | 07/18/ | Hospital | [facility] | Ney Walls | 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 Agustin [address] | varices with | | | | [address] | [address] [facility] | bleeding (HCC); | | | | [place] | [place] [address] | Hepatic cirrhosis, | | | | [address] | [phone] | unspecified hepatic | | | | [phone] | | cirrhosis type, | | | [...] Other | | | | | | [id number]-[id number] | (swish and swallow). | | | [...] PROVATI ON | | 07/18/2018 10:50 AMMRN: [id number] #: [id number] of : | | | 1960Admit Type: AmbulatoryAge: 58Room: [facility] 02Gender: MaleNote | | | Status: FinalizedAttending MD: NEY WALLS , | | | MDProcedure: Upper GI | | | endoscopyIndications: Esophageal varices, Follow-up of | | | esophageal varicesProviders: NEY WALLS MD, | | | Lauren Lewis RN, [facility] | | | Hernan, Nonprofit Fundraiser, Jacob Cordova MD (Anesthesia | | | [...] Completely eradicated. | | | Banded. - Keota-colored mucosa suspicious for short-segment | | | [...] Scope In: 10:59:59 AMScope Out: 11:07:10 AM [place] | | | [facility], [address] [place] [address] | | | [address] | | | - Repeat upper endoscopy [...] |Scope Out: 11:07:10 AM | | | [facility], [address], [place], [place] | | | [address] | | + +-------- ------+ + +---------+ [...]
--- OUTSIDE RECORDS SUMMARY | ~2018-09-30 | XMS | Encounter Summary ---
Demographics + + + | Address | [address] | | | [place] [address] | + + + | Home Phone | | + + + | Preferred Language | Unknown | + + + | Marital Status | | + + + | Gnosticist Affiliation | 1013 | + + + | Race | Unknown | + + + | Ethnic Group | Unknown | + + + Author + + + | Author | [facility] | | | and [place] | + + + | Organization | [facility] | | | and [place] | + + + | Address | Unknown | + + + | Phone | Unavailable | + + + Support + + +---------+ + | Name | Relationship | Address | Phone | + + +---------+ + | Lauren Chappell | ECON | Unknown | | + + +---------+ + | Corvall[place]Lauren | ECON | Unknown | | + + +---------+ + Care Team Providers + +------+ + | Care Machine Operator Assistant Name | Role | Phone | [...] | | | | [address] [facility] | | | | | | [address] | | | | | | [address] | | | | | | [phone] | | | +--------+ + + + [...]
--- OUTSIDE RECORDS SUMMARY | ~2018-09-30 | XMS | Encounter Summary ---
Demographics + + + | Address | [address] | | | [place] [address] | + + + | Home Phone | | + + + | Preferred Language | Unknown | + + + | Marital Status | | + + + | Mandaeism Affiliation | 1013 | + + + | Race | Unknown | + + + | Ethnic Group | Unknown | + + + Author + + + | Author | [facility] | | | and [place] | + + + | Organization | [facility] | | | and [place] | [...] Team Providers + +------+ + | Care Clinical Trials Data Coordinator Name | Role | Phone | [...] + + | 07/18/ | Anesthesia | [facility] | Art, | | | 2019 | Event | MED CTR MP INTRA OP | Jacob Darling MD | | | | | [address] | [address] | | | | | [place] | [place] | | | | | [address] | [address] | | | | | [phone] | | | +--------+ + + + [...] by | | eral | (dorsal); Hand; [id number] | Helena Gonzalez RN | Bonnie Mariee [...]
--- OUTSIDE RECORDS SUMMARY | ~2018-09-30 | XMS | Encounter Summary ---
Demographics + + + | Address | [address] | | | [place] [address] | + + + | Home Phone | | + + + | Preferred Language | Unknown | + + + | Marital Status | | + + + | Jew Affiliation | 1013 | + + + | Race | Unknown | + + + | Ethnic Group | Unknown | + + + Author + + + | Author | [facility] | | | and [place] | + + + | Organization | [facility] | | | and [...] Team Providers + +------+ + | Care Secretary Of State Name | Role | Phone | + [...] | | | | | | | [place] | | | | | | | ESOPHAGOGAST | | | | | | | RODUODENOSCO | | | | | | | PY TRANSORAL | | | | | | | DIAGNOSTIC | | | | | | | [place] EGD | | | | | | | TRANSORAL | | | | | | | BIOPSY | | | | | | | SINGLE/MULTI | | | | | | | PLE [place] EGD | | | | | | | BAND | | | | | | | LIGATION | | | | | | | ESOPHGEAL/GA | | | | | | | STRIC | | | | | | | VARICES [place] | | | | | | | EGD BAND | | | | | | | LIGATION | | | | | | | ESOPHGEAL/GA | | | | | | | STRIC | | | | | | | VARICES [place] | | | | | | | [...] [place] | | | | | | [address] | | | | | | [phone] | | | +--------+---------+ + + + [...] Other | | | | | | [id number]-[id number] | (swish and swallow). | | | [...] PROVATI ON | | 07/18/2018 10:50 AMN: [id number] #: [id number] of : | | | 1960Admit Type: AmbulatoryAge: 58Room: [facility] 02Gender: MaleNote | | | Status: FinalizedAttending MD: NEY WALLS , | | | MDProcedure: Upper GI | | | endoscopyIndications: Esophageal varices, Follow-up of | | | esophageal varicesProviders: NEY WALLS MD, | | | Lauren Lewis RN, Kaila | | | Hernan, Customer Service Assistant, Jacob Cordova MD (Anesthesia | | | [...] Completely eradicated. | | | Banded. - [place]ath[place]-colored mucosa suspicious for short-segment | | | [...] Scope In: 10:59:59 AMScope Out: 11:07:10 AM [place] | | | [facility], [address] [place] [address] | | | [address] | | | - Repeat upper endoscopy [...] |Scope Out: 11:07:10 AM | | | [facility], [address] [place] [address] | | | [address] | | + +-------- ------+ + +---------+ [...]
--- OUTSIDE RECORDS SUMMARY | ~2018-09-30 | XMS | Encounter Summary ---
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
--- OUTSIDE RECORDS SUMMARY | ~2018-09-30 | XMS | Encounter Summary ---
Demographics + + + | Address | [address] | | | [place] [address] | + + + | Home Phone [...] | Author | [facility] | | | and [place] | + + + | Organization | 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 | | [phone] | | | | | (HCC) | [...] | | | | | | | [place] | | | | | | | ESOPHAGOGAST | | | | | | | RODUODENOSCO | | | | | | | PY TRANSORAL | | | | | | | DIAGNOSTIC | | | | | | | [place] EGD | | | | | | | TRANSORAL | | | | | | | BIOPSY | | | | | | | SINGLE/MULTI | | | | | | | PLE [place] EGD | | | | | | | BAND | | | | | | | LIGATION | | | | | | | ESOPHGEAL/GA | | | | | | | STRIC | | | | | | | VARICES [place] | | | | | | | [...] + + | 08/28/ | Anesthesia | [facility] | Camacho Dupree MD | | | 2019 | Event | MED CTR MP INTRA OP | [address] | | | | | [address] | [place] | | | | | [place] | [address] | | | | | [address] | | | | | | [phone] | | | +--------+ + + + [...] 1654 by | | eral | Forearm; nllx-zby-iqmqdg catheter | Corina Gibson RN | Corina [...]
--- OUTSIDE RECORDS SUMMARY | ~2018-09-30 | XMS | Encounter Summary ---
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 | | [phone] | | | | | (HCC) | [...] + + | 08/28/ | Hospital | [facility] | Ney Walls | 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 Agustin [address] | varices with | | | | [address] | [address] [place] | bleeding (HCC); | | | | [place] | [place] [address] | Portal hypertension | | | | [address] | [phone] | (HCC) | | | | [phone] | | | +--------+ + + + [...] | PROVATION | | 08/28/2018 4:18 PMMRN: [id number] #: [id number] of : | | | 1960Admit Type: AmbulatoryAge: 58Room: [facility] 02Gender: MaleNote | | | Status: FinalizedAttending MD: NEY WALLS , | | | MDProcedure: Upper GI | | | endoscopyIndications: Esophageal varices, Follow-up of | | | esophageal varicesProviders: NEY WALLS MD, | | | Maria Elena Hernandez RN, Marcy Gottlieb, | | | Mathematical Physicist, Vince Morrison MD (Anesthesia Staff)Referring | | [...] | | varices. Banding not needed. - [place]gnar-colored mucosa | | | suspicious for short-segment [...] [facility], [address] [facility] | | | [place] [address] | | | - Resume regular diet. [...] |Scope Out: 4:32:28 PM | | | [facility], [address] [facility], [place], [place] | | | [address] | | + + ---+ + +---------+ [...]
--- OUTSIDE RECORDS SUMMARY | ~2018-09-30 | XMS | Encounter Summary ---
Demographics + + + | Address | [address] | | | [place] [address] | + + + | Home Phone | | + + + | Preferred Language | Unknown | + + + | Marital Status | | + + + | Temple Affiliation | 1013 | + + + | Race | Unknown | + + + | Ethnic Group | Unknown | + + + Author + + + | Author | [facility] | | | and [place] | + + + | Organization | 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 | | [phone] | | | | | (HCC) | [...] | | | | | | | [place] | | | | | | | ESOPHAGOGAST | | | | | | | RODUODENOSCO | | | | | | | PY TRANSORAL | | | | | | | DIAGNOSTIC | | | | | | | [place] EGD | | | | | | | TRANSORAL | | | | | | | BIOPSY | | | | | | | SINGLE/MULTI | | | | | | | PLE [place] EGD | | | | | | | BAND | | | | | | | LIGATION | | | | | | | ESOPHGEAL/GA | | | | | | | STRIC | | | | | | | VARICES [place] | | | | | | | [...] + + | 08/28/ | Hospital | [facility] | Ney Walls | 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 Agustin [address] | varices with | | | | [address] | [address] [place] | bleeding (HCC); | | | | [place] | [place] [address] | Portal hypertension | | | | [address] | [phone] | (HCC) | | | | [phone] | | | +--------+ + + + [...] | PROVATION | | 08/28/2018 4:18 PMMRN: [id number] #: [id number] of : | | | 1960Admit Type: AmbulatoryAge: 58Room: [facility] 02Gender: MaleNote | | | Status: FinalizedAttending MD: NEY WALLS , | | | MDProcedure: Upper GI | | | endoscopyIndications: Esophageal varices, Follow-up of | | | esophageal varicesProviders: NEY WALLS MD, | | | Maria Elena Hernandez RN, Marcy Gottlieb, | | | Circus Hand, Vince Morrison MD (Anesthesia Staff)Referring | | [...] | | varices. Banding not needed. - [place]-colored mucosa | | | suspicious for short-segment [...] PMScope Out: 4:32:28 | | | PM [facility], [address] [facility] | | | [place] [address] | | | - Resume regular diet. [...] |Scope Out: 4:32:28 PM | | | [facility], [address] [facility], [place], [place] | | | [address] | | + + ---+ + +---------+ [...]
--- OUTSIDE RECORDS SUMMARY | ~2018-09-30 | XMS | Encounter Summary ---
Demographics + + + | Address | [address] | | | [place] [address] | + + + | Home Phone | | + + + | Preferred Language | Unknown | + + + | Marital Status | | + + + | Zoroastrian Affiliation | 1013 | + + + | Race | Unknown | + + + | Ethnic Group | Unknown | + + + Author + + + | Author | [facility] | | | and [place] | + + + | Organization | [facility] | | | and [place] [...] Team Providers + +------+ + | Care Herb Grower Name | Role | Phone | + [...] + + | 09/20/ | Telephone | [facility] | Иван Tellez | Other | | 2019 | | GASTROENTEROLOGY | MD Agustin [address] | | | | | [address] [place] | [address] [place] | | | | | [address] [place], [place] | [place] [address] | | | | | [address] | [phone] | | | | | [phone] | | | +--------+ + + + [...]
--- OUTSIDE RECORDS SUMMARY | ~2018-09-30 | XMS | Encounter Summary ---
Demographics + + + | Address | [address] | | | [place] [address] | + + + | Home Phone [...] Author | [facility] | | | and [place] | + + + | Organization | [facility] | | | and [...] Team Providers + +------+ + | Care Sugar Reprocess Operator Head Name | Role | Phone | [...] + + | 08/03/ | Telephone | [facility] | Иван Tellez | Procedure (EGD/Prop) | | 2019 | | GASTROENTEROLOGY | MD Agustin [address] | | | | | [address] [place] | [address] [facility] | | | | | [address] | [place] [address] | | | | | [address] | [phone] | | | | | [phone] | | | +--------+ + + + [...]
[~2018-09-30 19:15] MED LIST changes: +DILAUDID4 MG PO; +OMEPRAZOLE40 MG PO; +PROTONIX40 MG PO
--- OUTSIDE RECORDS SUMMARY | 2018-09-30 19:18 | XMS ---
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 Care History Medical/Surgical 08/08/2018 [facility] - Patient is currently established with [facility]. If patient is seen in the ED during business hours. Please contact CHWs at [facility]. Care Recommendation: This patient has had 5 or more Emergency Department visits in the last 12 months.\T\nbsp; Patient requires education on the scope and purpose of the ED as an acute care provider not a Primary Care Provider and should not be utilized for chronic conditions.\T\nbsp; These are guidelines and the provider should exercise clinical judgment when providing care. 04/05/2018 [facility] - PATIENT RECEIVED LIGHT DUTY -WORK NOTE FROM MILENA VALDEZ AT [facility] ON 04/04/18. - PATIENT HAS A FOLLOW UP WITH DR BHATTI ON 04/17/2018. Mark VISIT COUNT (12 MO.) 9 [facility] TOTAL 9 NOTE: Visits indicate total known visits. ED/UCC VISIT TRACKING (12 MO.) 09/30/2018 19:16 [facility] [place] TYPE: Emergency COMPLAINT: - SOB, CHEST FEELS HEAVY 08/07/2018 12:09 [facility] [place] TYPE: Emergency COMPLAINT: - ABD PAIN 04/19/2018 07:40 [facility] [place] TYPE: Emergency COMPLAINT: - POSS STROKE 04/06/2018 06:25 [facility] [place] TYPE: Emergency COMPLAINT: - VOMITING BLOOD DIAGNOSES: - Gastrointestinal hemorrhage, unspecified - Nicotine dependence, unspecified, uncomplicated - Hematemesis - Other usp (current) drug therapy - Unspecified cirrhosis of liver 04/05/2018 17:30 [facility] [place] TYPE: Emergency COMPLAINT: - ABDOMINAL PAIN DIAGNOSES: - Constipation, unspecified - 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 - Nicotine dependence, unspecified, uncomplicated - Unspecified abdominal pain 04/04/2018 15:18 [facility] [place] TYPE: Emergency COMPLAINT: - POSS HERNIA DIAGNOSES: - Encounter for other general examination 03/31/2018 18:03 [facility] [place] TYPE: Emergency COMPLAINT: - ABD PAIN DIAGNOSES: - Nicotine dependence, unspecified, uncomplicated - Ventral hernia without obstruction or gangrene - Other usp (current) drug therapy 03/16/2018 11:09 [facility] [...] to penicillin INPATIENT VISIT TRACKING (12 MO.) 08/07/2018 12:10 [facility] [place] TYPE: Observation COMPLAINT: - INCARCERATED UMBILICAL HERNIA DIAGNOSES: - Diaphragmatic hernia without obstruction or gangrene - Other disorders of phosphorus metabolism - Chronic obstructive pulmonary disease, unspecified - Hypomagnesemia - Cachexia - Unspecified cirrhosis of liver - Other usp (current) drug therapy - Personal history of nicotine dependence - Hepatic failure, unspecified without coma - Other stimulant abuse, in remission - Umbilical hernia with obstruction, without gangrene - MCC (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 antibiotics - Unspecified viral hepatitis C without hepatic coma - Body mass index (BMI) 24.0-24.9, adult - Nausea with vomiting, unspecified - Unspecified abdominal pain - Other ascites 04/19/2018 07:41 [facility] [place] TYPE: Observation COMPLAINT: - HEPATIC ENCEPHALOPATHY DIAGNOSES: - Diaphragmatic hernia without obstruction or gangrene - Chronic obstructive pulmonary disease, unspecified - Other stimulant abuse, in remission - Disorientation, unspecified - Other ascites - Hepatic failure, unspecified without coma - Unspecified cirrhosis of liver - Gastritis, unspecified, without bleeding - Personal history of nicotine dependence - Unspecified viral hepatitis C without hepatic coma - 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
--- NOTE | 2018-09-30 21:37 | EKG ---
[facility] [address] [facility] [place] [address] Signed Normal sinus rhythm Prolonged QT Abnormal ECG When compared with ECG of 07-AUG-2018 16:58, Questionable change in QRS axis Confirmed by VIVIAN OSEGUERA MD ([id number]) on 09/30/2018 9:37:33 PM Electronically Signed By: VIVIAN OSEGUERA MD 09/30/18 2137 PATIENT NAME: LANCE ADDISON EVANGELINA Electrocardiogram DATE OF : 64 PHYSICIAN: VIVIAN OSEGUERA MD REPORT #: [id number] REPORT IS CONFIDENTIAL AND NOT TO BE RELEASED WITHOUT AUTHORIZATION
== END 2018-09-30 20:43 | disposition home or self-care (01) ==
LOC: ED 19:15
DX: K74.60 Unspecified cirrhosis of liver (principal); Z86.19 Personal history of other infectious and parasitic diseases; Z87.891 Personal history of nicotine dependence; Z79.899 Other long term (current) drug therapy
CPT/HCPCS: 71045; 80053; 82140; 83880; 84484; 85025; 85610; 93005; 93010; 96374; 99285-25; J1940

== ENCOUNTER 2018-10-06 18:43 | Observation (INO) | payer OTHER ==
[~2018-10-06] VITALS: Ht 177.8 cm; Wt 70.8 kg
--- OUTSIDE RECORDS SUMMARY | ~2018-10-06 | XMS | Encounter Summary ---
Demographics + + + | Address | [address] | | | [place] [address] | + + + | Home Phone | | + + + | Preferred Language | Unknown | + + + | Marital Status | | + + + | Judaism Affiliation | 1013 | + + + | Race | Unknown | + + + | Ethnic Group | Unknown | + + + Author + + + | Author | [facility] | | | and [place] | + + + | Organization | 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 | | [phone] | | | | | (HCC) | [...] | | | | | | | [place] | | | | | | | ESOPHAGOGAST | | | | | | | RODUODENOSCO | | | | | | | PY TRANSORAL | | | | | | | DIAGNOSTIC | | | | | | | [place] EGD | | | | | | | TRANSORAL | | | | | | | BIOPSY | | | | | | | SINGLE/MULTI | | | | | | | PLE [place] EGD | | | | | | | BAND | | | | | | | LIGATION | | | | | | | ESOPHGEAL/GA | | | | | | | STRIC | | | | | | | VARICES [place] | | | | | | | [...] + + + + | 08/28/ | Anesthesia | [facility] | Camacho Dupree MD | | | 2019 | Event | [facility] | [address] | | | | | [address] | [place] | | | | | [place] | [address] | | | | | [address] | | | | | | [phone] | | | +--------+ + + + + Anesthesia Record + + + + + | Procedure Name | Responsible | Anesthesia Start | Anesthesia Stop Time | | | Anesthesiologist | Time | | + + + + + | EGD (N/A Mouth) | Camacho Dupree MD | 08/28/184 | 08/28/18 1638 | + + + + + +----+---+ + + | Da | T | Event | Comment | | te | i | | | | | m | | | | | e | | | +----+---+ + + | 04 | 1 | | | | /0 | 6 | | | | 9/ | 2 | | | | 20 | 0 | | | | 19 | | | | +----+---+ + + | | 1 | Anesthesia | | | | 6 | Ready | | | | 2 | | | | | 3 | | | +----+---+ + + | | 1 | An Start | Reassessment prior to anesthesia induction/procedure. | | | 6 | | | | | 2 | | | | | 4 | | | +----+---+ + + | | 1 | Pre-Procedu | | | | 6 | ral Timeout | | | | 2 | Completed | | | | 5 | | | +----+---+ + + | | 1 | Preoxygenat | | | | 6 | ed | | | | 2 | | | | | 5 | | | +----+---+ + + | | 1 | An | | | | 6 | Induction | | | | 2 | | | | | 7 | | | +----+---+ + + | | 1 | First | | | | 6 | Inc/Proc St | | | | 2 | | | | | 8 | | | +----+---+ + + | | 1 | Breathing | | | | 6 | Spontaneous | | | | 3 | ly | | | | 1 | | | +----+---+ + + | | 1 | an stop | | | | 6 | data | | | | 3 | | | | | 3 | | | +----+---+ + + | | 1 | An Stop | Patient handed off to recovery nurse. | | | 3 | | | | | 8 | | | +----+---+ + + +------+ | Meds | +------+ + + + | Name | Total | + + + | propofol (DIPRIVAN) injection | 100 mg | | (bolus) | | + + + | propofol | 50.62 mg | + + + | lidocaine 1% | 30 mg | + + + | lactated ringers (LR) infusion | 500 mL | + + + + + | No agents on file. | + + + + | No blood administrations on file. | + + +--------+ + + + | Type | Details | Placement | Removal | +--------+ + + + | Periph | 08/28/18; 1400; Right; Medial; | 08/28/18 1400 by | 08/28/18 1654 by | | eral | Forearm; zwlw-vpg-xqgade catheter | Corina Gibson RN | Corina Gibson RN | | IV | system; 20 gauge; distraction, | | | | | intradermal injection; no longer | | | | | indicated; 08/28/18; 1654 | | | +--------+ + + + documented in this encounter Social History + +-------+ +--------+ + | [...] + + documented as of this encounter Plan of Treatment Not on filedocumented as of this encounter Visit Diagnoses Not on filedocumented in this encounter Administered Medications + + [...] +---------+ +--------+-------+---+ +---+---+ | | | +---+---+ + +-------+ +-------+---+---+ | lidocaine (PF) 1% injection | Given | 08/29/19 | 30 mg | | | | Infiltration, PRN, Starting Tue | | 19 16:26 | | | | | 08/28/18 at 1626, Anesthesia | | PDT | | | | | Intra-op | | | | | | + +-------+ +-------+---+---+ +---+---+ | | | +---+---+ + + + + +-------+---+ | propofol (DIPRIVAN) injection | Rate/Dos | 08/29/19 | 140 | 55.9 | | | Intravenous, CONTINUOUS PRN, | e Change | 19 16:30 | mcg/kg/m | mL/hr | | | Starting 08/28/18 at 1627, | | PDT | in | | | | Anesthesia Intra-op | | | | | | + + + + +-------+---+ +---------+ + +-------+---+ | New Bag | 08/29/19 | 160 | 63.9 | | | | 19 16:27 | mcg/kg/m | mL/hr | | | | PDT | in | | | +---------+ + +-------+---+ +---+---+ | | | +---+---+ + +-------+ +-------+---+---+ | propofol (DIPRIVAN) injection | Given | 08/29/19 | 50 mg | | | | Intravenous, Jason CALVILLO Tue | | 19 16:28 | | | | | 08/28/18 at 1627, Anesthesia | | PDT | | | | | Intra-op | | | | | | + +-------+ +-------+---+---+ +-------+ +-------+---+---+ | Given | 08/29/19 | 50 mg | | | | | 19 16:27 | | | | | | PDT | | | | +-------+ +-------+---+---+ +---+---+ | | | +---+---+ documented in this encounter"
--- OUTSIDE RECORDS SUMMARY | ~2018-10-06 | XMS | Encounter Summary ---
Demographics + + + | Address | [address] | | | [place] [address] | + + + | Home Phone | | + + + | Preferred Language | Unknown | + + + | Marital Status | | + + + | Worship Affiliation | 1013 | + + + | Race | Unknown | + + + | Ethnic Group | Unknown | + + + Author + + + | Author | [facility] | | | and [place] | + + + | Organization | [facility] | | | and [place] [...] Team Providers + +------+ + | Care Atomic Welder Name | Role | Phone | + +------+ + | Bonifacio Lawton MD | PCP | | + +------+ + Reason for Visit +--------+ + | Reason | Comments | +--------+ + | Other | | +--------+ + Encounter Details +--------+ + + + + | Date | Type | Department | Care Team | Description | +--------+ + + + + | 09/20/ | Telephone | [facility] [place] | Иван Tellez | Other | | 2019 | | GASTROENTEROLOGY | MD Agustin [address] | | | | | [address] [place] | [address] [place] | | | | | [address] [place], [place] | [place] [address] | | | | | [address] | [phone] | | | | | [phone] | | | +--------+ + + + [...]
--- OUTSIDE RECORDS SUMMARY | ~2018-10-06 | XMS | Encounter Summary ---
Demographics + + + | Address | [address] | | | [place] [address] | + + + | Home Phone | | + + + | Preferred Language | Unknown | + + + | Marital Status | | + + + | Shinto Affiliation | 1013 | + + + | Race | Unknown | + + + | Ethnic Group | Unknown | + + + Author + + + | Author | [facility] | | | and [place] | + + + | Organization | [facility] | | | and [place] [...] Team Providers + +------+ + | Care Optical Engineering Technician Name | Role | Phone | + [...] | | | | | | | Ney Agustin, | | | | | Decompensate | | MD [address] | | | | | d HCV | | [address] | | | | | cirrhosis | | [place], | | | | | (HCC) | | [place] [address] | | | | | (B19.20, | | Phone: | | | | | [phone]), | | [phone] | | | | | 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 | | [phone] | | | | | (HCC) | [...] | | | | | | | [place] | | | | | | | ESOPHAGOGAST | | | | | | | RODUODENOSCO | | | | | | | PY TRANSORAL | | | | | | | DIAGNOSTIC | | | | | | | MS EGD | | | | | | | TRANSORAL | | | | | | | BIOPSY | | | | | | | SINGLE/MULTI | | | | | | | PLE MS EGD | | | | | | | BAND | | | | | | | LIGATION | | | | | | | ESOPHGEAL/GA | | | | | | | STRIC | | | | | | | VARICES [place] | | | | | | | [...] + + | 08/28/ | Hospital | [facility] | N[place] | 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 Agustin [address] | varices with | | | | [address] | [address] [place] | bleeding (HCC); | | | | [place] | [place] [address] | Portal hypertension | | | | [address] | [phone] | (HCC) | | | | [phone] | | | +--------+ + + + [...] + documented in this encounter Results EGD (08/28/2018 16:18 PDT) + + | Specimen | + + | | + + + + ---+ | Narrative | Performed At | + + ---+ | | [facility] | | GastroenterologyPatient Name: Delroy SandersBisi Date: | PROVATION | | 08/28/2018 4:18 PMMRN: [id number] #: [id number] of : | | | 1960Admit Type: AmbulatoryAge: 58Room: [facility] 02Gender: MaleNote | | | Status: FinalizedAttending MD: NEY WALLS , | | | MDProcedure: Upper GI | | | endoscopyIndications: Esophageal varices, Follow-up of | | | esophageal varicesProviders: NEY WALLS MD, | | | Maria Elena Hernandez RN, Marcy Gottlieb, | | | Credit Compliance Officer, Vince Morrison MD (Anesthesia Staff)Referring | | | MD: Betsy Lawton (Referring MD), SHANNAN Daly | | | [...] | | varices. Banding not needed. - [place]-colored mucosa | | | suspicious for short-segment [...] were | | | discussed with the patient.NEY [place] MD08/28/2018 4:37:43 | | | PMThis report has been signed electronically.Number of Addenda: 0Note | | | Initiated On: 08/28/2018 4:18 PMScope In: 4:29:22 PMScope Out: 4:32:28 | | | PM [facility], [address] [facility] [address] | | | [place] [address] | | | - Resume regular diet. | | | - The findings and recommendations were discussed with the patient. | | |NEY WALLS MD | | |08/28/2018 4:37:43 PM | | |This report has been signed electronically. | | |Number of Addenda: 0 | | |Note Initiated On: 08/28/2018 4:18 PM | | |Scope In: 4:29:22 PM | | |Scope Out: 4:32:28 PM | | | [facility], [address] [facility], [place], [place] | | | [address] | | + + ---+ + +---------+ [...]
--- OUTSIDE RECORDS SUMMARY | ~2018-10-06 | XMS | Encounter Summary ---
Demographics + + + | Address | [address] | | | [place] [address] | + + + | Home Phone [...] | Author | [facility] | | | and [place] | + + + | Organization | [facility] | | | and [place] [...] Team Providers + +------+ + | Care Entry Level Sales Consultant Name | Role | Phone | + [...] | | | | | | | [place] | | | | | | | ESOPHAGOGAST | | | | | | | RODUODENOSCO | | | | | | | PY TRANSORAL | | | | | | | DIAGNOSTIC | | | | | | | MA EGD | | | | | | | TRANSORAL | | | | | | | BIOPSY | | | | | | | SINGLE/MULTI | | | | | | | PLE MA EGD | | | | | | | BAND | | | | | | | LIGATION | | | | | | | ESOPHGEAL/GA | | | | | | | STRIC | | | | | | | VARICES [place] | | | | | | | EGD BAND | | | | | | | LIGATION | | | | | | | ESOPHGEAL/GA | | | | | | | STRIC | | | | | | | VARICES [place] | | | | | | | [...] + + + + | 07/18/ | Hospital [facility] | [place] | 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 Agustin [address] | varices with | | | | [address] | [address] [facility] | bleeding (HCC); | | | | [place] | [place] [address] | Hepatic cirrhosis, | | | | [address] | [phone] | unspecified hepatic | | | | [phone] | | cirrhosis type, | | | | | | unspecified whether | | | | | | ascites present | | | | | | (HCC) | +--------+ + + + + Social [...] + | Blood Pressure | 126/76 | 07/18/20186 PST | + + + + | Pulse | 78 | 07/18/20181215 PST | + + + + | Temperature | 36.9 C (98.4 F) | 07/18/2018 1111 PST | + + + + | Respiratory Rate | 14 | 07/18/20181215 PST | + + + + | Oxygen Saturation | 100% | 07/18/2018 1216 PST | + + + + | Inhaled Oxygen | - | - | | Concentration | | | + + + + | Weight | 65.1 kg (143 lb 8.3 | 07/18/20181023 PST | | | oz) | | + + + + | Height | 177.8 cm (5' 10") | 07/18/20181023 PST | + + + + | Body Mass Index | 20.59 | 07/18/20181023 PST | + + + + documented [...] Other | | | | | | jxttiqizg-bsrvlymb-v | (swish and swallow). | | | [...] | [facility] | | GastroenterologyPatient Name: Delroy ChappellProcedure Date: | PROVATI ON | | 07/18/2018 10:50 AMMRN: [id number] #: [id number] of : | | | 1960Admit Type: AmbulatoryAge: 58Room: [facility] 02Gender: MaleNote | | | Status: FinalizedAttending MD: NEY WALLS , | | | MDProcedure: Upper GI | | | endoscopyIndications: Esophageal varices, Follow-up of | | | esophageal varicesProviders: NEY WALLS MD, | | | Lauren Lewis RN, [facility] | | | Hernan, Engineering Aid, Jacob Cordova MD (Anesthesia | | | Staff)Referring | | | MD: Cassandra Salamanca (Referring | | | )Medicines: Monitored Anesthesia [...] Completely eradicated. | | | Banded. - [place]-colored mucosa suspicious for short-segment | | | [...] Scope In: 10:59:59 AMScope Out: 11:07:10 AM [place] | | | [facility], [address] [place] [address] | | | [address] | | | - Repeat upper endoscopy [...] |Scope Out: 11:07:10 AM | | | [facility], [address], [place], [place] | | | [address] | | + +-------- ------+ + +---------+ [...] | | present (HCC) | + + documented in this encounter Administered Medications + +--------+---------+------+------+------+ | Medication Order | MAR | Action | Dose | Rate | Site | | | Action | Date | | | | + +--------+---------+------+------+------+ + +---+ | albuterol 2.5 mg/3 mL nebulizer | | | solution 2.5 mg 2.5 mg, | | | Nebulization, ONCE PRN, Wheezing, | | | Starting Mon07/18/18 at 1115, | | | For 1 [...]
--- OUTSIDE RECORDS SUMMARY | ~2018-10-06 | XMS | Encounter Summary ---
Demographics + + + | Address | [address] | | | [place] [address] | + + + | Home Phone | | + + + | Preferred Language | Unknown | + + + | Marital Status | | + + + | Voodoo Affiliation | 1013 | + + + | Race | Unknown | + + + | Ethnic Group | Unknown | + + + Author + + + | Author | [facility] | | | and [place] | + + + | Organization | [facility] | | | and [place] [...] Team Providers + +------+ + | Care Administrative Assistant Receptionist Name | Role | Phone | + [...] + + + + | 07/18/ | Anesthesia | [facility] | Art, | | | 2019 | Event | [facility] OP | Jacob Darling MD | | | | | [address] | [address] | | | | | [place] | [place] | | | | | [address] | [address] | | | | | [phone] | | | +--------+ + + + + Anesthesia Record + + + + + | Procedure Name | Responsible | Anesthesia Start | Anesthesia Stop Time | | | Anesthesiologist | Time | | + + + + + | DARIA CervantesN/A Paolo | Jacob Darling | 07/18/18 1054 | 07/18/18 1112 | | | MD Art | | | + + + + + +----+---+ + + | Da | T | Event | Comment | | te | i | | | | | m | | | | | e | | | +----+---+ + + | 02 | 1 | | | | /2 | 0 | | | | 7/ | 5 | | | | 20 | 1 | | | | 19 | | | | +----+---+ + + | | 1 | An Checkout | Pre-use anesthesia machine/equipment checkout. | | | 0 | | | | | 5 | | | | | 4 | | | +----+---+ + + | | 1 | An Start | Reassessment prior to anesthesia induction/procedure. | | | 0 | | | | | 5 | | | | | 4 | | | +----+---+ + + | | 1 | AN | Per surgeon request | | | 0 | Antibiotic | | | | 5 | declined | | | | 6 | | | +----+---+ + + | | 1 | Pre-Procedu | | | | 0 | ral Timeout | | | | 5 | Completed | | | | 6 | | | +----+---+ + + | | 1 | First | | | | 0 | Inc/Proc St | | | | 5 | | | | | 8 | | | +----+---+ + + | | 1 | An | | | | 0 | Induction | | | | 5 | | | | | 8 | | | +----+---+ + + | | 1 | Breathing | | | | 1 | Spontaneous | | | | 0 | ly | | | | 8 | | | +----+---+ + + | | 1 | an stop | | | | 1 | data | | | | 1 | | | | | 2 | | | +----+---+ + + | | 1 | An Stop | Patient handed off to recovery nurse. | | | 1 | | | | | 2 | | | +----+---+ + + +------+ | Meds | +------+ + + + | Name | Total | + + + | lidocaine 2% | 40 mg | + + + | propofol | 70 mg | + + + | propofol | 117.18 mg | + + + | glycopyrrolate (ROBINUL) | 0.1 mg | | injection (5 mL vial) | | + + + | lactated ringers (LR) infusion | 400 mL | + + + + + | Name | + + | O2 Flow Rate (L/Min) | + + + + | No blood administrations on file. | + + +--------+ + + + | Type | Details | Placement | Removal | +--------+ + + + | Periph | 07/18/18; 1047; Right; Posterior | 07/18/18 1047 by | 07/18/18 1226 by | | eral | (dorsal); Hand; hacz-xdq-yilblp | Helena Gonzalez RN | Bonnie Mariee | | IV | catheter system; 20 gauge, 1 05/25 | | [facility] [place] | | | in length; distraction, | | | | | intradermal injection, tolerated | | | | | well; no longer indicated, | | | | | removed per policy/procedure, | | | | | catheter/device intact; expected | | | | | removal post discharge; 07/18/18; | | | | | 1226 | | | +--------+ + + + [...] filedocumented in this encounter Administered Medications + +--------+ +--------+------+------+ | Medication Order | MAR | Action | Dose | Rate | Site | | | Action | Date | | | | + +--------+ +--------+------+------+ | glycopyrrolate (ROBINUL) | Given | 07/18/19 | 0.1 mg | | | | injection Intravenous, PRN, | | 19 10:56 | | | | | Secretions, Starting Mon07/18/18 | | PST | | | | | at 1056, Anesthesia Intra-op | | | | | | + +--------+ +--------+------+------+ +---+---+ | | | +---+---+ + +-------+ +-------+---+---+ | lidocaine (PF) 2% injection | Given | 07/18/19 | 40 mg | | | | Intravenous, PRN, Starting Mon | | 10:56 | | | | | 07/18/18 at 1056, Anesthesia | | PST | | | | | Intra-op | | | | | | + +-------+ +-------+---+---+ +---+---+ | | | +---+---+ + +-------+ +-------+---+---+ | propofol (DIPRIVAN) injection | Given | 07/18/19 | 20 mg | | | | Intravenous, PRN, Starting Mon | | 19 10:59 | | | | | 07/18/18 at 1057, Anesthesia | | PST | | | | | Intra-op | | | | | | + +-------+ +-------+---+---+ +-------+ +-------+---+---+ | Given | 07/18/19 | 50 mg | | | | | 19 10:57 | | | | | | PST | | | | +-------+ +-------+---+---+ +---+---+ | | | +---+---+ + +---------+ + +-------+---+ | propofol (DIPRIVAN) injection | New Bag | 07/18/19 | 200 | 78.1 | | | Intravenous, CONTINUOUS PRN, | | 19 10:59 | mcg/kg/m | mL/hr | | | Starting 07/18/18 at 1059, | | PST | in | | | | Anesthesia Intra-op | | | | | | + +---------+ + +-------+---+ +---+---+ | | | +---+---+ documented in this encounter"
--- OUTSIDE RECORDS SUMMARY | ~2018-10-06 | XMS | Encounter Summary ---
Demographics + + + | Address | [address] | | | [place] [address] | + + + | Home Phone | | + + + | Preferred Language | Unknown | + + + | Marital Status | | + + + | Mu-Ism Affiliation | 1013 | + + + | Race | Unknown | + + + | Ethnic Group | Unknown | + + + Author + + + | Author | [facility] | | | and [place] | + + + | Organization | [facility] | | | and [place] | [...] Team Providers + +------+ + | Care Warehouse Team Leader Name | Role | Phone | + [...] | | | | | | | [place] | | | | | | | ESOPHAGOGAST | | | | | | | RODUODENOSCO | | | | | | | PY TRANSORAL | | | | | | | DIAGNOSTIC | | | | | | | DE EGD | | | | | | | TRANSORAL | | | | | | | BIOPSY | | | | | | | SINGLE/MULTI | | | | | | | PLE DE EGD | | | | | | | BAND | | | | | | | LIGATION | | | | | | | ESOPHGEAL/GA | | | | | | | STRIC | | | | | | | VARICES [place] | | | | | | | EGD BAND | | | | | | | LIGATION | | | | | | | ESOPHGEAL/GA | | | | | | | STRIC | | | | | | | VARICES [place] | | | | | | | [...] [place] | | | | | | [address] | | | | | | [phone] | | | +--------+---------+ + + + [...] Other | | | | | | hhhnllejj-tynukspv-x | (swish and swallow). | | | [...] PROVATI ON | | 07/18/2018 10:50 AMN: [id number] #: [id number] of : | | | 1960Admit Type: AmbulatoryAge: 58Room: [facility] 02Gender: MaleNote | | | Status: FinalizedAttending MD: NEY WALLS , | | | MDProcedure: Upper GI | | | endoscopyIndications: Esophageal varices, Follow-up of | | | esophageal varicesProviders: NEY WALLS MD, | | | Lauren Lewis RN, Kaila | | | Hernan, Email Marketing Manager, Jacob Cordova MD (Anesthesia | | | [...] Completely eradicated. | | | Banded. - [place]-colored mucosa suspicious for short-segment | | | [...] Scope In: 10:59:59 AMScope Out: 11:07:10 AM [place] | | | [facility], [address] [place] [address] | | | [address] | | | - Repeat upper endoscopy [...] |Scope Out: 11:07:10 AM | | | [facility], [address] [place] [address] | | | [address] | | + +-------- ------+ + +---------+ [...]
--- OUTSIDE RECORDS SUMMARY | ~2018-10-06 | XMS | Encounter Summary ---
Demographics + + + | Address | [address] | | | [place] [address] | + + + | Home Phone | | + + + | Preferred Language | Unknown | + + + | Marital Status | | + + + | Spiritism Affiliation | 1013 | + + + | Race | Unknown | + + + | Ethnic Group | Unknown | + + + Author + + + | Author | [facility] | | | and [place] | + + + | Organization | [facility] | | | and [place] | + + + | Address | Unknown | + + + | Phone | Unavailable | + + + Support + + +---------+ + | Name | Relationship | Address | Phone | + + +---------+ + | Lauren Chappell | ECON | Unknown | | + + +---------+ + | CiscoLauren | ECON | Unknown | | + + +---------+ + Care Team Providers + +------+ + | Care Photovoltaic Panel Installer Name | Role | Phone | + [...] | | | | [address] [facility] | | | | | | [address] [place] | | | | | | [address] | | | | | | [phone] | | | +--------+ + + + [...]
--- OUTSIDE RECORDS SUMMARY | ~2018-10-06 | XMS | Encounter Summary ---
Demographics + + + | Address | [address] | | | [place] [address] | + + + | Home Phone | | + + + | Preferred Language | Unknown | + + + | Marital Status | | + + + | Yarsanism Affiliation | 1013 | + + + | Race | Unknown | + + + | Ethnic Group | Unknown | + + + Author + + + | Author | [facility] | | | and [place] | + + + | Organization | [facility] | | | and [place] [...] Providers + +------+ + | Care Machine Cloth Measurer Name | Role | Phone | + [...] [place] | | | | | | [address] | | | | | | [phone] | | | +--------+---------+ + + + [...] Other | | | | | | zmdoxmeqz-qykkjneg-u | (swish and swallow). | | | [...] PROVATI ON | | 07/18/2018 10:50 AMN: [id number] #: [id number] of : | | | 1960Admit Type: AmbulatoryAge: 58Room: [facility] 02Gender: MaleNote | | | Status: FinalizedAttending MD: NEY WALLS , | | | MDProcedure: Upper GI | | | endoscopyIndications: Esophageal varices, Follow-up of | | | esophageal varicesProviders: NEY WALLS MD, | | | Lauren Lewis RN, Kaila | | | Hernan, Director Of Counterintelligence, Jacob Cordova MD (Anesthesia | | | [...] Completely eradicated. | | | Banded. - [place]-colored mucosa suspicious for short-segment | | | [...] Scope In: 10:59:59 AMScope Out: 11:07:10 AM [place] | | | [facility], [address] [place] [address] | | | [address] | | | - Repeat upper endoscopy [...] |Scope Out: 11:07:10 AM | | | [facility], [address] [place] [address] | | | [address] | | + +-------- ------+ + +---------+ [...]
--- OUTSIDE RECORDS SUMMARY | ~2018-10-06 | XMS | Encounter Summary ---
Demographics + + + | Address | [address] | | | [place] [address] | + + + | Home Phone | | + + + | Preferred Language | Unknown | + + + | Marital Status | | + + + | Voodoo Affiliation | 1013 | + + + | Race | Unknown | + + + | Ethnic Group | Unknown | + + + Author + + + | Author | [facility] | | | and [place] | + + + | Organization | [facility] | | | and [...] Team Providers + +------+ + | Care Ekg Monitor Tech Name | Role | Phone | + [...] | | | (HCC) | | [place] [address] | | | | | (B19.20, | | Phone: | | | | | K74.69), | | [phone] | | | | | 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 | | [phone] | | | | | (HCC) | [...] + + | 08/28/ | Hospital | [facility] | Ney Walls | 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 Agustin [address] | varices with | | | | [address] | [address] [place] | bleeding (HCC); | | | | [place] | [place] [address] | Portal hypertension | | | | [address] | [phone] | (HCC) | | | | [phone] | | | +--------+ + + + [...] | PROVATION | | 08/28/2018 4:18 PMMRN: [id number] #: [id number] of : | | | 1960Admit Type: AmbulatoryAge: 58Room: [facility] 02Gender: MaleNote | | | Status: FinalizedAttending MD: NEY WALLS , | | | MDProcedure: Upper GI | | | endoscopyIndications: Esophageal varices, Follow-up of | | | esophageal varicesProviders: NEY WALLS MD, | | | Maria Elena Hernandez RN, Marcy Gottlieb, | | | Breaker Table Worker, Vince Morrison MD (Anesthesia Staff)Referring | | [...] | | varices. Banding not needed. - [place]-colored mucosa | | | suspicious for short-segment [...] PMScope Out: 4:32:28 | | | [facility], [address] [facility] | | | [place] [address] | | | - Resume regular diet. [...] |Scope Out: 4:32:28 PM | | | [facility], [address] [facility], [place], [place] | | | [address] | | + + ---+ + +---------+ [...]
--- OUTSIDE RECORDS SUMMARY | ~2018-10-06 | XMS | Clinical Summary ---
Demographics + + + | Address | [address] | | | [place] [address] | + + + | Home Phone | | + + + | Preferred Language | Unknown | + + + | Marital Status | | + + + | Yazidi Affiliation | 1013 | + + + | Race | Unknown | + + + | Ethnic Group | Unknown | + + + Author + + + | Author | [facility] | + + + | Organization | [facility] [employer] [facility] | + + + | Address | Unknown | + + + | Phone | Unavailable | + + + Support + + + + + | Name | Relationship | Address | Phone | + + + + + | Lauren Addison | ECON | [address] | | | | | [place] | | | | | [address] | | + + + + + Care Team Providers + +------+ + | Care Rehab/Pre Vocational Counselor Name | Role | Phone | + [...] + | COMMERCIAL OTHER | COMMER | [id number] | | | | | | CIAL | | | | | | | GENERI | | | | | | | C PLAN | | | | | + +--------+ +------+-------+ + | MEDICAID | [facility] | [id number] | | | [address] | | | [place] | | | | [place] | | | [place] | | | | [address] | | | COLOR MAKER FORMULATOR | | | | | + +--------+ [...] | dipak | | | [address] | [address] | + +--------+ +--------+ + +
--- OUTSIDE RECORDS SUMMARY | ~2018-10-06 | XMS | Encounter Summary ---
Demographics + + + | Address | [address] | | | [place] [address] | + + + | Home Phone | | + + + | Preferred Language | Unknown | + + + | Marital Status | | + + + | Hindu Affiliation | 1013 | + + + | Race | Unknown | + + + | Ethnic Group | Unknown | + + + Author + + + | Author | [facility] | | | and [place] | + + + | Organization | [facility] | | | and [place] | + + + | Address | Unknown | + + + | Phone | Unavailable | + + + Support + + +---------+ + | Name | Relationship | Address | Phone | + + +---------+ + | Lauren Chappell | ECON | Unknown | | + + +---------+ + | [place] | ECON | Unknown | | + + +---------+ + Care Team Providers + +------+ + | Care Precision Grinder External Name | Role | Phone | + [...] | | | | [address] [facility] | | | | | | [address] [place] | | | | | | [address] | | | | | | [phone] | | | +--------+ + + + [...]
--- OUTSIDE RECORDS SUMMARY | ~2018-10-06 | XMS | Encounter Summary ---
Demographics + + + | Address | [address] | | | [place] [address] | + + + | Home Phone | | + + + | Preferred Language | Unknown | + + + | Marital Status | | + + + | Worship Affiliation | 1013 | + + + | Race | Unknown | + + + | Ethnic Group | Unknown | + + + Author + + + | Author | [facility] | | | and [place] | + + + | Organization | [facility] | | | and [...] Team Providers + +------+ + | Care Bread Wrapping Machine Feeder Name | Role | Phone | + [...] | | | (HCC) | | [place] [address] | | | | | (B19.20, | | Phone: | | | | | K74.69), | | [phone] | | | | | 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 | | [phone] | | | | | (HCC) | [...] | | | | | | | [place] | | | | | | | ESOPHAGOGAST | | | | | | | RODUODENOSCO | | | | | | | PY TRANSORAL | | | | | | | DIAGNOSTIC | | | | | | | [place] EGD | | | | | | | TRANSORAL | | | | | | | BIOPSY | | | | | | | SINGLE/MULTI | | | | | | | PLE [place] EGD | | | | | | | BAND | | | | | | | LIGATION | | | | | | | ESOPHGEAL/GA | | | | | | | STRIC | | | | | | | VARICES [place] | | | | | | | [...] [place] | | | | | | [address] | | | | | | [phone] | | | +--------+---------+ + + + [...] | [facility] | | GastroenterologyPatient Name: Delroy ChappellProdulceure Date: | PROVATION | | 08/28/2018 4:18 PMMRN: [id number] #: [id number] of : | | | 1960Admit Type: AmbulatoryAge: 58Room: [facility] 02Gender: MaleNote | | | Status: FinalizedAttending MD: ИВАН WALLS , | | | MDProcedure: Upper GI | | | endoscopyIndications: Esophageal varices, Follow-up of | | | esophageal varicesProviders: ИВАН WALLS MD, | | | Maria Elena Hernandez RN, Marcy Gottlieb, | | | Demurrage Man, Vince Morrison MD (Anesthesia Staff)Referring | | [...] | | varices. Banding not needed. - [place]-colored mucosa | | | suspicious for short-segment [...] PMScope Out: 4:32:28 | | | PM [facility], [address] [facility] | | | [place] [address] | | | - Resume regular diet. [...] |Scope Out: 4:32:28 PM | | | [place] [facility] [address], [address] [facility] [place], [place] | | | [address] | | + + ---+ + +---------+ [...]
--- OUTSIDE RECORDS SUMMARY | ~2018-10-06 | XMS | Clinical Summary ---
Demographics + + + | Address | [address] | | | [place] [address] | + + + | Home Phone | | + + + | Preferred Language | Unknown | + + + | Marital Status | | + + + | Druze Affiliation | 1013 | + + + | Race | Unknown | + + + | Ethnic Group | Unknown | + + + Author + + + | Author | [facility] | + + + | Organization | [facility] [employer] | + + + | Address | Unknown | + + + | Phone | Unavailable | + + + Support + + + + + | Name | Relationship | Address | Phone | + + + + + | Lauren Addison | ECON | [address] | | | | | [place] | | | | | [address] | | + + + + + Care Team Providers + +------+ + | Care Staff Veterinarian Name | Role | Phone | + [...] + | COMMERCIAL OTHER | COMMER | [id number] | | | | | | CIAL | | | | | | | GENERI | | | | | | | C PLAN | | | | | + +--------+ +------+-------+ + | MEDICAID | [facility] | [id number] | | | [address] | | | N | | | | [place] | | | [place] | | | | [address] | | | SENIOR ENVIRONMENTAL PRACTICE LEADER | | | | | + +--------+ [...] | [place]ak | | | [address] | [address] | + +--------+ +--------+ + +
--- OUTSIDE RECORDS SUMMARY | ~2018-10-06 | XMS | Encounter Summary ---
Demographics + + + | Address | [address] | | | [place] [address] | + + + | Home Phone [...] | Author | [facility] | | | and [place] | + + + | Organization | [facility] | [...] Team Providers + +------+ + | Care Safety Representative Name | Role | Phone | + [...] | | | (HCC) | | [place] [address] | | | | | (B19.20, | | Phone: | | | | | K74.69), | | [phone] | | | | | 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 | | [phone] | | | | | (HCC) | [...] | | | | | | | [place] | | | | | | | ESOPHAGOGAST | | | | | | | RODUODENOSCO | | | | | | | PY TRANSORAL | | | | | | | DIAGNOSTIC | | | | | | | [place] EGD | | | | | | | TRANSORAL | | | | | | | BIOPSY | | | | | | | SINGLE/MULTI | | | | | | | PLE [place] EGD | | | | | | | BAND | | | | | | | LIGATION | | | | | | | ESOPHGEAL/GA | | | | | | | STRIC | | | | | | | VARICES [place] | | | | | | | [...] [place] | | | | | | [address] | | | | | | [phone] | | | +--------+---------+ + + + [...] | PROVATION | | 08/28/2018 4:18 PMMRN: [id number] #: [id number] of : | | | 1960Admit Type: AmbulatoryAge: 58Room: [facility] 02Gender: MaleNote | | | Status: FinalizedAttending MD: ИВАН WALLS , | | | MDProcedure: Upper GI | | | endoscopyIndications: Esophageal varices, Follow-up of | | | esophageal varicesProviders: ИВАН WALLS MD, | | | Maria Elena Hernandez RN, Marcy Gottlieb, | | | Sound Cutter, Vince Morrison MD (Anesthesia Staff)Referring | | [...] | | varices. Banding not needed. - [place]-colored mucosa | | | suspicious for short-segment [...] PMScope Out: 4:32:28 | | | PM [facility], [address] [facility] | | | [place] [address] | | | - Resume regular diet. [...] |Scope Out: 4:32:28 PM | | | [facility], [address] [facility] [place], [place] | | | [address] | | + + ---+ + +---------+ [...]
--- OUTSIDE RECORDS SUMMARY | ~2018-10-06 | XMS | Encounter Summary ---
Demographics + + + | Address | [address] | | | [place] [address] | + + + | Home Phone | | + + + | Preferred Language | Unknown | + + + | Marital Status | | + + + | Holiness Affiliation | 1013 | + + + | Race | Unknown | + + + | Ethnic Group | Unknown | + + + Author + + + | Author | [facility] | | | and [place] | + + + | Organization | [facility] | | | and [place] [...] Team Providers + +------+ + | Care Circular Knife Machine Cutter Name | Role | Phone | + [...] | | | (HCC) | | [place] [address] | | | | | (B19.20, | | Phone: | | | | | K74.69), | | [phone] | | | | | 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 | | [phone] | | | | | (HCC) | [...] + + | 08/28/ | Anesthesia | [facility] | Camacho Dupree MD | | | 2019 | Event | [facility] OP | [address] | | | | | [address] | [place] | | | | | [place] | [address] | | | | | [address] | | | | | | [phone] | | | +--------+ + + + [...] 1654 by | | eral | Forearm; nxqu-cqi-nqllsk catheter | Corina Gibson RN | Corina [...]
--- OUTSIDE RECORDS SUMMARY | ~2018-10-06 | XMS | Clinical Summary ---
Demographics + + + | Address | [address] | | | [place] [address] | + + + | Home Phone | | + + + | Preferred Language | Unknown | + + + | Marital Status | | + + + | Scientologist Affiliation | 1013 | + + + | Race | Unknown | + + + | Ethnic Group | Unknown | + + + Author + + + | Author | [facility] | | | and [place] | + + + | Organization | [facility] | | | and [...] Team Providers + +------+ + | Care Cytology Supervisor Name | Role | Phone | [...] attack... [facility] They kept me overnight and | | [...] + | 10/03/ | Telephone | | Dom, | Liver Transplant | | 2018 | [...] + | 07/18/ | Anesthesia | | Art, | | | 2018 | Event | | Jacob Darling MD [...] | [facility] | | GastroenterologyPatient Name: Delroy Abbasi Date: | PROVATION | | 08/28/2018 4:18 PMMRN: [id number] #: [id number] of : | | | 1960Admit Type: AmbulatoryAge: 58Room: [facility] 02Gender: MaleNote | | | Status: FinalizedAttending MD: ИВАН WALLS , | | | MDProcedure: Upper GI | | | endoscopyIndications: Esophageal varices, Follow-up of | | | esophageal varicesProviders: ИВАН WALLS MD, | | | Maria Elena Hernandez RN, Marcy Gottlieb, | | | Licensing Specialist, Vince Morrison MD (Anesthesia Staff)Referring | | [...] | | varices. Banding not needed. - [place]-colored mucosa | | | suspicious for short-segment [...] PMScope Out: 4:32:28 | | | PM [facility], [address] [place] [address] | | | [place] [address] | | | - Resume regular diet. [...] |Scope Out: 4:32:28 PM | | | [facility], [address] [place] [address] | | | [address] | | + + ---+ + +---------+ [...] At | + +-------- ------+ | | [facility] | | GastroenterologyPatient Name: Delroy Abbasi Date: | PROVATI ON | | 07/18/2018 10:50 AMMRN: [id number] #: [id number] of : | | | 1960Admit Type: AmbulatoryAge: 58Room: [facility] 02Gender: MaleNote | | | Status: FinalizedAttending MD: ИВАН WALLS , | | | MDProcedure: Upper GI | | | endoscopyIndications: Esophageal varices, Follow-up of | | | esophageal varicesProviders: ИВАН WALLS MD, | | | Lauren Lewis RN, Kaila | | | Hernan, Licensing Specialist, Jacob Cordova MD (Anesthesia | | | [...] Completely eradicated. | | | Banded. - [place]-colored mucosa suspicious for short-segment | | | [...] Scope In: 10:59:59 AMScope Out: 11:07:10 AM [place] | | | [facility], [address] [place], [place] | | | [address] | | | - Repeat upper endoscopy [...] |Scope Out: 11:07:10 AM | | | [facility], [address] [facility], [place], [place] | | | [address] | | + +-------- ------+ + +---------+ [...] | [employer] | MODA | [id number] | 05/01/ | [address] | | Medica | | MEDICAID HMO [...] | 1961 | [phone] | [place] [address] | | | [place] | | | 9 (Home) | | + +--------+ +--------+ + + Advance Directives Patient has advance care planning documents on file. For more information, please contact:[facility] [place] [address]
--- OUTSIDE RECORDS SUMMARY | ~2018-10-06 | XMS | Encounter Summary ---
Demographics + + + | Address | [address] | | | [place] [address] | + + + | Home Phone | | + + + | Preferred Language | Unknown | + + + | Marital Status | | + + + | Denominational Affiliation | 1013 | + + + | Race | Unknown | + + + | Ethnic Group | Unknown | + + + Author + + + | Author | [facility] | | | and [place] | + + + | Organization | [facility] | | [...] Providers + +------+ + | Care Senior Court Office Assistant Name | Role | Phone | + +------+ + | Bonifacio Lawton MD | PCP | | + +------+ + Reason for Referral Diagnostic/Screening (Routine) + + + + + + + | Status | Reason | Specialty | Diagnoses / | Referred By | Referred To | | | | | Procedures | Contact | Contact | + + + + + + + | Authorized | Specialty | | Diagnoses | | [facility] | | | Services | | | [facility] | | | Required | | Decompensate | [place], | [address] | | | | | d HCV | SCHOOL PSYCHOLOGICAL EXAMINER [address] | | | | | cirrhosis | [place], [place] | [place], [place] | | | | | (HCC) | [address] [place] | [address] | | | | | Methamphetam | [place], [place] | Phone: | | | | | ine abuse, | [address] | [phone] | | | | | episodic | Phone: | Fax: | | | | | (HCC) | [phone] | [phone] | | | | | Procedures | Fax: | | | | | | US, ABDOMEN | [phone] | | | | | | LIMITED | | | + + + + + + + Reason for Visit + + + | Reason | Comments | + + + | Liver Transplant | | | Pre-evaluation | | + + + Encounter Details +--------+ + + + + | Date | Type | Department | Care Team | Description | +--------+ + + + + | 10/03/ | Telephone | [facility] [place] | [facility] | Liver Transplant | | 2019 | | GASTROENTEROLOGY | SHANNAN Morocho [address] | Pre-evaluation | | | | [address] [place] | [place], [place] [address] | | | | | [address] [place], [place] | [place], [place] | | | | | [address] | [address] | | | | | [phone] | | | +--------+ + + + [...] | | + +--------+ + + | US Abdomen Limited | Routin | Decompensated HCV | Expected: | | | e | cirrhosis (HCC) | 10/10/2018, Expires: | | | | Methamphetamine | 01/31/2019 | | | | abuse, episodic | | | | | (HCC) | | + +--------+ + + | Alpha Fetoprotein, Tumor Marker | Routin | Decompensated HCV | 1 Occurrences | | | e | cirrhosis (HCC) | starting 10/03/2018 | | | | Methamphetamine | until 01/31/2019 | | | | abuse, episodic | | | | | (HCC) | | + +--------+ + + | CBC with Differential | Routin | Decompensated HCV | 1 Occurrences | | | e | cirrhosis (HCC) | starting 10/03/2018 | | | | Methamphetamine | until 01/31/2019 | | | | abuse, episodic | | | | | (HCC) | | + +--------+ + + | Comprehensive Metabolic Panel | Routin | Decompensated HCV | 1 Occurrences | | | e | cirrhosis (HCC) | starting 10/03/2018 | | | | Methamphetamine | until 01/31/2019 | | | | abuse, episodic | | | | | (HCC) | | + +--------+ + + | Protime INR | Routin | Decompensated HCV | 1 Occurrences | | | e | cirrhosis (HCC) | starting 10/03/2018 | | | | Methamphetamine | until 01/31/2019 | | | | abuse, episodic | | | | | (HCC) | | + +--------+ + + + +--------+ + + | Name | Priori | Associated Diagnoses | Order Schedule | | | ty | | | + +--------+ + + | Referral ABDOMINAL US | Routin | Decompensated HCV | Ordered: 10/03/2018 | | | e | cirrhosis (HCC) | | | | | Methamphetamine | | | | | abuse, episodic | | | | | (HCC) | | + +--------+ + + documented as of this encounter Visit Diagnoses + + | Diagnosis | + + | Decompensated HCV cirrhosis (HCC) - Primary Chronic hepatitis C without mention of | | hepatic coma | + + | Methamphetamine abuse, episodic (HCC) | + + documented in this encounter"
--- OUTSIDE RECORDS SUMMARY | ~2018-10-06 | XMS | Encounter Summary ---
Demographics + + + | Address | [address] | | | [place] [address] | + + + | Home Phone | | + + + | Preferred Language | Unknown | + + + | Marital Status | | + + + | Holiness Affiliation | 1013 | + + + | Race | Unknown | + + + | Ethnic Group | Unknown | + + + Author + + + | Author | [facility] | | | and [place] | + + + | Organization | [facility] [...] Team Providers + +------+ + | Care Solution Coordinator Name | Role | Phone | [...] + + | 07/18/ | Anesthesia | [facility] | Art, | | | 2019 | Event | [facility] OP | Jacob Darling MD | | | | | [address] | [address] | | | | | [place] | [place] | | | | | [address] | [address] | | | | | [phone] | | | +--------+ + + + [...] by | | eral | (dorsal); Hand; [id number]-mmo-anexwq | Helena Gonzalez RN | Bonnie Mariee [...]
--- OUTSIDE RECORDS SUMMARY | ~2018-10-06 | XMS | Encounter Summary ---
Demographics + + + | Address | [address] | | | [place] [address] | + + + | Home Phone | | + + + | Preferred Language | Unknown | + + + | Marital Status | | + + + | Quaker Affiliation | 1013 | + + + | Race | Unknown | + + + | Ethnic Group | Unknown | + + + Author + + + | Author | [facility] | | | and [place] | + + + | Organization | [facility] | | | and [...] Team Providers + +------+ + | Care Strip Mill Operator Name | Role | Phone | [...] | | | | | PLE MO EGD | | | | | | | BAND | | | | | | | LIGATION | | | | | | | ESOPHGEAL/GA | | | | | | | STRIC | | | | | | | VARICES [place] | | | | | | | EGD BAND | | | | | | | LIGATION | | | | | | | ESOPHGEAL/GA | | | | | | | STRIC | | | | | | | VARICES [place] | | | | | | [...] + + | 07/18/ | Hospital | [facility] | Ney Walls | 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 Agustin [address] | varices with | | | | [address] [place] | [address] [facility] | bleeding (HCC); | | | | [place] | [place] [address] | Hepatic cirrhosis, | | | | [address] | [phone] | unspecified hepatic | | | | [phone] | | cirrhosis type, | | | [...] Other | | | | | | ziueheibd-hhwgywdp-f | (swish and swallow). | | | [...] PROVATI ON | | 07/18/2018 10:50 AMMRN: [id number] #: [id number] of : | | | 1960Admit Type: AmbulatoryAge: 58Room: [facility] 02Gender: MaleNote | | | Status: FinalizedAttending MD: NEY WALLS , | | | MDProcedure: Upper GI | | | endoscopyIndications: Esophageal varices, Follow-up of | | | esophageal varicesProviders: NEY WALLS MD, | | | Lauren Lewis RN, [facility] | | | Hernan, Zinc Etcher, Jacob Cordova MD (Anesthesia | | | [...] Completely eradicated. | | | Banded. - [place]-colored mucosa suspicious for short-segment | | | [...] Scope In: 10:59:59 AMScope Out: 11:07:10 AM [place] | | | [facility], [address] [place] [address] | | | [address] | | | - Repeat upper endoscopy [...] |Scope Out: 11:07:10 AM | | | [facility], [address], [place], [place] | | | [address] | | + +-------- ------+ + +---------+ [...]
--- OUTSIDE RECORDS SUMMARY | ~2018-10-06 | XMS | Encounter Summary ---
Demographics + + + | Address | [address] | | | [place] [address] | + + + | Home Phone [...] | Author | [facility] | | | and [place] | + + + | Organization | [facility] | | | and [...] Team Providers + +------+ + | Care Fabricator Foam Rubber Name | Role | Phone | + [...] + + | 09/20/ | Telephone | [facility] [place] | Иван Tellez | Other | | 2019 | | GASTROENTEROLOGY | MD Agustin [address] | | | | | [address] [place] | [address] [place] | | | | | [address] [place], [place] | [place] [address] | | | | | [address] | [phone] | | | | | [phone] | | | +--------+ + + + [...]
--- OUTSIDE RECORDS SUMMARY | ~2018-10-06 | XMS | Encounter Summary ---
Demographics + + + | Address | [address] | | | [place] [address] | + + + | Home Phone [...] | Author | [facility] | | | and [place] | + + + | Organization | [facility] | | | and [place] [...] Team Providers + +------+ + | Care Reception Specialist Name | Role | Phone | + [...] | | | (HCC) | | [place] [address] | | | | | (B19.20, | | Phone: | | | | | K74.69), | | [phone] | | | | | 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 | | [phone] | | | | | (HCC) | [...] | | | | | | | DC | | | | | | | ESOPHAGOGAST | | | | | | | RODUODENOSCO | | | | | | | PY TRANSORAL | | | | | | | DIAGNOSTIC | | | | | | | DC EGD | | | | | | | TRANSORAL | | | | | | | BIOPSY | | | | | | | SINGLE/MULTI | | | | | | | PLE DC EGD | | | | | | | BAND | | | | | | | LIGATION | | | | | | | ESOPHGEAL/GA | | | | | | | STRIC | | | | | | | VARICES [place] | | | | | | | [...] [place] | | | | | | [address] | | | | | | [phone] | | | +--------+---------+ + + + [...] | PROVATION | | 08/28/2018 4:18 PMMRN: [id number] #: [id number] of : | | | 1960Admit Type: AmbulatoryAge: 58Room: [facility] 02Gender: MaleNote | | | Status: FinalizedAttending MD: ИВАН WALLS , | | | MDProcedure: Upper GI | | | endoscopyIndications: Esophageal varices, Follow-up of | | | esophageal varicesProviders: ИВАН WALLS MD, | | | Maria Elena Hernandez RN, Marcy Gottlieb, | | | Emergency Medicine Medical Director, Vince Morrison MD (Anesthesia Staff)Referring | | [...] | | varices. Banding not needed. - [place]-colored mucosa | | | suspicious for short-segment [...] | | | PM [facility], [address] | | | [place] [address] | | | - Resume regular diet. [...] |Scope Out: 4:32:28 PM | | | [facility], [address] [facility] [place], [place] | | | [address] | | + + ---+ + +---------+ [...]
--- OUTSIDE RECORDS SUMMARY | ~2018-10-06 | XMS | Encounter Summary ---
Demographics + + + | Address | [address] | | | [place] [address] | + + + | Home Phone [...] Author | [facility] | | | and [place] | + + + | Organization | [facility] | | [...] Team Providers + +------+ + | Care Outside Upholsterer Name | Role | Phone | + [...] + + | 08/03/ | [facility] | [facility] | Иван Tellez | Procedure (EGD/Prop) | | 2019 | | GASTROENTEROLOGY | MD Agustin [address] | | | | | [address] [place] | [address] [facility] | | | | | [address] | [place] [address] | | | | | [address] | [phone] | | | | | [phone] | | | +--------+ + + + [...]
--- OUTSIDE RECORDS SUMMARY | ~2018-10-06 | XMS | Encounter Summary ---
Demographics + + + | Address | [address] | | | [place] [address] | + + + | Home Phone | | + + + | Preferred Language | Unknown | + + + | Marital Status | | + + + | Rastafari Affiliation | 1013 | + + + | Race | Unknown | + + + | Ethnic Group | Unknown | + + + Author + + + | Author | [facility] | | | and [place] | + + + | Organization | [facility] | | | and [place] [...] Team Providers + +------+ + | Care Rn Otolaryngology Name | Role | Phone | + [...] + + | 09/20/ | Telephone | [facility] [place] | Иван Tellez | Other | | 2019 | | GASTROENTEROLOGY | MD Agustin [address] | | | | | [address] [place] | [address] [place] | | | | | [address] [place], [place] | [place] [address] | | | | | [address] | [phone] | | | | | [phone] | | | +--------+ + + + [...]
--- OUTSIDE RECORDS SUMMARY | ~2018-10-06 | XMS | Clinical Summary ---
Demographics + + + | Address | [address] | | | [place] [address] | + + + | Home Phone [...] | [facility] | | | and [place] | + + + | Organization | [facility] | | | and [place] [...] Providers + +------+ + | Care Business Relationship Manager Name | Role | Phone [...] attack... They sent | | me [facility] [place] They kept me overnight and | | [...] | PROVATION | | 08/28/2018 4:18 PMMRN: [id number] #: [id number] of : | | | 1960Admit Type: AmbulatoryAge: 58Room: [facility] 02Gender: MaleNote | | | Status: FinalizedAttending MD: ИВАН WALLS , | | | MDProcedure: Upper GI | | | endoscopyIndications: Esophageal varices, Follow-up of | | | esophageal varicesProviders: ИВАН WALLS MD, | | | Maria Elena Hernandez RN, Marcy Gottlieb, | | | Habilitation Assistant, Vince Morrison MD (Anesthesia Staff)Referring | | [...] | | varices. Banding not needed. - [place]-colored mucosa | | | suspicious for short-segment [...] Out: 4:32:28 | | | PM [facility], [address] [place] [address] | | | [place] [address] | | | - Resume regular diet. [...] Out: 4:32:28 PM | | | [facility], [address] [place] [address] | | | [address] | | + + ---+ + +---------+ [...] PROVATI ON | | 07/18/2018 10:50 AMMRN: [id number] #: [id number] of : | | | 1960Admit Type: AmbulatoryAge: 58Room: [facility] 02Gender: MaleNote | | | Status: FinalizedAttending MD: ИВАН WALLS , | | | MDProcedure: Upper GI | | | endoscopyIndications: Esophageal varices, Follow-up of | | | esophageal varicesProviders: ИВАН WALLS MD, | | | Lauren Lewis RN, Kaila | | | Hernan, Habilitation Assistant, Jacob Cordova MD (Anesthesia | | [...] Completely eradicated. | | | Banded. - [place]-colored mucosa suspicious for short-segment | | | [...] Scope In: 10:59:59 AMScope Out: 11:07:10 AM [place] | | | [facility], [address] [place], [place] | | | [address] | | | - Repeat upper endoscopy [...] Out: 11:07:10 AM | | | [facility], [address] [facility], [place], [place] | | | [address] | | + +-------- ------+ + +---------+ [...] | [employer] | MODA | [id number] | 05/01/ | [phone] | | Medica | | MEDICAID HMO [...] | 1961 | [phone] | [place] [address] | | | dipak | | | 9 (Home) | | + +--------+ +--------+ + + Advance Directives Patient has advance care planning documents on file. For more information, please contact:[facility] [place] [address]
--- OUTSIDE RECORDS SUMMARY | ~2018-10-06 | XMS | Encounter Summary ---
Demographics + + + | Address | [address] | | | [place] [address] | + + + | Home Phone | | + + + | Preferred Language | Unknown | + + + | Marital Status | | + + + | Congregational Affiliation | 1013 | + + + | Race | Unknown | + + + | Ethnic Group | Unknown | + + + Author + + + | Author | [facility] | | | and [place] | + + + | Organization | [facility] | | | and [...] Team Providers + +------+ + | Care Frame Runner Name | Role | Phone | + [...] | | | Services | | | [facility] | | | Required | | Decompensate | Bailee, | [address] | | | | | d HCV | PAPERHANGER PIPE [address] | | | | | cirrhosis | [place], [place] | [place], [place] | | | | | (HCC) | [address] [place] | [address] | | | | | Methamphetam | [place], [place] | Phone: | | | | | ine abuse, | [address] | [phone] | | | | | episodic | Phone: | Fax: | | | | | (HCC) | [phone] | [phone] | | | | | Procedures | Fax: | | | | | | US, ABDOMEN | [phone] | | | | | | LIMITED [...] | Telephone | [facility] [place] | [facility], | Liver Transplant | | 2019 | | GASTROENTEROLOGY | SHANNAN Morocho [address] | Pre-evaluation | | | | [address] [place] | [place], [address] [address] | | | | | [address] [place], [place] | [place], [place] | | | | | [address] | [address] | | | | | [phone] | | | +--------+ + + + [...]
--- OUTSIDE RECORDS SUMMARY | ~2018-10-06 | XMS | Encounter Summary ---
Demographics + + + | Address | [address] | | | [place] [address] | + + + | Home Phone | | + + + | Preferred Language | Unknown | + + + | Marital Status | | + + + | Quaker Affiliation | 1013 | + + + | Race | Unknown | + + + | Ethnic Group | Unknown | + + + Author + + + | Author | [facility] | | | and [place] | + + + | Organization | [facility] | | [...] Team Providers + +------+ + | Care Director Teen Post Name | Role | Phone | + [...] | | | (HCC) | | [place] [address] | | | | | (B19.20, | | Phone: | | | | | K74.69), | | [phone] | | | | | 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 | | [phone] | | | | | (HCC) | [...] + + | 08/28/ | Hospital | [facility] | Ney Walls | 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 Agustin [address] | varices with | | | | [address] | [address] [place] | bleeding (HCC); | | | | [place] | [place] [address] | Portal hypertension | | | | [address] | [phone] | (HCC) | | | | [phone] | | | +--------+ + + + [...] | PROVATION | | 08/28/2018 4:18 PMMRN: [id number] #: [id number] of : | | | 1960Admit Type: AmbulatoryAge: 58Room: [facility] 02Gender: MaleNote | | | Status: FinalizedAttending MD: NEY WALLS , | | | MDProcedure: Upper GI | | | endoscopyIndications: Esophageal varices, Follow-up of | | | esophageal varicesProviders: NEY WALLS MD, | | | Maria Elena Hernandez RN, Marcy Gottlieb, | | | Ocean Fishing Guide, Vince Morrison MD (Anesthesia Staff)Referring | | [...] | | varices. Banding not needed. - [place]-colored mucosa | | | suspicious for short-segment [...] [facility], [address] [facility] | | | [place] [address] | | | - Resume regular diet. [...] [facility], [address] [facility], [place], [place] | | | [address] | | + + ---+ + +---------+ [...]
--- OUTSIDE RECORDS SUMMARY | ~2018-10-06 | XMS | Encounter Summary ---
Demographics + + + | Address | [address] | | | [place] [address] | + + + | Home Phone | | + + + | Preferred Language | Unknown | + + + | Marital Status | | + + + | Anabaptist Affiliation | 1013 | + + + | Race | Unknown | + + + | Ethnic Group | Unknown | + + + Author + + + | Author | [facility] | | | and [place] | + + + | Organization | [facility] | | | and [place] [...] Team Providers + +------+ + | Care Vessel Slag Worker Name | Role | Phone | [...] + + | 07/18/ | Hospital | [facility] | Ney Walls | 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 Agustin [address] | varices with | | | | [address] | [address] [facility] | bleeding (HCC); | | | | [place] | [place] [address] | Hepatic cirrhosis, | | | | [address] | [phone] | unspecified hepatic | | | | [phone] | | cirrhosis type, | | | [...] Other | | | | | | haexsbgrj-ovtvmvsx-i | (swish and swallow). | | | [...] PROVATI ON | | 07/18/2018 10:50 AMMRN: [id number] #: [id number] of : | | | 1960Admit Type: AmbulatoryAge: 58Room: [facility] 02Gender: MaleNote | | | Status: FinalizedAttending MD: NEY WALLS , | | | MDProcedure: Upper GI | | | endoscopyIndications: Esophageal varices, Follow-up of | | | esophageal varicesProviders: NEY WALLS MD, | | | Lauren Lewis RN, [facility] | | | Hernan, Bottle Caser, Jacob Cordova MD (Anesthesia | | | [...] Completely eradicated. | | | Banded. - [place]-colored mucosa suspicious for short-segment | | | [...] Scope In: 10:59:59 AMScope Out: 11:07:10 AM [place] | | | [facility], [address] [place] [address] | | | [address] | | | - Repeat upper endoscopy [...] |Scope Out: 11:07:10 AM | | | [facility], [address], [place], [place] | | | [address] | | + +-------- ------+ + +---------+ [...]
--- OUTSIDE RECORDS SUMMARY | ~2018-10-06 | XMS | Encounter Summary ---
Demographics + + + | Address | [address] | | | [place] [address] | + + + | Home Phone | | + + + | Preferred Language | Unknown | + + + | Marital Status | | + + + | Presybeterian Affiliation | 1013 | + + + | Race | Unknown | + + + | Ethnic Group | Unknown | + + + Author + + + | Author | [facility] | | | and [place] | + + + | Organization | [facility] | | | and [...] Team Providers + +------+ + | Care Epic Anesthesia Analyst Name | Role | Phone | [...] + | 08/03/ | [facility] | [facility] | Иван Tellez | Procedure (EGD/Prop) | | 2019 | | GASTROENTEROLOGY | MD Agustin [address] | | | | | [address] [place] | [address] [facility] | | | | | [address] | [place] [address] | | | | | [address] | [phone] | | | | | [phone] | | | +--------+ + + + [...]
--- OUTSIDE RECORDS SUMMARY | ~2018-10-06 | XMS | Encounter Summary ---
Demographics + + + | Address | [address] | | | [place] [address] | + + + | Home Phone [...] | Author | [facility] | | | and [place] | + + + | Organization | [facility] | | | and [place] | + + + | Address | Unknown | + + + | Phone | Unavailable | + + + Support + + +---------+ + | Name | Relationship | Address | Phone | + + +---------+ + | Lauren Chappell | ECON | Unknown | | + + +---------+ + | Ring[place]Lauren | ECON | Unknown | | + + +---------+ + Care Team Providers + +------+ + | Care Risk Control Analyst Name | Role | Phone | [...] | | | | [address] [facility] | | | | | | [address] [place] | | | | | | [address] | | | | | | [phone] | | | +--------+ + + + [...]
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
--- OUTSIDE RECORDS SUMMARY | ~2018-10-06 | XMS | Encounter Summary ---
Demographics + + + | Address | [address] | | | [place] [address] | + + + | Home Phone [...] | Author | [facility] | | | and [place] | + + + | Organization | [facility] | | | [...] Providers + +------+ + | Care Business Objects Name | Role | Phone | + [...] | | | Services | | | [facility] | | | Required | | Decompensate | Bailee, | [address] | | | | | d HCV | JAVA PROGRAMMING PROFESSOR [address] | | | | | cirrhosis | [place], [place] | [place], [place] | | | | | (HCC) | [address] [place] | [address] | | | | | Methamphetam | [place], [place] | Phone: | | | | | ine abuse, | [address] | [phone] | | | | | episodic | Phone: | Fax: | | | | | (HCC) | [phone] | [phone] | | | | | Procedures | Fax: | | | | | | US, ABDOMEN | [phone] | | | | | | LIMITED [...] | Telephone | [facility] [place] | [facility], | Liver Transplant | | 2019 | | GASTROENTEROLOGY | SHANNAN Morocho [address] | Pre-evaluation | | | | [address] [place] | [place], [address] | | | | | [address] [place], [place] | [place], [place] | | | | | [address] | [address] | | | | | [phone] | | | +--------+ + + + [...]
--- OUTSIDE RECORDS SUMMARY | ~2018-10-06 | XMS | Encounter Summary ---
Demographics + + + | Address | [address] | | | [place] [address] | + + + | Home Phone | | + + + | Preferred Language | Unknown | + + + | Marital Status | | + + + | Lutheran Affiliation | 1013 | + + + | Race | Unknown | + + + | Ethnic Group | Unknown | + + + Author + + + | Author | [facility] | | | and [place] | + + + | Organization | [facility] | | [...] Team Providers + +------+ + | Care Learning Solutions Specialist Name | Role | Phone | [...] | | | (HCC) | | [place] [address] | | | | | (B19.20, | | Phone: | | | | | K74.69), | | [phone] | | | | | 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 | | [phone] | | | | | (HCC) | [...] | | | | | | | [place] | | | | | | | ESOPHAGOGAST | | | | | | | RODUODENOSCO | | | | | | | PY TRANSORAL | | | | | | | DIAGNOSTIC | | | | | | | SD EGD | | | | | | | TRANSORAL | | | | | | | BIOPSY | | | | | | | SINGLE/MULTI | | | | | | | PLE [place] EGD | | | | | | | BAND | | | | | | | LIGATION | | | | | | | ESOPHGEAL/GA | | | | | | | STRIC | | | | | | | VARICES [place] | | | | | | | [...] + + | 08/28/ | Anesthesia | [facility] | Camacho Dupree MD | | | 2019 | Event | MED CTR MP INTRA OP | [address] | | | | | [address] | [place] | | | | | [place] | [address] | | | | | [address] | | | | | | [phone] | | | +--------+ + + + [...] [address]54 by | | eral | Forearm; ervw-whg-kybljl catheter | Corina Gibson RN | Corina [...]
--- OUTSIDE RECORDS SUMMARY | ~2018-10-06 | XMS | Encounter Summary ---
Demographics + + + | Address | [address] | | | [place] [address] | + + + | Home Phone | | + + + | Preferred Language | Unknown | + + + | Marital Status | | + + + | Congregational Affiliation | 1013 | + + + | Race | Unknown | + + + | Ethnic Group | Unknown | + + + Author + + + | Author | [facility] | | | and [place] | + + + | Organization | [facility] [...] Team Providers + +------+ + | Care Quality Assurance Assessor Name | Role | Phone | + [...] + + | 08/03/ | [facility] | [facility] | Иван Tellez | Procedure (EGD/Prop) | | 2019 | | GASTROENTEROLOGY | MD Agustin [address] | | | | | [address] [place] | [address] [facility] | | | | | [address] | [place] [address] | | | | | [address] | [phone] | | | | | [phone] | | | +--------+ + + + [...]
--- OUTSIDE RECORDS SUMMARY | ~2018-10-06 | XMS | Clinical Summary ---
Demographics + + + | Address | [address] | | | [place] [address] | + + + | Home Phone [...] + + | Author | [facility] | + + + | Organization | [facility] [employer] | + + + | Address | Unknown | + + + | Phone | Unavailable | + + + Support + + + + + | Name | Relationship | Address | Phone | + + + + + | Lauren Addison | ECON | [address] | | | | | [place] | | | | | [address] | | + + + + + Care Team Providers + +------+ + | Care Ui Software Developer Name | Role | Phone | [...] + | COMMERCIAL OTHER | COMMER | [id number] | | | | | | CIAL | | | | | | | GENERI | | | | | | | C PLAN | | | | | + +--------+ +------+-------+ + | MEDICAID | [facility] | [id number] | | | [address] | | | [address] | | | | [place] | | | [place] | | | | [address] | | | CAMP DISHWASHER | | | | | + +--------+ [...] | dipak | | | [address] | [address] | + +--------+ +--------+ + +
--- OUTSIDE RECORDS SUMMARY | ~2018-10-06 | XMS | Encounter Summary ---
Demographics + + + | Address | [address] | | | [place] [address] | + + + | Home Phone | | + + + | Preferred Language | Unknown | + + + | Marital Status | | + + + | Anglican Affiliation | 1013 | + + + | Race | Unknown | + + + | Ethnic Group | Unknown | + + + Author + + + | Author | [facility] | | | and [place] | + + + | Organization | [facility] | | | and [place] | [...] Providers + +------+ + | Care Field Artillery Crewmember Name | Role | Phone | + [...] | | | | | | | [place] | | | | | | | ESOPHAGOGAST | | | | | | | RODUODENOSCO | | | | | | | PY TRANSORAL | | | | | | | DIAGNOSTIC | | | | | | | [place] EGD | | | | | | | TRANSORAL | | | | | | | BIOPSY | | | | | | | SINGLE/MULTI | | | | | | | PLE [place] EGD | | | | | | | BAND | | | | | | | LIGATION | | | | | | | ESOPHGEAL/GA | | | | | | | STRIC | | | | | | | VARICES [place] | | | | | | | EGD BAND | | | | | | | LIGATION | | | | | | | ESOPHGEAL/GA | | | | | | | STRIC | | | | | | | VARICES [place] | | | | | | | [...] + + | 07/18/ | Anesthesia | [facility] | Art, | | | 2019 | Event | MED CTR MP INTRA OP | Jacob Darling MD | | | | | [address] | [address] | | | | | [place] | [place] | | | | | [address] | [address] | | | | | [phone] | | | +--------+ + + + [...] by | | eral | (dorsal); Hand; [id number] | Helena Gonzalez RN | Bonnie Mariee [...]
--- OUTSIDE RECORDS SUMMARY | ~2018-10-06 | XMS | Encounter Summary ---
Demographics + + + | Address | [address] | | | [place] [address] | + + + | Home Phone [...] | Author | [facility] | | | and [place] | + + + | Organization | [facility] | | | and [place] [...] Team Providers + +------+ + | Care Mushroom Spawn Maker Name | Role | Phone | [...] [place] | | | | | | [phone] | | | | | | [phone] | | | +--------+---------+ + + + [...] Other | | | | | | [id number] | (swish and swallow). | | | [...] PROVATI ON | | 07/18/2018 10:50 AMN: [id number] #: [id number] of : | | | 1960Admit Type: AmbulatoryAge: 58Room: [facility] 02Gender: MaleNote | | | Status: FinalizedAttending MD: NEY WALLS , | | | MDProcedure: Upper GI | | | endoscopyIndications: Esophageal varices, Follow-up of | | | esophageal varicesProviders: NEY WALLS MD, | | | Lauren Lewis RN, Kaila | | | Hernan, Yoga Teacher, Jacob Cordova MD (Anesthesia | | | [...] Completely eradicated. | | | Banded. - Rake-colored mucosa suspicious for short-segment | | | [...] Scope In: 10:59:59 AMScope Out: 11:07:10 AM [place] | | | [facility], [address] [place] [address] | | | [id number] | | | - Repeat upper endoscopy [...] |Scope Out: 11:07:10 AM | | | [facility], [address] [place] [address] | | | [id number] | | + +-------- ------+ + +---------+ [...]
--- OUTSIDE RECORDS SUMMARY | 2018-10-06 18:46 | XMS ---
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 Care History Medical/Surgical 08/08/2018 [facility] - Patient is currently established with [facility]. If patient is seen in the ED during business hours. Please contact CHWs at [facility]. Care Recommendation: This patient has had 5 or more Emergency Department visits in the last 12 months.\T\nbsp; Patient requires education on the scope and purpose of the ED as an acute care provider not a Primary Care Provider and should not be utilized for chronic conditions.\T\nbsp; These are guidelines and the provider should exercise clinical judgment when providing care. 04/05/2018 [facility] - PATIENT RECEIVED LIGHT DUTY -WORK NOTE FROM MILENA VALDEZ AT [facility] ON 04/04/18. - PATIENT HAS A FOLLOW UP WITH DR BHATTI ON 04/17/2018. Mark VISIT COUNT (12 MO.) 10 [facility] TOTAL 10 NOTE: Visits indicate total known visits. ED/UCC VISIT TRACKING (12 MO.) 10/06/2018 18:43 [facility] [place] TYPE: Emergency COMPLAINT: - LEG SWELLING 09/30/2018 19:16 [facility] [place] TYPE: Emergency COMPLAINT: - SOB, CHEST FEELS HEAVY DIAGNOSES: - Personal history of other infectious and parasitic diseases - Personal history of nicotine dependence - Other chest pain - Unspecified cirrhosis of liver - [facility] [place] [facility] drug therapy 08/07/2018 12:09 [facility] [place] TYPE: Emergency COMPLAINT: - ABD PAIN 04/19/2018 07:40 [facility] [place] TYPE: Emergency COMPLAINT: - POSS STROKE 04/06/2018 06:25 [facility] [place] TYPE: Emergency COMPLAINT: - VOMITING BLOOD DIAGNOSES: - Gastrointestinal hemorrhage, unspecified - Nicotine dependence, unspecified, uncomplicated - Hematemesis - Other roasterman (current) drug therapy - Unspecified cirrhosis of liver 04/05/2018 17:30 [facility] [place] TYPE: Emergency COMPLAINT: - ABDOMINAL PAIN DIAGNOSES: - Constipation, unspecified - Other roasterman (current) drug therapy - Nicotine dependence, unspecified, uncomplicated - Unspecified abdominal pain 04/04/2018 15:18 [facility] [place] TYPE: Emergency COMPLAINT: - POSS HERNIA DIAGNOSES: - Encounter for other general examination 03/31/2018 18:03 [facility] [place] TYPE: Emergency COMPLAINT: - ABD PAIN DIAGNOSES: - Nicotine dependence, unspecified, uncomplicated - Ventral hernia without obstruction or gangrene - Other roasterman (current) drug therapy 03/16/2018 11:09 [facility] [...] - Unspecified cirrhosis of liver - Other [place] [facility] drug therapy - Personal history of nicotine dependence - Hepatic failure, unspecified without coma - Other stimulant abuse, in remission - Umbilical hernia with obstruction, without gangrene - salvage determiner (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 antibiotics - Unspecified viral [...] hepatitis C without hepatic coma - Other [place] [facility] (current) drug therapy - Secondary esophageal varices without bleeding 04/06/2018 13:13 [facility] [place] TYPE: General Medicine DIAGNOSES: - Ascities [email or web address]
--- NOTE | 2018-10-06 22:05 | NUR ---
PT ARRIVED TO THE UNIT DROWSY BUT AWAKE, PT CONFUSED, DISORIENTED, ATTEMPTING TO GET OUT OF BED, PT REPOSITIONED, SEIZURE PAD PLACED FOR PT'S SAFETY, VSS, ON RA, O2 SAT 99%, IV SL, FLUSHES WELL, ASSESSMENT COMPLETE, LS CLEAR, BT ACTIVE, ABDOMEN DISTENDED BUT NOT FIRM, NO SIGNS OF TENDERNESS OR PAIN, PT UNABLE TO FOLLOW DIRECTIONS, SWELLING NOTED IN BILATERAL LOWER EXTREMIITIES, RIGHT LEG 2+ PITTING, LEFT LEG 1+, THIS RN REMAINS IN ROOM WITH PT DUE TO PT CONTINUALLY ATTEMPTING TO LEAVE BED, PT IS WEAK AND UNSTABLE, BED ALARM ON, FALL PRECAUTIONS IN PLACE.
--- NOTE | 2018-10-06 23:27 | NUR ---
PT UNABLE TO TAKE PO LACTULOSE, PT WAS GIVEN LACTULOSE ENEMA, PT REMAINS RESTING, EYES CLOSED, NO REQUESTS AT THIS TIME, IV FLUIDS INFUSING PER EMAR WNL, VSS. ON RA, O2 SAT 98%. VISIBLE FROM NURSES STATION.
--- NOTE | 2018-10-06 23:58 | NUR ---
PT RESTING IN BED, EYES CLOSED, BREATHS EVEN, UNLABORED, NO SIGNS OF DISCOMFORT, VSS, ON RA, IV FLUIDS INFUSING PER EMAR WNL, BED ALARM ON. VISIBLE FROM NURSES STATION.
--- NOTE | 2018-10-07 01:00 | NUR ---
NOTIFIED DR. MCKEON OF PT NOT VOIDING SINCE HIS ARRIVAL WELL PT BEING UNABLE TO FOLLOW DIRECTIONS TO VOID. DR. MCKEON ORDERED FOR A BLADDER SCAN TO BE DONE AND IF THE PT HAS RETAINED GREATER THAN 350 MLS OF URINE A SCHUMACHER CATHETER CAN BE PLACED. DR. MCKEON ALSO NOTIFIED THAT THE PT HAS NOT HAD A BM SINCE LACTULOSE ADMINISTRATION, DR. MCKEON ORDERED FOR THE PT TO RECEIVE A SECOND DOSE OF LACTULOSE. NO OTHER ORDERS.
--- NOTE | 2018-10-07 01:53 | NUR ---
PT BLADDER SCANNED, BLADDER CAN NOTED 631 MLS OF URINE, 16 MOSOTHO SCHUMACHER CATH PLACED, STERILE TECHNIQUE USED, PT TOLERATED WELL.
--- NOTE | 2018-10-07 01:55 | NUR ---
PT AWAKE, RESTING IN BED, ALERT TO PERSON AND PLACE, DISORIENTED TO TIME AND EVENT, PT GIVEN ICE WATER PER PT'S REQUEST, TOLERATED PO INTAKE WELL. NO FURTHER NEEDS AT THIS TIME, CALL LIGHT WITHIN REACH. FALL PRECAUTIONS IN PLACE. IV FLUIDS INFUSING PER EMAR WNL
--- NOTE | 2018-10-07 02:30 | NUR ---
PT GIVEN ONE TIME DOSE OF PO LACTULOSE PER MD ORDER DUE TO PT NOT HAVING A BM 4 HOURS AFTER INITIAL DOSING. PT WAS ABLE TO TAKE LACTULOSE PO PT IS MORE ALERT AT THIS TIME. PT REMAINS CONFUSED, DIFFICULTY FOLLOWING DIRECTIONS, HOWEVER TOLERATED WELL. IV FLUIDS INFUSING PER EMAR WNL. SCHUMACHER CATH DRAINING WNL. BED ALARM ON.
--- NOTE | 2018-10-07 02:52 | NUR ---
PT RESTING IN BED, NO REQUESTS AT THIS TIME, IV FLUIDS INFUSING PER EMAR WNL, SCHUMACHER CATH DRAINING WNL, CALL LIGHT WITHIN REACH. FALL PRECAUTIONS IN PLACE. BED ALARM ON.
--- NOTE | 2018-10-07 03:19 | NUR ---
PT ASSISTED UP TO BSC, 1 PERSON ASSIST/PIVOT, PT TOLERATED WELL. PT HAD A LARGE LOOSE/SOFT BROWN BM. PT BACK TO BED, VSS, IV FLUIDS INFUSING PER EMAR WNL, SCHUMACHER CATH DRAINING WNL. BED ALARM ON. BEDDING CHANGED.
--- NOTE | 2018-10-07 05:00 | NUR ---
PT ASSISTED TO VOID IN BSC, 1 PERSON ASSIST, TOLERATED WELL. PT HAD A 250 ML LOOSE BM, BROWN, PT BACK TO BED, WARM BLANKET PROVIDED, PT BECAME NAUSEOUS ONCE BACK TO BED, WRETCHING, NO EMESIS ALTHOUGH PT DID HAVE SOME PHLEGM, NAUSEA CONTINUED, PT REQUESTED PRN NAUSEA MEDICATION, PRN ZOFRAN GIVEN PER EMAR, PT TOLERATED WELL. NO FURTHER REQUESTS AT THIS TIME, CALL LIGHT WITHIN REACH. IV FLUIDS INFUSING PER EMAR WNL. BED ALARM ON.
--- NOTE | 2018-10-07 06:00 | NUR ---
PT CONTINUES TO BECOME MORE ALERT/ORIENTED, LESS CONFUSED, ABLE TO COMMUNICATE EFFECTIVELY, ONLY DISORIENTED TO TIME, AND CAN BE FORGETFUL AND SLOW TO FOLLOW DIRECTIONS, PT DENIES ANY NAUSEA AT THIS TIME AFTER RECEIVING PRN NAUSEA MED, PT DENIES ANY NEEDS AT THIS TIME, CALL LIGHT WITHIN REACH. LAB IN ROOM. BED ALARM ON.
--- NOTE | 2018-10-07 06:34 | NUR ---
DR. MCKEON NOTIFIED OF PT'S LOW URINE OUTPUT, NEW ORDER TO INCREASE IV FLUID RATE TO 125/HR, NO FURTHER ORDERS AT THIS TIME. TORB.
[2018-10-07] MEDS ORDERED: XIFAXAN550 MG PO (08:54)
--- NOTE | 2018-10-07 09:00 | NUR ---
PATIENT PUTS CALL LIGHT ON AND STATES, "CAN YOU TELL MY NURSE I'M GOING TO NEED MY SCHUMACHER AND IV OUT, BECAUSE I'M GOING TO BE GOING HOME." DISCUSSED WITH PATIENT THE REASONS FOR HIM WANTING TO LEAVE. PATIENT STATES, "I KNOW I NEED TO TAKE MY LACTULOSE, I KNOW THAT NOW. I THOUGHT THAT IF I WAS STILL HAVING BOWEL MOVEMENTS I DIDN'T NEED TO TAKE IT, BUT I KNOW HOW IT MAKES ME DELIRIOUS IF I DONT' TAKE IT." PATIENT ASKED ORIENTATION QUESTIONS TO WHICH HE ANSWERED CORRECTLY. 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 PATIENT STATES HE IS UNABLE TO RE-SCHEDULE THIS AND NEEDS TO LEAVE OR ELSE HE WILL BE KICKED OUT OF HIS CLASS. PATIENT REMAINS CALM AND POLITE AT THIS TIME. DR. MCKEON CALLED AND THEN ARRIVES IN UNIT TO DISCUSS THIS WITH PATIENT. PATIENT ASKED BY DR. MCKEON TO STATE THE RISKS INVOLVED WITH HIM LEAVING AMA, AND HE STATES, "YES I COULD HAVE SEIZURES, I COULD BECOME DELIRIOUS AGAIN. I WILL TAKE MY LACTULOSE THOUGH." PATIENT NOW ARRANGING FOR TRANSPORTATION HOME. PATIENT HAS A RIDE COMING TO PICK HIM UP AT 0945 AND STATES, "I NEED TO BE OUTSIDE RIDE AT 0945 ON THE BUTTON." DISCHARGE PAPERWORK BEING COMPILED FOR PATIENT.
--- NOTE | 2018-10-07 09:16 | NUR ---
SCHUMACHER AND IV BEING TAKEN OUT BY SN. PATIENT GIVEN HIS CLOTHING.
--- NOTE | 2018-10-07 09:21 | NUR ---
OFFERED TO GIVE PATIENT HIS AM DOSE OF RIFAXAMIN AND HIS AM DOSE OF LACTULOSE. PATIENT STATES, "I'LL TAKE THOSE WHEN I GET HOME. I DONT' WANT THEM NOW." PATIENT GIVEN PRESCRIPTION FOR RIFAXAMIN AT HOME. PATIENT STATES, "OH I HAVE THAT MEDICATION AT HOME." PHARMACY NOTIFIED OF PATIENT'S PLAN TO LEAVE AMA AND STATE THEY WILL COME OVER TO DISCUSS HIS HOME MEDICATION.
--- NOTE | 2018-10-07 09:40 | NUR ---
PATIENT VERBALIZES UNDERSTANDING OF TAKING HIS HOME MEDICATIONS. MEET FROM PHARMACY IN ROOM AND GOES OVER MEDICATIONS WELL. PT GIVEN WHEELCHAIR RIDE OUT OF DEPARTMENT. ALL QUESTIONS ANSWERED BEST POSSIBLE. PT SIGNS AMA FORM.
== END 2018-10-07 09:40 | disposition left against medical advice (07) ==
LOC: ED 18:43 → CCU 21:58
PROVIDERS: ADMIT Student in an Organized Health Care Education/Training Program
DX: K72.90 Hepatic failure, unspecified without coma (principal); K74.60 Unspecified cirrhosis of liver; B19.20 Unspecified viral hepatitis C without hepatic coma; J44.9 Chronic obstructive pulmonary disease, unspecified; I85.10 Secondary esophageal varices without bleeding; K44.9 Diaphragmatic hernia without obstruction or gangrene; Z79.899 Other long term (current) drug therapy; Z91.14 Patient's other noncompliance with medication regimen; Z53.21 Procedure and treatment not carried out due to patient leaving prior to being seen by health care provider
CPT/HCPCS: 36415; 51701; 51702; 51798; 70450; 80048; 80053; 81001; 82140; 82803; 83735; 83880; 85025; 85610; 85730; 87088; 96374; 99285-25; G0378; G0480; J2405; J7120; P9047

== ENCOUNTER 2018-10-21 19:24 | Emergency (ER) | payer OTHER ==
[~2018-10-21] VITALS: Ht 177.8 cm; Wt 78.0 kg
--- OUTSIDE RECORDS SUMMARY | ~2018-10-21 | XMS | Encounter Summary ---
Demographics + + + | Address | [address] | | | [place] [address] | + + + | Home Phone | | + + + | Preferred Language | Unknown | + + + | Marital Status | | + + + | Muslim Affiliation | 1013 | + + + | Race | Unknown | + + + | Ethnic Group | Unknown | + + + Author + + + | Author | [facility] | | | and [place] | + + + | Organization | [facility] | | | and [place] | + + + | Address | Unknown | + + + | Phone | Unavailable | + + + Support + + +---------+ + | Name | Relationship | Address | Phone | + + +---------+ + | Lauren Chappell | ECON | Unknown | | + + +---------+ + | Lauren Chappell | ECON | Unknown | | + + +---------+ + Care Team Providers + +------+ + | Care Marine Engineering Professor Name | Role | Phone | + +------+ + | Bonifacio Lawton MD | PCP | | + +------+ + Reason for Visit Auth/Cert +--------+--------+ + + + + | Status | Reason | Specialty | Diagnoses / | Referred By | Referred To | | | | | Procedures | Contact | Contact | +--------+--------+ + + + + | | | | Diagnoses | | Rosalinda, | | | | | | | Иван Agustin, | | | | | Decompensate | | MD [address] | | | | | d HCV | | [address] | | | | | cirrhosis | | [place], | | | | | (HCC) | | [place] [address] | | | | | (B19.20, | | Phone: | | | | | K74.69), | | [phone] | | | | | 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 | | [phone] | | | | | (HCC) | [...] | | | | | | | (K74.60), | | | | | | | Cannabis | | | | | | | dependence | | | | | | | (HCC) | | | | | | | (F12.20) | | | | | | | Procedures | | | | | | | [place] | | | | | | | ESOPHAGOGAST | | | | | | | RODUODENOSCO | | | | | | | PY TRANSORAL | | | | | | | DIAGNOSTIC | | | | | | | [place] EGD | | | | | | | TRANSORAL | | | | | | | BIOPSY | | | | | | | SINGLE/MULTI | | | | | | | PLE [place] EGD | | | | | | | BAND | | | | | | | LIGATION | | | | | | | ESOPHGEAL/GA | | | | | | | STRIC | | | | | | | VARICES [place] | | | | | | | ANESTHESIA | | | | | | | UPPER GI | | | | | | | ENDOSCOPIC | | | | | | | PX NOS | | | +--------+--------+ + + + + Encounter Details +--------+ + + + + | Date | Type | Department | Care Team | Description | +--------+ + + + + | 08/28/ | Hospital | [facility] | Иван Walls | 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 Agustin [address] | varices with | | | | [address] | [address] [place] | bleeding ([facility]); | | | | [place] | [place] [address] | Portal hypertension | | | | [address] | [phone] | (HCC) | | | | [phone] | | | +--------+ + + + + Social [...] on file | | + + + + + + + | Job Start Date | Occupation | Industry | + + + + | Not on file | Not on file | Not on file | + + + + + + + + | Travel History | Travel Start | Travel End | + + + + + + | No recent travel history available. | + + documented as of this encounter Last Filed Vital Signs + + + + | Vital Sign | Reading | Time Taken | + + + + | Blood Pressure | 113/78 | 08/28/20181644 PDT | + + + + | Pulse | 76 | 08/28/20181644 PDT | + + + + | Temperature | 37 C (98.6 F) | 08/28/20181636 PDT | + + + + | Respiratory Rate | 17 | 08/28/20181636 PDT | + + + + | Oxygen Saturation | 100% | 08/28/2018 1645 PDT | + + + + | Inhaled Oxygen | - | - | | Concentration | | | + + + + | Weight | 66.6 kg (146 lb 13.2 | 08/28/20181331 PDT | | | oz) | | + + + + | Height | 177.8 cm (5' 10") | 08/28/20181331 PDT | + + + + | Body Mass Index | 21.07 | 08/28/20181331 PDT | + + + + documented in this encounter Medications at Time of Discharge + + + +---------+--------+ + | Medication | Sig | Dispensed | Refills | Start | End Date | | | | | | Date | | + + + +---------+--------+ + | furosemide (LASIX) | Take 40 mg by mouth | | 0 | | | | 40 mg tablet | 2 times daily. | | | | | + + + +---------+--------+ + | lactulose | Take 20 g by mouth 3 | | 0 | | | | (CONSTULOSE) 10 g/15 | times daily. | | | | | | mL solution | | | | | | + + + +---------+--------+ + | ondansetron | Take 4 mg by mouth | | 0 | | | | (ZOFRAN ODT) 4 mg | every 8 hours as | | | | | | disintegrating | needed for Nausea. | | | | | | tablet | | | | | | + + + +---------+--------+ + | pantoprazole | Take 40 mg by mouth | | 0 | | | | (PROTONIX) 40 mg | every morning | | | | | | tablet | (before breakfast). | | | | | + + + +---------+--------+ + | potassium chloride | Take 20 mEq by mouth | | 0 | | | | (KLOR-CON M20) 20 | Daily. | | | | | | mEq ER tablet | | | | | | + + + +---------+--------+ + | spironolactone | Take 100 mg by mouth | | 0 | | | | (ALDACTONE) 100 MG | 2 times daily. | | | | | | tablet | | | | | | + + + +---------+--------+ + documented as of this encounter Plan of Treatment Not on filedocumented as of this encounter Procedures + +--------+ + + + | Procedure Name | Priori | Date/Time | Associated Diagnosis | Comments | | | ty | | | | + +--------+ + + + | LABS - EXTERNAL SCAN | | 10/05/2018 | | Results for this | | | | 0:00 PDT | | procedure are in the | | | | | | results section. | + +--------+ + + + | EGD | Routin | 08/28/2018 | | Results for this | | | e | 16:18 PDT | | procedure are in the | | | | | | results section. 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) | | | | | | (B19.20, K74.69), | | | | | | 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 (HCC) | | | | | | (F15.10), Secondary | | | | | | esophageal varices | | | | | | with bleeding (HCC) | | | | | | (I85.11), Hepatic | | | | | | cirrhosis, | | | | | | unspecified hepatic | | | | | | cirrhosis type, | | | | | | unspecified whether | | | | | | ascites present | | | | | | (HCC) (K74.60), | | | | | | Cannabis dependence | | | | | | (HCC) (F12.20) | | + +--------+ + + + documented in this encounter Results LABS - EXTERNAL SCAN (10/05/2018 0:00 PDT) + + + | Narrative | Performed At | + + + | Ordered by an | | | unspecified provider. | | + + + EGD (08/28/2018 16:18 PDT) + + | Specimen | + + | | + + + + ---+ | Narrative | Performed At | + + ---+ | | [facility] | | GastroenterologyPatient Name: Delroy ChappellProdulcejanis Date: | [place] | | 08/28/2018 4:18 PMMRN: [id number] #: [id number] of : | | | 1960Admit Type: AmbulatoryAge: 58Room: [facility] 02Gender: MaleNote | | | Status: FinalizedAttending MD: ИВАН WALLS , | | | MDProcedure: Upper GI | | | endoscopyIndications: Esophageal varices, Follow-up of | | | esophageal varicesProviders: ИВАН WALLS MD, | | | Maria Elena Hernandez RN, Marcy Gottlieb, | | | Shell Coremaker, Vince Morrison MD (Anesthesia Staff)Referring | | | MD: Betsy Lawton (Referring Bailee GARNER ARNP | | | (Referring | | | )Medicines: Monitored Anesthesia | | | CareComplications: No [...] tolerated the | | | procedure well.Findings: Non-bleeding small (< 5 mm) varices | | | were found in the lower third of the esophagus, 36 cm from | | | the incisors. They were diminutive in size. No stigmata of | | | recent bleeding were evident and no red jonatan signs were | | | present. Stigmata of prior treatment were evident. Scarring from prior | | | treatment was visible. Banding not indicated given | | | diminutive size. One tongue of salmon-colored mucosa was | | | present from 37 to 38 cm. No other visible abnormalities were | | | present. The maximum longitudinal extent of these esophageal | | | mucosal changes was 1 cm in length. Biopsy is | | | contraindicated because of underlying varices. Esophagogastric | | | landmarks were identified: the Z-line was found at 38 cm and | | | the site of hiatal narrowing was found at 40 cm from the | | | incisors. Mild portal hypertensive gastropathy was found in | | | the cardia, in the gastric fundus and in the gastric | | | body. A 2 cm hiatal hernia was present. The exam of | | | the stomach was otherwise normal. The ampulla, duodenal bulb | | | and second portion of the duodenum were | | | normal.Impression: - Non-bleeding small (< 5 mm) esophageal | | | varices. Banding not needed. - Brea-colored mucosa | | | suspicious for short-segment Childs's esophagus. Biopsy is | | | contraindicated. - Esophagogastric landmarks | | | identified. - Portal hypertensive gastropathy. - 2 cm | | | hiatal hernia. - Normal ampulla, duodenal bulb and second | | | portion of the duodenum. - No specimens | | | collected.Recommendation: - The patient will be observed | | | post-procedure, until all discharge criteria are met. | | | - Repeat upper endoscopy in 6 months for surveillance. - | | | Return to GI clinic at appointment to be scheduled. - Resume | | | regular diet. - The findings and recommendations were | | | discussed with the patient.ИВАН WALLS MD08/28/2018 4:37:43 | | | PMThis report has been signed electronically.Number of Addenda: 0Note | | | Initiated On: 08/28/2018 4:18 PMScope In: 4:29:22 PMScope Out: 4:32:28 | | | PM [facility], [address] | | | [place] [address] | | | - Resume regular diet. | | | - The findings and recommendations were discussed with the patient. | | |ИВАН WALLS MD | | |08/28/2018 4:37:43 PM | | |This report has been signed electronically. | | |Number of Addenda: 0 | | |Note Initiated On: 08/28/2018 4:18 PM | | |Scope In: 4:29:22 PM | | |Scope Out: 4:32:28 PM | | | [facility], [address], [place] | | | [address] | | + + ---+ + +---------+ + + | Performing | Address | City[facility] | Phone Number | | Organization | | | | + +---------+ + + | [facility] | | | | + +---------+ + + documented in this encounter Visit Diagnoses + + | Diagnosis | + + | Secondary esophageal varices with bleeding (HCC) Esophageal varices with bleeding in | | diseases classified elsewhere | + + | Portal hypertension (HCC) Portal hypertension | + + documented in this encounter Administered Medications + + + +------+------+------+ | Medication Order | MAR | Action | Dose | Rate | Site | | | Action | Date | | | | + + + +------+------+------+ | lactated ringers (LR) infusion | Continue | 08/29/19 | | | | | at 100 mL/hr, Intravenous, | d by | 19 16:24 | | | | | CONTINUOUS, Starting 08/28/18 | Anesthes | PDT | | | | | at 1400, Pre-op | ia | | | | | + + + +------+------+------+ +---------+ +--------+-------+---+ | New Bag | 08/29/19 | 1,000 | 100 | | | | 19 14:01 | mLs | mL/hr | | | | PDT | | | | +---------+ +--------+-------+---+ +---+---+ | | | +---+---+ documented in this encounter
--- OUTSIDE RECORDS SUMMARY | ~2018-10-21 | XMS | Encounter Summary ---
Demographics + + + | Address | [address] | | | [place] [address] | + + + | Home Phone | | + + + | Preferred Language | Unknown | + + + | Marital Status | | + + + | Jain Affiliation | 1013 | + + + | Race | Unknown | + + + | Ethnic Group | Unknown | + + + Author + + + | Author | [facility] | | | and [place] | + + + | Organization | [facility] | | | and [place] | + + + | Address | Unknown | + + + | Phone | Unavailable | + + + Support + + +---------+ + | Name | Relationship | Address | Phone | + + +---------+ + | Lauren Chappell | ECON | Unknown | | + + +---------+ + | MistiLauren Monica ECON | Unknown | | + + +---------+ + Care Team Providers + +------+ + | Care Shellfish Processing Machine Tender Name | Role | Phone | + +------+ + | Bonifacio Lawton MD | PCP | | + +------+ + Encounter Details +--------+ + + + + | Date | Type | Department | Care Team | Description | +--------+ + + + + | 10/19/ | Telephone | [facility] [place] | [facility], | | | 2019 | | GASTROENTEROLOGY | SHANNAN [address] | | | | | [address] [place] | [place], [address] | | | | | [address] [place], [place] | [place], [place] | | | | | [address] | [address] | | | | | [phone] | | | +--------+ + + + [...]
--- OUTSIDE RECORDS SUMMARY | ~2018-10-21 | XMS | Encounter Summary ---
Demographics + + + | Address | [address] | | | [place] [address] | + + + | Home Phone | | + + + | Preferred Language | Unknown | + + + | Marital Status | | + + + | Taoist Affiliation | 1013 | + + + | Race | Unknown | + + + | Ethnic Group | Unknown | + + + Author + + + | Author | [facility] | | | and [place] | + + + | Organization | [facility] | | | and [place] [...] Team Providers + +------+ + | Care Farmworker Brooder Farm Name | Role | Phone | + [...] | | | (HCC) | | [place] [address] | | | | | (B19.20, | | Phone: | | | | | K74.69), | | [phone] | | | | | 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 | | [phone] | | | | | (HCC) | [...] | | | | | | | CT | | | | | | | ESOPHAGOGAST | | | | | | | RODUODENOSCO | | | | | | | PY TRANSORAL | | | | | | | DIAGNOSTIC | | | | | | | CT EGD | | | | | | | TRANSORAL | | | | | | | BIOPSY | | | | | | | SINGLE/MULTI | | | | | | | PLE CT EGD | | | | | | | BAND | | | | | | | LIGATION | | | | | | | ESOPHGEAL/GA | | | | | | | STRIC | | | | | | | VARICES CT | | | | | | | [...] Description | +--------+---------+ + + + | 08/28/ | Surgery | [facility] | | EGD | | 2019 | | MED CTR MP INTRA OP | | | | | | [address] | | | | | | [place] | | | | | | [address] | | | | | | [phone] | | | +--------+---------+ + + + [...] + | Oxygen Saturation | 100% | 08/28/20181644 PDT | + + + [...] dependence | | | | | | ([facility]) (F12.20) | | + +--------+ + + [...] | [facility] | | GastroenterologyPatient Name: Delroy ChappellProceduniversity of michigan health Date: | PROVATION | | 08/28/2018 4:18 PMMRN: [id number] #: [id number] of : | | | 1960Admit Type: AmbulatoryAge: 58Room: [facility] 02Gender: MaleNote | | | Status: FinalizedAttending MD: ИВАН WALLS , | | | MDProcedure: Upper GI | | | endoscopyIndications: Esophageal varices, Follow-up of | | | esophageal varicesProviders: ИВАН WALLS MD, | | | Maria Elena Hernandez RN, Marcy Gottlieb, | | | Under Sheriff, Vince Morrison MD (Anesthesia Staff)Referring | | | MD: Betsy Lawton (Referring ), SHANNAN Daly | | | (Referring | [...] | | varices. Banding not needed. - [place]-colored mucosa | | | suspicious for short-segment [...] PMScope Out: 4:32:28 | | | PM [facility], [address] [facility] | | | [place] [address] | | | - Resume regular diet. [...] |Scope Out: 4:32:28 PM | | | Giuliana [facility], [address] , [place], [place] | | | [address] | | + + ---+ + +---------+ [...]
--- OUTSIDE RECORDS SUMMARY | ~2018-10-21 | XMS | Clinical Summary ---
Demographics + + + | Address | [address] | | | [place] [address] | + + + | Home Phone | | + + + | Preferred Language | Unknown | + + + | Marital Status | | + + + | Cheondoism Affiliation | 1013 | + + + | Race | Unknown | + + + | Ethnic Group | Unknown | + + + Author + + + | Author | [facility] | + + + | Organization | [facility] | + + + | Address | Unknown | + + + | Phone | Unavailable | + + + Support + + + + + | Name | Relationship | Address | Phone | + + + + + | Lauren Addison | ECON | [address] | | | | | [place] | | | | | [address] | | + + + + + Care Team Providers + +------+ + | Care Return Clerk Name | Role | Phone | + [...] + | COMMERCIAL OTHER | COMMER | [id number] | | | | | | CIAL | | | | | | | GENERI | | | | | | | C PLAN | | | | | + +--------+ +------+-------+ + | MEDICAID | [facility] | [id number] | | | [address] | | | N | | | | [place] | | | [place] | | | | [address] | | | LINEN ROOM SUPERVISOR | | | | | + +--------+ [...] | [place] | | | [phone] | [address] | + +--------+ +--------+ + +
--- OUTSIDE RECORDS SUMMARY | ~2018-10-21 | XMS | Encounter Summary ---
Demographics + + + | Address | [address] | | | [place] [address] | + + + | Home Phone | | + + + | Preferred Language | Unknown | + + + | Marital Status | | + + + | Religion Affiliation | 1013 | + + + | Race | Unknown | + + + | Ethnic Group | Unknown | + + + Author + + + | Author | [facility] | | | and [place] | + + + | Organization | [facility] | | | and [place] [...] Team Providers + +------+ + | Care Relationship Executive Name | Role | Phone | + +------+ + | Bonifacio Lawton MD | PCP | | + +------+ + Reason for Visit +--------+ + | Reason | Comments | +--------+ + | Other | | +--------+ + Encounter Details +--------+ + + + + | Date | Type | Department | Care Team | Description | +--------+ + + + + | 10/10/ | [facility] | [facility] | [place], | Other | | 2019 | | GASTROENTEROLOGY | SHANNAN Morocho [address] | | | | | [address] [place] | [place], [address] [address] | | | | | [address] [place], [place] | [place], [place] | | | | | [address] | [address] | | | | | [phone] | | | +--------+ + + + [...]
--- OUTSIDE RECORDS SUMMARY | ~2018-10-21 | XMS | Encounter Summary ---
Demographics + + + | Address | [address] | | | [place] [address] | + + + | Home Phone | | + + + | Preferred Language | Unknown | + + + | Marital Status | | + + + | Uatsdin Affiliation | 1013 | + + + | Race | Unknown | + + + | Ethnic Group | Unknown | + + + Author + + + | Author | [facility] | | | and [place] | + + + | Organization | [facility] | | | and [...] Providers + +------+ + | Care Machine Design Engineer Name | Role | Phone | + [...] + | 08/03/ | Telephone | [facility] | Иван Tellez | Procedure (EGD/Prop) | | 2019 | | GASTROENTEROLOGY | MD Agustin [address] | | | | | [address] [place] | [address] [facility] | | | | | [address] [place] | [place] [address] | | | | | [address] | [phone] | | | | | [phone] | | | +--------+ + + + [...]
--- OUTSIDE RECORDS SUMMARY | ~2018-10-21 | XMS | Encounter Summary ---
Demographics + + + | Address | [address] | | | [place] [address] | + + + | Home Phone | | + + + | Preferred Language | Unknown | + + + | Marital Status | | + + + | Confucianism Affiliation | 1013 | + + + | Race | Unknown | + + + | Ethnic Group | Unknown | + + + Author + + + | Author | [facility] | | | and [place] | + + + | Organization | [facility] | | | and [place] [...] Team Providers + +------+ + | Care Starcher And Tenter Range Feeder Name | Role | Phone | + +------+ + | Bonifacio Lawton MD | PCP | | + +------+ + Encounter Details +--------+ + + + + | Date | Type | Department | Care Team | Description | +--------+ + + + + | 10/19/ | Telephone | [facility] [place] | [facility], | | | 2019 | | GASTROENTEROLOGY | SHANNAN Morocho [address] | | | | | [address] [place] | [place], [address] | | | | | [address] [place], [place] | [place], [place] | | | | | [address] | [address] | | | | | [phone] | | | +--------+ + + + [...]
--- OUTSIDE RECORDS SUMMARY | ~2018-10-21 | XMS | Encounter Summary ---
Demographics + + + | Address | [address] | | | [place] [address] | + + + | Home Phone | | + + + | Preferred Language | Unknown | + + + | Marital Status | | + + + | Buddhism Affiliation | 1013 | + + + | Race | Unknown | + + + | Ethnic Group | Unknown | + + + Author + + + | Author | [facility] | | | and [place] | + + + | Organization | [facility] | | | and [place] [...] Team Providers + +------+ + | Care Senior Sales Consultant Name | Role | Phone [...] + + | 10/10/ | Telephone | [facility] | [place], | Other | | 2019 | | GASTROENTEROLOGY | SHANNAN Morocho [address] | | | | | [address] [place] | [place], [address] | | | | | [address] [place], [place] | [place], [place] | | | | | [address] | [address] | | | | | [phone] | | | +--------+ + + + [...]
--- OUTSIDE RECORDS SUMMARY | ~2018-10-21 | XMS | Encounter Summary ---
Demographics + + + | Address | [address] | | | [place] [address] | + + + | Home Phone [...] + | Author | [facility] | | | and [place] | + + + | Organization | [facility] | | | and [...] Team Providers + +------+ + | Care Cigarette Paper Tester Name | Role | Phone | + [...] | | | (HCC) | | [place] [address] | | | | | (B19.20, | | Phone: | | | | | K74.69), | | [phone] | | | | | 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 | | [phone] | | | | | (HCC) | [...] + + | 08/28/ | Anesthesia | [facility] | Camacho Dupree MD | | | 2019 | Event | MED CTR MP INTRA OP | [address] | | | | | [address] | [place] | | | | | [place] | [phone] | | | | | [address] | | | | | | [phone] | | | +--------+ + + + [...] 1654 by | | eral | Forearm; [id number] catheter | Corina Gibson RN | Corina [...]
--- OUTSIDE RECORDS SUMMARY | ~2018-10-21 | XMS | Encounter Summary ---
Demographics + + + | Address | [address] | | | [place] [address] | + + + | Home Phone [...] + | Author | [facility] | | | and [place] | + + + | Organization | [facility] | | | and [place] | [...] Team Providers + +------+ + | Care Foundation Maker Name | Role | Phone | + [...] | | | (HCC) | | [place] [address] | | | | | (B19.20, | | Phone: | | | | | K74.69), | | [phone] | | | | | 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 | | [phone] | | | | | (HCC) | [...] | | | | | | | [place] | | | | | | | ESOPHAGOGAST | | | | | | | RODUODENOSCO | | | | | | | PY TRANSORAL | | | | | | | DIAGNOSTIC | | | | | | | [place] EGD | | | | | | | TRANSORAL | | | | | | | BIOPSY | | | | | | | SINGLE/MULTI | | | | | | | PLE [place] EGD | | | | | | | BAND | | | | | | | LIGATION | | | | | | | ESOPHGEAL/GA | | | | | | | STRIC | | | | | | | VARICES [place] | | | | | | | [...] + + | 08/28/ | Hospital | [facility] | Иван Walls | 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 Agustin [address] | varices with | | | | [address] | [address] [place] | bleeding ([facility]); | | | | [place] | [place] [address] | Portal hypertension | | | | [address] | [phone] | (HCC) | | | | [phone] | | | +--------+ + + + [...] | PROVATION | | 08/28/2018 4:18 PMMRN: [id number] #: [id number] of : | | | 1960Admit Type: AmbulatoryAge: 58Room: [facility] 02Gender: MaleNote | | | Status: FinalizedAttending MD: ИВАН WALLS , | | | MDProcedure: Upper GI | | | endoscopyIndications: Esophageal varices, Follow-up of | | | esophageal varicesProviders: ИВАН WALLS MD, | | | Maria Elena Hernandez RN, Marcy Gottlieb, | | | Master Control Supervisor, Vince Morrison MD (Anesthesia Staff)Referring | [...] | | varices. Banding not needed. - [place]-colored mucosa | | | suspicious for short-segment [...] PMScope Out: 4:32:28 | | | PM [facility], [address] [facility] | | | [place] [address] | | | - Resume regular diet. [...] |Scope Out: 4:32:28 PM | | | [facility], [address] [facility], [place] | | | [address] | | + + ---+ + +---------+ + + | Performing | Address | City/State/[facility] Hospital[facility] | Phone Number | | Organization [...]
--- OUTSIDE RECORDS SUMMARY | ~2018-10-21 | XMS | Encounter Summary ---
Demographics + + + | Address | [address] | | | [place] [address] | + + + | Home Phone | | + + + | Preferred Language | Unknown | + + + | Marital Status | | + + + | Quaker Affiliation | 1013 | + + + | Race | Unknown | + + + | Ethnic Group | Unknown | + + + Author + + + | Author | [facility] | | | and [place] | + + + | Organization | [facility] | | | and [place] [...] Team Providers + +------+ + | Care Coater Name | Role | Phone | + +------+ + | Bonifacoi Lawton MD | PCP | | + [...] | | | (HCC) | | [place] [address] | | | | | (B19.20, | | Phone: | | | | | K74.69), | | [phone] | | | | | 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 | | [phone] | | | | | (HCC) | [...] | | | | | | | [place] | | | | | | | ESOPHAGOGAST | | | | | | | RODUODENOSCO | | | | | | | PY TRANSORAL | | | | | | | DIAGNOSTIC | | | | | | | [place] EGD | | | | | | | TRANSORAL | | | | | | | BIOPSY | | | | | | | SINGLE/MULTI | | | | | | | PLE [place] EGD | | | | | | | BAND | | | | | | | LIGATION | | | | | | | ESOPHGEAL/GA | | | | | | | STRIC | | | | | | | VARICES [place] | | | | | | | [...] [place] | | | | | | [address] | | | | | | [phone] | | | +--------+---------+ + + + [...] dependence | | | | | | ([facility]) (F12.20) | | + +--------+ + [...] | [facility] | | GastroenterologyPatient Name: Delroy ChappellProcedascension macomb Date: | PROVATION | | 08/28/2018 4:18 PMMRN: [id number] #: [id number] of : | | | 1960Admit Type: AmbulatoryAge: 58Room: [facility] 02Gender: MaleNote | | | Status: FinalizedAttending MD: ИВАН WALLS , | | | MDProcedure: Upper GI | | | endoscopyIndications: Esophageal varices, Follow-up of | | | esophageal varicesProviders: ИВАН WALLS MD, | | | Maria Elena Hernandez RN, Marcy Gottlieb, | | | Sand Mixer, Vince Morrison MD (Anesthesia Staff)Referring | | [...] | | varices. Banding not needed. - [place]-colored mucosa | | | suspicious for short-segment [...] PMScope Out: 4:32:28 | | | PM [facility], [address] [facility] | | | [place] [address] | | | - Resume regular diet. [...] Out: 4:32:28 PM | | | Giuliana [facility], [address] , [place], [place] | | | [address] | | + + ---+ + +---------+ [...]
--- OUTSIDE RECORDS SUMMARY | ~2018-10-21 | XMS | Encounter Summary ---
Demographics + + + | Address | [address] | | | [place] [address] | + + + | Home Phone | | + + + | Preferred Language | Unknown | + + + | Marital Status | | + + + | Islam Affiliation | 1013 | + + + | Race | Unknown | + + + | Ethnic Group | Unknown | + + + Author + + + | Author | [facility] | | | and [place] | + + + | Organization | [facility] | [...] Team Providers + +------+ + | Care Lapidary Apprentice Name | Role | Phone | + [...] + + | 09/20/ | Telephone | [facility] | Иван Tellez | Other | | 2019 | | GASTROENTEROLOGY | MD Agustin [address] | | | | | [address] [place] | [address] [place] | | | | | [address] [place], [place] | [place] [address] | | | | | [address] | [phone] | | | | | [phone] | | | +--------+ + + + [...]
--- OUTSIDE RECORDS SUMMARY | ~2018-10-21 | XMS | Clinical Summary ---
Demographics + + + | Address | [address] | | | [place] [address] | + + + | Home Phone | | + + + | Preferred Language | Unknown | + + + | Marital Status | | + + + | Cheondoism Affiliation | 1013 | + + + | Race | Unknown | + + + | Ethnic Group | Unknown | + + + Author + + + | Author | [facility] | | | and [place] | + + + | Organization | [facility] | | | and [place] [...] Team Providers + +------+ + | Care Pharmacy Aide Name | Role | Phone | + [...] They sent | | me to [facility] They kept me overnight and | | [...] + | 10/19/ | Telephone | | Dom, | | | 2018 | | | SHANNAN [...] Episode | | Leticia Ngo | | 2018 | Changes | | [...] + + from Last 3 Months Results LABS - EXTERNAL SCAN (10/05/2018 0:00 [...] | [facility] | | GastroenterologyPatient Name: Delroy SandersheideProcedjanis Date: | PROVATION | | 08/28/2018 4:18 PMMRN: [id number] #: [id number] of : | | | 1960Admit Type: AmbulatoryAge: 58Room: [facility] 02Gender: MaleNote | | | Status: FinalizedAttending MD: ИВАН WALLS , | | | MDProcedure: Upper GI | | | endoscopyIndications: Esophageal varices, Follow-up of | | | esophageal varicesProviders: ИВАН WALLS MD, | | | Maria Elena Hernandez RN, Marcy Gottlieb, | | | Caterer'S Aide, Vince Morrison MD (Anesthesia Staff)Referring | | [...] | | varices. Banding not needed. - [place]-colored mucosa | | | suspicious for short-segment [...] PMScope Out: 4:32:28 | | | PM [facility], [address] [facility] | | | [place] [address] | | | - Resume regular diet. [...] |Scope Out: 4:32:28 PM | | | [facility], [address] [facility], [place], [place] | | | [address] | | + + ---+ + +---------+ [...] | [employer] | [employer] | [id number] | 05/01/ | [phone] | | [employer] | | MEDICAID HMO [...] | | 1961 | [phone] | [place] [address] | | | [place] | | | 9 (Home) | | + +--------+ +--------+ + + Advance Directives Patient has advance care planning documents on file. For more information, please contact:[facility]andy [facility]erg[facility] with [facility] [address]
--- OUTSIDE RECORDS SUMMARY | ~2018-10-21 | XMS | Clinical Summary ---
Demographics + + + | Address | [address] | | | [place] [address] | + + + | Home Phone | | + + + | Preferred Language | Unknown | + + + | Marital Status | | + + + | Voodoo Affiliation | 1013 | + + + | Race | Unknown | + + + | Ethnic Group | Unknown | + + + Author + + + | Author | [facility] | + + + | Organization | [facility] | + + + | Address | Unknown | + + + | Phone | Unavailable | + + + Support + + + + + | Name | Relationship | Address | Phone | + + + + + | Lauren Addison | ECON | [address] | | | | | [place] | | | | | [address] | | + + + + + Care Team Providers + +------+ + | Care Story Reader Name | Role | Phone | + [...] + | COMMERCIAL OTHER | COMMER | [id number] | | | | | | CIAL | | | | | | | GENERI | | | | | | | C PLAN | | | | | + +--------+ +------+-------+ + | MEDICAID | [facility] | [id number] | | | [address] | | | [address] | | | | [place] | | | [place] | | | | [address] | | | [place] | | | | | + +--------+ [...] | [place] | | | [address] | [address] | + +--------+ +--------+ + +
--- OUTSIDE RECORDS SUMMARY | ~2018-10-21 | XMS | Encounter Summary ---
Demographics + + + | Address | [address] | | | [place] [address] | + + + | Home Phone | | + + + | Preferred Language | Unknown | + + + | Marital Status | | + + + | Tenriism Affiliation | 1013 | + + + | Race | Unknown | + + + | Ethnic Group | Unknown | + + + Author + + + | Author | [facility] | | | and [place] | + + + | Organization | [facility] | | | and [place] [...] Team Providers + +------+ + | Care Cloth Layer Name | Role | Phone | + [...] | | | Services | | | [facility] | | | Required | | Decompensate | [place], | [address] | | | | | d HCV | CAR JOCKEY [address] | | | | | cirrhosis | [place], [place] | [place], [place] | | | | | ([facility]) | [address] [place] | [address] | | | | | Methamphetam | [place], [place] | Phone: | | | | | ine abuse, | [address] | [phone] | | | | | episodic | Phone: | Fax: | | | | | ([facility]) | [phone] | [phone] | | | | | Procedures | Fax: | | | | | | [place], ABDOMEN | [phone] | | | | | | LIMITED [...] | Telephone | [facility] [place] | [facility], | Liver Transplant | | 2019 | | GASTROENTEROLOGY | SHANNAN Morocho [address] | Pre-evaluation | | | | [address] [place] | [place], [address] | | | | | [address] [place], [place] | [place], [place] | | | | | [address] | [address] | | | | | [phone] | | | +--------+ + + + [...]
--- OUTSIDE RECORDS SUMMARY | ~2018-10-21 | XMS | Encounter Summary ---
Demographics + + + | Address | [address] | | | [place] [address] | + + + | Home Phone [...] Author | [facility] | | | and [place] | + + + | Organization | [facility] | | | and [place] [...] Team Providers + +------+ + | Care Roll Forming Supervisor Name | Role | Phone | [...] + | 08/03/ | Telephone | [facility] | Иван Tellez | Procedure (EGD/Prop) | | 2019 | | GASTROENTEROLOGY | MD Agustin [address] | | | | | [address] [place] | [address] [facility] | | | | | [address] [place] | [place] [address] | | | | | [address] | [phone] | | | | | [phone] | | | +--------+ + + + [...]
--- OUTSIDE RECORDS SUMMARY | ~2018-10-21 | XMS | Encounter Summary ---
Demographics + + + | Address | [address] | | | [place] [address] | + + + | Home Phone | | + + + | Preferred Language | Unknown | + + + | Marital Status | | + + + | Roman Catholic Affiliation | 1013 | + + + | Race | Unknown | + + + | Ethnic Group | Unknown | + + + Author + + + | Author | [facility] | | | and [place] | + + + | Organization | [facility] | | | and [place] | + + + | Address | Unknown | + + + | Phone | Unavailable | + + + Support + + +---------+ + | Name | Relationship | Address | Phone | + + +---------+ + | Lauren Chappell | ECON | Unknown | | + + +---------+ + | VonaLauren | ECON | Unknown | | + + +---------+ + Care Team Providers + +------+ + | Care Inpatient Coder Name | Role | Phone | + [...] | | | | [address] [facility] | | | | | | [address] [place] | | | | | | [address] | | | | | | [phone] | | | +--------+ + + + [...]
--- OUTSIDE RECORDS SUMMARY | ~2018-10-21 | XMS | Encounter Summary ---
Demographics + + + | Address | [address] | | | [place] [address] | + + + | Home Phone | | + + + | Preferred Language | Unknown | + + + | Marital Status | | + + + | Druze Affiliation | 1013 | + + + | Race | Unknown | + + + | Ethnic Group | Unknown | + + + Author + + + | Author | [facility] | | | and [place] | + + + | Organization | [facility] | | | and [place] [...] Team Providers + +------+ + | Care Case Therapist Name | Role | Phone | [...] | | | Services | | | [facility] | | | Required | | Decompensate | [place], | [address] | | | | | d HCV | CHEMISTRY TECHNOLOGIST [address] | | | | | cirrhosis | [place], [place] | [place], [place] | | | | | ([facility]) | [address] [place] | [address] | | | | | Methamphetam | [place], [place] | Phone: | | | | | ine abuse, | [address] | [phone] | | | | | episodic | Phone: | Fax: | | | | | ([facility]) | [phone] | [phone] | | | | | Procedures | Fax: | | | | | | [place], ABDOMEN | [phone] | | | | | | LIMITED [...] | Telephone | [facility] [place] | [facility], | Liver Transplant | | 2019 | | GASTROENTEROLOGY | SHANNAN Morocho [address] | Pre-evaluation | | | | [address] [place] | [place], [address] [address] | | | | | [address] [place], [place] | [place], [place] | | | | | [address] | [address] | | | | | [phone] | | | +--------+ + + + [...]
--- OUTSIDE RECORDS SUMMARY | ~2018-10-21 | XMS | Encounter Summary ---
Demographics + + + | Address | [address] | | | [place] [address] | + + + | Home Phone | | + + + | Preferred Language | Unknown | + + + | Marital Status | | + + + | Druze Affiliation | 1013 | + + + | Race | Unknown | + + + | Ethnic Group | Unknown | + + + Author + + + | Author | [facility] | | | and [place] | + + + | Organization | [facility] | | | and [place] [...] Team Providers + +------+ + | Care Facing Machine Operator Name | Role | Phone [...] + + | 09/20/ | Telephone | [facility] | Иван Tellez | Other | | 2019 | | GASTROENTEROLOGY | MD Agustin [address] | | | | | [address] [place] | [address] [place] | | | | | [address] [place], [place] | [place] [address] | | | | | [address] | [phone] | | | | | [phone] | | | +--------+ + + + [...]
--- OUTSIDE RECORDS SUMMARY | ~2018-10-21 | XMS | Encounter Summary ---
Demographics + + + | Address | [address] | | | [place] [address] | + + + | Home Phone [...] | Author | [facility] | | | and [place] | + + + | Organization | [facility] | [...] Team Providers + +------+ + | Care Interior Systems Carpenter Name | Role | Phone | + [...] | | | (HCC) | | [place] [address] | | | | | (B19.20, | | Phone: | | | | | [phone]), | | [phone] | | | | | 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 | | [phone] | | | | | (HCC) | [...] | | | | | | | [place] | | | | | | | ESOPHAGOGAST | | | | | | | RODUODENOSCO | | | | | | | PY TRANSORAL | | | | | | | DIAGNOSTIC | | | | | | | [place] EGD | | | | | | | TRANSORAL | | | | | | | BIOPSY | | | | | | | SINGLE/MULTI | | | | | | | PLE [place] EGD | | | | | | | BAND | | | | | | | LIGATION | | | | | | | ESOPHGEAL/GA | | | | | | | STRIC | | | | | | | VARICES [place] | | | | | | | [...] + + | 08/28/ | Anesthesia | [facility] | Camacho Dupree MD | | | 2019 | Event | [facility] | [address] | | | | | [address] | [place] | | | | | [place] | [phone] | | | | | [address] | | | | | | [phone] | | | +--------+ + + + [...] 1654 by | | eral | Forearm; ecgm-axe-sopzxn catheter | Corina Gibson RN | Corina [...]
--- OUTSIDE RECORDS SUMMARY | ~2018-10-21 | XMS | Clinical Summary ---
Demographics + + + | Address | [address] | | | [place] [address] | + + + | Home Phone [...] [facility] | | | and [place] | + + + | Organization | [facility] | | | and [...] Team Providers + +------+ + | Care Nail Setter Name | Role | Phone | [...] They sent | | [facility] They kept me overnight and | | [...] | PROVATION | | 08/28/2018 4:18 PMMRN: [id number] #: [id number] of : | | | 1960Admit Type: AmbulatoryAge: 58Room: [facility] 02Gender: MaleNote | | | Status: FinalizedAttending MD: ИВАН [place]S , | | | MDProcedure: Upper GI | | | endoscopyIndications: Esophageal varices, Follow-up of | | | esophageal varicesProviders: ИВАН [place] MD, | | | Marai Elena Hernandez RN, Marcy Gottlieb, | | | Mine Safety Engineer, Vince Morrison MD (Anesthesia Staff)Referring | | [...] | | varices. Banding not needed. - Pharr-colored mucosa | | | suspicious for short-segment [...] Out: 4:32:28 | | | PM [facility], [address] [facility] | | | [place] [address] | | | - Resume regular diet. [...] Out: 4:32:28 PM | | | [facility], [address] [facility], [place], [place] | | | [address] | | + + ---+ + +---------+ [...] | [employer] | MOD[employer] | [id number] | 05/01/ | [phone] | | [employer] | | MEDICAID HMO [...] | 1961 | [phone] | [place] [address] | | | dipak | | | 9 (Home) | | + +--------+ +--------+ + + Advance Directives Patient has advance care planning documents on file. For more information, please contact:[facility] [place] [address]
--- OUTSIDE RECORDS SUMMARY | ~2018-10-21 | XMS | Encounter Summary ---
Demographics + + + | Address | [address] | | | [place] [address] | + + + | Home Phone [...] | Author | [facility] | | | and [place] | + + + | Organization | [facility] [...] | | + + +---------+ + | [place] | ECON | Unknown | | + + +---------+ + Care Team Providers + +------+ + | Care Lumber Stacker Name | Role | Phone | + [...] | | | | [address] [facility] | | | | | | [address] [place] | | | | | | [address] | | | | | | [phone] | | | +--------+ + + + [...]
--- OUTSIDE RECORDS SUMMARY | 2018-10-21 19:26 | XMS ---
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 Dance Critic Events No recent Security Events currently on file CRITERIA MET - Group Notification - [facility] - Has Care Guidelines - [facility] - 2 Visits in 30 Days CARE PROVIDERS SANAM ZHU Internal Medicine 08/08/2018-Current [employer] PHONE: [phone] GEORGE BHATTI Family Medicine: Sports Medicine 04/02/2018-Current PHONE: Unknown [place] has no Care Guidelines for this patient. Care History Medical/Surgical 08/08/2018 [facility] - Patient is currently established with [facility]. If patient is seen in the ED during business hours. Please contact CHWs at [facility]. Care Recommendation: This patient has had 5 or more Emergency Department visits in the last 12 months.\T\nbsp; Patient requires education on the scope and purpose of the ED as an acute care provider not a Primary Care Provider and should not be utilized for chronic conditions.\T\nbsp; These are guidelines and the provider should exercise clinical judgment when providing care. 04/05/2018 [facility] - PATIENT RECEIVED LIGHT DUTY -WORK NOTE FROM MILENA VALDEZ AT [facility] ON 04/04/18. - PATIENT HAS A FOLLOW UP WITH DR BHATTI ON 04/17/2018. Mark VISIT COUNT ([address] 10 [facility] TOTAL 10 NOTE: Visits indicate total known visits. ED/UCC VISIT TRACKING (12 MO.) 10/21/2018 19:25 [facility] [place] TYPE: Emergency COMPLAINT: - ABD PAIN 10/06/2018 18:43 [facility] [place] TYPE: Emergency COMPLAINT: - LEG SWELLING 09/30/2018 19:16 [facility] [place] TYPE: Emergency COMPLAINT: - SOB, CHEST FEELS HEAVY DIAGNOSES: - Personal history of other infectious and parasitic diseases - Personal history of nicotine dependence - Other chest pain - Unspecified cirrhosis of liver - Other terminal carman (current) drug therapy 08/07/2018 12:09 [facility] [place] TYPE: Emergency COMPLAINT: - ABD PAIN 04/19/2018 07:40 [facility] [place] TYPE: Emergency COMPLAINT: - POSS STROKE 04/06/2018 06:25 [facility] [place] TYPE: Emergency COMPLAINT: - VOMITING BLOOD DIAGNOSES: - Gastrointestinal hemorrhage, unspecified - Nicotine dependence, unspecified, uncomplicated - Hematemesis - Other terminal carman (current) drug therapy - Unspecified cirrhosis of liver 04/05/2018 17:30 [facility] [place] TYPE: Emergency COMPLAINT: - ABDOMINAL PAIN DIAGNOSES: - Constipation, unspecified - Other long-term (current) drug therapy - Nicotine dependence, unspecified, [...] - Abnormal results of liver function studies INPATIENT VISIT TRACKING (12 MO.) 10/06/2018 21:58 [facility] [place] TYPE: Observation COMPLAINT: - HEPTIC ENCPHALOPATHY DIAGNOSES: - Diaphragmatic hernia without obstruction or gangrene - Unspecified viral hepatitis C without hepatic coma - Hepatic failure, unspecified without coma - Secondary esophageal varices without bleeding - Procedure and treatment not carried out due to patient leaving prior to being seen by health care provider - Chronic obstructive pulmonary disease, unspecified - Other terminal carman (current) drug therapy - Metabolic encephalopathy - Patient's other noncompliance with medication regimen - Unspecified cirrhosis of liver 08/07/2018 12:10 [facility] [place] TYPE: Observation COMPLAINT: - INCARCERATED UMBILICAL HERNIA DIAGNOSES: - Diaphragmatic hernia without obstruction or gangrene - Other disorders of phosphorus metabolism - Chronic obstructive pulmonary disease, unspecified - Hypomagnesemia - Cachexia - Unspecified cirrhosis of liver - Other terminal carman (current) drug therapy - Personal history of nicotine dependence - Hepatic failure, unspecified without coma - Other stimulant abuse, in remission - Umbilical hernia with obstruction, without gangrene - FDC (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 antibiotics - Unspecified viral [...] hepatitis C without hepatic coma - Other terminal carman (current) drug therapy - Secondary esophageal varices without bleeding [facility] DIAGNOSES: - Ascities [email or web address]
[2018-10-21] MEDS ORDERED: TRAMADOL HCL50 MG PO (22:16)
== END 2018-10-21 22:35 | disposition home or self-care (01) ==
LOC: ED 19:24
DX: K72.10 Chronic hepatic failure without coma (principal); Z87.891 Personal history of nicotine dependence; Z79.899 Other long term (current) drug therapy
CPT/HCPCS: 74177; 80053; 81001; 83690; 85025; 85610; 85730; 99284-25

== ENCOUNTER 2018-10-25 14:25 | Emergency (ER) | payer OTHER ==
[~2018-10-25] VITALS: Ht 177.8 cm; Wt 78.0 kg
[~2018-10-25 14:25] MED LIST changes: +TRAMADOL HCL50 MG PO
--- OUTSIDE RECORDS SUMMARY | 2018-10-25 14:28 | XMS ---
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 Apprenticeship Representative Events No recent Security Events currently on file CRITERIA MET - Group Notification - [facility] - Has Care Guidelines - [facility] - 2 Visits in 30 Days CARE PROVIDERS SANAM ZHU Internal Medicine 08/08/2018-Current Reflex PHONE: [phone] GEORGE BHATTI Family Medicine: Sports Medicine 04/02/2018-Current PHONE: Unknown [place] has no Care Guidelines for this patient. Care History Medical/Surgical 08/08/2018 [facility] - Patient is currently established with [facility]. If patient is seen in the ED during business hours. Please contact CHWs at [facility]. Care Recommendation: This patient has had 5 or more Emergency Department visits in the last 12 months.\T\nbsp; Patient requires education on the scope and purpose of the ED as an acute care provider not a Primary Care Provider and should not be utilized for chronic conditions.\T\nbsp; These are guidelines and the provider should exercise clinical judgment when providing care. 04/05/2018 [facility] - PATIENT RECEIVED LIGHT DUTY -WORK NOTE FROM MILENA VALDEZ AT [facility] ON 04/04/18. - PATIENT HAS A FOLLOW UP WITH DR BHATTI ON 04/17/2018. Mark VISIT COUNT (12 MO.) 11 [facility] TOTAL 11 NOTE: Visits indicate total known visits. ED/UCC VISIT TRACKING (12 MO.) 10/25/2018 14:26 [facility] [place] TYPE: Emergency COMPLAINT: - DISORIENTATED 10/21/2018 19:25 [facility] [place] TYPE: Emergency COMPLAINT: - ABD PAIN DIAGNOSES: - Personal history of nicotine dependence - Chronic hepatic failure without coma - Unspecified abdominal pain - Other senior living (current) drug therapy 10/06/2018 18:43 [facility] [place] TYPE: Emergency COMPLAINT: - LEG SWELLING 09/30/2018 19:16 [facility] [place] TYPE: Emergency COMPLAINT: - SOB, CHEST FEELS HEAVY DIAGNOSES: - Personal history of other infectious and parasitic diseases - Personal history of nicotine dependence - Other chest pain - Unspecified cirrhosis of liver - Other senior living (current) drug therapy 08/07/2018 12:09 [facility] [place] TYPE: Emergency COMPLAINT: - ABD PAIN 04/19/2018 07:40 [facility] [place] [facility] TYPE: Emergency COMPLAINT: - POSS STROKE 04/06/2018 06:25 [facility] [place] TYPE: Emergency COMPLAINT: - VOMITING BLOOD DIAGNOSES: - Gastrointestinal hemorrhage, unspecified - Nicotine dependence, unspecified, uncomplicated - Hematemesis - Other senior living (current) drug therapy - Unspecified cirrhosis of liver 04/05/2018 17:30 [facility] [place] TYPE: Emergency COMPLAINT: - ABDOMINAL PAIN DIAGNOSES: - Constipation, unspecified - Other long term care pharmacist (current) drug therapy - Nicotine dependence, unspecified, uncomplicated - Unspecified abdominal pain 04/04/2018 15:18 [facility] [place] TYPE: Emergency COMPLAINT: - POSS HERNIA DIAGNOSES: - Encounter for other general examination 03/31/2018 18:03 [facility] [place] TYPE: Emergency COMPLAINT: - ABD PAIN DIAGNOSES: - Nicotine dependence, unspecified, uncomplicated - Ventral hernia without obstruction or gangrene - Other senior living (current) drug therapy 03/16/2018 11:09 [facility] [place] [...] Chronic obstructive pulmonary disease, unspecified - Other long term care pharmacist (current) drug therapy - Metabolic encephalopathy - Patient's other noncompliance with medication regimen - Unspecified cirrhosis of liver 08/07/2018 12:10 [facility] [place] TYPE: Observation COMPLAINT: - INCARCERATED UMBILICAL HERNIA DIAGNOSES: - Diaphragmatic hernia without obstruction or gangrene - Other disorders of phosphorus metabolism - Chronic obstructive pulmonary disease, unspecified - Hypomagnesemia - Cachexia - Unspecified cirrhosis of liver - Other senior living (current) drug therapy - Personal history of nicotine dependence - Hepatic failure, unspecified without coma - Other stimulant abuse, in remission - Umbilical hernia with obstruction, without gangrene - petroleum terminal plant operator (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 antibiotics - Unspecified viral [...] hepatitis C without hepatic coma - Other senior living (current) drug therapy - Secondary esophageal varices without bleeding 04/06/2018 13:13 [facility] [place] TYPE: General Medicine DIAGNOSES: - Ascities [email or web address]
[2018-10-25] MEDS ORDERED: LACTULOSE20 GM/30 M PO (17:02)
== END 2018-10-25 17:40 | disposition home or self-care (01) ==
LOC: ED 14:25
DX: K74.60 Unspecified cirrhosis of liver (principal); K72.90 Hepatic failure, unspecified without coma; Z86.19 Personal history of other infectious and parasitic diseases; Z87.891 Personal history of nicotine dependence; Z79.899 Other long term (current) drug therapy
CPT/HCPCS: 80053; 81001; 82140; 83690; 85025; 85610; 99284

== ENCOUNTER 2018-10-27 01:30 | Emergency (ER) | payer OTHER ==
[~2018-10-27] VITALS: Ht 177.8 cm; Wt 78.0 kg
--- OUTSIDE RECORDS SUMMARY | ~2018-10-27 | XMS | Clinical Summary ---
Demographics + + + | Address | [address] | | | [place] [address] | + + + | Home Phone | | + + + | Preferred Language | Unknown | + + + | Marital Status | | + + + | Adventism Affiliation | 1013 | + + + | Race | Unknown | + + + | Ethnic Group | Unknown | + + + Author + + + | Author | [facility] | + + + | Organization | [facility] | + + + | Address | Unknown | + + + | Phone | Unavailable | + + + Support + + + + + | Name | Relationship | Address | Phone | + + + + + | Lauren Addison | ECON | [address] | | | | | [place] | | | | | [address] | | + + + + + Care Team Providers + +------+ + | Care Client Hr Manager Name | Role | Phone | + +------+ + PP | Unavailable | + +------+ + Allergies No Known Allergies Current Medications + + +--------+---------+------+------+-------+ | Prescription | Sig. | Disp. | Refills | Star | End | Statu | | | | | | t | Date | s | | | | | | Date | | | + + +--------+---------+------+------+-------+ | furosemide (LASIX) | Take 1 tablet by | 30 | 1 | 03/23 | 03/23 | Activ | | 40 MG tablet | mouth daily. | tablet | | 06/10 | 06/10 | e | | | | | | 18 | 19 | | + + +--------+---------+------+------+-------+ | spironolactone | Take 1 tablet by | 30 | 1 | 11/2 | 11/2 | Activ | | (ALDACTONE) 100 MG | mouth daily. | tablet | | 1/20 | 1/20 | e | | tablet | | | | 18 | 19 | | + + +--------+---------+------+------+-------+ | potassium chloride | Take 1 tablet by | 30 | 1 | 11/2 | 11/2 | Activ | | SA (KJOEY LANG) | mouth daily. | tablet | | 0/20 | 0/20 | e | | 20 MEQ tablet | | | | 18 | 19 | | + + +--------+---------+------+------+-------+ Active Problems + + + | Problem | Noted Date | + + + | Hepatic cirrhosis (HCC) | 04/06/2018 | + + + | Chronic hepatitis (HCC) | 04/06/2018 | + + + Resolved Problems + + + + | Problem | Noted | Resolved | | | Date | Date | + + + + | GI bleeding | 04/06/20 | | | | 18 | 8 | + + + + | Ascites | 04/06/20 | | | | 18 | 8 | + + + + Social History + +-------+ +--------+------+ | Tobacco Use | Types | Packs/Day | Years | Date | | | | | Used | | + +-------+ +--------+------+ | Current Every Day | | | | | | Smoker | | | | | + +-------+ +--------+------+ + +---+---+---+ | Smokeless Tobacco: | | | | | Never Used | | | | + +---+---+---+ + + | Tobacco Cessation: Ready to Quit: No; Counseling Given: Yes | + + + + + | Sex Assigned at | Date Recorded | | | | + + + | Not on file | | + + + Last Filed Vital Signs + + + + | Vital Sign | Reading | Time Taken | + + + + | Blood Pressure | 134/74 | 04/10/2018 11:26 AM PST | + + + + | Pulse | 87 | 04/10/2018 11:26 AM PST | + + + + | Temperature | 37 C (98.6 F) | 04/10/2018 11:26 AM PST | + + + + | Respiratory Rate | 18 | 04/10/2018 11:26 AM PST | + + + + | Oxygen Saturation | 94% | 04/10/2018 11:26 AM PST | + + + + | Inhaled Oxygen | - | - | | Concentration | | | + + + + | Weight | 79.3 kg (174 lb 12.8 | 04/10/2018 2:52 AM PST | | | oz) | | + + + + | Height | 177.8 cm (5' 10") | 04/06/2018 1:19 PM PST | + + + + | Body Mass Index | 25.08 | 04/10/2018 2:52 AM PST | + + + + Plan of Treatment Not on file Results Not on filefrom Last 3 Months Insurance + +--------+ +------+-------+ + | Payer | Benefi | Subscriber | Type | Phone | Address | | | t Plan | ID | | | | | | / | | | | | | | Group | | | | | + +--------+ +------+-------+ + | COMMERCIAL OTHER | COMMER | [id number] | | | | | | CIAL | | | | | | | GENERI | | | | | | | C PLAN | | | | | + +--------+ +------+-------+ + | MEDICAID | [facility] | [id number] | | | [address] | | | [address] | | | | [place] | | | [place] | | | | [phone] | | | ASSEMBLER PRODUCT | | | | | + +--------+ +------+-------+ + + +--------+ +--------+ + + | Guarantor Name | Accoun | Relation to | Date | Phone | Billing Address | | | t Type | Patient | of | | | | | | | | | | + +--------+ +--------+ + + | LANCE ADDISON | Person | Self | [birth year] | Home: | [address] | | | al/Fam | | 1961 | [phone] [place], [place] | | | [place] | | | [phone] | + +--------+ +--------+ + +
--- OUTSIDE RECORDS SUMMARY | ~2018-10-27 | XMS | Encounter Summary ---
Demographics + + + | Address | [address] | | | [place] [address] | + + + | Home Phone | | + + + | Preferred Language | Unknown | + + + | Marital Status | | + + + | Mormon Affiliation | 1013 | + + + | Race | Unknown | + + + | Ethnic Group | Unknown | + + + Author + + + | Author | [facility] | | | and [place] | + + + | Organization | [facility] | | | and [place] | + + + | Address | Unknown | + + + | Phone | Unavailable | + + + Support + + +---------+ + | Name | Relationship | Address | Phone | + + +---------+ + | Lauren Chappell | ECON | Unknown | | + + +---------+ + | Av[place]Lauren | ECON | Unknown | | + + +---------+ + Care Team Providers + +------+ + | Care Product Inspection Supervisor Name | Role | Phone | + +------+ + | Cassandra Salamanca MD | PCP | | + +------+ + Encounter Details +--------+ + + + + | Date | Type | Department | Care Team | Description | +--------+ + + + + | 08/15/ | Episode | [facility] | Leticia Ngo | | | 2019 | Changes | GASTROENTEROLOGY | L, RN | | | | | [address] [facility] | | | | | | [address] [place] | | | | | | [address] | | | | | | [phone] | | | +--------+ + + + [...] Visit Diagnoses Not on filedocumented in this encounter"
--- OUTSIDE RECORDS SUMMARY | ~2018-10-27 | XMS | Encounter Summary ---
Demographics + + + | Address | [address] | | | [place] [address] | + + + | Home Phone | | + + + | Preferred Language | Unknown | + + + | Marital Status | | + + + | Nondenominational Affiliation | 1013 | + + + | Race | Unknown | + + + | Ethnic Group | Unknown | + + + Author + + + | Author | [facility] | | | and [place] | + + + | Organization | [facility] | | | and [place] | [...] Team Providers + +------+ + | Care Logging Worker Name | Role | Phone | + +------+ + | Cassandra Salamanca MD | PCP | | + +------+ + Reason for Visit + + + | Reason | Comments | + + + | Procedure | EGD/Prop | + + + Encounter Details +--------+ + + + + | Date | Type | Department | Care Team | Description | +--------+ + + + + | 08/03/ | Telephone | [facility] | Иван Tellez | Procedure (EGD/Prop) | | 2019 | | GASTROENTEROLOGY | MD Agustin [address] | | | | | [address] [place] | [address] [facility] | | | | | [address] [place] | [place] [address] | | | | | [address] | [phone] | | | | | [phone] | | | +--------+ + + + [...] filedocumented as of this encounter Visit Diagnoses + + | Diagnosis | + + | Decompensated HCV cirrhosis (HCC) - Primary Chronic hepatitis C without mention of | | hepatic coma | + + | Methamphetamine abuse (HCC) Nondependent amphetamine or related acting | | sympathomimetic abuse, unspecified | + + | Secondary esophageal varices with bleeding (HCC) Esophageal varices with bleeding in | | diseases classified elsewhere | + + | Hepatic cirrhosis, unspecified hepatic cirrhosis type, unspecified whether ascites | | present (HCC) | + + | Cannabis dependence (HCC) Cannabis dependence, unspecified | + + documented in this encounter"
--- OUTSIDE RECORDS SUMMARY | ~2018-10-27 | XMS | Encounter Summary ---
Demographics + + + | Address | [address] | | | [place] [address] | + + + | Home Phone | | + + + | Preferred Language | Unknown | + + + | Marital Status | | + + + | Sikhism Affiliation | 1013 | + + + | Race | Unknown | + + + | Ethnic Group | Unknown | + + + Author + + + | Author | [facility] | | | and [place] | + + + | Organization | [facility] | | | and [...] Team Providers + +------+ + | Care Housecleaner Name | Role | Phone | + [...] + + | 09/20/ | Telephone | [facility] | Иван Tellez | Other | | 2019 | | GASTROENTEROLOGY | MD Agustin [address] | | | | | [address] [place] | [address] [place] | | | | | [address] [place], [place] | [place] [address] | | | | | [address] | [phone] | | | | | [phone] | | | +--------+ + + + [...]
--- OUTSIDE RECORDS SUMMARY | ~2018-10-27 | XMS | Encounter Summary ---
Demographics + + + | Address | [address] | | | [place] [address] | + + + | Home Phone | | + + + | Preferred Language | Unknown | + + + | Marital Status | | + + + | Jehovah'S Witness Affiliation | 1013 | + + + | Race | Unknown | + + + | Ethnic Group | Unknown | + + + Author + + + | Author | [facility] | | | and [place] | + + + | Organization | [facility] | | | and [place] | [...] Team Providers + +------+ + | Care Scissors Grinder Name | Role | Phone | + +------+ + | Bonifacio Lawton MD | PCP | | + +------+ + Reason for Referral Diagnostic/Screening (Routine) + +--------+ + + + + | Status | Reason | Specialty | Diagnoses / | Referred By | Referred To | | | | | Procedures | Contact | Contact | + +--------+ + + + + | Authorized | | Radiology - | Diagnoses | | [facility] | | | | Diagnostic | Liver mass | [facility] | | | | Ultrasound | Abnormal | Bailee, | [address] | | | | | findings on | HEALTH CLUB ATTENDANT [address] | | | | | diagnostic | [place], [place] | [place], [place] | | | | | imaging of | [address] [place] | [address] | | | | | other parts | [place] | Phone: | | | | | of digestive | [address] | [phone] | | | | | tract | Phone: | Fax: | | | | | Procedures | [phone] | [phone] | | | | | MRI Abdomen | Fax: | | | | | | w wo | [phone] | | | | | | Contrast [place] | | | | | | | MRI, | | | | | | | ABDOMEN, | | | | | | | COMBO | | | + +--------+ + + + + Reason for Visit +---------+ + | Reason | Comments | +---------+ + | Results | | +---------+ + Encounter Details +--------+ + + + + | Date | Type | Department | Care Team | Description | +--------+ + + + + | 10/19/ | Telephone | [facility] [place] | [facility], | Results | | 2019 | | GASTROENTEROLOGY | SHANNAN Morocho [address] | | | | | [address] [place] | [place], [place] [address] | | | | | [address] [place], [place] | [place], [place] | | | | | [address] | [address] | | | | | [phone] | | | +--------+ + + + [...] as of this encounter Plan of Treatment + +--------+ + + | Name | Priori | Associated Diagnoses | Order Schedule | | | ty | | | + +--------+ + + | MRI Abdomen w wo Contrast | Routin | Liver mass | Expected: | | | e | | 10/23/2018, Expires: | | | | | 10/22/2019 | + +--------+ + + documented as of this encounter Visit Diagnoses + + | Diagnosis | + + | Liver mass - Primary Unspecified disorder of liver | + + documented in this encounter"
--- OUTSIDE RECORDS SUMMARY | ~2018-10-27 | XMS | Encounter Summary ---
Demographics + + + | Address | [address] | | | [place] [address] | + + + | Home Phone | | + + + | Preferred Language | Unknown | + + + | Marital Status | | + + + | Rastafarian Affiliation | 1013 | + + + | Race | Unknown | + + + | Ethnic Group | Unknown | + + + Author + + + | Author | [facility] | | | and [place] | + + + | Organization | [facility] | | | and [place] | + + + | Address | Unknown | + + + | Phone | Unavailable | + + + Support + + +---------+ + | Name | Relationship | Address | Phone | + + +---------+ + | Lauren Chappell | ECON | Unknown | | + + +---------+ + | New RoadsLauren | ECON | Unknown | | + + +---------+ + Care Team Providers + +------+ + | Care Field Radio Operator Name | Role | Phone | [...] | | | | [address] [facility] | | | | | | [address] [place] | | | | | | [address] | | | | | | [phone] | | | +--------+ + + + [...]
--- OUTSIDE RECORDS SUMMARY | ~2018-10-27 | XMS | Clinical Summary ---
Demographics + + + | Address | [address] | | | [place] [address] | + + + | Home Phone | | + + + | Preferred Language | Unknown | + + + | Marital Status | | + + + | Faith Affiliation | 1013 | + + + | Race | Unknown | + + + | Ethnic Group | Unknown | + + + Author + + + | Author | [facility] | | | and [place] | + + + | Organization | [facility] | | | and [place] | + + + | Address | Unknown | + + + | Phone | Unavailable | + + + Support + + +---------+ + | Name | Relationship | Address | Phone | + + +---------+ + | Lauren Chappell | ECON | Unknown | | + + +---------+ + | Lauren Chappell ECON | Unknown | | + + +---------+ + Care Team Providers + +------+ + | Care Web Site Manager Name | Role | Phone | [...] attack... They sent | | me [facility] They kept me overnight and | | [...] + + | 10/19/ | Telephone | | Dom | Results | | 2018 | | | SHANNAN Morocho | | +--------+ + + + + | 10/10/ | Telephone | | Dom | Other | | 2018 | | | SHANNAN Morocho | | +--------+ + + + + | 10/03/ | Telephone | | Dom | Liver Transplant | | 2018 | | | SHANNAN Morocho | Pre-evaluation | +--------+ + + + + | [...] Иван Walls | Secondary esophageal | | 2018 | Encounter | | MD Agustin | varices with | | | | | | bleeding (HCC); | | | | | | Portal hypertension | | | | | | (HCC) | +--------+ + + + + | 08/15/ | Episode | | Leticia Ngo | | | 2019 | Changes | | L, RN | [...] | Body Mass Index | 21.07 | 08/28/2018 1332 PDT | + + + + Plan [...] + | Hepatitis C | Completed | 10/03/2018, 08/03/2018, | | | Screening | | 07/18/2018, Additional history | | | | | exists | | + + + + + Procedures + +--------+ + + + | Procedure Name | Priori | Date/Time | Associated Diagnosis | Comments | | | ty | | | | + +--------+ + + + | IMAGING REPORT - | | 10/10/2018 | | Results for this | | EXTERNAL SCAN | | 0:00 PDT | | procedure [...] | | + +--------+ + + + from Last 3 Months Results IMAGING REPORT - EXTERNAL SCAN (10/10/2018 0:00 PDT) + + + | Narrative | Performed At | + + + | Ordered by an | | | unspecified provider. | | + + + LABS - EXTERNAL SCAN (10/05/2018 0:00 PDT) [...] | [facility] | | GastroenterologyPatient Name: Delroy ChappellArden Date: | PROVATION | | 08/28/2018 4:18 PMMRN: [id number] #: [id number] of : | | | 1960Admit Type: AmbulatoryAge: 58Room: [facility] 02Gender: MaleNote | | | Status: FinalizedAttending MD: ИВАН WALLS , | | | MDProcedure: Upper GI | | | endoscopyIndications: Esophageal varices, Follow-up of | | | esophageal varicesProviders: ИВАН WALLS MD, | | | Maria Elena Hernandez RN, Marcy Gottlieb, | | | Surveillance Dual Rate Officer, Vince Morrison MD (Anesthesia Staff)Referring | | | MD: Betsy Lawton (Referring MD)Bailee ARNP | | | (Referring | | [...] | | varices. Banding not needed. - [place]-colored mucosa | | | suspicious for short-segment [...] PMScope Out: 4:32:28 | | | PM [facility], [address] [facility] | | | [place] [address] | | | - Resume regular diet. [...] |Scope Out: 4:32:28 PM | | | [facility], [address] [facility], [place] | | | [address] | | + + ---+ + +---------+ [...] | [employer] | MODA | [id number] | 05/01/ | [phone] | | [employer] | | MEDICAID HMO [...] Self | [birth year] | | [address] | | Anthony | georgiana/Jann | | 1961 | [phone] | [place] [address] | | | dipak | | | 9 (Home) | | + +--------+ +--------+ + + Advance Directives Patient has advance care planning documents on file. For more information, please contact:[facility] [place] [address]
--- OUTSIDE RECORDS SUMMARY | ~2018-10-27 | XMS | Encounter Summary ---
Demographics + + + | Address | [address] | | | [place] [address] | + + + | Home Phone | | + + + | Preferred Language | Unknown | + + + | Marital Status | | + + + | Episcopal Affiliation | 1013 | + + + | Race | Unknown | + + + | Ethnic Group | Unknown | + + + Author + + + | Author | [facility] | | | and [place] | + + + | Organization | [facility] [...] Team Providers + +------+ + | Care General Machinist Name | Role | Phone | + [...] | | | (HCC) | | [place] [address] | | | | | (B19.20, | | Phone: | | | | | K74.69), | | [phone] | | | | | 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 | | [phone] | | | | | (HCC) | [...] | | | | | | | [place] | | | | | | | ESOPHAGOGAST | | | | | | | RODUODENOSCO | | | | | | | PY TRANSORAL | | | | | | | DIAGNOSTIC | | | | | | | [place] EGD | | | | | | | TRANSORAL | | | | | | | BIOPSY | | | | | | | SINGLE/MULTI | | | | | | | PLE [place] EGD | | | | | | | BAND | | | | | | | LIGATION | | | | | | | ESOPHGEAL/GA | | | | | | | STRIC | | | | | | | VARICES [place] | | | | | | | [...] + + | 08/28/ | Anesthesia | [facility] | Camacho Dupree MD | | | 2019 | Event | MED CTR MP INTRA OP | [address] | | | | | [address] | [place] | | | | | [place] | [phone] | | | | | [address] | | | | | | [phone] | | | +--------+ + + + + Anesthesia Record + + + + + | Procedure Name | Responsible | Anesthesia Start | Anesthesia Stop Time | | | Anesthesiologist | Time | | + + + + + | EGFrancois (N/A Mouth) | Camacho Dupree MD | [...] 1654 by | | eral | Forearm; ycof-afc-beawzt catheter | Corina Gibson RN | Corina [...] | | | | Intravenous, Jason CALVILLO Tuvahid | | 19 16:28 | | | [...]
--- OUTSIDE RECORDS SUMMARY | ~2018-10-27 | XMS | Encounter Summary ---
Demographics + + + | Address | [address] | | | [place] [address] | + + + | Home Phone | | + + + | Preferred Language | Unknown | + + + | Marital Status | | + + + | Zoroastrianism Affiliation | 1013 | + + + | Race | Unknown | + + + | Ethnic Group | Unknown | + + + Author + + + | Author | [facility] | | | and [place] | + + + | Organization | [facility] [...] Team Providers + +------+ + | Care Alley Cleaner Name | Role | Phone | + [...] | | | (HCC) | | [place] [address] | | | | | (B19.20, | | Phone: | | | | | K74.69), | | [phone] | | | | | 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 | | [phone] | | | | | (HCC) | [...] | | | | | | | [place] | | | | | | | ESOPHAGOGAST | | | | | | | RODUODENOSCO | | | | | | | PY TRANSORAL | | | | | | | DIAGNOSTIC | | | | | | | [place] EGD | | | | | | | TRANSORAL | | | | | | | BIOPSY | | | | | | | SINGLE/MULTI | | | | | | | PLE [place] EGD | | | | | | | BAND | | | | | | | LIGATION | | | | | | | ESOPHGEAL/GA | | | | | | | STRIC | | | | | | | VARICES [place] | | | | | | [...] [place] | | | | | | [address] | | | | | | [phone] | | | +--------+---------+ + + + [...] dependence | | | | | | ([facility]) (F12.20) | | + +--------+ + + [...] | [facility] | | GastroenterologyPatient Name: Delroy ChappellProcedhavenwyck hospital Date: | PROVATION | | 08/28/2018 4:18 PMMRN: [id number] #: [id number] of : | | | 1960Admit Type: AmbulatoryAge: 58Room: [facility] 02Gender: MaleNote | | | Status: FinalizedAttending MD: ИВАН WALLS , | | | MDProcedure: Upper GI | | | endoscopyIndications: Esophageal varices, Follow-up of | | | esophageal varicesProviders: ИВАН WALLS MD, | | | Maria Elena Hernandez RN, Marcy Gottlieb, | | | Supervisor [place], Vince Morrison MD (Anesthesia Staff)Referring | | [...] | | varices. Banding not needed. - [place]-colored mucosa | | | suspicious for short-segment [...] PMScope Out: 4:32:28 | | | PM [facility], [address] [facility] | | | [place] [address] | | | - Resume regular diet. [...] Out: 4:32:28 PM | | | [facility], [address] , [place], [place] | | | [address] | | + + ---+ + +---------+ [...]
--- OUTSIDE RECORDS SUMMARY | ~2018-10-27 | XMS | Encounter Summary ---
Demographics + + + | Address | [address] | | | [place] [address] | + + + | Home Phone | | + + + | Preferred Language | Unknown | + + + | Marital Status | | + + + | Gnosticism Affiliation | 1013 | + + + | Race | Unknown | + + + | Ethnic Group | Unknown | + + + Author + + + | Author | [facility] | | | and [place] | + + + | Organization | [facility] | | | and [place] [...] Team Providers + +------+ + | Care Economist Research Assistant Name | Role | Phone | + [...] + + | 09/20/ | Telephone | [facility] | Иван Tellez | Other | | 2019 | | GASTROENTEROLOGY | MD Agustin [address] | | | | | [address] [place] | [address] [place] | | | | | [address] [place], [place] | [place] [address] | | | | | [address] | [phone] | | | | | [phone] | | | +--------+ + + + [...]
--- OUTSIDE RECORDS SUMMARY | ~2018-10-27 | XMS | Encounter Summary ---
Demographics + + + | Address | [address] | | | [place] [address] | + + + | Home Phone [...] Author | [facility] | | | and [place] | + + + | Organization | [facility] | | | and [place] [...] Team Providers + +------+ + | Care Hand Molder And Caster Name | Role | Phone | + [...] | | | (HCC) | | [place] [address] | | | | | (B19.20, | | Phone: | | | | | K74.69), | | [phone] | | | | | 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 | | [phone] | | | | | (HCC) | [...] | | | | | | | [place] | | | | | | | ESOPHAGOGAST | | | | | | | RODUODENOSCO | | | | | | | PY TRANSORAL | | | | | | | DIAGNOSTIC | | | | | | | [place] EGD | | | | | | | TRANSORAL | | | | | | | BIOPSY | | | | | | | SINGLE/MULTI | | | | | | | PLE [place] EGD | | | | | | | BAND | | | | | | | LIGATION | | | | | | | ESOPHGEAL/GA | | | | | | | STRIC | | | | | | | VARICES [place] | | | | | | | [...] + + | 08/28/ | Hospital | [facility] | Иван Walls | 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 Agustin [address] | varices with | | | | [address] | [address] [place] | bleeding ([facility]); | | | | [place] | [place] [address] | Portal hypertension | | | | [address] | [phone] | (HCC) | | | | [phone] | | | +--------+ + + + [...] | PROVATION | | 08/28/2018 4:18 PMMRN: [id number] #: [id number] of : | | | 1960Admit Type: AmbulatoryAge: 58Room: [facility] 02Gender: MaleNote | | | Status: FinalizedAttending MD: ИВАН WALLS , | | | MDProcedure: Upper GI | | | endoscopyIndications: Esophageal varices, Follow-up of | | | esophageal varicesProviders: ИВАН WALLS MD, | | | Maria Elena Hernandez RN, Marcy Gottlieb, | | | Baggage Handler, Vince Morrison MD (Anesthesia Staff)Referring | | [...] | | varices. Banding not needed. - [place]-colored mucosa | | | suspicious for short-segment [...] PMScope Out: 4:32:28 | | | PM [facility], [address] [facility] | | | [place] [address] | | | - Resume regular diet. [...] |Scope Out: 4:32:28 PM | | | [facility], [address] [facility], [place] | | | [address] | | + + ---+ + +---------+ + + | Performing | Address | City/State/[facility] Hospitalcode | Phone Number | | Organization | [...]
--- OUTSIDE RECORDS SUMMARY | ~2018-10-27 | XMS | Encounter Summary ---
Demographics + + + | Address | [address] | | | [place] [address] | + + + | Home Phone | | + + + | Preferred Language | Unknown | + + + | Marital Status | | + + + | Christian Affiliation | 1013 | + + + | Race | Unknown | + + + | Ethnic Group | Unknown | + + + Author + + + | Author | [facility] | | | and [place] | + + + | Organization | [facility] | | | and [place] [...] Team Providers + +------+ + | Care Bullet Slug Casting Machine Operator Name | Role | Phone [...] | | | (HCC) | | [place] [address] | | | | | (B19.20, | | Phone: | | | | | K74.69), | | [phone] | | | | | 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 | | [phone] | | | | | (HCC) | [...] + + | 08/28/ | Hospital | [facility] | Иван Walls | 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 Agustin [address] | varices with | | | | [address] | [address] [place] | bleeding ([facility]); | | | | [place] | [place] [address] | Portal hypertension | | | | [address] | [phone] | (HCC) | | | | [phone] | | | +--------+ + + + [...] | PROVATION | | 08/28/2018 4:18 PMMRN: [id number] #: [id number] of : | | | 1960Admit Type: AmbulatoryAge: 58Room: [facility] 02Gender: MaleNote | | | Status: FinalizedAttending MD: ИВАН WALLS , | | | MDProcedure: Upper GI | | | endoscopyIndications: Esophageal varices, Follow-up of | | | esophageal varicesProviders: ИВАН WALLS MD, | | | Maria Elena Hernandez RN, Marcy Gottlieb, | | | Radiology Therapist, Vince Morrison MD (Anesthesia Staff)Referring | | [...] | | varices. Banding not needed. - [place]-colored mucosa | | | suspicious for short-segment [...] PMScope Out: 4:32:28 | | | PM [facility], [address] [facility] | | | [place] [address] | | | - Resume regular diet. [...] |Scope Out: 4:32:28 PM | | | [facility], [address] [facility], [place] | | | [address] | | + + ---+ + +---------+ + + | Performing | Address | City/State/Unm Cancer Centercode | Phone Number | | Organization [...]
--- OUTSIDE RECORDS SUMMARY | ~2018-10-27 | XMS | Encounter Summary ---
Demographics + + + | Address | [address] | | | [place] [address] | + + + | Home Phone | | + + + | Preferred Language | Unknown | + + + | Marital Status | | + + + | Sabianism Affiliation | 1013 | + + + | Race | Unknown | + + + | Ethnic Group | Unknown | + + + Author + + + | Author | [facility] | | | and [place] | + + + | Organization | [facility] | | | and [place] [...] Team Providers + +------+ + | Care Triage Registered Nurse Name | Role | Phone | + [...] | | | (HCC) | | [place] [address] | | | | | (B19.20, | | Phone: | | | | | K74.69), | | [phone] | | | | | 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) (F12.20) | | + +--------+ + + [...] [facility] | | GastroenterologyPatient Name: Delroy ChappellProcedascension providence hospital Date: | PROVATION | | 08/28/2018 4:18 PMMRN: [id number] #: [id number] of : | | | 1960Admit Type: AmbulatoryAge: 58Room: [facility] 02Gender: MaleNote | | | Status: FinalizedAttending MD: ИВАН WALLS , | | | MDProcedure: Upper GI | | | endoscopyIndications: Esophageal varices, Follow-up of | | | esophageal varicesProviders: ИВАН WALLS MD, | | | Maria Elena Hernandez RN, Marcy Gottlieb, | | | Salvage Winder, Vince Morrison MD (Anesthesia Staff)Referring | | [...] | | varices. Banding not needed. - [place]-colored mucosa | | | suspicious for [...] PMScope Out: 4:32:28 | | | PM [facility], [address] [facility] | | | [place] [address] | | | - Resume regular diet. [...] Out: 4:32:28 PM | | | [facility], [address] , [place], [place] | | | [address] | | + + ---+ + +---------+ [...]
--- OUTSIDE RECORDS SUMMARY | ~2018-10-27 | XMS | Encounter Summary ---
Demographics + + + | Address | [address] | | | [place] [address] | + + + | Home Phone | | + + + | Preferred Language | Unknown | + + + | Marital Status | | + + + | Voodoo Affiliation | 1013 | + + + | Race | Unknown | + + + | Ethnic Group | Unknown | + + + Author + + + | Author | [facility] | | | and [place] | + + + | Organization | [facility] | | | and [...] Team Providers + +------+ + | Care Powerhouse Engineer Name | Role | Phone | [...] | | | Services | | | [facility] | | | Required | | Decompensate | Bailee, | [address] | | | | | d HCV | LOSS CLAIM CLERK [address] | | | | | cirrhosis | [place], [place] | [place], [place] | | | | | ([facility]) | [address] [place] | [address] | | | | | Methamphetam | [place], [place] | Phone: | | | | | ine abuse, | [address] | [phone] | | | | | episodic | Phone: | Fax: | | | | | ([facility]) | [phone] | [phone] | | | | | Procedures | Fax: | | | | | | [place], ABDOMEN | [phone] | | | | | | LIMITED [...] | Telephone | [facility] [place] | [facility], | Liver Transplant | | 2019 | | GASTROENTEROLOGY | SHANNAN Morocho [address] | Pre-evaluation | | | | [address] [place] | [place], [place] [address] | | | | | [address] [place], [place] | [place], [place] | | | | | [address] | [address] | | | | | [phone] | | | +--------+ + + + [...]
--- OUTSIDE RECORDS SUMMARY | ~2018-10-27 | XMS | Encounter Summary ---
Demographics + + + | Address | [address] | | | [place] [address] | + + + | Home Phone [...] Author | [facility] | | | and [place] | + + + | Organization | [facility] | | | and [...] Team Providers + +------+ + | Care Gang Leader Name | Role | Phone | [...] + | 08/03/ | Telephone | [facility] | Иван Tellez | Procedure (EGD/Prop) | | 2019 | | GASTROENTEROLOGY | MD Agustin [address] | | | | | [address] [place] | [address] [facility] | | | | | [address] [place] | [place] [address] | | | | | [address] | [phone] | | | | | [phone] | | | +--------+ + + + [...]
--- OUTSIDE RECORDS SUMMARY | ~2018-10-27 | XMS | Encounter Summary ---
Demographics + + + | Address | [address] | | | [place] [address] | + + + | Home Phone | | + + + | Preferred Language | Unknown | + + + | Marital Status | | + + + | Sikh Affiliation | 1013 | + + + | Race | Unknown | + + + | Ethnic Group | Unknown | + + + Author + + + | Author | [facility] | | | and [place] | + + + | Organization | [facility] | | | [...] Team Providers + +------+ + | Care Soils Technician Name | Role | Phone | [...] | | | (HCC) | | [place] [address] | | | | | (B19.20, | | Phone: | | | | | K74.69), | | [phone] | | | | | 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 | | [phone] | | | | | (HCC) | [...] | | | | | | | [place] | | | | | | | ESOPHAGOGAST | | | | | | | RODUODENOSCO | | | | | | | PY TRANSORAL | | | | | | | DIAGNOSTIC | | | | | | | [place] EGD | | | | | | | TRANSORAL | | | | | | | BIOPSY | | | | | | | SINGLE/MULTI | | | | | | | PLE [place] EGD | | | | | | | BAND | | | | | | | LIGATION | | | | | | | ESOPHGEAL/[place] | | | | | | | STRIC | | | | | | | VARICES [place] | | | | | | | [...] | 08/28/ | Anesthesia | [facility] | Camacho Dupree MD | | | 2019 | Event | MED CTR MP INTRA OP | [address] | | | | | [address] | [place] | | | | | [place] | [phone] | | | | | [address] | | | | | | [phone] | | | +--------+ + + + [...] [address]54 by | | eral | Forearm; zgsv-squ-efferj catheter | Corina Gibson RN | Corina [...]
--- OUTSIDE RECORDS SUMMARY | ~2018-10-27 | XMS | Encounter Summary ---
Demographics + + + | Address | [address] | | | [place] [address] | + + + | Home Phone | | + + + | Preferred Language | Unknown | + + + | Marital Status | | + + + | Baptism Affiliation | 1013 | + + + | Race | Unknown | + + + | Ethnic Group | Unknown | + + + Author + + + | Author | [facility] | | | and [place] | + + + | Organization | [facility] | | | and [place] [...] Providers + +------+ + | Care Automotive Hardware Engineer Name | Role | Phone | [...] + + | 10/10/ | Telephone | [facility] | [place], | Other | | 2019 | | GASTROENTEROLOGY | SHANNAN Morocho [address] | | | | | [address] [place] | [place], [place] [address] | | | | | [address] [place], [place] | [place], [place] | | | | | [address] | [address] | | | | | [phone] | | | +--------+ + + + [...]
--- OUTSIDE RECORDS SUMMARY | ~2018-10-27 | XMS | Clinical Summary ---
Demographics + + + | Address | [address] | | | [place] [address] | + + + | Home Phone | | + + + | Preferred Language | Unknown | + + + | Marital Status | | + + + | Mu-Ism Affiliation | 1013 | + + + | Race | Unknown | + + + | Ethnic Group | Unknown | + + + Author + + + | Author | [facility] | | | and [place] | + + + | Organization | [facility] [...] Team Providers + +------+ + | Care Deputy Fire Chief Name | Role | Phone | + [...] They sent | | me to [facility] They kept me overnight and | | [...] | PROVATION | | 08/28/2018 4:18 PMMRN: [id number] #: [id number] of : | | | 1960Admit Type: AmbulatoryAge: 58Room: [facility] 02Gender: MaleNote | | | Status: FinalizedAttending MD: ИВАН WALLS , | | | MDProcedure: Upper GI | | | endoscopyIndications: Esophageal varices, Follow-up of | | | esophageal varicesProviders: ИВАН WALLS MD, | | | Maria Elena Hernandez RN, Marcy Gottlieb, | | | Alliance Director, Vince Morrison MD (Anesthesia Staff)Referring | [...] | | varices. Banding not needed. - Foley-colored mucosa | | | suspicious for short-segment [...] PMScope Out: 4:32:28 | | | PM [facility], [address] [facility] | | | [place] [id number] | | | - Resume regular diet. [...] |Scope Out: 4:32:28 PM | | | [facility], [address] [facility], [place] | | | [address] | | + + ---+ + +---------+ [...] | [employer] | MODA | [id number] | 05/01/ | [phone] | | Medica | | MEDICAID HMO [...] | 1961 | [phone] | [place] [address] | | | dipak | | | 9 (Home) | | + +--------+ +--------+ + + Advance Directives Patient has advance care planning documents on file. For more information, please contact:[facility] [place] [address]
--- OUTSIDE RECORDS SUMMARY | ~2018-10-27 | XMS | Encounter Summary ---
Demographics + + + | Address | [address] | | | [place] [address] | + + + | Home Phone | | + + + | Preferred Language | Unknown | + + + | Marital Status | | + + + | Caodaism Affiliation | 1013 | + + + | Race | Unknown | + + + | Ethnic Group | Unknown | + + + Author + + + | Author | [facility] | | | and [place] | + + + | Organization | [facility] | | | and [place] [...] Team Providers + +------+ + | Care Coffee Maker Servicer Name | Role | Phone | + [...] + + | 10/10/ | Telephone | [facility] | [place], | Other | | 2019 | | GASTROENTEROLOGY | SHANNAN Mor[address] | | | | | [address] [place] | [place], [address] [address] | | | | | [address] [place], [place] | [place], [place] | | | | | [address] | [address] | | | | | [phone] | | | +--------+ + + + [...]
--- OUTSIDE RECORDS SUMMARY | ~2018-10-27 | XMS | Encounter Summary ---
Demographics + + + | Address | [address] | | | [place] [address] | + + + | Home Phone [...] Author | [facility] | | | and [place] | + + + | Organization | [facility] | | | and [...] Team Providers + +------+ + | Care Principal Process Engineer Name | Role | Phone | [...] | | | Services | | | [facility] | | | Required | | Decompensate | [place], | [address] | | | | | d HCV | DIRECTOR DECISION SUPPORT [address] | | | | | cirrhosis | [place], [place] | [place], [place] | | | | | ([facility]ERLY [facility]) | [address] [place] | [address] | | | | | Methamphetam | [place], [place] | Phone: | | | | | ine abuse, | [address] | [phone] | | | | | episodic | Phone: | Fax: | | | | | ([facility]ERLY [facility]) | [phone] | [phone] | | | | | Procedures | Fax: | | | | | | US, ABDOMEN | [phone] | | | | | | LIMITED [...] | Telephone | [facility] [place] | [facility], | Liver Transplant | | 2019 | | GASTROENTEROLOGY | SHANNAN Morocho [address] | Pre-evaluation | | | | [address] [place] | [place], [address] | | | | | [address] [place], [place] | [place], [place] | | | | | [address] | [address] | | | | | [phone] | | | +--------+ + + + [...]
--- OUTSIDE RECORDS SUMMARY | ~2018-10-27 | XMS | Encounter Summary ---
Demographics + + + | Address | [address] | | | [place] [address] | + + + | Home Phone | | + + + | Preferred Language | Unknown | + + + | Marital Status | | + + + | Sabianism Affiliation | 1013 | + + + | Race | Unknown | + + + | Ethnic Group | Unknown | + + + Author + + + | Author | [facility] | | | and [place] | + + + | Organization | [facility] | | [...] Team Providers + +------+ + | Care Tire Mounter Name | Role | Phone | + [...] | | Diagnostic | Liver mass | [facility] | | | | Ultrasound | Abnormal | [place], | [address] | | | | | findings on | RIGGER CHIEF [address] | | | | | diagnostic | [place], [place] | [place], [place] | | | | | imaging of | [address] [place] | [address] | | | | | other parts | [place] | Phone: | | | | | of digestive | [address] | [phone] | | | | | tract | Phone: | Fax: | | | | | Procedures | [phone] | [phone] | | | | | MRI Abdomen | Fax: | | | | | | w wo | [phone] | | | | | | Contrast [place] | | | | | | [...] | Telephone | [facility] [place] | [facility], | Results | | 2019 | | GASTROENTEROLOGY | SHANNAN Morocho [address] | | | | | [address] [place] | [place], [address] | | | | | [address] [place], [place] | [place], [place] | | | | | [address] | [address] | | | | | [phone] | | | +--------+ + + + [...]
--- OUTSIDE RECORDS SUMMARY | ~2018-10-27 | XMS | Clinical Summary ---
Demographics + + + | Address | [address] | | | [place] [address] | + + + | Home Phone | | + + + | Preferred Language | Unknown | + + + | Marital Status | | + + + | Hoahaoism Affiliation | 1013 | + + + | Race | Unknown | + + + | Ethnic Group | Unknown | + + + Author + + + | Author | [facility] | + + + | Organization | [facility] [employer] | + + + | Address | Unknown | + + + | Phone | Unavailable | + + + Support + + + + + | Name | Relationship | Address | Phone | + + + + + | Lauren Addison | ECON | [address] | | | | | [place] | | | | | [address] | | + + + + + Care Team Providers + +------+ + | Care Clay Products Glazer Name | Role | Phone | + [...] + | COMMERCIAL OTHER | COMMER | [id number] | | | | | | CIAL | | | | | | | GENERI | | | | | | | C PLAN | | | | | + +--------+ +------+-------+ + | MEDICAID | [facility] | [id number] | | | [address] | | | [address] | | | | [place] | | | [place] | | | | [address] | | | AIR DEODORIZER SERVICER | | | | | + +--------+ [...] | [place] | | | [phone] | [address] | + +--------+ +--------+ + +
--- OUTSIDE RECORDS SUMMARY | 2018-10-27 01:32 | XMS ---
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 Emg Technician Events No recent Security Events currently on file CRITERIA MET - Group Notification - 6 ED Visits in 6 Months - [facility] - Has Care Guidelines - [facility] - 2 Visits in 30 Days CARE PROVIDERS SANAM ZHU Internal Medicine 08/08/2018-[facility]: [phone] GEORGE BHATTI Family Medicine: Sports Medicine 04/02/2018-Current PHONE: Unknown [place] has no Care Guidelines for this patient. Care History Medical/Surgical 08/08/2018 [facility] - APT WITH PCP DR ZHU ON 10/29/18. - Patient is currently established with [facility]. If patient is seen in the ED during business hours. Please contact CHWs at [facility]. Care Recommendation: This patient has had 5 or more Emergency Department visits in the last 12 months.\T\nbsp; Patient requires education on the scope and purpose of the ED as an acute care provider not a Primary Care Provider and should not be utilized for chronic conditions.\T\nbsp; These are guidelines and the provider should exercise clinical judgment when providing care. 04/05/2018 [facility] - PATIENT RECEIVED LIGHT DUTY -WORK NOTE FROM MILENA VALDEZ AT [facility] ON 04/04/18. - PATIENT HAS A FOLLOW UP WITH DR BHATTI ON 04/17/2018. Mark VISIT COUNT (12 MO.) 12 [facility] TOTAL 12 NOTE: Visits indicate total known visits. ED/UCC VISIT TRACKING (12 MO.) 10/27/2018 01:30 [facility] [place] TYPE: Emergency COMPLAINT: - URINE PROBLEMS 10/25/2018 14:[address] [place] [place] TYPE: Emergency COMPLAINT: - DISORIENTATED 10/21/2018 19:25 [facility] [place] TYPE: Emergency COMPLAINT: - ABD PAIN DIAGNOSES: - Personal history of nicotine dependence - Chronic hepatic failure without coma - Unspecified abdominal pain - Other parts counterman (current) drug therapy 10/06/2018 18:43 [facility] [place] TYPE: Emergency COMPLAINT: - LEG SWELLING 09/30/2018 19:16 [facility] [place] TYPE: Emergency COMPLAINT: - SOB, CHEST FEELS HEAVY DIAGNOSES: - Personal history of other infectious and parasitic diseases - Personal history of nicotine dependence - Other chest pain - Unspecified cirrhosis of liver - Other parts counterman (current) drug therapy 08/07/2018 12:09 [facility] [place] TYPE: Emergency COMPLAINT: - ABD PAIN 04/19/2018 07:40 [facility] [place] TYPE: Emergency COMPLAINT: - POSS STROKE 04/06/2018 06:25 [facility] [place] TYPE: Emergency COMPLAINT: - VOMITING BLOOD DIAGNOSES: - Gastrointestinal hemorrhage, unspecified - Nicotine dependence, unspecified, uncomplicated - Hematemesis - Other parts counterman (current) drug therapy - Unspecified cirrhosis of liver 04/05/2018 17:30 [facility] [place] TYPE: Emergency COMPLAINT: - ABDOMINAL PAIN DIAGNOSES: - Constipation, unspecified - Other parts counterman (current) drug therapy - Nicotine dependence, unspecified, uncomplicated - Unspecified abdominal pain 04/04/2018 15:18 [facility] [place] TYPE: Emergency COMPLAINT: - POSS HERNIA DIAGNOSES: - Encounter for other general examination 03/31/2018 18:03 [facility] [place] TYPE: Emergency COMPLAINT: - ABD PAIN DIAGNOSES: - Nicotine dependence, unspecified, uncomplicated - Ventral hernia without obstruction or gangrene - Other jail (current) drug therapy 03/16/2018 11:09 [facility] [place] [...] Chronic obstructive pulmonary disease, unspecified - Other parts counterman (current) drug therapy - Metabolic encephalopathy - Patient's other noncompliance with medication regimen - Unspecified cirrhosis of liver 08/07/2018 12:10 [facility] [place] TYPE: Observation COMPLAINT: - INCARCERATED UMBILICAL HERNIA DIAGNOSES: - Diaphragmatic hernia without obstruction or gangrene - Other disorders of phosphorus metabolism - Chronic obstructive pulmonary disease, unspecified - Hypomagnesemia - Cachexia - Unspecified cirrhosis of liver - Other parts counterman (current) drug therapy - Personal history of nicotine dependence - Hepatic failure, unspecified without coma - Other stimulant abuse, in remission - Umbilical hernia with obstruction, without gangrene - retirement (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 antibiotics - Unspecified viral [...] hepatitis C without hepatic coma - Other parts counterman (current) drug therapy - Secondary esophageal varices without bleeding 04/06/2018 13:13 [facility] DIAGNOSES: - Ascities [id number]
[2018-10-30] MEDS ORDERED: LACTULOSE20 GM/30 M PO (09:20)
== END 2018-10-27 02:01 | disposition home or self-care (01) ==
LOC: ED 01:30
PROC: 4A0D7LZ Measurement of Urinary Volume, Via Natural or Artificial Opening (ICD-10-PCS; principal; 2018-10-27)
DX: R33.9 Retention of urine, unspecified (principal); Z87.891 Personal history of nicotine dependence; Z79.899 Other long term (current) drug therapy
CPT/HCPCS: 51798; 99283-25

== ENCOUNTER 2018-10-31 20:47 | Emergency (ER) | payer OTHER ==
[~2018-10-31] VITALS: Ht 177.8 cm; Wt 66.3 kg
--- OUTSIDE RECORDS SUMMARY | 2018-10-31 20:50 | XMS ---
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 [employer] Pilot Events No recent Security Events currently on file CRITERIA MET - Group Notification - 6 ED Visits in 6 Months - [facility] - Has Care Guidelines - [facility] - 2 Visits in 30 Days CARE PROVIDERS Francisco Salamanca Internal Medicine: Pulmonary Disease 10/29/2018-Current PHONE: Unknown SANAM ZHU Internal Medicine 08/08/2018-Current [facility] Medical[facility]G PHONE: [phone] GEORGE BHATTI Family Medicine: Sports Medicine 04/02/2018-Current PHONE: Unknown [place] has no Care Guidelines for this patient. Care History Medical/Surgical 08/08/2018 [facility] - APT WITH PCP DR ZHU ON 10/29/18. - Patient is currently established with [facility]. If patient is seen in the ED during business hours. Please contact CHWs at [facility]. Care Recommendation: This patient has had 5 or more Emergency Department visits in the last 12 months.\T\nbsp; Patient requires education on the scope and purpose of the ED as an acute care provider not a Primary Care Provider and should not be utilized for chronic conditions.\T\nbsp; These are guidelines and the provider should exercise clinical judgment when providing care. 04/05/2018 [facility] - PATIENT RECEIVED LIGHT DUTY -WORK NOTE FROM MILENA VALDEZ AT [facility] ON 04/04/18. - PATIENT HAS A FOLLOW UP WITH DR BHATTI ON 04/17/2018. E.D. VISIT COUNT (12 MO.) 14 [facility]. TOTAL 14 NOTE: Visits indicate total known visits. ED/UCC VISIT TRACKING (12 MO.) 10/31/2018 20:47 [facility] [place] TYPE: Emergency COMPLAINT: - ABDOMINAL PAIN 10/29/2018 05:35 [facility] [place] [facility] [place] TYPE: Emergency COMPLAINT: - CONFUSION 10/27/2018 01:30 [facility] [place] [facility] [place] TYPE: Emergency COMPLAINT: - URINE PROBLEMS DIAGNOSES: - Other flour mixer helper (current) drug therapy - Personal history of nicotine dependence - Retention of urine, unspecified 10/25/2018 14:26 [facility] [place] TYPE: Emergency COMPLAINT: - DISORIENTATED DIAGNOSES: - Other usp (current) drug therapy - Personal history of nicotine dependence - Hepatic failure, unspecified without coma - Disorientation, unspecified - Unspecified cirrhosis of liver - Personal history of other infectious and parasitic diseases 10/21/2018 19:25 [facility] [place] TYPE: Emergency COMPLAINT: - ABD PAIN DIAGNOSES: - Personal history of nicotine dependence - Chronic hepatic failure without coma - Unspecified abdominal pain - Other flour mixer helper (current) drug therapy 10/06/2018 18:43 [facility] [place] TYPE: Emergency COMPLAINT: - LEG SWELLING 09/30/2018 19:16 [facility] [place] TYPE: Emergency COMPLAINT: - SOB, CHEST FEELS HEAVY DIAGNOSES: - Personal history of other infectious and parasitic diseases - Personal history of nicotine dependence - Other chest pain - Unspecified cirrhosis of liver - Other usp (current) drug therapy 08/07/2018 12:09 [facility] [place] [...] PAIN DIAGNOSES: - Constipation, unspecified - Other flour mixer helper (current) drug therapy - Nicotine dependence, unspecified, uncomplicated - Unspecified abdominal pain 04/04/2018 15:18 [facility] [place] TYPE: Emergency COMPLAINT: - POSS HERNIA DIAGNOSES: - Encounter for other general examination 03/31/2018 18:03 [facility] [place] TYPE: Emergency COMPLAINT: - ABD PAIN DIAGNOSES: - Nicotine dependence, unspecified, uncomplicated - Ventral hernia without obstruction or gangrene - Other flour mixer helper (current) drug therapy 03/16/2018 11:09 [facility] [place] TYPE: Emergency COMPLAINT: - BILAT LWR EXTREMITY SWELLING DIAGNOSES: - Nicotine dependence, unspecified, uncomplicated - Localized edema - Abnormal results of liver function studies INPATIENT VISIT TRACKING (12 MO.) 10/29/2018 05:36 [facility] [place] TYPE: Observation COMPLAINT: - HEPATIC ENCEPHALOPATHY DIAGNOSES: - Unspecified cirrhosis of liver - Disorientation, unspecified - Acute and subacute hepatic failure without coma - Chronic hepatic failure without coma - manufacturing sr engineer (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 antibiotics - Personal history of nicotine dependence - Patient's other noncompliance with medication regimen - Other flour mixer helper (current) drug therapy - Personal history of other infectious and parasitic diseases 10/06/2018 21:58 [facility] [place] TYPE: Observation [...] Chronic obstructive pulmonary disease, unspecified - Other flour mixer helper (current) drug therapy - Metabolic encephalopathy - [...] Umbilical hernia with obstruction, without gangrene - manufacturing sr engineer (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 antibiotics - Unspecified viral [...] hepatitis C without hepatic coma - Other flour mixer helper (current) drug therapy - Secondary esophageal varices without bleeding 04/06/2018 13:13 [facility] [place] TYPE: General Medicine DIAGNOSES: - Ascities [email or web address]
== END 2018-10-31 23:36 | disposition home or self-care (01) ==
LOC: ED 20:47
DX: K74.60 Unspecified cirrhosis of liver (principal); Z87.891 Personal history of nicotine dependence; Z88.0 Allergy status to penicillin; Z88.8 Allergy status to other drugs, medicaments and biological substances; Z79.899 Other long term (current) drug therapy
CPT/HCPCS: 80053; 82140; 85025; 99284

== ENCOUNTER 2018-11-03 20:00 | Emergency (ER) | payer OTHER ==
[~2018-11-03] VITALS: Ht 177.8 cm; Wt 69.0 kg
--- OUTSIDE RECORDS SUMMARY | 2018-11-03 20:02 | XMS ---
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 Relationship Assoc Events No recent Security Events currently on file CRITERIA MET - Group Notification - 6 ED Visits in 6 Months - [facility] - Has Care Guidelines - [facility] - 2 Visits in 30 Days CARE PROVIDERS Francisco Salamanca Internal Medicine: Pulmonary Disease 10/29/2018-Current PHONE: Unknown SANAM ZHU Internal Medicine 08/08/2018-Current CRESENCIOSimulated Surgical SystemsYG PHONE: [phone] GEORGE BHATTI Family Medicine: Sports Medicine 04/02/2018-Current PHONE: Unknown [place] has no Care Guidelines for this patient. Care History Medical/Surgical 08/08/[address] [facility] - APT WITH PCP DR ZHU ON 11/19/2018 - Patient is currently established with [facility]. If patient is seen in the ED during business hours. Please contact CHWs at [facility]. Care Recommendation: This patient has had 5 or more Emergency Department visits in the last 12 months.\T\nbsp; Patient requires education on the scope and purpose of the ED as an acute care provider not a Primary Care Provider and should not be utilized for chronic conditions.\T\nbsp; These are guidelines and the provider should exercise clinical judgment when providing care. 04/05/2018 [facility] - PATIENT RECEIVED LIGHT DUTY -WORK NOTE FROM MILENA VALDEZ AT [facility] ON 04/04/18. - PATIENT HAS A FOLLOW UP WITH DR BHATTI ON 04/17/2018. E.D. VISIT COUNT (12 MO.) 15 [facility]. TOTAL 15 NOTE: Visits indicate total known visits. ED/UCC VISIT TRACKING (12 MO.) 11/03/2018 20:00 [facility] [place] TYPE: Emergency COMPLAINT: - HERNIA PAIN 10/31/2018 20:47 [facility] [place] TYPE: Emergency COMPLAINT: - ABDOMINAL PAIN DIAGNOSES: - Personal history of nicotine dependence - Unspecified cirrhosis of liver - Other longterm (current) drug therapy - Allergy status to other drugs, medicaments and biological substances status - Allergy status to penicillin 10/29/2018 05:35 [facility] [place] TYPE: Emergency COMPLAINT: - CONFUSION 10/27/2018 01:30 [facility] [place] TYPE: Emergency COMPLAINT: - URINE PROBLEMS DIAGNOSES: - Other longterm (current) drug therapy - Personal history of nicotine dependence - Retention of urine, unspecified 10/25/2018 14:26 [facility] [place] TYPE: Emergency COMPLAINT: - DISORIENTATED DIAGNOSES: - Other longterm (current) drug therapy - Personal history of nicotine dependence - Hepatic failure, unspecified without coma - Disorientation, unspecified - Unspecified cirrhosis of liver - Personal history of other infectious and parasitic diseases 10/21/2018 19:25 [facility] [place] TYPE: Emergency COMPLAINT: - ABD PAIN DIAGNOSES: - Personal history of nicotine dependence - Chronic hepatic failure without coma - Unspecified abdominal pain - Other longterm (current) drug therapy 10/06/2018 18:43 [facility] [place] TYPE: Emergency COMPLAINT: - LEG SWELLING 09/30/2018 19:16 [facility] [place] TYPE: Emergency COMPLAINT: - SOB, CHEST FEELS HEAVY DIAGNOSES: - Personal history of other infectious and parasitic diseases - Personal history of nicotine dependence - Other chest pain - Unspecified cirrhosis of liver - Other longterm (current) drug therapy 08/07/2018 12:09 [facility] [place] TYPE: Emergency COMPLAINT: - ABD PAIN 04/19/2018 07:40 [facility] [place] TYPE: Emergency COMPLAINT: - POSS STROKE 04/06/2018 06:25 [facility] [place] TYPE: Emergency COMPLAINT: - VOMITING BLOOD DIAGNOSES: - Gastrointestinal hemorrhage, unspecified - Nicotine dependence, unspecified, uncomplicated - Hematemesis - Other terminal operations supervisor (current) drug therapy - Unspecified cirrhosis of liver 04/05/2018 17:[address] [facility] [place] TYPE: Emergency COMPLAINT: - ABDOMINAL PAIN DIAGNOSES: - Constipation, unspecified - Other terminal operations supervisor (current) drug therapy - Nicotine dependence, unspecified, uncomplicated - Unspecified abdominal pain 04/04/2018 15:18 [facility] [place] TYPE: Emergency COMPLAINT: - POSS HERNIA DIAGNOSES: - Encounter for other general examination 03/31/2018 18:03 [facility] [place] TYPE: Emergency COMPLAINT: - ABD PAIN DIAGNOSES: - Nicotine dependence, unspecified, uncomplicated - Ventral hernia without obstruction or gangrene - Other terminal operations supervisor (current) drug therapy 03/16/2018 11:09 [facility] [place] TYPE: Emergency COMPLAINT: - BILAT LWR [...] - Chronic hepatic failure without coma - 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 marine oil terminal (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 antibiotics - Personal history of nicotine dependence - Patient's other noncompliance with medication regimen - Other longterm (current) drug therapy - Personal history of [...] Chronic obstructive pulmonary disease, unspecified - Other longterm (current) drug therapy - Metabolic encephalopathy - Patient's other noncompliance with medication regimen - Unspecified cirrhosis of liver 08/07/2018 12:10 [facility] [place] TYPE: Observation COMPLAINT: - INCARCERATED UMBILICAL HERNIA DIAGNOSES: - Diaphragmatic hernia without obstruction or gangrene - Other disorders of phosphorus metabolism - Chronic obstructive pulmonary disease, unspecified - Hypomagnesemia - Cachexia - Unspecified cirrhosis of liver - Other longterm (current) drug therapy - Personal history of nicotine dependence - Hepatic failure, unspecified without coma - Other stimulant abuse, in remission - Umbilical hernia with obstruction, without gangrene - 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 marine oil terminal (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 antibiotics - Unspecified viral [...] hepatitis C without hepatic coma - Other longterm (current) drug therapy - Secondary esophageal varices without bleeding [facility]/06/2018 [facility] TYPE: General Medicine DIAGNOSES: - Ascities [email or web address]
== END 2018-11-03 23:39 | disposition home or self-care (01) ==
LOC: ED 20:00
DX: K43.9 Ventral hernia without obstruction or gangrene (principal); K74.60 Unspecified cirrhosis of liver; Z87.891 Personal history of nicotine dependence; Z88.0 Allergy status to penicillin; Z79.899 Other long term (current) drug therapy
CPT/HCPCS: 80053; 81001; 82140; 85025; 99284

== ENCOUNTER 2018-11-05 16:55 | Emergency (ER) | payer OTHER ==
[~2018-11-05] VITALS: Ht 177.8 cm; Wt 69.0 kg
--- OUTSIDE RECORDS SUMMARY | 2018-11-05 16:58 | XMS ---
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 Medical Grade Shoemaker Events No recent Security Events currently on file CRITERIA MET - Group Notification - 6 ED Visits in 6 Months - [facility] - Has Care Guidelines - [facility] - 2 Visits in 30 Days CARE PROVIDERS Francisco Salamanca Internal Medicine: Pulmonary Disease 10/29/2018-Current PHONE: Unknown SANAM ZHU Internal Medicine 08/08/2018-Current CRESENCIOKairosYG PHONE: [phone] GEORGE BHATTI Family Medicine: Sports Medicine 04/02/2018-Current PHONE: Unknown [place] has no Care Guidelines for this patient. Care History Medical/Surgical 08/08/2018 [facility] - APT WITH PCP DR ZHU ON 11/19/2018 - Patient is currently established with [facility]. If patient is seen in the ED during business hours. Please contact CHWs at [facility]. Care Recommendation: This patient has had 5 or more Emergency Department visits in the last 12 months.\T\nbsp; Patient requires education on the scope and purpose of the ED as an acute care provider not a Primary Care Provider and should not be utilized for chronic conditions.\T\nbsp; These are guidelines and the provider should exercise clinical judgment when providing care. 04/05/2018 [facility] - PATIENT RECEIVED LIGHT DUTY -WORK NOTE FROM MILENA VALDEZ AT [facility] WALK IN [facility]INIC ON 04/04/18. - PATIENT HAS A FOLLOW UP WITH DR BHATTI ON 04/17/2018. E.D. VISIT COUNT (12 MO.) 16 [facility]. TOTAL 16 NOTE: Visits indicate total known visits. ED/UCC VISIT TRACKING (12 MO.) 11/05/2018 16:55 [place] TYPE: Emergency COMPLAINT: - ABD PAIN 11/03/2018 20:00 [place] TYPE: Emergency COMPLAINT: - HERNIA PAIN 10/31/2018 20:47 [place] TYPE: Emergency COMPLAINT: - ABDOMINAL PAIN DIAGNOSES: - Personal history of nicotine dependence - Unspecified cirrhosis of liver - Other oysterman (current) drug therapy - Allergy status to other drugs, medicaments and biological substances status - Allergy status to penicillin 10/29/2018 05:35 [place] TYPE: Emergency COMPLAINT: - CONFUSION 10/27/2018 01:30 [place] TYPE: Emergency COMPLAINT: - URINE PROBLEMS DIAGNOSES: - Other mcc (current) drug therapy - Personal history of nicotine dependence - Retention of urine, unspecified 10/25/2018 14:26 [place] TYPE: Emergency COMPLAINT: - DISORIENTATED DIAGNOSES: - Other mcc (current) drug therapy - Personal history of nicotine dependence - Hepatic failure, unspecified without coma - Disorientation, unspecified - Unspecified cirrhosis of liver - Personal history of other infectious and parasitic diseases 10/21/2018 19:25 [place] TYPE: Emergency COMPLAINT: - ABD PAIN DIAGNOSES: - Personal history of nicotine dependence - Chronic hepatic failure without coma - Unspecified abdominal pain - Other mcc (current) drug therapy 10/06/2018 18:43 [place] TYPE: Emergency COMPLAINT: - LEG SWELLING 09/30/2018 19:16 [place] TYPE: Emergency COMPLAINT: - SOB, CHEST FEELS HEAVY DIAGNOSES: - Personal history of other infectious and parasitic diseases - Personal history of nicotine dependence - Other chest pain - Unspecified cirrhosis of liver - Other oysterman (current) drug therapy 08/07/2018 12:09 [place] TYPE: Emergency COMPLAINT: - ABD PAIN 04/19/2018 07:40 [place] TYPE: Emergency COMPLAINT: - POSS STROKE 04/06/2018 06:25 [place] TYPE: Emergency COMPLAINT: - VOMITING BLOOD DIAGNOSES: - Gastrointestinal hemorrhage, unspecified - Nicotine dependence, unspecified, uncomplicated - Hematemesis - Other oysterman (current) drug therapy - Unspecified cirrhosis of liver 04/05/2018 17:30 [place] TYPE: Emergency COMPLAINT: - ABDOMINAL PAIN DIAGNOSES: - Constipation, unspecified - Other oysterman (current) drug therapy - Nicotine dependence, unspecified, uncomplicated - Unspecified abdominal pain 04/04/2018 15:18 [place] TYPE: Emergency COMPLAINT: - POSS HERNIA DIAGNOSES: - Encounter for other general examination [facility]/2018 [facility] [place] [facility] COMPLAINT: - ABD PAIN DIAGNOSES: - Nicotine dependence, unspecified, uncomplicated - Ventral hernia without obstruction or gangrene - Other mcc (current) drug therapy 03/16/2018 11:09 LAURO [place] [...] - Chronic hepatic failure without coma - long-term (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 antibiotics - Personal history of nicotine dependence - Patient's other noncompliance with medication regimen - Other mcc (current) drug therapy - Personal history of [...] Chronic obstructive pulmonary disease, unspecified - Other mcc (current) drug therapy - Metabolic encephalopathy - Patient's other noncompliance with medication regimen - Unspecified cirrhosis of liver 08/07/2018 12:10 [place] TYPE: Observation COMPLAINT: - INCARCERATED UMBILICAL HERNIA DIAGNOSES: - Diaphragmatic hernia without obstruction or gangrene - Other disorders of phosphorus metabolism - Chronic obstructive pulmonary disease, unspecified - Hypomagnesemia - Cachexia - Unspecified cirrhosis of liver - Other mcc (current) drug therapy - Personal history of nicotine dependence - Hepatic failure, unspecified without coma - Other stimulant abuse, in remission - Umbilical hernia with obstruction, without gangrene - long-term (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 antibiotics - Unspecified viral [...] hepatitis C without hepatic coma - Other oysterman (current) drug therapy - Secondary esophageal varices without bleeding 04/06/2018 13:13 [facility] Mendoza [place] TYPE: General Medicine DIAGNOSES: - Ascities [email or web address]
== END 2018-11-05 23:33 | disposition home or self-care (01) ==
LOC: ED 16:55
DX: R10.30 Lower abdominal pain, unspecified (principal); G89.29 Other chronic pain; Z87.891 Personal history of nicotine dependence; Z88.0 Allergy status to penicillin; Z88.1 Allergy status to other antibiotic agents; Z79.899 Other long term (current) drug therapy
CPT/HCPCS: 74177; 80053; 81001; 82140; 83690; 85025; 99284-25; Q9967

== ENCOUNTER 2018-11-12 00:20 | Emergency (ER) | payer OTHER ==
[~2018-11-12] VITALS: Ht 177.8 cm; Wt 69.0 kg
--- OUTSIDE RECORDS SUMMARY | 2018-11-12 00:22 | XMS ---
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 Care History Medical/Surgical 11/06/2018 [facility] - PATIENT HAS FOLLOWED UP WITH PCP OFFICE-[facility]. - CHW MADE A REFERRAL TO [facility]- CASE MANAGEMENT DEPT. PATIENT IS AN [facility] PATIENT AND WOULD BENEFIT FROM CLOSE FOLLOW UP. 08/08/2018 [facility] - APT WITH PCP DR ZHU ON 11/19/2018 - Patient is currently established with [facility]. If patient is seen in the ED during business hours. Please contact CHWs at [facility]. Care Recommendation: This patient has had 5 or more Emergency Department visits in the last 12 months.\T\nbsp; Patient requires education on the scope and purpose of the ED as an acute care provider not a Primary Care Provider and should not be utilized for chronic conditions.\T\nbsp; These are guidelines and the provider should exercise clinical judgment when providing care. 04/05/2018 [facility] - PATIENT RECEIVED LIGHT DUTY -WORK NOTE FROM MILENA VALDEZ AT [facility] WALK IN CLINIC ON 04/04/18. - PATIENT HAS A FOLLOW UP WITH DR BHATTI ON 04/17/2018. E.D. VISIT COUNT (12 MO.) [address] Rachel Donaldson 17 [facility]. TOTAL 18 NOTE: Visits indicate total known visits. ED/UCC VISIT TRACKING (12 MO.) 11/12/2018 00:21 [place] TYPE: Emergency COMPLAINT: - WEAKNESS/DIZZINESS 11/07/2018 [facility] DIAGNOSES: - Internal bleeding, mass on liver, said to come in - Medical Problem (Major) - Chronic viral hepatitis C - GI Bleeding - Gastrointestinal hemorrhage, unspecified - Hematemesis 11/05/2018 16:55 [place] TYPE: Emergency COMPLAINT: - ABD PAIN DIAGNOSES: - Other exterminator (current) drug therapy - Allergy status to other antibiotic agents status - Allergy status to penicillin - Other chronic pain - Lower abdominal pain, unspecified - Personal history of nicotine dependence 11/03/2018 20:00 [place] TYPE: Emergency COMPLAINT: - HERNIA PAIN DIAGNOSES: - Ventral hernia without obstruction or gangrene - Unspecified cirrhosis of liver - Other fpc (current) drug therapy - Allergy status to penicillin - Personal history of nicotine dependence - Unspecified abdominal pain 10/31/2018 20:47 [place] TYPE: Emergency COMPLAINT: - ABDOMINAL PAIN DIAGNOSES: - Personal history of nicotine dependence - Unspecified cirrhosis of liver - Other fpc (current) drug therapy - Allergy status to other drugs, medicaments and biological substances status - Allergy status to penicillin 10/29/2018 05:35 [place] TYPE: Emergency COMPLAINT: - CONFUSION 10/27/2018 01:30 [place] TYPE: Emergency COMPLAINT: - URINE PROBLEMS DIAGNOSES: - Other fpc (current) drug therapy - Personal history of nicotine dependence - Retention of urine, unspecified 10/25/2018 14:26 [place] TYPE: Emergency COMPLAINT: - DISORIENTATED DIAGNOSES: - Other fpc (current) drug therapy - Personal history of nicotine dependence - Hepatic failure, unspecified without coma - Disorientation, unspecified - Unspecified cirrhosis of liver - Personal history of other infectious and parasitic diseases 10/21/2018 19:25 [place] TYPE: Emergency COMPLAINT: - ABD PAIN DIAGNOSES: - Personal history of nicotine dependence - Chronic hepatic failure without coma - Unspecified abdominal pain - Other exterminator (current) drug therapy 10/06/2018 18:43 [place] TYPE: Emergency COMPLAINT: - LEG SWELLING 09/30/2018 19:16 [place] TYPE: Emergency COMPLAINT: - SOB, CHEST FEELS HEAVY DIAGNOSES: - Personal history of other infectious and parasitic diseases - Personal history of nicotine dependence - Other chest pain - Unspecified cirrhosis of liver - Other exterminator (current) drug therapy 08/07/2018 12:09 [place] TYPE: Emergency COMPLAINT: - ABD PAIN 04/19/2018 07:40 [place] TYPE: Emergency COMPLAINT: - POSS STROKE 04/06/2018 06:25 [facility] TYPE: Emergency COMPLAINT: - VOMITING BLOOD DIAGNOSES: - Gastrointestinal hemorrhage, unspecified - Nicotine dependence, unspecified, uncomplicated - Hematemesis - Other fpc (current) drug therapy - Unspecified cirrhosis of liver 04/05/2018 17:30 [place] TYPE: Emergency COMPLAINT: - ABDOMINAL PAIN DIAGNOSES: - Constipation, unspecified - Other fpc (current) drug therapy - Nicotine dependence, unspecified, uncomplicated - Unspecified abdominal pain 04/04/2018 15:18 [place] TYPE: Emergency COMPLAINT: - POSS HERNIA DIAGNOSES: - Encounter for other general examination 03/31/2018 18:03 [place] TYPE: Emergency COMPLAINT: - ABD PAIN DIAGNOSES: - Nicotine dependence, unspecified, uncomplicated - Ventral hernia without obstruction or gangrene - Other exterminator (current) drug therapy 03/16/2018 11:09 [place] TYPE: Emergency COMPLAINT: - BILAT LWR EXTREMITY SWELLING DIAGNOSES: - Nicotine dependence, unspecified, uncomplicated - Localized edema - Abnormal results of liver function studies INPATIENT VISIT TRACKING (12 MO.) 11/07/2018 22:34 [facility] Rachel [facility] TYPE: Surgical Services DIAGNOSES: - Secondary esophageal varices with bleeding - Portal hypertension - Hematemesis - Other diseases of stomach and duodenum - Gastrointestinal hemorrhage, unspecified - Chronic viral hepatitis C 10/29/2018 05:36 LAURO [place] TYPE: Observation COMPLAINT: - HEPATIC ENCEPHALOPATHY DIAGNOSES: - Unspecified cirrhosis of liver - Disorientation, unspecified - Acute and subacute hepatic failure without coma - Chronic hepatic failure without coma - termite technician (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 antibiotics - Personal history of nicotine dependence - Patient's other noncompliance with medication regimen - Other fpc (current) drug therapy - Personal history of [...] Chronic obstructive pulmonary disease, unspecified - Other exterminator (current) drug therapy - Metabolic encephalopathy - Patient's other noncompliance with medication regimen - Unspecified cirrhosis of liver 08/07/2018 12:10 [place] TYPE: Observation COMPLAINT: - INCARCERATED UMBILICAL HERNIA DIAGNOSES: - Diaphragmatic hernia without obstruction or gangrene - Other disorders of phosphorus metabolism - Chronic obstructive pulmonary disease, unspecified - Hypomagnesemia - Cachexia - Unspecified cirrhosis of liver - Other exterminator (current) drug therapy - Personal history of nicotine dependence - Hepatic failure, unspecified without coma - Other stimulant abuse, in remission - Umbilical hernia with obstruction, without gangrene - USP (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 antibiotics - Unspecified viral [...] hepatitis C without hepatic coma - Other exterminator (current) drug therapy - Secondary esophageal varices without bleeding [facility]/06/2018 [facility] TYPE: General Medicine DIAGNOSES: - Ascities [email or web address]
--- NOTE | 2018-11-12 13:10 | EKG ---
[facility] [address] [facility] [address] [address] [place] [address] Signed Normal sinus rhythm Normal ECG When compared with ECG of 30-SEP-2018 19:20, No significant change was found Confirmed by ASNAM ZHU MD ([id number]) on 11/12/2018 1:08:29 PM Electronically Signed By: SANAM ZHU MD 11/12/18 1310 PATIENT NAME: LANCE ADDISON EVANGELINA Electrocardiogram DATE OF : 64 PHYSICIAN: SANAM ZHU MD REPORT #: [id number] REPORT IS CONFIDENTIAL AND NOT TO BE RELEASED WITHOUT AUTHORIZATION
== END 2018-11-12 01:48 | disposition home or self-care (01) ==
LOC: ED 00:20
DX: K74.60 Unspecified cirrhosis of liver (principal); Z87.891 Personal history of nicotine dependence; Z88.0 Allergy status to penicillin; Z88.1 Allergy status to other antibiotic agents; Z79.899 Other long term (current) drug therapy
CPT/HCPCS: 80053; 82140; 83735; 84484; 85025; 93005; 93010; 99284-25

== ENCOUNTER 2018-11-13 20:48 | Emergency (ER) | payer OTHER ==
[~2018-11-13] VITALS: Ht 177.8 cm; Wt 72.6 kg
--- OUTSIDE RECORDS SUMMARY | 2018-11-13 20:51 | XMS ---
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 Care History Medical/Surgical 11/06/2018 [facility] - PATIENT HAS AN APT WITH DR ZHU ON 11/15/18. - PATIENT HAS FOLLOWED UP WITH PCP OFFICE-[facility]. - CHW MADE A REFERRAL TO [facility]- CASE MANAGEMENT DEPT. PATIENT IS AN [facility] PATIENT AND WOULD BENEFIT FROM CLOSE FOLLOW UP. 08/08/2018 [facility] - APT WITH PCP DR ZHU ON 11/19/2018 - Patient is currently established with [facility]. If patient is seen in the ED during business hours. Please contact CHWs at [facility]. Care Recommendation: This patient [...] judgment when providing care. 04/05/2018 [facility] - PATIENT RECEIVED LIGHT DUTY -WORK NOTE FROM MILENA VALDEZ AT [facility] WALK IN CLINIC ON 04/04/18. - PATIENT HAS A FOLLOW UP WITH DR BHATTI ON 04/17/2018. E.D. VISIT COUNT (12 MO.) [address] Rachel Donaldson 18 [facility]. TOTAL 19 NOTE: Visits indicate total known visits. ED/UCC VISIT TRACKING (12 MO.) 11/13/2018 20:48 LAURO [place] TYPE: Emergency COMPLAINT: - HERNIA PAIN/VOMITING 11/12/2018 00:21 [place] TYPE: Emergency COMPLAINT: - WEAKNESS/DIZZINESS 11/07/2018 22:[facility] DIAGNOSES: - Internal bleeding, mass on liver, dr marquis to come in - Medical Problem (Major) - Chronic viral hepatitis C - GI Bleeding - Gastrointestinal hemorrhage, unspecified - Hematemesis 11/05/2018 16:55 [place] TYPE: Emergency COMPLAINT: - ABD PAIN DIAGNOSES: - Other jail (current) drug therapy - Allergy status to other antibiotic agents status - Allergy status to penicillin - Other chronic pain - Lower abdominal pain, unspecified - Personal history of nicotine dependence 11/03/2018 20:00 [place] TYPE: Emergency COMPLAINT: - HERNIA PAIN DIAGNOSES: - Ventral hernia without obstruction or gangrene - Unspecified cirrhosis of liver - Other wood crafter (current) drug therapy - Allergy status to penicillin - Personal history of nicotine dependence - Unspecified abdominal pain 10/31/2018 20:47 [place] TYPE: Emergency COMPLAINT: - ABDOMINAL PAIN DIAGNOSES: - Personal history of nicotine dependence - Unspecified cirrhosis of liver - Other jail (current) drug therapy - Allergy status to other drugs, medicaments and biological substances status - Allergy status to penicillin 10/29/2018 05:35 [place] TYPE: Emergency COMPLAINT: - CONFUSION 10/27/2018 01:30 [place] TYPE: Emergency COMPLAINT: - URINE PROBLEMS DIAGNOSES: - Other jail (current) drug therapy - Personal history of nicotine dependence - Retention of urine, unspecified 10/25/2018 14:26 [place] TYPE: Emergency COMPLAINT: - DISORIENTATED DIAGNOSES: - Other wood crafter (current) drug therapy - Personal history of nicotine dependence - Hepatic failure, unspecified without coma - Disorientation, unspecified - Unspecified cirrhosis of liver - Personal history of other infectious and parasitic diseases 10/21/2018 19:25 [place] TYPE: Emergency COMPLAINT: - ABD PAIN DIAGNOSES: - Personal history of nicotine dependence - Chronic hepatic failure without coma - Unspecified abdominal pain - Other jail (current) drug therapy 10/06/2018 18:43 [place] TYPE: Emergency COMPLAINT: - LEG SWELLING 09/30/2018 19:16 [place] TYPE: Emergency COMPLAINT: - SOB, CHEST FEELS HEAVY DIAGNOSES: - Personal history of other infectious and parasitic diseases - Personal history of nicotine dependence - Other chest pain - Unspecified cirrhosis of liver - Other jail (current) drug therapy 08/07/2018 12:09 [place] TYPE: Emergency COMPLAINT: - ABD PAIN 04/19/2018 07:40 [place] TYPE: Emergency COMPLAINT: - POSS STROKE 04/06/2018 06:[address] [place] [place] TYPE: Emergency COMPLAINT: - VOMITING BLOOD DIAGNOSES: - Gastrointestinal hemorrhage, unspecified - Nicotine dependence, unspecified, uncomplicated - Hematemesis - Other jail (current) drug therapy - Unspecified cirrhosis of liver 04/05/2018 17:[address] [facility] [place] TYPE: Emergency COMPLAINT: - ABDOMINAL PAIN DIAGNOSES: - Constipation, unspecified - Other wood crafter (current) drug therapy - Nicotine dependence, unspecified, uncomplicated - Unspecified abdominal pain 04/04/2018 15:[address] [facility] [place] [place] TYPE: Emergency COMPLAINT: - POSS HERNIA DIAGNOSES: - Encounter for other general examination 03/31/2018 18:03 [facility] [place] [facility] [place] TYPE: Emergency COMPLAINT: - ABD PAIN DIAGNOSES: - Nicotine dependence, unspecified, uncomplicated - Ventral hernia without obstruction or gangrene - Other wood crafter (current) drug therapy 03/16/2018 11:09 [place] TYPE: Emergency COMPLAINT: - BILAT LWR EXTREMITY SWELLING DIAGNOSES: - Nicotine dependence, unspecified, uncomplicated - Localized edema - Abnormal results of liver function studies INPATIENT VISIT TRACKING (12 MO.) 11/07/2018 22:34 [facility] TYPE: Surgical Services DIAGNOSES: - Secondary esophageal varices with bleeding - Portal hypertension - Hematemesis - Other diseases of stomach and duodenum - Gastrointestinal hemorrhage, unspecified - Chronic viral hepatitis C 10/29/2018 05:36 [place] TYPE: Observation COMPLAINT: - HEPATIC ENCEPHALOPATHY DIAGNOSES: - Unspecified cirrhosis of liver - Disorientation, unspecified - Acute and subacute hepatic failure without coma - Chronic hepatic failure without coma - midwife and birth center owner (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 antibiotics - Personal history of nicotine dependence - Patient's other noncompliance with medication regimen - Other wood crafter (current) drug therapy - Personal history of [...] Chronic obstructive pulmonary disease, unspecified - Other jail (current) drug therapy - Metabolic encephalopathy - Patient's other noncompliance with medication regimen - Unspecified cirrhosis of liver 08/07/2018 12:10 [place] TYPE: Observation COMPLAINT: - INCARCERATED UMBILICAL HERNIA DIAGNOSES: - Diaphragmatic hernia without obstruction or gangrene - Other disorders of phosphorus metabolism - Chronic obstructive pulmonary disease, unspecified - Hypomagnesemia - Cachexia - Unspecified cirrhosis of liver - Other wood crafter (current) drug therapy - Personal history of nicotine dependence - Hepatic failure, unspecified without coma - Other stimulant abuse, in remission - Umbilical hernia with obstruction, without gangrene - [facility] (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 antibiotics - Unspecified viral hepatitis C without hepatic coma - Body mass index (BMI) 24.0-24.9, adult - Nausea with vomiting, unspecified - Unspecified abdominal pain - Other ascites 04/19/2018 07:41 LAURO [place] TYPE: Observation COMPLAINT: - HEPATIC [...] hepatitis C without hepatic coma - Other wood crafter (current) drug therapy - Secondary esophageal varices without bleeding 04/06/2018 13:13 [facility] [place] TYPE: General Medicine DIAGNOSES: - Ascities [id number]
[2018-11-14] MEDS ORDERED: ULTRAM50 MG PO (00:33)
== END 2018-11-13 22:39 | disposition home or self-care (01) ==
LOC: ED 20:48
DX: K46.9 Unspecified abdominal hernia without obstruction or gangrene (principal); Z87.891 Personal history of nicotine dependence; Z88.0 Allergy status to penicillin; Z88.1 Allergy status to other antibiotic agents; Z79.899 Other long term (current) drug therapy
CPT/HCPCS: 99283

== ENCOUNTER 2018-11-14 00:18 | Emergency (ER) | payer OTHER ==
[~2018-11-14] VITALS: Ht 177.8 cm; Wt 72.6 kg
--- OUTSIDE RECORDS SUMMARY | 2018-11-14 00:20 | XMS ---
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 Care History Medical/Surgical 11/06/2018 [facility] - PATIENT HAS AN APT WITH DR ZHU ON 11/15/18. - PATIENT HAS FOLLOWED UP WITH PCP OFFICE-[facility]. - CHW MADE A REFERRAL TO [facility]- CASE MANAGEMENT DEPT. PATIENT IS AN [place] PATIENT AND WOULD BENEFIT FROM CLOSE FOLLOW UP. 08/08/2018 [facility] - APT WITH PCP DR ZHU ON 11/19/2018 - Patient is currently established with [facility]. If patient is seen in the ED during business hours. Please contact CHWs at [facility]. Care Recommendation: This patient has had 5 or more Emergency Department visits in the last 12 months.\T\nbsp; Patient requires education on the scope and purpose of the ED as an acute care provider not a Primary Care Provider and should not be utilized for chronic conditions.\T\nbsp; These are guidelines and the provider should exercise clinical judgment when providing care. 04/05/2018 [facility] - PATIENT RECEIVED LIGHT DUTY -WORK NOTE FROM MILENA VALDEZ AT [facility] ON 04/04/18. - PATIENT HAS A FOLLOW UP WITH DR BHATTI ON 04/17/2018. E.D. VISIT COUNT (12 MO.) [address] Rachel Donaldson 19 [facility]. TOTAL 20 NOTE: Visits indicate total known visits. ED/UCC VISIT TRACKING (12 MO.) 11/14/2018 00:19 [facility] [place] [place] TYPE: Emergency COMPLAINT: - NAUSEA 11/13/2018 20:48 [facility] [place] TYPE: Emergency COMPLAINT: - HERNIA PAIN/VOMITING 11/12/2018 00:21 [facility] [place] TYPE: Emergency COMPLAINT: - WEAKNESS/DIZZINESS 11/07/2018 22:34 [facility] TYPE: Emergency DIAGNOSES: - Internal bleeding, mass on liver, said to come in - Medical Problem (Major) - Chronic viral hepatitis C - GI Bleeding - Gastrointestinal hemorrhage, unspecified - Hematemesis 11/05/2018 16:55 [facility] [place] TYPE: Emergency COMPLAINT: - ABD PAIN DIAGNOSES: - Other fdc (current) drug therapy - Allergy status to other antibiotic agents status - Allergy status to penicillin - Other chronic pain - Lower abdominal pain, unspecified - Personal history of nicotine dependence 11/03/2018 20:00 [facility] [place] TYPE: Emergency COMPLAINT: - HERNIA PAIN DIAGNOSES: - Ventral hernia without obstruction or gangrene - Unspecified cirrhosis of liver - Other fdc (current) drug therapy - Allergy status to penicillin - Personal history of nicotine dependence - Unspecified abdominal pain 10/31/2018 20:47 [facility] [place] TYPE: Emergency COMPLAINT: - ABDOMINAL PAIN DIAGNOSES: - Personal history of nicotine dependence - Unspecified cirrhosis of liver - Other fdc (current) drug therapy - Allergy status to other drugs, medicaments and biological substances status - Allergy status to penicillin 10/29/2018 05:35 [facility] [place] TYPE: Emergency COMPLAINT: - CONFUSION 10/27/2018 01:30 [facility] [place] TYPE: Emergency COMPLAINT: - URINE PROBLEMS DIAGNOSES: - Other exterminator helper termite (current) drug therapy - Personal history of nicotine dependence - Retention of urine, unspecified 10/25/2018 14:26 [facility] [place] TYPE: Emergency COMPLAINT: - DISORIENTATED DIAGNOSES: - Other exterminator helper termite (current) drug therapy - Personal history of nicotine dependence - Hepatic failure, unspecified without coma - Disorientation, unspecified - Unspecified cirrhosis of liver - Personal history of other infectious and parasitic diseases 10/21/2018 19:25 [facility] [place] TYPE: Emergency COMPLAINT: - ABD PAIN DIAGNOSES: - Personal history of nicotine dependence - Chronic hepatic failure without coma - Unspecified abdominal pain - Other exterminator helper termite (current) drug therapy 10/06/2018 18:43 [facility] [place] TYPE: Emergency COMPLAINT: - LEG SWELLING 09/30/2018 19:16 [facility] [place] [place] TYPE: Emergency COMPLAINT: - SOB, CHEST FEELS HEAVY DIAGNOSES: - Personal history of other infectious and parasitic diseases - Personal history of nicotine dependence - Other chest pain - Unspecified cirrhosis of liver - Other fdc (current) drug therapy 08/07/2018 12:09 [facility] [place] TYPE: Emergency COMPLAINT: - ABD PAIN 04/19/2018 07:40 [facility] [place] TYPE: Emergency COMPLAINT: - POSS STROKE 04/06/2018 06:25 [facility] [address] [place] TYPE: Emergency COMPLAINT: - VOMITING BLOOD DIAGNOSES: - Gastrointestinal hemorrhage, unspecified - Nicotine dependence, unspecified, uncomplicated - Hematemesis - Other fdc (current) drug therapy - Unspecified cirrhosis of liver 04/05/2018 17:30 [facility] [place] TYPE: Emergency COMPLAINT: - ABDOMINAL PAIN DIAGNOSES: - Constipation, unspecified - Other exterminator helper termite (current) drug therapy - Nicotine dependence, unspecified, uncomplicated - Unspecified abdominal pain 04/04/2018 15:18 [facility] [place] TYPE: Emergency COMPLAINT: - POSS HERNIA DIAGNOSES: - Encounter for other general examination 03/31/2018 18:03 [facility] [place] TYPE: Emergency COMPLAINT: - ABD PAIN DIAGNOSES: - Nicotine dependence, unspecified, uncomplicated - Ventral hernia without obstruction or gangrene - Other exterminator helper termite (current) drug therapy 03/16/2018 11:09 [facility] TYPE: Emergency COMPLAINT: - BILAT LWR EXTREMITY SWELLING DIAGNOSES: - Nicotine dependence, unspecified, uncomplicated - Localized edema - Abnormal results of liver function studies INPATIENT VISIT TRACKING (12 MO.) 11/07/2018 22:34 [facility] TYPE: Surgical Services DIAGNOSES: - [...] - Chronic hepatic failure without coma - exterminator helper termite (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 antibiotics - Personal history of nicotine dependence - Patient's other noncompliance with medication regimen - Other exterminator helper termite (current) drug therapy - Personal history of [...] Chronic obstructive pulmonary disease, unspecified - Other fdc (current) drug therapy - Metabolic encephalopathy - Patient's other noncompliance with medication regimen - Unspecified cirrhosis of liver 08/07/2018 12:10 [facility] [place] [place] TYPE: Observation COMPLAINT: - INCARCERATED UMBILICAL HERNIA DIAGNOSES: - Diaphragmatic hernia without obstruction or gangrene - Other disorders of phosphorus metabolism - Chronic obstructive pulmonary disease, unspecified - Hypomagnesemia - Cachexia - Unspecified cirrhosis of liver - Other exterminator helper termite (current) drug therapy - Personal history of nicotine dependence - Hepatic failure, unspecified without coma - Other stimulant abuse, in remission - Umbilical hernia with obstruction, without gangrene - skilled nursing (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 antibiotics - Unspecified viral [...] C without hepatic coma - Other exterminator helper termite (current) drug therapy - Secondary esophageal varices without bleeding 04/06/2018 13:13 [facility] TYPE: General Medicine DIAGNOSES: - Ascities [id number]
[2018-11-14] MEDS ORDERED: ULTRAM50 MG PO (00:33)
== END 2018-11-14 01:38 | disposition home or self-care (01) ==
LOC: ED 00:18
DX: R11.2 Nausea with vomiting, unspecified (principal); Z87.891 Personal history of nicotine dependence; Z88.0 Allergy status to penicillin; Z88.8 Allergy status to other drugs, medicaments and biological substances; Z79.899 Other long term (current) drug therapy
CPT/HCPCS: 96372; 99284; J2550

== ENCOUNTER 2018-11-15 20:18 | Emergency (ER) | payer OTHER ==
[~2018-11-15] VITALS: Ht 177.8 cm; Wt 72.7 kg
[~2018-11-15 20:18] MED LIST changes: +ULTRAM50 MG PO
--- OUTSIDE RECORDS SUMMARY | 2018-11-15 20:22 | XMS ---
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 Care History Medical/Surgical 11/14/2018 [facility] - [facility]YNH [facility] CASE MANAGEMENT STATED PATIENT HAS BEEN DISCHARGED FROM THEIR SERVICES DUE TO NO CONTACT. PATIENT DOES NOT RETURN CALLS. 11/06/2018 [facility] - PATIENT HAS AN APT WITH DR ZHU ON 11/15/18. - PATIENT HAS FOLLOWED UP WITH PCP OFFICE-[facility]. - CHW MADE A REFERRAL TO [facility]- CASE MANAGEMENT DEPT. PATIENT IS AN [place] PATIENT AND WOULD BENEFIT FROM CLOSE FOLLOW UP. 08/08/2018 [facility] - APT WITH PCP DR ZHU ON 11/19/2018 - Patient is currently established with [facility]. If patient is seen in the ED during business hours. Please contact CHWs at [facility]. Care Recommendation: This patient has had 5 or more Emergency Department visits in the last 12 months.\T\nbsp; Patient requires education on the scope and purpose of the ED as an acute care provider not a Primary Care Provider and should not be utilized for chronic conditions.\T\nbsp; These are guidelines and the provider should exercise clinical judgment when providing care. E.D. VISIT COUNT (12 MO.) [address] Rachel Donaldson 20 [facility]. TOTAL 21 NOTE: Visits indicate total known visits. ED/UCC VISIT TRACKING (12 MO.) 11/15/2018 20:19 [facility] [place] TYPE: Emergency COMPLAINT: - VOMITING 11/14/2018 00:19 [facility] [place] TYPE: Emergency COMPLAINT: - NAUSEA 11/13/2018 20:48 [facility] [place] TYPE: Emergency COMPLAINT: - HERNIA PAIN/VOMITING 11/12/2018 00:21 [facility] [place] TYPE: Emergency COMPLAINT: - WEAKNESS/DIZZINESS DIAGNOSES: - Allergy status to penicillin - Unspecified cirrhosis of liver - Other terminal makeup operator (current) drug therapy - Weakness - Allergy status to other antibiotic agents status - Personal history of nicotine dependence [facility]2018 [facility] DIAGNOSES: - Internal bleeding, mass on liver, said to come in - Medical Problem (Major) - Chronic viral hepatitis C - GI Bleeding - Gastrointestinal hemorrhage, unspecified - Hematemesis 11/05/2018 16:55 [facility] TYPE: Emergency COMPLAINT: - ABD PAIN DIAGNOSES: - Other terminal makeup operator (current) drug therapy - Allergy status to other antibiotic agents status - Allergy status to penicillin - Other chronic pain - Lower abdominal pain, unspecified - Personal history of nicotine dependence 11/03/2018 20:00 [facility] [place] TYPE: Emergency COMPLAINT: - HERNIA PAIN DIAGNOSES: - Ventral hernia without obstruction or gangrene - Unspecified cirrhosis of liver - Other terminal makeup operator (current) drug therapy - Allergy status to penicillin - Personal history of nicotine dependence - Unspecified abdominal pain 10/31/2018 20:47 [facility] [place] TYPE: Emergency COMPLAINT: - ABDOMINAL PAIN DIAGNOSES: - Personal history of nicotine dependence - Unspecified cirrhosis of liver - Other correction (current) drug therapy - Allergy status to other drugs, medicaments and biological substances status - Allergy status to penicillin 10/29/2018 05:35 [facility] [place] TYPE: Emergency COMPLAINT: - CONFUSION 10/27/2018 01:30 [facility] [place] TYPE: Emergency COMPLAINT: - URINE PROBLEMS DIAGNOSES: - Other terminal makeup operator (current) drug therapy - Personal history of nicotine dependence - Retention of urine, unspecified 10/25/2018 14:26 [facility] [place] TYPE: Emergency COMPLAINT: - DISORIENTATED DIAGNOSES: - Other correction (current) drug therapy - Personal history of nicotine dependence - Hepatic failure, unspecified without coma - Disorientation, unspecified - Unspecified cirrhosis of liver - Personal history of other infectious and parasitic diseases 10/21/2018 19:25 [facility] [place] TYPE: Emergency COMPLAINT: - ABD PAIN DIAGNOSES: - Personal history of nicotine dependence - Chronic hepatic failure without coma - Unspecified abdominal pain - Other correction (current) drug therapy 10/06/2018 18:43 [facility] [place] TYPE: Emergency COMPLAINT: - LEG SWELLING 09/30/2018 19:16 [facility] [place] TYPE: Emergency COMPLAINT: - SOB, CHEST FEELS HEAVY DIAGNOSES: - Personal history of other infectious and parasitic diseases - Personal history of nicotine dependence - Other chest pain - Unspecified cirrhosis of liver - Other correction (current) drug therapy 08/07/2018 12:09 [facility] [place] TYPE: Emergency COMPLAINT: - ABD PAIN 04/19/2018 07:40 [facility] [place] TYPE: Emergency COMPLAINT: - POSS STROKE 04/06/2018 06:25 [facility] [place] TYPE: Emergency COMPLAINT: - VOMITING BLOOD DIAGNOSES: - Gastrointestinal hemorrhage, unspecified - Nicotine dependence, unspecified, uncomplicated - Hematemesis - Other terminal makeup operator (current) drug therapy - Unspecified cirrhosis of liver 04/05/2018 17:30 [facility] [place] TYPE: Emergency COMPLAINT: - ABDOMINAL PAIN DIAGNOSES: - Constipation, unspecified - Other terminal makeup operator (current) drug therapy - Nicotine dependence, unspecified, uncomplicated - Unspecified abdominal pain 04/04/2018 15:18 LA[facility] Lanza TYPE: Emergency COMPLAINT: - POSS HERNIA DIAGNOSES: - Encounter for other general examination 03/31/2018 18:03 LA[facility] Lanza TYPE: Emergency COMPLAINT: - ABD PAIN DIAGNOSES: - Nicotine dependence, unspecified, uncomplicated - Ventral hernia without obstruction or gangrene - Other correction (current) drug therapy Plus 1 More Visit INPATIENT VISIT TRACKING (12 MO.) 11/07/2018 22:34 [facility] TYPE: Surgical Services DIAGNOSES: [...] - Chronic hepatic failure without coma - detention (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 antibiotics - Personal history of nicotine dependence - Patient's other noncompliance with medication regimen - Other terminal makeup operator (current) drug therapy - Personal history of [...] obstructive pulmonary disease, unspecified - Other terminal makeup operator (current) drug therapy - Metabolic encephalopathy - Patient's other noncompliance with medication regimen - Unspecified cirrhosis of liver 08/07/2018 12:10 [facility] [place] [place] TYPE: Observation COMPLAINT: - INCARCERATED UMBILICAL HERNIA DIAGNOSES: - Diaphragmatic hernia without obstruction or gangrene - Other disorders of phosphorus metabolism - Chronic obstructive pulmonary disease, unspecified - Hypomagnesemia - Cachexia - Unspecified cirrhosis of liver - Other terminal makeup operator (current) drug therapy - Personal history of nicotine dependence - Hepatic failure, unspecified without coma - Other stimulant abuse, in remission - Umbilical hernia with obstruction, without gangrene - terminal carman (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 antibiotics - Unspecified viral [...] C without hepatic coma - Other terminal makeup operator (current) drug therapy - Secondary esophageal varices without bleeding 04/06/2018 13:13 [facility] [place] TYPE: General Medicine DIAGNOSES: - Ascities [id number]
== END 2018-11-15 20:40 | disposition left against medical advice (07) ==
LOC: ED 20:18
DX: R11.2 Nausea with vomiting, unspecified (principal); Z53.21 Procedure and treatment not carried out due to patient leaving prior to being seen by health care provider

== ENCOUNTER 2018-11-16 19:39 | Emergency (ER) | payer OTHER ==
[~2018-11-16] VITALS: Ht 177.8 cm; Wt 73.1 kg
--- OUTSIDE RECORDS SUMMARY | 2018-11-16 19:42 | XMS ---
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 Care History Medical/Surgical 11/14/2018 [facility] - QUYNH [facility] CASE MANAGEMENT STATED PATIENT HAS BEEN DISCHARGED FROM THEIR SERVICES DUE TO NO CONTACT. PATIENT DOES NOT RETURN CALLS. 11/06/2018 [facility] - PATIENT HAS AN APT WITH DR ZHU ON 11/15/18. - PATIENT HAS FOLLOWED UP WITH PCP OFFICE-[facility]. - CHW MADE A REFERRAL TO [facility]- CASE MANAGEMENT DEPT. PATIENT IS AN [place] PATIENT AND WOULD BENEFIT FROM CLOSE FOLLOW UP. 08/08/2018 [facility] - APT WITH PCP DR ZHU ON [...] care. E.D. VISIT COUNT (12 MO.) [address] [facility] TOTAL [facility] NOTE: Visits indicate total known visits. 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 - Personal history of nicotine dependence - Allergy status to penicillin - Unspecified abdominal hernia without obstruction or gangrene 11/12/2018 00:21 LA[facility]za TYPE: Emergency COMPLAINT: - WEAKNESS/DIZZINESS DIAGNOSES: - Allergy status to penicillin - Unspecified cirrhosis of liver - Other usp (current) drug therapy - Weakness - Allergy status to other antibiotic agents status - Personal history of nicotine dependence [facility]2018 [facility] DIAGNOSES: - Internal bleeding, mass on liver, dr marquis to come in - Medical Problem (Major) - Chronic viral hepatitis C - GI Bleeding - Gastrointestinal hemorrhage, unspecified - Hematemesis 11/05/2018 16:55 LAUR[facility] Lanza TYPE: Emergency COMPLAINT: - ABD PAIN DIAGNOSES: - 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 - Allergy status to other antibiotic agents status - Allergy status to penicillin - Other chronic pain - Lower abdominal pain, unspecified - Personal history of nicotine dependence 11/03/2018 20:00 [facility] [place] TYPE: Emergency COMPLAINT: - HERNIA PAIN DIAGNOSES: - Ventral hernia without obstruction or gangrene - Unspecified cirrhosis of liver - Other usp (current) drug therapy - Allergy status to penicillin - Personal history of nicotine dependence - Unspecified abdominal pain 10/31/2018 20:47 [facility] [place] TYPE: Emergency COMPLAINT: - ABDOMINAL PAIN DIAGNOSES: - Personal history of nicotine dependence - Unspecified cirrhosis of liver - 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 - Allergy status to other drugs, medicaments and biological substances status - Allergy status to penicillin 10/29/2018 05:35 [facility] [place] [place] TYPE: Emergency COMPLAINT: - CONFUSION 10/27/2018 01:30 [facility] [place] TYPE: Emergency COMPLAINT: - URINE PROBLEMS DIAGNOSES: - 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 - Personal history of nicotine dependence - Retention of urine, unspecified 10/25/2018 14:26 [facility] [place] TYPE: Emergency COMPLAINT: - DISORIENTATED DIAGNOSES: - 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 - Personal history of nicotine dependence - Hepatic failure, unspecified without coma - Disorientation, unspecified - Unspecified cirrhosis of liver - Personal history of other infectious and parasitic diseases 10/21/2018 19:25 [facility] [place] TYPE: Emergency COMPLAINT: - ABD PAIN DIAGNOSES: - Personal history of nicotine dependence - Chronic hepatic failure without coma - Unspecified abdominal pain - 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 10/06/2018 18:43 [facility] [place] TYPE: Emergency COMPLAINT: - LEG SWELLING 09/30/2018 19:16 [facility] [place] TYPE: Emergency COMPLAINT: - SOB, CHEST FEELS HEAVY DIAGNOSES: - Personal history of other infectious and parasitic diseases - Personal history of nicotine dependence - Other chest pain - Unspecified cirrhosis of liver - 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 08/07/2018 12:09 LAURO Rivas [...] PAIN DIAGNOSES: - Constipation, unspecified - 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 - Nicotine dependence, unspecified, uncomplicated - Unspecified abdominal pain 04/04/2018 15:18 [facility] [place] TYPE: Emergency COMPLAINT: - POSS HERNIA DIAGNOSES: - Encounter for other general examination Plus 2 More Visits INPATIENT VISIT TRACKING (12 MO.) 11/07/2018 22:34 [facility] [facility] TYPE: Surgical Services DIAGNOSES: - Secondary esophageal [...] - Chronic hepatic failure without coma - shelter (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 antibiotics - Personal history of nicotine dependence - Patient's other noncompliance with medication regimen - Other usp (current) drug therapy - [...] Chronic obstructive pulmonary disease, unspecified - Other usp (current) drug therapy - Metabolic encephalopathy - Patient's other noncompliance with medication regimen - Unspecified cirrhosis of liver 08/07/2018 12:10 [facility] [place] TYPE: Observation COMPLAINT: - INCARCERATED UMBILICAL HERNIA DIAGNOSES: - Diaphragmatic hernia without obstruction or gangrene - Other disorders of phosphorus metabolism - Chronic obstructive pulmonary disease, unspecified - Hypomagnesemia - Cachexia - Unspecified cirrhosis of liver - 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 - Personal history of nicotine dependence - Hepatic failure, unspecified without coma - Other stimulant abuse, in remission - Umbilical hernia with obstruction, without gangrene - shelter (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 antibiotics - Unspecified viral [...] hepatitis C without hepatic coma - 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 - Secondary esophageal varices without bleeding 04/06/2018 13:13 [facility] TYPE: General Medicine DIAGNOSES: - Ascities [email or web address]
[2018-11-17] MEDS ORDERED: POTASSIUM CHLO20 ME1 PO (16:25)
== END 2018-11-16 22:07 | disposition home or self-care (01) ==
LOC: ED 19:39
DX: K74.60 Unspecified cirrhosis of liver (principal); Z87.891 Personal history of nicotine dependence; Z88.0 Allergy status to penicillin; Z88.1 Allergy status to other antibiotic agents; Z79.899 Other long term (current) drug therapy
CPT/HCPCS: 96372; 99283-25; J2550

== ENCOUNTER 2018-11-17 16:19 | Emergency (ER) | payer OTHER ==
[~2018-11-17] VITALS: Ht 177.8 cm; Wt 73.1 kg
--- OUTSIDE RECORDS SUMMARY | 2018-11-17 16:22 | XMS ---
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 Care History Medical/Surgical 11/14/2018 [facility] - QUYNH [place] [facility] CASE MANAGEMENT STATED PATIENT HAS BEEN DISCHARGED FROM THEIR SERVICES DUE TO NO CONTACT. PATIENT DOES NOT RETURN CALLS. 11/06/2018 [facility] - PATIENT HAS AN APT WITH DR ZHU ON 11/15/18. - PATIENT HAS FOLLOWED UP WITH PCP OFFICE-[facility]. - CHW MADE A REFERRAL TO [facility]- CASE MANAGEMENT DEPT. PATIENT IS AN [place] PATIENT AND WOULD BENEFIT FROM CLOSE FOLLOW UP. 08/08/2018 [facility] - APT WITH PCP DR ZHU ON 11/19/2018 - Patient is currently established with [facility]. If patient is seen in the ED during business hours. Please contact CHWs at [facility]. Care Recommendation: This patient has had 5 [...] care. E.D. VISIT COUNT (12 MO.) [address] [facility] NOTE: Visits indicate total known visits. 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 - Allergy status to penicillin - Nausea with vomiting, unspecified - Nausea 11/13/2018 20:48 LAURO Lanza TYPE: Emergency COMPLAINT: - HERNIA PAIN/VOMITING DIAGNOSES: - Allergy status to other antibiotic agents status - Unspecified abdominal pain - 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 - Personal history of nicotine dependence - Allergy status to penicillin - Unspecified abdominal hernia without obstruction or gangrene 11/12/2018 00:21 LAURO Lanza TYPE: Emergency COMPLAINT: - WEAKNESS/DIZZINESS DIAGNOSES: - Allergy status to penicillin - Unspecified cirrhosis of liver - 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 - Weakness - Allergy status to other antibiotic agents status - Personal history of nicotine dependence [facility] DIAGNOSES: - Internal bleeding, mass on liver, dr marquis to come in - Medical Problem (Major) - Chronic viral hepatitis C - GI Bleeding - Gastrointestinal hemorrhage, unspecified - Hematemesis 11/05/2018 16:55 [facility] [place] TYPE: Emergency COMPLAINT: - ABD PAIN DIAGNOSES: - Other skilled nursing (current) drug therapy - Allergy status to other antibiotic agents status - Allergy status to penicillin - Other chronic pain - Lower abdominal pain, unspecified - Personal history of nicotine dependence 11/03/2018 20:00 [facility] [place] TYPE: Emergency COMPLAINT: - HERNIA PAIN DIAGNOSES: - Ventral hernia without obstruction or gangrene - Unspecified cirrhosis of liver - Other skilled nursing (current) drug therapy - Allergy status to penicillin - Personal history of nicotine dependence - Unspecified abdominal pain 10/31/2018 20:47 [facility] [place] TYPE: Emergency COMPLAINT: - ABDOMINAL PAIN DIAGNOSES: - Personal history of nicotine dependence - Unspecified cirrhosis of liver - Other skilled nursing (current) drug therapy - Allergy status to other drugs, medicaments and biological substances status - Allergy status to penicillin 10/29/2018 05:35 LAURO Webberony Andrés Vill[place] TYPE: Emergency COMPLAINT: - CONFUSION 10/27/2018 01:30 [facility] [place] TYPE: Emergency COMPLAINT: - URINE PROBLEMS DIAGNOSES: - 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 - Personal history of nicotine dependence - Retention of urine, unspecified 10/25/2018 14:26 [facility] [place] TYPE: Emergency COMPLAINT: - DISORIENTATED DIAGNOSES: - Other skilled nursing (current) drug therapy - Personal history of nicotine dependence - Hepatic failure, unspecified without coma - Disorientation, unspecified - Unspecified cirrhosis of liver - Personal history of other infectious and parasitic diseases 10/21/2018 19:25 [facility] [place] TYPE: Emergency COMPLAINT: - ABD PAIN DIAGNOSES: - Personal history of nicotine dependence - Chronic hepatic failure without coma - Unspecified abdominal pain - Other skilled nursing (current) drug therapy 10/06/2018 18:43 [facility] [place] TYPE: Emergency COMPLAINT: - LEG SWELLING 09/30/2018 19:16 [facility] [place] TYPE: Emergency COMPLAINT: - SOB, CHEST FEELS HEAVY DIAGNOSES: - Personal history of other infectious and parasitic diseases - Personal history of nicotine dependence - Other chest pain - Unspecified cirrhosis of liver - 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 08/07/2018 12:09 [facility] [place] TYPE: Emergency COMPLAINT: - ABD PAIN 04/19/2018 07:40 [facility] [place] TYPE: Emergency COMPLAINT: - POSS STROKE 04/06/2018 06:25 [facility] [place] TYPE: Emergency COMPLAINT: - VOMITING BLOOD DIAGNOSES: - Gastrointestinal hemorrhage, unspecified - Nicotine dependence, unspecified, uncomplicated - Hematemesis - 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 - Unspecified cirrhosis of liver 04/05/2018 17:30 [facility] [place] TYPE: Emergency COMPLAINT: - ABDOMINAL PAIN DIAGNOSES: - Constipation, unspecified - Other skilled nursing (current) drug therapy - Nicotine dependence, unspecified, uncomplicated - Unspecified abdominal pain Plus 3 More Visits INPATIENT VISIT TRACKING (12 MO.) 11/07/2018 22:34 [facility] Rachel Last [place] MARYCHUY TYPE: Surgical Services DIAGNOSES: - Secondary [...] - Chronic hepatic failure without coma - 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 - Personal history of nicotine dependence - Patient's other noncompliance with medication regimen - Other skilled nursing (current) drug therapy - Personal history of [...] Chronic obstructive pulmonary disease, unspecified - Other skilled nursing (current) drug therapy - Metabolic encephalopathy - Patient's other noncompliance with medication regimen - Unspecified cirrhosis of liver 08/07/2018 12:10 [facility] [place] TYPE: Observation COMPLAINT: - INCARCERATED UMBILICAL HERNIA DIAGNOSES: - Diaphragmatic hernia without obstruction or gangrene - Other disorders of phosphorus metabolism - Chronic obstructive pulmonary disease, unspecified - Hypomagnesemia - Cachexia - Unspecified cirrhosis of liver - Other skilled nursing (current) drug therapy - Personal history of nicotine dependence - Hepatic failure, unspecified without coma - Other stimulant abuse, in remission - Umbilical hernia with obstruction, without gangrene - custodial (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 antibiotics - Unspecified viral [...] hepatitis C without hepatic coma - Other skilled nursing (current) drug therapy - Secondary esophageal varices without bleeding 04/06/2018 13:13 [facility] Mendoza [place] TYPE: General Medicine DIAGNOSES: - Ascities [email or web address]
[2018-11-17] MEDS ORDERED: POTASSIUM CHLO20 ME1 PO (16:25)
== END 2018-11-17 19:19 | disposition home or self-care (01) ==
LOC: ED 16:19
DX: K72.90 Hepatic failure, unspecified without coma (principal); Z87.891 Personal history of nicotine dependence; Z88.0 Allergy status to penicillin; Z88.1 Allergy status to other antibiotic agents; Z79.899 Other long term (current) drug therapy
CPT/HCPCS: 80053; 82140; 85025; 85610; 99284

== ENCOUNTER 2018-11-21 02:22 | Emergency (ER) | payer OTHER ==
[~2018-11-21] VITALS: Ht 177.8 cm; Wt 73.1 kg
[~2018-11-21 02:22] MED LIST changes: +POTASSIUM CHLO20 ME1 PO
--- OUTSIDE RECORDS SUMMARY | 2018-11-21 02:24 | XMS ---
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 [employer] Events 1 event(s) in the past 18 months Most recent security events: Elopement at [facility] 11/15/2018 20:19 - Other Details: PATIENT LWBS CRITERIA MET - Group Notification - 6 ED Visits in 6 Months - [facility] - Has Care Guidelines - [facility] - 2 Visits in 30 Days CARE PROVIDERS Francisco Salamanca Internal Medicine: Pulmonary Disease 10/29/2018-Current PHONE: Unknown SANAM ZHU Internal Medicine 08/08/2018-Current VEERAPPA PHONE: [phone] GEORGE BHATTI Family Medicine: Sports Medicine 04/02/2018-Current PHONE: Unknown [place] has no Care Guidelines for this patient. Care History Medical/Surgical 11/14/2018 [facility] - QUYNH AT [facility] CASE MANAGEMENT STATED PATIENT HAS BEEN DISCHARGED FROM THEIR SERVICES DUE TO NO CONTACT. PATIENT DOES NOT RETURN CALLS. 11/06/2018 [facility] - PATIENT HAS AN APT WITH DR ZHU ON 11/15/18. - PATIENT HAS FOLLOWED UP WITH PCP OFFICE-[facility]. - CHW MADE A REFERRAL TO [facility]- CASE MANAGEMENT DEPT. PATIENT IS AN EOCCO PATIENT AND WOULD BENEFIT FROM CLOSE FOLLOW UP. 08/08/2018 [facility] - APT WITH PCP DR ZHU ON 11/19/2018 - Patient is currently established with [facility]. If patient is seen in the ED during business hours. Please contact CHWs at [facility]. Care Recommendation: This patient has [...] care. E.D. VISIT COUNT (12 MO.) [address] Rachel Donaldson [address] [facility]. TOTAL 24 NOTE: Visits indicate total known visits. 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 - Nausea with vomiting, unspecified - Unspecified cirrhosis of liver - Personal history of nicotine dependence - Allergy status to other antibiotic agents status 11/15/2018 20:19 [facility] [place] TYPE: Emergency COMPLAINT: - VOMITING DIAGNOSES: - Procedure and treatment not carried out due to patient leaving prior to being seen by health care provider - Nausea with vomiting, unspecified 11/14/2018 00:19 [facility] [place] TYPE: Emergency COMPLAINT: - NAUSEA DIAGNOSES: - Personal history of nicotine dependence - Allergy status to other drugs, medicaments and biological substances status - Other detention (current) drug therapy - Allergy status to penicillin - Nausea with vomiting, unspecified - Nausea 11/13/2018 20:48 [facility] [place] TYPE: Emergency COMPLAINT: - HERNIA PAIN/VOMITING DIAGNOSES: - Allergy status to other antibiotic agents status - Unspecified abdominal pain - Other detention (current) drug therapy - Personal history of nicotine dependence - Allergy status to penicillin - Unspecified abdominal hernia without obstruction or gangrene 11/12/2018 00:21 [facility] [place] TYPE: Emergency COMPLAINT: - WEAKNESS/DIZZINESS DIAGNOSES: - Allergy status to penicillin - Unspecified cirrhosis of liver - 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 - Weakness - Allergy status to other antibiotic agents status - Personal history of nicotine dependence 11/07/2018 22:34 [facility] Mendoza PERRIN TYPE: Emergency DIAGNOSES: - Internal bleeding, mass on liver, dr marquis to come in - Medical Problem (Major) - Chronic viral hepatitis C - GI Bleeding - Gastrointestinal hemorrhage, unspecified - Hematemesis 11/05/2018 16:55 LAURO Lanza TYPE: Emergency COMPLAINT: - ABD PAIN DIAGNOSES: - Other detention (current) drug therapy - Allergy status to other antibiotic agents status - Allergy status to penicillin - Other chronic pain - Lower abdominal pain, unspecified - Personal history of nicotine dependence 11/03/2018 20:00 [facility] [place] TYPE: Emergency COMPLAINT: - HERNIA PAIN DIAGNOSES: - Ventral hernia without obstruction or gangrene - Unspecified cirrhosis of liver - Other detention (current) drug therapy - Allergy status to penicillin - Personal history of nicotine dependence - Unspecified abdominal pain 10/31/2018 20:47 [facility] [place] TYPE: Emergency COMPLAINT: - ABDOMINAL PAIN DIAGNOSES: - Personal history of nicotine dependence - Unspecified cirrhosis of liver - 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 - Allergy status to other drugs, medicaments and biological substances status - Allergy status to penicillin 10/29/2018 05:35 [facility] [place] TYPE: Emergency COMPLAINT: - CONFUSION 10/27/2018 01:30 [facility] [place] TYPE: Emergency COMPLAINT: - URINE PROBLEMS DIAGNOSES: - 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 - Personal history of nicotine dependence - Retention of urine, unspecified 10/25/2018 14:26 [facility] [place] TYPE: Emergency COMPLAINT: - DISORIENTATED DIAGNOSES: - Other detention (current) drug therapy - Personal history of nicotine dependence - Hepatic failure, unspecified without coma - Disorientation, unspecified - Unspecified cirrhosis of liver - Personal history of other infectious and parasitic diseases 10/21/2018 19:25 [facility] [place] TYPE: Emergency COMPLAINT: - ABD PAIN DIAGNOSES: - Personal history of nicotine dependence - Chronic hepatic failure without coma - Unspecified abdominal pain - 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 10/06/2018 18:43 [facility] [place] TYPE: Emergency COMPLAINT: - LEG SWELLING 09/30/2018 19:16 [facility] [place] TYPE: Emergency COMPLAINT: - SOB, CHEST FEELS HEAVY DIAGNOSES: - Personal history of other infectious and parasitic diseases - Personal history of nicotine dependence - Other chest pain - Unspecified cirrhosis of liver - Other detention (current) drug therapy 08/07/2018 12:09 [facility] [place] TYPE: Emergency COMPLAINT: - ABD PAIN 04/19/2018 07:40 [facility] [place] TYPE: Emergency COMPLAINT: - POSS STROKE 04/06/2018 06:25 [facility] [place] [place] TYPE: Emergency COMPLAINT: - VOMITING BLOOD DIAGNOSES: - Gastrointestinal hemorrhage, unspecified - Nicotine dependence, unspecified, uncomplicated - Hematemesis - Other detention (current) drug therapy - Unspecified cirrhosis of liver Plus 4 More Visits INPATIENT VISIT TRACKING (12 MO.) 11/07/2018 22:34 [facility] Rachel PERRIN TYPE: Surgical Services DIAGNOSES: - [...] other noncompliance with medication regimen - 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 - Personal history of [...] Chronic obstructive pulmonary disease, unspecified - Other detention (current) drug therapy - Metabolic encephalopathy - Patient's other noncompliance with medication regimen - Unspecified cirrhosis of liver 08/07/2018 12:10 [facility] [place]ivas [place] TYPE: Observation COMPLAINT: - INCARCERATED UMBILICAL HERNIA DIAGNOSES: - Diaphragmatic hernia without obstruction or gangrene - Other disorders of phosphorus metabolism - Chronic obstructive pulmonary disease, unspecified - Hypomagnesemia - Cachexia - Unspecified cirrhosis of liver - 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 DIAGNOSES: - Ascities [id number]
== END 2018-11-21 04:12 | disposition home or self-care (01) ==
LOC: ED 02:22
DX: R25.2 Cramp and spasm (principal); Z79.899 Other long term (current) drug therapy; Z87.891 Personal history of nicotine dependence; Z88.0 Allergy status to penicillin; Z88.8 Allergy status to other drugs, medicaments and biological substances
CPT/HCPCS: 36415; 80053; 99283